=== PATIENT | female | born 1975 | race Caucasian/White ===

== ENCOUNTER 2016-04-26 12:35 | Emergency (ER) | payer MEDICARE, OTHER ==
--- NOTE | 2016-04-26 13:45 | ED ---
General Adult HPI - General Chief complaint: Wound/Laceration Stated complaint: Hand laceration Time Seen by Provider: 04/26/16 13:31 Source: patient, RN notes reviewed Mode of arrival: ambulatory Limitations: no limitations - History of Present Illness Initial comments: This 40-year-old female with a laceration of the right ring finger. Patient states this happened about 1 hour ago. Patient states she was washing a coffee cup when it broke and cut her finger. Patient is up-to-date on her tetanus shot. Patient denies any numbness/weakness or tingling. Patient is not on any anticoagulants.Patient denies any recent fever, chills, shortness breath, chest pain, abdominal pain, nausea/vomiting/diarrhea, back pain, hematuria, headache , or visual changes, or any other complaints. - Related Data Home Medications Medication Instructions Recorded Confirmed HYDROcodone/APAP 7.5-325MG [[place] 1 tab PO TID PRN 04/04/15 04/26/16 7.5-325] Lisinopril [Zestril] 5 mg PO DAILY 04/05/15 04/26/16 Tolterodine Tartrate [Detrol LA] 2 mg PO DAILY 04/05/15 04/26/16 Albuterol Inhaler [Ventolin Hfa 2 puff INHALATION RT-Q4H PRN 10/20/15 04/26/16 Inhaler] Cetirizine HCl [Zyrtec] 10 mg PO DAILY 10/20/15 04/26/16 Famotidine [Famotidine] 20 mg PO AC-TID 10/20/15 04/26/16 Fluticasone Nasal [place] [Flonase 1 spray EA NOSTRIL BID 10/20/15 04/26/16 Nasal [place]] Magnesium Oxide [Mag-Ox] 400 mg PO DAILY 10/20/15 04/26/16 Ondansetron [Zofran] 4 mg PO BID PRN 10/20/15 04/26/16 QUEtiapine FUMARATE [SEROquel XR] 300 mg PO HS 10/20/15 04/26/16 Sertraline [Zoloft] 200 mg PO DAILY 01/01/16 04/26/16 Previous Rx's Medication Instructions Recorded Hydrocodone/Acetaminophen [[place] 1 tab PO Q6HR PRN #10 tab 01/01/16 5-325] Ondansetron Odt [Zofran Odt] 4 mg PO Q8HR PRN #10 tab 01/01/16 Cephalexin [Keflex] 500 mg PO Q12HR 7 Days 04/26/16 Allergies Allergy/AdvReac Type Severity Reaction Status Date / Time adhesive Allergy Rash/Hives Verified 01/01/16 17:56 aspirin Allergy Anaphylaxis Verified 01/01/16 17:56 venlafaxine HCl Allergy Swelling Verified 01/01/16 17:56 [From Effexor] venom-honey bee Allergy Rash/Hives Verified 01/01/16 17:56 [bee venom (honey bee)] Review of Systems ROS Statement: Those systems with pertinent positive or pertinent negative responses have been documented in the HPI. ROS Other: All systems not noted in ROS Statement are negative. Past Medical History Past Medical History: Asthma, COPD, Fibromyalgia, Hypertension, Seizure Disorder Additional Past Medical History / Comment(s): Chronic back pain History of Any Multi-Drug Resistant Organisms: None Reported Past Surgical History: Cholecystectomy, Orthopedic Surgery, Tonsillectomy, Tubal Ligation Additional Past Surgical History / Comment(s): right knee arthroscopy, hysterectomy, [facility] Past Anesthesia/Blood Transfusion Reactions: No Reported Reaction Past Psychological History: Anxiety, Bipolar, Depression Smoking Status: Former smoker Past Alcohol Use History: None Reported Additional Past Alcohol Use History / Comment(s): Patient was a smoker of one half pack per day for 27 years and quit in May 2014. She denies any medical marijuana, marijuana, street drug or alcohol use. Past Drug Use History: None Reported - Past Family History Father Additional Family Medical History / Comment(s): Father is alive at age 67 with history of aneurysm Mother Additional Family Medical History / Comment(s): Mother is alive at age 63 with history of bipolar. Brother(s) Additional Family Medical History / Comment(s): Patient has 2 brothers that are healthy. She has no sisters. She has 2 sons and 1 daughter that are healthy. General Exam - General Exam Comments Initial Comments: General: The patient is awake and alert, in no distress, and does not appear acutely ill. Neck: The neck is supple, there is no tenderness or JVD. Cardiovascular: There is a regular rate and rhythm. No murmur, rub or gallop is appreciated. Respiratory: Lungs are clear to auscultation, respirations are non-labored, breath sounds are equal. No wheezes, stridor, rales, or rhonchi. Musculoskeletal: Full range of motion, strength 5/5. Sensation intact. Radial pulses 2+ bilaterally. Capillary refill is less than 2 seconds. Neurological: A&O x 3. CN II-XII intact, There are no obvious motor or sensory deficits. Coordination appears grossly intact. Speech is normal. Skin: There is an approximately 1.5 cm laceration over the PIP joint of the right fourth digit. Skin is warm and dry and no rashes or lesions are noted. Psychiatric: Normal mood and affect. Limitations: no limitations Course Vital Signs 04/26/16 12:45 Temperature 97.4 F L Pulse Rate 74 Respiratory 20 Rate Blood Pressure 146/79 O2 Sat by Pulse 99 Oximetry Procedures - Procedures Initial comment: The skin was anesthetized with 1% lidocaine. The laceration was then cleansed and irrigated with normal saline. The wound was inspected, and there was no evidence of injury to deep structures. No foreign body was noted in the wound. A total of 4 skin sutures were placed utilizing 5-0 Ethilon. Laceration is approx 1.5 cm. patient tolerated procedure well. Medical Decision Making - Medical Decision Making This is a 41-year-old female who presents laceration to the right fourth digit. On physical exam There is an approximately 1.5 cm laceration over the PIP joint of the right fourth digit. Full range of motion, strength 5/5 and sensation intact. Radial pulses 2+ bilaterally. Capillary refill is normal at less than 2 seconds. Patient is up-to-date on her tetanus shot. An x-ray of the right hand was done and reviewed showing:No definite acute fracture or dislocation if symptoms persist, follow-up study in 7 days would be suggested. Report read by Dr. [place] The skin was anesthetized with 1% lidocaine. The laceration was then cleansed and irrigated with normal saline. The wound was inspected, and there was no evidence of injury to deep structures. No foreign body was noted in the wound. A total of 4 skin sutures were placed utilizing 5-0 Ethilon. Laceration is approx 1.5 cm. I discussed that sutures need to be removed in 8-10 days. I discussed that rinsing and showering are okay but to avoid submerging the wound in water. Discussed [id number] Tylenol and Motrin as needed for any pain. I discussed use of topical Neosporin. I discussed return parameters and signs of infection.Discussed that patient should follow up with PCP in one to 2 days or return to the [facility] for any worsening symptoms or for any further concerns. Patient was receptive to this plan and patient will be discharged home. Disposition Clinical Impression: Laceration Disposition: HOME SELF-CARE Condition: Good Instructions: Care For Your Stitches (ED), Stitches Removal (ED) Additional Instructions: Please have sutures removed in 8-10 days. Please do not submerge the wound in water, but rinsing and showering are okay. May use topical Neosporin to the area. Please use [id number] Tylenol and or Motrin as needed for any pain. Please finish entire course of antibiotics. Please follow-up with family doctor in the next 2 days of symptoms have not improved. Please return to emergency room if the symptoms increase or worsen or for any other concerns. Prescriptions: Cephalexin [Keflex] 500 mg PO Q12HR 7 Days Referrals: Chan Jain MD [Primary Care Provider] - 1-2 days Time of Disposition: 14:22
--- NOTE | 2016-04-26 13:55 | XR ---
EXAMINATION TYPE: XR hand complete RT DATE OF EXAM: 04/26/2016 1:50 PM COMPARISON: NONE HISTORY: Laceration and pain fourth digit. FINDINGS: The osseous structures are intact. The joint spaces are preserved and there is no acute fracture or dislocation. No radio metallic foreign body. IMPRESSION: 1. No definite acute fracture or dislocation if symptoms persist, follow-up study in 7 to 10 days wo uld be suggested
[2016-04-26 14:32] VITALS: BP 142/65; PULSE 77; RESP 18; TEMP 98
== END 2016-04-26 14:34 | disposition home or self-care (01) ==
LOC: EC 12:35
DX: S61.214A Laceration without foreign body of right ring finger without damage to nail, initial encounter (principal); W45.8XXA Other foreign body or object entering through skin, initial encounter; Y93.G1 Activity, food preparation and clean up; Z79.899 Other long term (current) drug therapy; Z79.51 Long term (current) use of inhaled steroids; Z88.6 Allergy status to analgesic agent; Z91.030 Bee allergy status; Z88.8 Allergy status to other drugs, medicaments and biological substances; Z91.048 Other nonmedicinal substance allergy status; I10 Essential (primary) hypertension; F41.8 Other specified anxiety disorders; F31.9 Bipolar disorder, unspecified; Z87.891 Personal history of nicotine dependence
CPT/HCPCS: 12001; 99283

== ENCOUNTER 2016-05-11 17:40 | Emergency (ER) | payer MEDICARE, OTHER ==
--- NOTE | 2016-05-11 18:22 | ED ---
Psych HPI - General Chief Complaint: Psychiatric Symptoms Stated Complaint: mental health Time Seen by Provider: 05/11/16 18:04 Source: patient, RN notes reviewed Mode of arrival: ambulatory - History of Present Illness Initial Comments: 41 yo female presents to the ER with cc of suicidal ideation. Patient states that she's been having suicidal thoughts for the last day or so. Patient states that she has been seeing a counselor however she stopped seeing a psychiatrist that she has not been out of balance for about one month. Patient states that she plans to hang herself or walk onto the road with cars. Patient states that she is not suffering any health issues. Patient states she did not take anything at home. Patient states she talked her family and they brought her here. Patient states she is not homicidal. Patient states that she has been admitted before and she has had suicide attempt in the past.P atient denies any recent fever, chills, shortness of breath, chest pain, back pain, abdominal pain, nausea vomiting, numbness or tingling, dysuria or hematuria, constipation or diarrhea, headaches or visual changes, or any other current symptoms. - Related Data Home Medications Medication Instructions Recorded Confirmed HYDROcodone/APAP 7.5-325MG [[place] 1 tab PO TID PRN 04/04/15 05/11/16 7.5-325] Lisinopril [Zestril] 5 mg PO DAILY 04/05/15 05/11/16 Tolterodine Tartrate [Detrol LA] 2 mg PO DAILY 04/05/15 05/11/16 Albuterol Inhaler [Ventolin Hfa 2 puff INHALATION RT-Q4H PRN 10/20/15 05/11/16 Inhaler] Cetirizine HCl [Zyrtec] 10 mg PO DAILY 10/20/15 05/11/16 Famotidine [Famotidine] 20 mg PO AC-TID 10/20/15 05/11/16 Fluticasone Nasal [place] [Flonase 1 spray EA NOSTRIL BID 10/20/15 05/11/16 Nasal [place]] Magnesium Oxide [Mag-Ox] 400 mg PO DAILY 10/20/15 05/11/16 QUEtiapine FUMARATE [SEROquel XR] 300 mg PO HS 10/20/15 05/11/16 Sertraline [Zoloft] 200 mg PO DAILY 01/01/16 05/11/16 Gabapentin [Neurontin] 100 mg PO TID 05/11/16 05/11/16 Previous Rx's Medication Instructions Recorded Ondansetron Odt [Zofran Odt] 4 mg PO Q8HR PRN #10 tab 01/01/16 Allergies Allergy/AdvReac Type Severity Reaction Status Date / Time adhesive Allergy Rash/Hives Verified 05/11/16 19:18 aspirin Allergy Anaphylaxis Verified 05/11/16 19:18 venlafaxine HCl Allergy Swelling Verified 05/11/16 19:18 [From Effexor] venom-honey bee Allergy Rash/Hives Verified 05/11/16 19:18 [bee venom (honey bee)] Review of Systems ROS Statement: Those systems with pertinent positive or pertinent negative responses have been documented in the HPI. ROS Other: All systems not noted in ROS Statement are negative. Past Medical History Past Medical History: Asthma, COPD, Fibromyalgia, Hypertension, Seizure Disorder Additional Past Medical History / Comment(s): Chronic back pain History of Any Multi-Drug Resistant Organisms: None Reported Past Surgical History: Cholecystectomy, Hysterectomy, Orthopedic Surgery, Tonsillectomy, Tubal Ligation Additional Past Surgical History / Comment(s): right knee arthroscopy, hysterectomy, [facility] Past Anesthesia/Blood Transfusion Reactions: No Reported Reaction Past Psychological History: Anxiety, Bipolar, Depression Smoking Status: Current every day smoker Past Alcohol Use History: None Reported Additional Past Alcohol Use History / Comment(s): Patient was a smoker of one half pack per day for 27 years and quit in May 2014. She denies any medical marijuana, marijuana, street drug or alcohol use. Past Drug Use History: None Reported - Past Family History Father Additional Family Medical History / Comment(s): Father is alive at age 67 with history of aneurysm Mother Additional Family Medical History / Comment(s): Mother is alive at age 63 with history of bipolar. Brother(s) Additional Family Medical History / Comment(s): Patient has 2 brothers that are healthy. She has no sisters. She has 2 sons and 1 daughter that are healthy. General Exam Limitations: no limitations General appearance: alert, in no apparent distress Head exam: Present: atraumatic, normocephalic, normal inspection Neck exam: Present: normal inspection. Absent: tenderness, meningismus, lymphadenopathy Respiratory exam: Present: normal lung sounds bilaterally. Absent: respiratory distress, wheezes, rales, rhonchi, stridor Cardiovascular Exam: Present: regular rate, normal rhythm, normal heart sounds. Absent: systolic murmur, diastolic murmur, rubs, gallop, clicks Neurological exam: Present: alert, oriented X3, CN II-XII intact. Absent: motor sensory deficit Psychiatric exam: Present: depressed, suicidal ideation. Absent: homicidal ideation Skin exam: Present: warm, dry, intact, normal color. Absent: rash Course Vital Signs 05/11/16 17:51 Temperature 97.2 F L Pulse Rate 86 Respiratory 18 Rate Blood Pressure 188/89 O2 Sat by Pulse 98 Oximetry Medical Decision Making - Medical Decision Making 41-year-old female presents emergency Department chief complaint of suicidal ideation. Patient does have a plan earlier but currently does not have a plan. Patient does not recent acute medical emergencies. This and the patient is cleared to be evaluated by psychiatry. Patient [facility] Patient does contract for safety and states that she does feel safe there. At this time we did discuss follow-up with psychiatrist that she has appointment for in the morning. We discussed return parameters and all the patient's questions. She stated she understood all questions have been answered. She will be discharged. - Lab Data Lab Results 05/11/16 Range/Units 18:15 Urine Opiates Screen Not Detected (NotDetected) Ur Oxycodone Screen Not Detected (NotDetected) Urine Methadone Screen Not Detected (NotDetected) Ur Propoxyphene Screen Not Detected (NotDetected) Ur Barbiturates Screen Not Detected (NotDetected) U Tricyclic Antidepress Not Detected (NotDetected) Ur Phencyclidine Scrn Not Detected (NotDetected) Ur Amphetamines Screen Not Detected (NotDetected) U Methamphetamines Scrn Not Detected (NotDetected) U Benzodiazepines Scrn Not Detected (NotDetected) Urine Cocaine Screen Not Detected (NotDetected) U Marijuana (THC) Screen Not Detected (NotDetected) Disposition Clinical Impression: Depression Disposition: HOME SELF-CARE Condition: Stable Instructions: Depression (ED) Additional Instructions: Please use medication as discussed. Please follow up with family doctor if symptoms have not improved over the next two days. Please return to the emergency room if your symptoms increase or worsen or for any other concerns. Referrals: Chan Jain MD [Primary Care Provider] - 1-2 days Time of Disposition: 21:15
[2016-05-11 22:10] VITALS: BP 159/80; PULSE 78; RESP 16; TEMP 98.5
== END 2016-05-11 22:09 | disposition home or self-care (01) ==
LOC: EC 17:40
DX: F31.9 Bipolar disorder, unspecified (principal); J44.9 Chronic obstructive pulmonary disease, unspecified; J45.909 Unspecified asthma, uncomplicated; I10 Essential (primary) hypertension; F41.8 Other specified anxiety disorders; G40.909 Epilepsy, unspecified, not intractable, without status epilepticus; M79.7 Fibromyalgia; Z87.891 Personal history of nicotine dependence; Z79.899 Other long term (current) drug therapy; Z88.6 Allergy status to analgesic agent; Z88.8 Allergy status to other drugs, medicaments and biological substances; Z91.030 Bee allergy status; Z91.09 Other allergy status, other than to drugs and biological substances
CPT/HCPCS: 80306; 82075; 99284

== ENCOUNTER → 2016-06-16 | Outpatient (CLI) | payer MEDICARE, OTHER ==
[2016-06-16 09:55] LABS: ALT 32 U/L (9-52); AST 18 U/L (14-36); Alkaline Phosphatase 118 U/L (38-126); Anion Gap 8 mmol/L; Blood Urea Nitrogen 12 mg/dL (7-17); Calcium 9.8 mg/dL (8.4-10.2); Carbon Dioxide 32 mmol/L (22-30); Chloride 103 mmol/L (98-107); Cholesterol 204 mg/dL (<200); Glucose 96 mg/dL (74-99); HDL Cholesterol 74 mg/dL (40-60); Non-African American GFR(MDRD) >60 (>60 ml/min/1.73 sqM); Potassium 4.3 mmol/L (3.5-5.1); Sodium 143 mmol/L (137-145); Total Bilirubin 0.7 mg/dL (0.2-1.3); Total Protein 7.1 g/dL (6.3-8.2); Triglycerides 148 mg/dL (<150)
[2016-06-16 10:06] LABS: Basophils # (A) 0.1 k/uL (0-0.2); Basophils % (A) 1 %; CH 27.8; CHCM 32.4; Eosinophils # (A) 0.1 k/uL (0-0.7); Eosinophils % (A) 2 %; HCT 40.1 % (34.0-46.0); HDW 2.64; Luc # (Auto) 0.24; Luc % (Auto) 4; Lymphocytes # (A) 1.8 k/uL (1.0-4.8); Lymphocytes % (A) 29 %; MCHC 32.4 g/dL (31.0-37.0); MCV 86.2 fL (80.0-100.0); Mean Platelet Volume 8.2; Monocytes # (A) 0.2 k/uL (0-1.0); Monocytes % (A) 4 %; Neutrophils # (A) 3.8 k/uL (1.3-7.7); Neutrophils % (A) 61 %; RBC 4.65 m/uL (3.80-5.40); RDW 12.6 % (11.5-15.5); WBC 6.3 k/uL (3.8-10.6); WBC (Perox) 6.68
== END | disposition home or self-care (01) ==
LOC: LABWHC1 09:13
PROVIDERS: ATTEND Family Medicine
DX: Z00.00 Encounter for general adult medical examination without abnormal findings (principal); Z13.21 Encounter for screening for nutritional disorder
CPT/HCPCS: 36415; 80053; 80061; 82306; 84443; 85025

== ENCOUNTER → 2016-06-30 | Outpatient (CLI) | payer MEDICARE, OTHER ==
[2016-06-30 09:58] VITALS: BP 153/98; PULSE 66; TEMP 98.8; BMI 40.2
--- NOTE | 2016-06-30 12:53 | P.GSHP ---
History of Present Illness H&P Date: 06/30/16 Chief Complaint: morbid obesity BMI 40 41 years old female with morbid obesity BMI 40, height 5 feet 5.75 inches, weight 112.17 KG presents for bariatric surgery consultation. Patient has not decided about laparoscopic [place]-en-Y gastric bypass versus laparoscopic sleeve gastrectomy. She has attended weight loss seminar. She has attempted nonsurgical weight loss with special diets and has lost some weight but is unable to maintain sustained results. His comorbid conditions include 1. Morbid obesity BMI 40 2. Irritable bowel syndrome 3. History of smoking or alcohol abuse 4. Hypertension 5. Seizure disorder 6. Anxiety 7. Depression 8. Chronic low back pain History of cigarette smoking, quit 1 month ago. History of alcohol abuse, sober for last 9 years. She is edentulous and currently has dentures. She sees a psychologist on a regular basis. She lives with her teenage daughter in her friend's house. She is on disability since 2012 because of chronic back pain Preoperative visit #1, 06/30/2016, weight 112.17 KG, BMI 40 - Review of Systems Comment: Constitutional: Denies fever, weight loss or loss of appetite HEENT: No difficulty in vision or hearing. Denies dysphagia. Cardiovascular: Known WPW syndrome status post cardiac ablation. Denies chest pain, palpitations, dizziness, shortness of breath. Respiratory: Recent upper respiratory tract infection with dry cough. Long- standing asthma well controlled with rescue inhalers. Gastrointestinal: No recent change in bowel habits, no abdominal pain, no nausea or vomiting. Denies reflux symptoms and no postprandial right upper quadrant pain. Last colonoscopy was 2 years ago at [facility]. Integumentary: Long-standing skin changes with intermittent skin breakdown in bilateral lower extremities. He had extensive workup for DVT including duplex ultrasounds which were negative for DVT. Genitourinary: No urinary incontinence, hematuria or dysuria Neurologic: No seizures, denies weakness in upper or lower extremities Musculoskeletal: Occasional left knee pain. Psychiatry: Known history of depression, no suicidal ideation, no anxiety or psychosis Past Medical History Past Medical History: Asthma, COPD, Fibromyalgia, Hypertension, Seizure Disorder , Sleep Apnea/CPAP/BIPAP Additional Past Medical History / Comment(s): Chronic back pain History of Any Multi-Drug Resistant Organisms: None Reported Past Surgical History: Cholecystectomy, Hysterectomy, Orthopedic Surgery, Tonsillectomy, Tubal Ligation Additional Past Surgical History / Comment(s): right knee arthroscopy, hysterectomy, [facility] Past Anesthesia/Blood Transfusion Reactions: No Reported Reaction Past Psychological History: Anxiety, Bipolar, Depression Smoking Status: Current every day smoker Past Alcohol Use History: None Reported Additional Past Alcohol Use History / Comment(s): Patient was a smoker of one half pack per day for 27 years and quit in May 2014. She denies any medical marijuana, marijuana, street drug or alcohol use. Past Drug Use History: None Reported - Past Family History Father Additional Family Medical History / Comment(s): Father is alive at age 67 with history of aneurysm Mother Additional Family Medical History / Comment(s): Mother is alive at age 63 with history of bipolar. Brother(s) Additional Family Medical History / Comment(s): Patient has 2 brothers that are healthy. She has no sisters. She has 2 sons and 1 daughter that are healthy. Medications and Allergies Home Medications Medication Instructions Recorded Confirmed Type HYDROcodone/APAP 7.5-325MG [[place] 1 tab PO BID 04/04/15 06/30/16 History 7.5-325] Lisinopril [Zestril] 10 mg PO DAILY 04/05/15 06/30/16 History Tolterodine Tartrate [Detrol LA] 2 mg PO DAILY 04/05/15 06/30/16 History Albuterol Inhaler [Ventolin Hfa 2 puff INHALATION RT-Q4H PRN 10/20/15 06/30/16 History Inhaler] Cetirizine HCl [Zyrtec] 10 mg PO DAILY 10/20/15 06/30/16 History Famotidine [Famotidine] 20 mg PO AC-TID 10/20/15 06/30/16 History Fluticasone Nasal [place] [Flonase 1 spray EA NOSTRIL BID 10/20/15 06/30/16 History Nasal [place]] Magnesium Oxide [Mag-Ox] 400 mg PO DAILY 10/20/15 06/30/16 History QUEtiapine FUMARATE [SEROquel XR] 300 mg PO HS 10/20/15 06/30/16 History Gabapentin [Neurontin] 300 mg PO TID 05/11/16 06/30/16 History Omalizumab [Xolair] 1 injection SQ DIRECTED 06/30/16 06/30/16 History Allergies Allergy/AdvReac Type Severity Reaction Status Date / Time adhesive Allergy Rash/Hives Verified 06/30/16 09:48 aspirin Allergy Anaphylaxis Verified 06/30/16 09:48 venlafaxine HCl Allergy Swelling Verified 06/30/16 09:48 [From Effexor] venom-honey bee Allergy Rash/Hives Verified 06/30/16 09:48 [bee venom (honey bee)] Surgical - Exam Vital Signs Temp Pulse BP 98.8 F 66 153/98 06/30/16 09:54 06/30/16 09:54 06/30/16 09:54 General: Patient is alert and oriented to time, place and person and cooperative with exam. HEENT: No pallor, no icterus, no thyroid enlargement, no cervical lymphadenopathy.Edentulous Chest: Bilateral equal breath sounds present. No wheezes, no crackles. Cardiovascular: Regular rate and rhythm. Abdomen: Soft, nontender, nondistended. Integumentary: No active ulcers or discharge. Neurologic: Cranial nerves II-XII intact. Strength upper and lower extremities 5/5. No focal neurologic deficits. Gait is normal. Psychiatric: Has anxiety , no psychosis. No suicidal thoughts. Results - Labs 06/30/16 10:41 Diabetes panel 06/30/16 Range/Units 10:41 Sodium Cancelled Potassium Cancelled Chloride Cancelled Carbon Dioxide Cancelled BUN Cancelled Creatinine Cancelled Glucose Cancelled Calcium Cancelled AST Cancelled ALT Cancelled Alkaline Phosphatase Cancelled Total Protein Cancelled Albumin Cancelled Triglycerides Cancelled HDL Cholesterol Cancelled Thyroid panel 06/30/16 Range/Units 10:41 TSH Cancelled Calcium panel 06/30/16 Range/Units 10:41 Calcium Cancelled Albumin Cancelled Pituitary panel 06/30/16 Range/Units 10:41 Sodium Cancelled Potassium Cancelled Chloride Cancelled Carbon Dioxide Cancelled BUN Cancelled Creatinine Cancelled Glucose Cancelled Calcium Cancelled TSH Cancelled Adrenal panel 06/30/16 Range/Units 10:41 Sodium Cancelled Potassium Cancelled Chloride Cancelled Carbon Dioxide Cancelled BUN Cancelled Creatinine Cancelled Glucose Cancelled Calcium Cancelled Total Bilirubin Cancelled AST Cancelled ALT Cancelled Alkaline Phosphatase Cancelled Total Protein Cancelled Albumin Cancelled Assessment and Plan (1) Morbid obesity due to excess calories Status: Acute (2) Morbid obesity with BMI of 40.0-44.9, adult Status: Acute (3) Irritable bowel syndrome Status: Acute (4) Hypertension Status: Acute (5) Smoking addiction Status: Acute (6) Anxiety Status: Acute (7) Depression Status: Acute (8) Hypercholesteremia Status: Acute Plan: 1. A detailed discussion was held about the risks, benefits and potential complications of laparoscopic sleeve gastrectomy and gastric bypass including bleeding, infection, anastomosis leak, stenosis, DVT and PE. Patient demonstrated understanding and willing to undergo the procedure. Patient was explained about high-protein liquid diet 2 weeks prior to surgery 2. Formal Dietitian consult pending. She was recommended to drink protein shakes for snacks. I discussed about reducing the portion size, limiting refined carbohydrates and sugar and increase protein intake 3. Patient scheduled for esophagogastroduodenoscopy with antral biopsy 4. Recent lab reviewed. CBC, CMP normal. Vitamin D deficiency. RX given . TSH normal. 12-lead EKG ordered. Hypercholesterolemia 5. Bilateral screening mammogram 6. Psychiatrist/ psychologist's recommendations pending 7. Sleep study 8. Urine nicotine test .
[2016-07-07 05:26] LABS: Anabasine Urine <2.0 ng/mL (<2.0)
== END | disposition home or self-care (01) ==
LOC: BARWHC3 09:11
PROVIDERS: ATTEND Surgery
DX: E66.01 Morbid (severe) obesity due to excess calories (principal); K58.9 Irritable bowel syndrome, unspecified; I10 Essential (primary) hypertension; E78.00 Pure hypercholesterolemia, unspecified; F17.200 Nicotine dependence, unspecified, uncomplicated; F41.9 Anxiety disorder, unspecified; F32.9 Major depressive disorder, single episode, unspecified; Z79.891 Long term (current) use of opiate analgesic; Z79.899 Other long term (current) drug therapy; J45.909 Unspecified asthma, uncomplicated; G40.909 Epilepsy, unspecified, not intractable, without status epilepticus; J44.9 Chronic obstructive pulmonary disease, unspecified; M79.7 Fibromyalgia; G47.33 Obstructive sleep apnea (adult) (pediatric); Z68.41 Body mass index [BMI] 40.0-44.9, adult
CPT/HCPCS: 93005; G0480; G0463; 80323; 99201

== ENCOUNTER 2016-08-06 09:28 | Day surgery (SDC) | payer MEDICARE, OTHER ==
[2016-08-03 15:54] VITALS: BMI 41.3
[~2016-08-06 09:28] MED LIST: LACTATED RINGERS 1,000 ML IV SCH
[2016-08-06 09:59] VITALS: TEMP 97.7
[2016-08-06] MEDS ORDERED: LIDOCAINE 1% INJ 10MG/ML (20 ML MDV) ONE (10:08)
[2016-08-06] MEDS ORDERED: PROPOFOL 10 MG/ML 20 ML VIAL IV ONE (10:08)
--- NOTE | 2016-08-06 10:23 | P.OP ---
Date of Procedure: 08/06/16 Preoperative Diagnosis: Epigastric pain Diarrhea Postoperative Diagnosis: Normal EGD Procedure(s) Performed: EGD with biopsy Anesthesia: MAC, local Pathology: other Condition: other (ASA3) Disposition: PACU Indications for Procedure: 41 years old female presenting with epigastric pain and diarrhea. Informed consent obtained and she elected to undergo EGD with possible biopsy. Description of Procedure: A timeout was performed to verify the correct patient and correct procedure. Patient was on continuous vitals and pulse ox monitoring throughout the procedure. She was placed in lateral decubitus position and an oral bite block was inserted. A well-lubricated Olympus upper endoscope was passed orally. The esophagus was intubated without difficulty. The vocal cords were visualised and protected at all times. The endoscope was passed beyond the pylorus into the first and second portion of the duodenum. No abnormality is noted in the duodenum mucosa. Two random biopsies were taken from the gastric antrum using cold biopsy forceps. The scope was then retroflexed. No hiatal hernia. No mass, active ulcer or bleeding stigmata noted within the gastric lumen. The GE junction is measured at 35 cm from the incisors . No evidence of reflux esophagitis. The endoscope was gradually withdrawn. No abnormality identified in the esophagus. Patient tolerated the procedure well and was taken to post anesthesia care unit in stable condition. Final Pathologic Diagnosis GASTRIC ANTRUM, BIOPSY: CHRONIC GASTRITIS. IMMUNOPEROXIDASE STAIN NEGATIVE FOR HELICOBACTER PYLORI ORGANISMS (CONTROLS APPROPRIATE).
[2016-08-06 10:42] VITALS: BP 140/89; PULSE 80; RESP 18
== END 2016-08-06 10:59 | disposition home or self-care (01) ==
LOC: ORWHC2ENDO 09:28
PROVIDERS: ATTEND Surgery
DX: K29.50 Unspecified chronic gastritis without bleeding (principal); I10 Essential (primary) hypertension; J44.9 Chronic obstructive pulmonary disease, unspecified; Z87.891 Personal history of nicotine dependence; M79.7 Fibromyalgia; G47.33 Obstructive sleep apnea (adult) (pediatric); Z79.1 Long term (current) use of non-steroidal anti-inflammatories (NSAID); Z79.51 Long term (current) use of inhaled steroids; Z79.899 Other long term (current) drug therapy; Z88.6 Allergy status to analgesic agent; Z88.8 Allergy status to other drugs, medicaments and biological substances; Z91.09 Other allergy status, other than to drugs and biological substances
CPT/HCPCS: 88305; 88342; 43239; J2001; J2704

== ENCOUNTER 2016-08-11 13:17 | Emergency (ER) | payer MEDICARE, OTHER ==
--- NOTE | 2016-08-11 15:21 | ED ---
Skin/Abscess/FB HPI - General Chief complaint: Skin/Abscess/Foreign Body Stated complaint: Rash Time Seen by Provider: 08/11/16 14:59 Source: patient, RN notes reviewed Mode of arrival: ambulatory Limitations: no limitations - History of Present Illness Initial comments: Patient is a 41-year-old female presents to the emergency room for evaluation of rash. Patient states she had a rash about 2 weeks ago went to see her primary care provider. Patient states she was placed on cream for scabies. Patient states the cream has not been working. Patient states that she has also been placed on Zyrtec with no relief of symptoms. Patient states her rash is very itchy and hurts to touch. Patient denies new detergents, body washes, shampoos, perfumes. Patient denies any new plants or pets in the household. Patient states the rash is not subsiding. Patient states she's been taking Benadryl with no relief of symptoms. Patient denies any new medications. Patient denies fevers or chills. - Related Data Home Medications Medication Instructions Recorded Confirmed HYDROcodone/APAP 7.5-325MG [[place] 1 tab PO BID 04/04/15 08/06/16 7.5-325] Lisinopril [Zestril] 10 mg PO DAILY 04/05/15 08/06/16 Tolterodine Tartrate [Detrol LA] 2 mg PO DAILY 04/05/15 08/06/16 Albuterol Inhaler [Ventolin Hfa 2 puff INHALATION RT-Q4H PRN 10/20/15 08/06/16 Inhaler] Cetirizine HCl [Zyrtec] 10 mg PO DAILY 10/20/15 08/06/16 Famotidine [Famotidine] 20 mg PO AC-TID 10/20/15 08/06/16 Fluticasone Nasal [place] [Flonase 1 spray EA NOSTRIL BID 10/20/15 08/06/16 Nasal [place]] Magnesium Oxide [Mag-Ox] 400 mg PO DAILY 10/20/15 08/06/16 QUEtiapine FUMARATE [SEROquel XR] 300 mg PO HS 10/20/15 08/06/16 Gabapentin [Neurontin] 300 mg PO TID 05/11/16 08/06/16 Omalizumab [Xolair] 1 injection SQ Q14D 06/30/16 08/06/16 Albuterol Sulfate [Proair Hfa] 2 puff INHALATION DAILY 08/03/16 08/06/16 Budesonide-Formot 160-4.5 Mcg 1 puff INHALATION DAILY 08/03/16 08/06/16 [Symbicort 160-4.5 Mcg Inhaler] Meloxicam [Meloxicam] 15 mg PO DAILY 08/03/16 08/06/16 Previous Rx's Medication Instructions Recorded Ondansetron Odt [Zofran Odt] 4 mg PO Q8HR PRN #10 tab 01/01/16 Omeprazole 20 mg PO DAILY #30 cap 08/06/16 predniSONE 50 mg PO DAILY #4 tab 08/11/16 Allergies Allergy/AdvReac Type Severity Reaction Status Date / Time adhesive Allergy Rash/Hives Verified 08/11/16 13:44 aspirin Allergy Anaphylaxis Verified 08/11/16 13:44 clonidine Allergy Rash/Hives Verified 08/11/16 13:44 venlafaxine HCl Allergy Swelling Verified 08/11/16 13:44 [From Effexor] venom-honey bee Allergy Rash/Hives Verified 08/11/16 13:44 [bee venom (honey bee)] Review of Systems ROS Statement: Those systems with pertinent positive or pertinent negative responses have been documented in the HPI. ROS Other: All systems not noted in ROS Statement are negative. Past Medical History Past Medical History: Asthma, COPD, Fibromyalgia, Hypertension, Seizure Disorder , Sleep Apnea/CPAP/BIPAP Additional Past Medical History / Comment(s): Chronic back pain, LAST SEIZURE 2013 History of Any Multi-Drug Resistant Organisms: None Reported Past Surgical History: Cholecystectomy, Hysterectomy, Orthopedic Surgery, Tonsillectomy, Tubal Ligation Additional Past Surgical History / Comment(s): KIRK knee arthroscopy, hysterectomy, epidural lumbar injections KIRK CARPAL TUNNEL, ARTHROSCOPY RT ELBOW Past Anesthesia/Blood Transfusion Reactions: No Reported Reaction Past Psychological History: Anxiety, Bipolar, Depression Smoking Status: Former smoker Past Alcohol Use History: None Reported Additional Past Alcohol Use History / Comment(s): Patient was a smoker of one half pack per day and quit in May 2014. ON AND OFF FROM AGE 15 Past Drug Use History: None Reported - Past Family History Father Family Medical History: Deep Vein Thrombosis (DVT) Additional Family Medical History / Comment(s): Father is alive at age 67 with history of aneurysm Mother Additional Family Medical History / Comment(s): Mother is alive at age 63 with history of bipolar. Brother(s) Additional Family Medical History / Comment(s): Patient has 2 brothers that are healthy. She has no sisters. She has 2 sons and 1 daughter that are healthy. General Exam - General Exam Comments Initial Comments: Sitting in exam room, no acute distress. Limitations: no limitations General appearance: alert, in no apparent distress Head exam: Present: atraumatic, normocephalic, normal inspection Eye exam: Present: normal appearance ENT exam: Present: normal exam Neck exam: Present: normal inspection Respiratory exam: Present: normal lung sounds bilaterally. Absent: respiratory distress Cardiovascular Exam: Present: regular rate, normal rhythm, normal heart sounds Extremities exam: Present: normal inspection Back exam: Present: normal inspection Neurological exam: Present: alert, oriented X3, CN II-XII intact, normal gait Psychiatric exam: Present: normal affect, normal mood Skin exam: Present: warm, dry, intact, other (Raised papular rash over bilateral feet, legs, hands, arms and abdomen) Course Vital Signs 08/11/16 08/11/16 13:42 15:39 Temperature 98.1 F 97.8 F Pulse Rate 102 H 78 Respiratory 20 16 Rate Blood Pressure 145/79 120/70 O2 Sat by Pulse 99 98 Oximetry Medical Decision Making - Medical Decision Making patient is a 41-year-old female presents to the emergency room for evaluation of rash. Patient previously treated for scabies which did not help her symptoms. Will start patient on prednisone and have her follow-up with a cotton farmer. Patient states she understands everything that was discussed with her. Return parameters discussed. Disposition Clinical Impression: Rash and nonspecific skin eruption Disposition: HOME SELF-CARE Condition: Good Instructions: Acute Rash (ED) Additional Instructions: Take medications as directed. Continue taking Benadryl as needed. Please follow-up with cotton farmer for further evaluation. If any new symptom arises or symptoms worsen, return to ER as soon as possible. Prescriptions: predniSONE 50 mg PO DAILY #4 tab Referrals: Chan Jain MD [Primary Care Provider] - 1-2 days Da Castillo MD [STAFF PHYSICIAN] - 1-2 days Time of Disposition: 15:26
[2016-08-11] MEDS ORDERED: predniSONE 50 MG TAB PO STA (15:26)
[2016-08-11 15:40] VITALS: BP 120/70; PULSE 78; RESP 16; TEMP 97.8
== END 2016-08-11 15:39 | disposition home or self-care (01) ==
LOC: EC 13:17
DX: R21 Rash and other nonspecific skin eruption (principal); J45.909 Unspecified asthma, uncomplicated; F31.9 Bipolar disorder, unspecified; J44.9 Chronic obstructive pulmonary disease, unspecified; M79.7 Fibromyalgia; F41.9 Anxiety disorder, unspecified; I10 Essential (primary) hypertension; G40.909 Epilepsy, unspecified, not intractable, without status epilepticus; Z87.891 Personal history of nicotine dependence; Z79.1 Long term (current) use of non-steroidal anti-inflammatories (NSAID); Z79.51 Long term (current) use of inhaled steroids; Z79.899 Other long term (current) drug therapy; Z88.6 Allergy status to analgesic agent; Z88.8 Allergy status to other drugs, medicaments and biological substances; Z91.030 Bee allergy status; Z91.048 Other nonmedicinal substance allergy status
CPT/HCPCS: 99282; J7512

== ENCOUNTER 2016-11-16 17:58 | Emergency (ER) | payer MEDICARE, OTHER ==
[2016-11-16] MEDS ORDERED: SODIUM CHLORIDE 0.9% 1,000 ML IV STA (19:18)
[2016-11-16] MEDS ORDERED: HYDROmorphone 1 MG/ML 1 ML SYRINGE IVP STA (19:18)
[2016-11-16] MEDS ORDERED: ONDANSETRON 4 MG/2 ML VIAL IVP STA (19:18)
--- NOTE | 2016-11-16 19:21 | ED ---
General Adult HPI - General Chief complaint: Abdominal Pain Stated complaint: RLQ pain Time Seen by Provider: 11/16/16 19:14 Source: patient, RN notes reviewed Mode of arrival: ambulatory - History of Present Illness Initial comments: Patient 41-year-old female who presents emergency room today with a chief complaint of right lower quadrant pain that began approximately 8 hours ago. She does admit to increased sharp pain to the right lower quadrant. Admits to a history kidney stones but does admit that this feels different. States she's had a total hysterectomy. Patient admits some nausea. States pain is worse with certain movements. Denies any complaints associated symptoms. Patient denies any recent fever, chills, shortness of breath, chest pain, numbness or tingling, dysuria or hematuria, constipation or diarrhea, headaches or visual changes, or any other complaints. - Related Data Home Medications Medication Instructions Recorded Confirmed HYDROcodone/APAP 7.5-325MG [[place] 1 tab PO BID 04/04/15 11/16/16 7.5-325] Lisinopril [Zestril] 10 mg PO DAILY 04/05/15 11/16/16 Tolterodine Tartrate [Detrol LA] 2 mg PO DAILY 04/05/15 11/16/16 Albuterol Inhaler [Ventolin Hfa 2 puff INHALATION RT-Q4H PRN 10/20/15 11/16/16 Inhaler] Cetirizine HCl [Zyrtec] 20 mg PO QAM 10/20/15 11/16/16 Fluticasone Nasal [place] [Flonase 1 spray EA NOSTRIL DAILY 10/20/15 11/16/16 Nasal [place]] Magnesium Oxide [Mag-Ox] 400 mg PO DAILY 10/20/15 11/16/16 Gabapentin [Neurontin] 300 mg PO TID 05/11/16 11/16/16 Omalizumab [Xolair] 150 mg SQ Q14D 06/30/16 11/16/16 Budesonide-Formot 160-4.5 Mcg 2 puff INHALATION RT-BID 08/03/16 11/16/16 [Symbicort 160-4.5 Mcg Inhaler] Meloxicam [Meloxicam] 15 mg PO DAILY 08/03/16 11/16/16 Albuterol Nebulized [Ventolin 2.5 mg INHALATION RT-TID 11/16/16 11/16/16 Nebulized] EPINEPHrine [Epipen 2-Melecio] 0.3 mg IM ONCE PRN 11/16/16 11/16/16 Ergocalciferol [Vitamin D2] 50,000 unit PO SA 11/16/16 11/16/16 Montelukast [Singulair] 10 mg PO HS 11/16/16 11/16/16 QUEtiapine FUMARATE [Seroquel Xr] 400 mg PO HS 11/16/16 11/16/16 Vilazodone HCl [Viibryd] 10 mg PO HS 11/16/16 11/16/16 hydrOXYzine PAMOATE 25 mg PO TID 11/16/16 11/16/16 Previous Rx's Medication Instructions Recorded Omeprazole 20 mg PO DAILY #30 cap 08/06/16 Allergies Allergy/AdvReac Type Severity Reaction Status Date / Time adhesive Allergy Rash/Hives Verified 11/16/16 19:58 aspirin Allergy Anaphylaxis Verified 11/16/16 19:58 clonidine Allergy Rash/Hives Verified 11/16/16 19:58 venlafaxine HCl Allergy Swelling Verified 11/16/16 19:58 [From Effexor] venom-honey bee Allergy Rash/Hives Verified 11/16/16 19:58 [bee venom (honey bee)] Review of Systems ROS Statement: Those systems with pertinent positive or pertinent negative responses have been documented in the HPI. ROS Other: All systems not noted in ROS Statement are negative. Past Medical History Past Medical History: Asthma, COPD, Fibromyalgia, Hypertension, Seizure Disorder , Sleep Apnea/CPAP/BIPAP Additional Past Medical History / Comment(s): Chronic back pain, LAST SEIZURE 2013 History of Any Multi-Drug Resistant Organisms: None Reported Past Surgical History: Cholecystectomy, Hysterectomy, Orthopedic Surgery, Tonsillectomy, Tubal Ligation Additional Past Surgical History / Comment(s): KIRK knee arthroscopy, hysterectomy, epidural lumbar injections KIRK CARPAL TUNNEL, ARTHROSCOPY RT ELBOW Past Anesthesia/Blood Transfusion Reactions: No Reported Reaction Past Psychological History: Anxiety, Bipolar, Depression Smoking Status: Former smoker Past Alcohol Use History: None Reported Past Drug Use History: None Reported - Past Family History Father Family Medical History: Deep Vein Thrombosis (DVT) Additional Family Medical History / Comment(s): Father is alive at age 67 with history of aneurysm Mother Additional Family Medical History / Comment(s): Mother is alive at age 63 with history of bipolar. Brother(s) Additional Family Medical History / Comment(s): Patient has 2 brothers that are healthy. She has no sisters. She has 2 sons and 1 daughter that are healthy. General Exam - General Exam Comments Initial Comments: General: The patient is awake and alert, in no distress, and does not appear acutely ill. Eye: Pupils are equal, round and reactive to light, extra-ocular movements are intact. No nystagmus. There is normal conjunctiva bilaterally. No signs of icterus. Ears, nose, mouth and throat: There are moist mucous membranes and no oral lesions. Neck: The neck is supple, there is no tenderness or JVD. Cardiovascular: There is a regular rate and rhythm. No murmur, rub or gallop is appreciated. Respiratory: Lungs are clear to auscultation, respirations are non-labored, breath sounds are equal. No wheezes, stridor, rales, or rhonchi. Gastrointestinal: Soft, non-distended. Tender right lower quadrant. There is no rebound or guarding present. Bilateral CVA tenderness. Bowel sounds are unremarkable. Musculoskeletal: Normal ROM, no tenderness. Strength 5/5. Sensation intact. Pulses equal bilaterally 2+. Neurological: A&O x 3. CN II-XII intact, There are no obvious motor or sensory deficits. Coordination appears grossly intact. Speech is normal. Skin: Skin is warm and dry and no rashes or lesions are noted. Psychiatric: Cooperative, appropriate mood & affect, normal judgment. Course Vital Signs 11/16/16 18:12 Temperature 100.4 F H Pulse Rate 89 Respiratory 18 Rate Blood Pressure 176/79 O2 Sat by Pulse 100 Oximetry Medical Decision Making - Medical Decision Making CT the abdomen and pelvis reviewed and negative for any acute abnormalities. Patient has a total hysterectomy. Patient resting comfortably in the stretcher no signs of distress. Abdomen soft nontender. Labs been reviewed unremarkable. Patient will be discharged home advised follow-up the family doctor over the next 2 days. Advised return if any symptoms increase or worsen or for any other concerns. She states understanding and is in agreement. - Lab Data Result diagrams: 11/16/16 19:46 11/16/16 19:46 Lab Results 11/16/16 11/16/16 11/16/16 Range/Units 19:39 19:46 19:46 WBC 8.8 (3.8-10.6) k/uL RBC 4.35 (3.80-5.40) m/uL Hgb 12.7 (11.4-16.0) gm/dL Hct 38.0 (34.0-46.0) % MCV 87.4 (80.0-100.0) fL MCH 29.1 (25.0-35.0) pg MCHC 33.3 (31.0-37.0) g/dL RDW 13.6 (11.5-15.5) % Plt Count 259 (150-450) k/uL Neutrophils % 61 % Lymphocytes % 31 % Monocytes % 4 % Eosinophils % 2 % Basophils % 0 % Neutrophils # 5.4 (1.3-7.7) k/uL Lymphocytes # 2.7 (1.0-4.8) k/uL Monocytes # 0.4 (0-1.0) k/uL Eosinophils # 0.1 (0-0.7) k/uL Basophils # 0.0 (0-0.2) k/uL PT (9.0-12.0) sec INR (<1.2) APTT (22.0-30.0) sec Sodium 144 (137-145) mmol/L Potassium 3.9 (3.5-5.1) mmol/L Chloride 107 (98-107) mmol/L Carbon Dioxide 25 (22-30) mmol/L Anion Gap 12 mmol/L BUN 11 (7-17) mg/dL Creatinine 0.80 (0.52-1.04) mg/dL Est GFR (MDRD) Af Amer >60 (>60 ml/min/1.73 sqM) Est GFR (MDRD) Non-Af >60 (>60 ml/min/1.73 sqM) Glucose 88 (74-99) mg/dL Plasma Lactic Acid Jeff (0.7-2.0) mmol/L Calcium 9.6 (8.4-10.2) mg/dL Total Bilirubin 0.6 (0.2-1.3) mg/dL AST 19 (14-36) U/L ALT 38 (9-52) U/L Alkaline Phosphatase 127 H (38-126) U/L Total Protein 6.9 (6.3-8.2) g/dL Albumin 4.3 (3.5-5.0) g/dL Amylase <30 L (30-110) U/L Lipase 65 (23-300) U/L Urine Color Yellow Urine Appearance Cloudy H (Clear) Urine pH 7.0 (5.0-8.0) Ur Specific [place] 1.014 (1.001-1.035) Urine Protein Negative (Negative) Urine Glucose (UA) Negative (Negative) Urine Ketones Negative (Negative) Urine Blood Negative (Negative) Urine Nitrite Negative (Negative) Urine Bilirubin Negative (Negative) Urine Urobilinogen <2.0 (<2.0) mg/dL Ur Leukocyte Esterase Negative (Negative) Urine RBC 1 (0-5) /hpf Urine WBC 2 (0-5) /hpf Ur Squamous Epith Cells 7 H (0-4) /hpf Urine Mucus Few H (None) /hpf 11/16/16 11/16/16 Range/Units 19:46 19:46 WBC (3.8-10.6) k/uL RBC (3.80-5.40) m/uL Hgb (11.4-16.0) gm/dL Hct (34.0-46.0) % MCV (80.0-100.0) fL MCH (25.0-35.0) pg MCHC (31.0-37.0) g/dL RDW (11.5-15.5) % Plt Count (150-450) k/uL Neutrophils % % Lymphocytes % % Monocytes % % Eosinophils % % Basophils % % Neutrophils # (1.3-7.7) k/uL Lymphocytes # (1.0-4.8) k/uL Monocytes # (0-1.0) k/uL Eosinophils # (0-0.7) k/uL Basophils # (0-0.2) k/uL PT 10.3 (9.0-12.0) sec INR 1.0 (<1.2) APTT 24.1 (22.0-30.0) sec Sodium (137-145) mmol/L Potassium (3.5-5.1) mmol/L Chloride (98-107) mmol/L Carbon Dioxide (22-30) mmol/L Anion Gap mmol/L BUN (7-17) mg/dL Creatinine (0.52-1.04) mg/dL Est GFR (MDRD) Af Amer (>60 ml/min/1.73 sqM) Est GFR (MDRD) Non-Af (>60 ml/min/1.73 sqM) Glucose (74-99) mg/dL Plasma Lactic Acid Jeff 1.3 (0.7-2.0) mmol/L Calcium (8.4-10.2) mg/dL Total Bilirubin (0.2-1.3) mg/dL AST (14-36) U/L ALT (9-52) U/L Alkaline Phosphatase (38-126) U/L Total Protein (6.3-8.2) g/dL Albumin (3.5-5.0) g/dL Amylase (30-110) U/L Lipase (23-300) U/L Urine Color Urine Appearance (Clear) Urine pH (5.0-8.0) Ur Specific [place] (1.001-1.035) Urine Protein (Negative) Urine Glucose (UA) (Negative) Urine Ketones (Negative) Urine Blood (Negative) Urine Nitrite (Negative) Urine Bilirubin (Negative) Urine Urobilinogen (<2.0) mg/dL Ur Leukocyte Esterase (Negative) Urine RBC (0-5) /hpf Urine WBC (0-5) /hpf Ur Squamous Epith Cells (0-4) /hpf Urine Mucus (None) /hpf Disposition Clinical Impression: Abdominal pain Disposition: HOME SELF-CARE Condition: Good Instructions: Abdominal Pain (ED) Additional Instructions: Please use medication as discussed. Please follow-up with family doctor in the next 2 days of symptoms have not improved. Please return to emergency room if the symptoms increase or worsen or for any other concerns. Referrals: Chan Jain MD [Primary Care Provider] - 1-2 days Time of Disposition: 21:04
[2016-11-16 20:04] LABS: Basophils % (A) 0 %; CH 29.6; Eosinophils # (A) 0.1 k/uL (0-0.7); Eosinophils % (A) 2 %; HDW 2.66; HGB 12.7 gm/dL (11.4-16.0); Luc # (Auto) 0.17; Luc % (Auto) 2; Lymphocytes # (A) 2.7 k/uL (1.0-4.8); Lymphocytes % (A) 31 %; MCH 29.1 pg (25.0-35.0); MCHC 33.3 g/dL (31.0-37.0); MCV 87.4 fL (80.0-100.0); Monocytes # (A) 0.4 k/uL (0-1.0); Monocytes % (A) 4 %; Neutrophils # (A) 5.4 k/uL (1.3-7.7); Neutrophils % (A) 61 %; RBC 4.35 m/uL (3.80-5.40); RDW 13.6 % (11.5-15.5); WBC 8.8 k/uL (3.8-10.6); WBC (Perox) 9.26
--- NOTE | 2016-11-16 20:08 | XR ---
EXAMINATION TYPE: XR KUB - 2V DATE OF EXAM: 11/16/2016 COMPARISON: January 01, 2016 HISTORY: Pain, right lower quadrant with fever. History of bilateral renal calcifications. TECHNIQUE: 2 upright views FINDINGS: There are no definite calcifications over the kidneys, expected course of the ureters, or t he urinary bladder. Visualized lung bases and pleural spaces are unremarkable. There is no pneumatosis. No pneumoperitoneum. Bowel gas pattern is negative. Bones and soft tissues are unremarkable IMPRESSION: NO ACUTE RADIOGRAPHIC PROCESS.
[2016-11-16 20:11] LABS: Partial Thromboplastin Time 24.1 sec (22.0-30.0); Prothrombin Time 10.3 sec (9.0-12.0)
[2016-11-16 20:13] LABS: Appearance,Urine Cloudy (Clear); Bilirubin,Urine Negative (Negative); Glucose,Urine (UA) Negative (Negative); Ketones,Urine Negative (Negative); Leukocyte Esterase,Urine Negative (Negative); Mucus,Urine Few /hpf; Nitrite,Urine Negative (Negative); Particle Count 5116; Protein,Urine Negative (Negative); RBC,Urine 1 /hpf (0-5); Specific Gravity,Urine 1.014 (1.001-1.035); Squamous Epithelial Cell,Urine 7 /hpf (0-4); UA Billing (MACRO vs. MICRO) MICRO; Urobilinogen,Urine <2.0 mg/dL (<2.0); WBC,Urine 2 /hpf (0-5)
[2016-11-16 20:15] LABS: ALT 38 U/L (9-52); AST 19 U/L (14-36); Alkaline Phosphatase 127 U/L (38-126); Amylase <30 U/L (30-110); Anion Gap 12 mmol/L; Blood Urea Nitrogen 11 mg/dL (7-17); Calcium 9.6 mg/dL (8.4-10.2); Carbon Dioxide 25 mmol/L (22-30); Chloride 107 mmol/L (98-107); Glucose 88 mg/dL (74-99); Non-African American GFR(MDRD) >60 (>60 ml/min/1.73 sqM); Potassium 3.9 mmol/L (3.5-5.1); Sodium 144 mmol/L (137-145); Total Bilirubin 0.6 mg/dL (0.2-1.3); Total Protein 6.9 g/dL (6.3-8.2)
[2016-11-16 21:23] VITALS: BP 159/98; PULSE 68; RESP 16; TEMP 98.4
== END 2016-11-16 21:22 | disposition home or self-care (01) ==
LOC: EC 17:58
DX: R10.31 Right lower quadrant pain (principal); R11.0 Nausea; I10 Essential (primary) hypertension; J44.9 Chronic obstructive pulmonary disease, unspecified; M79.7 Fibromyalgia; G89.29 Other chronic pain; F31.9 Bipolar disorder, unspecified; F41.9 Anxiety disorder, unspecified; Z87.891 Personal history of nicotine dependence; Z79.1 Long term (current) use of non-steroidal anti-inflammatories (NSAID); Z79.51 Long term (current) use of inhaled steroids; Z79.899 Other long term (current) drug therapy; Z88.6 Allergy status to analgesic agent; Z88.8 Allergy status to other drugs, medicaments and biological substances; Z91.030 Bee allergy status; Z91.09 Other allergy status, other than to drugs and biological substances; Z90.49 Acquired absence of other specified parts of digestive tract; Z90.710 Acquired absence of both cervix and uterus
CPT/HCPCS: 36415; 80053; 82150; 83605; 83690; 85025; 85610; 85730; 81001; 74000; 99284; 96374; 96375; 96361; J2405; J1170

== ENCOUNTER → 2017-02-21 | Outpatient (CLI) | payer MEDICARE, OTHER ==
[2017-02-21 10:22] VITALS: BP 112/69; PULSE 99; RESP 16; TEMP 97.7; BMI 39.9
--- NOTE | 2017-02-21 11:09 | P.PN ---
Subjective Progress Note Date: 02/21/17 Principal diagnosis: S/P lap sleeve gastrectomy 42 years old female with morbid obesity BMI 40, height 5 feet 5.75 inches, weight 112.17 KG S/P robotic assist laparoscopic sleeve gastrectomy. Her comorbid conditions include 1. Morbid obesity initial BMI 40 2. Irritable bowel syndrome 3. History of smoking 4. Hypertension 5. Seizure disorder 6. Anxiety 7. Depression 8. Chronic low back pain 9. Recurrent kidney stones History of alcohol abuse, sober for last 9 years. She is edentulous and currently has dentures. She sees a psychologist on a regular basis. She lives with her teenage daughter in her friend's house. She is on disability since 2012 because of chronic back pain Patient reports no pain. Regular BMs. No reflux, heartburn Preoperative visit #1, 06/30/2016, weight 112.17 KG, BMI 40 Preoperative visit #2, 01/12/2017, weight 116.89KG, BMI 41 Surgery date 02/16/2017 weight 111.85 KG, BMI 39.8 Postoperative visit #1, 01/12/2017, weight 111.32 KG , BMI 39 Objective - Vital Signs Vital signs: Vital Signs Temp 97.7 F 02/21/17 10:13 Pulse 99 02/21/17 10:13 Resp 16 02/21/17 10:13 BP 112/69 02/21/17 10:13 Pulse Ox Intake & Output 02/20/17 02/21/17 02/21/17 18:59 06:59 18:59 Weight 111.329 kg - Exam General: Patient is alert and oriented to time, place and person and cooperative with exam. HEENT: No pallor, no icterus Chest: Bilateral equal breath sounds present. No wheezes, no crackles. Cardiovascular: Regular rate and rhythm. Abdomen: Soft, nontender, nondistended. Incisions are clean dry and intact. No surgical site infection Integumentary: No active ulcers or discharge. Neurologic: Cranial nerves II-XII intact. Strength upper and lower extremities 5/5. No focal neurologic deficits. Gait is normal. Assessment and Plan (1) Depression Current Visit: No Status: Acute Code(s): F32.9 - MAJOR DEPRESSIVE DISORDER, SINGLE EPISODE, UNSPECIFIED SNOMED Code(s): 22192216 (2) Hypercholesteremia Current Visit: No Status: Acute Code(s): E78.00 - PURE HYPERCHOLESTEROLEMIA , UNSPECIFIED SNOMED Code(s): 86209153 (3) Hypertension Current Visit: No Status: Acute Code(s): I10 - ESSENTIAL (PRIMARY) HYPERTENSION SNOMED Code(s): 49748642 (4) Irritable bowel syndrome Current Visit: No Status: Acute Code(s): K58.9 - IRRITABLE BOWEL SYNDROME WITHOUT DIARRHEA SNOMED Code(s): 77901901 (5) Morbid obesity due to excess calories Current Visit: No Status: Acute Code(s): E66.01 - MORBID (SEVERE) OBESITY DUE TO EXCESS CALORIES SNOMED Code(s): 829234492 Plan: 1. Increase oral fluid intake and advance diet as per protocol. 2. Check CBC, CMP, mineral and vitamin levels 3. Follow-up appointment at the bariatric center on 03/07/2017
[2017-02-21 11:53] LABS: CH 28.5; CHCM 33.9; HCT 35.1 % (34.0-46.0); HDW 2.97; HGB 11.8 gm/dL (11.4-16.0); MCH 28.4 pg (25.0-35.0); MCHC 33.6 g/dL (31.0-37.0); MCV 84.6 fL (80.0-100.0); Mean Platelet Volume 7.7; RBC 4.15 m/uL (3.80-5.40); RDW 12.6 % (11.5-15.5); WBC 6.8 k/uL (3.8-10.6)
[2017-02-21 12:01] LABS: ALT 72 U/L (9-52); AST 21 U/L (14-36); Alkaline Phosphatase 101 U/L (38-126); Anion Gap 10 mmol/L; Blood Urea Nitrogen 17 mg/dL (7-17); Calcium 9.7 mg/dL (8.4-10.2); Carbon Dioxide 28 mmol/L (22-30); Chloride 104 mmol/L (98-107); Glucose 104 mg/dL (74-99); Magnesium 1.9 mg/dL (1.6-2.3); Non-African American GFR(MDRD) >60 (>60 ml/min/1.73 sqM); Sodium 142 mmol/L (137-145); Total Bilirubin 0.4 mg/dL (0.2-1.3); Total Protein 6.6 g/dL (6.3-8.2)
== END | disposition home or self-care (01) ==
LOC: BARWHC3 09:43
PROVIDERS: ATTEND Surgery
DX: Z48.815 Encounter for surgical aftercare following surgery on the digestive system (principal); F32.9 Major depressive disorder, single episode, unspecified; E78.00 Pure hypercholesterolemia, unspecified; I10 Essential (primary) hypertension; K58.9 Irritable bowel syndrome, unspecified; E66.01 Morbid (severe) obesity due to excess calories; Z68.41 Body mass index [BMI] 40.0-44.9, adult; Z98.84 Bariatric surgery status; E55.9 Vitamin D deficiency, unspecified
CPT/HCPCS: 84134; 80053; 82607; 83735; 84100; 84590; 85027; 82306; 97803; 36415; G0463; 99211

== ENCOUNTER → 2017-03-09 | Outpatient (CLI) | payer MEDICARE, OTHER ==
[2017-03-09 14:18] VITALS: BMI 39.3
[2017-03-09 14:32] VITALS: BP 142/63; PULSE 65; RESP 16; TEMP 98.5
--- NOTE | 2017-05-28 13:15 | P.PN ---
Subjective Progress Note Date: 03/09/17 DATE OF SERVICE: 03/09/2017 CHIEF COMPLAINT: Follow up sleeve gastrectomy. HISTORY OF PRESENT ILLNESS: Sharri Braswell is a 42-year-old female with a history of sleeve gastrectomy 02/16/[address] Lopez. She is 3 weeks postop. No reports of nausea and vomiting. No reports of fevers or chills. She is tolerating diet. She reports intermittent right lower quadrant abdominal pain related to her surgery. Her highest weight for his 5 foot 5.75 frame is 259 pounds. Today she comes weight at 241 pounds. Total weight loss of 17 pounds lifetime. She has lost another 4 pounds in 2 week since her last visit. Body mass index is 42.1 down to 39.3. Percent excess weight loss of 22 % lifetime. PHYSICAL EXAM: VITAL SIGNS: 5 feet 5.75 inches, 241 pounds, body mass index 39.5. Vital Signs Temp 98.5 F 03/09/17 14:28 Pulse 65 03/09/17 14:28 Resp 16 03/09/17 14:28 BP 142/63 03/09/17 14:28 Pulse Ox ABDOMEN: Soft, nondistended. Incision is intact without evidence of infection. MUSCULOSKELETAL: No clubbing or cyanosis or edema. GENERAL: Well-developed male in no acute distress. HEENT: No sclerae icterus. Extra-ocular movements are grossly intact. Hears conversational speech. CHEST: Nonlabored respirations. Equal bilateral excursions. CARDIOVASCULAR: Regular rate. Regular rhythm. NEURO: No focal or lateralizing signs. Cranial nerves II-12 grossly intact. PSYCH: Appropriated affect. Alert and oriented to person, place and time. SKIN: Well perfused. Good skin turgor. Laboratory Last Values WBC 6.8 k/uL (3.8-10.6) 02/21/17 11:15 RBC 4.15 m/uL (3.80-5.40) 02/21/17 11:15 Hgb 11.8 gm/dL (11.4-16.0) 02/21/17 11:15 Hct 35.1 % (34.0-46.0) 02/21/17 11:15 MCV 84.6 fL (80.0-100.0) 02/21/17 11:15 MCH 28.4 pg (25.0-35.0) 02/21/17 11:15 MCHC 33.6 g/dL (31.0-37.0) 02/21/17 11:15 RDW 12.6 % (11.5-15.5) 02/21/17 11:15 Plt Count 265 k/uL (150-450) 02/21/17 11:15 Sodium 142 mmol/L (137-145) 02/21/17 11:15 Potassium 4.0 mmol/L (3.5-5.1) 02/21/17 11:15 Chloride 104 mmol/L (98-107) 02/21/17 11:15 Carbon Dioxide 28 mmol/L (22-30) 02/21/17 11:15 Anion Gap 10 mmol/L 02/21/17 11:15 BUN 17 mg/dL (7-17) 02/21/17 11:15 Creatinine 0.88 mg/dL (0.52-1.04) 02/21/17 11:15 Est GFR (MDRD) Af Amer >60 (>60 ml/min/1.73 sqM) 02/21/17 11:15 Est GFR (MDRD) Non-Af >60 (>60 ml/min/1.73 sqM) 02/21/17 11:15 Glucose 104 mg/dL (74-99) H 02/21/17 11:15 Calcium 9.7 mg/dL (8.4-10.2) 02/21/17 11:15 Phosphorus 4.0 mg/dL (2.5-4.5) 02/21/17 11:15 Magnesium 1.9 mg/dL (1.6-2.3) 02/21/17 11:15 Total Bilirubin 0.4 mg/dL (0.2-1.3) 02/21/17 11:15 AST 21 U/L (14-36) 02/21/17 11:15 ALT 72 U/L (9-52) H 02/21/17 11:15 Alkaline Phosphatase 101 U/L (38-126) 02/21/17 11:15 Total Protein 6.6 g/dL (6.3-8.2) 02/21/17 11:15 Albumin 4.0 g/dL (3.5-5.0) 02/21/17 11:15 Prealbumin 11.0 mg/dL (18.0-42.0) L 02/21/17 11:15 Vitamin A 21 ug/dL (38-106) L 02/21/17 11:15 Vitamin B12 418.0 pg/mL (200.0-944.0) 02/21/17 11:15 Vitamin D 25-Hydroxy 33.6 ng/mL (30.0-100.0) 02/21/17 11:15 ASSESSMENT: 1. Morbid obesity due to excess calories. 2. Body mass index down from 42.2 to 39.3 3. Status post sleeve gastrectomy. 4. Hypertensive heart disease. 5. Obstructive sleep apnea. 6. Fibromyalgia. 7. Gastroesophageal reflux disease. 8. Seizure disorder. 9. Asthma. 10. COPD. 11. Anxiety. 12. Depression. 13. Bipolar disorder. 14. Osteoarthritis bilateral knees. PLAN: 1. Recommend protein intake over 75 mg daily. 2. Recommend follow-up with bariatric dietitian. 3. May start multivitamins. 4. Follow-up 3 months post procedure for April 2017. Objective - Vital Signs Vital signs: Vital Signs Temp 98.5 F 03/09/17 14:28 Pulse 65 03/09/17 14:28 Resp 16 03/09/17 14:28 BP 142/63 03/09/17 14:28 Pulse Ox
== END | disposition home or self-care (01) ==
LOC: BARWHC3 13:39
PROVIDERS: ATTEND Surgery Plastic and Reconstructive Surgery
DX: E66.01 Morbid (severe) obesity due to excess calories (principal)
CPT/HCPCS: 97803; G0463; 99211

== ENCOUNTER → 2017-04-06 | Outpatient (CLI) | payer MEDICARE, OTHER ==
[2017-04-06 14:39] VITALS: BP 118/70; PULSE 75; RESP 16; TEMP 98.7
[2017-04-06 15:07] VITALS: BMI 39.0
--- NOTE | 2017-05-28 13:25 | P.PN ---
Subjective Progress Note Date: 04/06/17 DATE OF SERVICE: 04/06/2017 CHIEF COMPLAINT: Follow up sleeve gastrectomy. HISTORY OF PRESENT ILLNESS: Sharri Braswell is a 42-year-old female with a history of sleeve gastrectomy 02/16/[address] Lopez. She is 1.5 months postop. She reports increasing right lower quadrant abdominal pain. In fact, she went to emergency room. Separately, she has history of intra-abdominal surgeries for risk of scar tissue. She has not been following her bariatric diet including at least 75 g protein intake. No reports of gastric esophageal reflux disease. She is not using her CPAP machine. Her highest weight for his 5 foot 5.75 frame is 259 pounds. Today she comes weight at 241 pounds. Total weight loss of 19 pounds lifetime. She has lost another 2 pounds in 1 month since her last visit. Body mass index is 42.1 down to 39.0. Percent excess weight loss of 24% lifetime. PHYSICAL EXAM: VITAL SIGNS: 5 feet 5.75 inches, 241 pounds, body mass index 39.5. Vital Signs Temp 98.7 F 04/06/17 14:28 Pulse 75 04/06/17 14:28 Resp 16 04/06/17 14:28 BP 118/70 04/06/17 14:28 Pulse Ox ABDOMEN: Soft, nondistended. Mild tenderness on the right lower quadrant. MUSCULOSKELETAL: No clubbing or cyanosis or edema. GENERAL: Well-developed and in no acute distress. HEENT: No sclerae icterus. Extra-ocular movements are grossly intact. Hears conversational speech. CHEST: Nonlabored respirations. Equal bilateral excursions. CARDIOVASCULAR: Regular rate. Regular rhythm. NEURO: No focal or lateralizing signs. Cranial nerves II-12 grossly intact. PSYCH: Appropriated affect. Alert and oriented to person, place and time. SKIN: Well perfused. Good skin turgor. Laboratory Last Values WBC 5.2 k/uL (3.8-10.6) 03/10/17 11:59 RBC 4.30 m/uL (3.80-5.40) 03/10/17 11:59 Hgb 11.8 gm/dL (11.4-16.0) 03/10/17 11:59 Hct 37.6 % (34.0-46.0) 03/10/17 11:59 MCV 87.3 fL (80.0-100.0) 03/10/17 11:59 MCH 27.5 pg (25.0-35.0) 03/10/17 11:59 MCHC 31.5 g/dL (31.0-37.0) 03/10/17 11:59 RDW 14.1 % (11.5-15.5) 03/10/17 11:59 Plt Count 219 k/uL (150-450) 03/10/17 11:59 PT 10.2 sec (9.0-12.0) 03/10/17 11:59 INR 1.0 (<1.2) 03/10/17 11:59 APTT 23.8 sec (22.0-30.0) 03/10/17 11:59 Sodium 143 mmol/L (137-145) 03/10/17 11:59 Potassium 4.0 mmol/L (3.5-5.1) 03/10/17 11:59 Chloride 104 mmol/L (98-107) 03/10/17 11:59 Carbon Dioxide 29 mmol/L (22-30) 03/10/17 11:59 Anion Gap 10 mmol/L 03/10/17 11:59 BUN 13 mg/dL (7-17) 03/10/17 11:59 Creatinine 0.86 mg/dL (0.52-1.04) 03/10/17 11:59 Est GFR (MDRD) Af Amer >60 (>60 ml/min/1.73 sqM) 03/10/17 11:59 Est GFR (MDRD) Non-Af >60 (>60 ml/min/1.73 sqM) 03/10/17 11:59 Glucose 112 mg/dL (74-99) H 03/10/17 11:[address] Glu mg/dL 114 03/10/17 11:59 Hemoglobin A1c 5.6 % (4.0-6.0) 03/10/17 11:59 Calcium 9.9 mg/dL (8.4-10.2) 03/10/17 11:59 Phosphorus 3.8 mg/dL (2.5-4.5) 03/10/17 11:59 Magnesium 1.9 mg/dL (1.6-2.3) 03/10/17 11:59 Iron 54 ug/dL (50-170) 03/10/17 11:59 TIBC 350 ug/dL (228-460) 03/10/17 11:59 Iron Saturation 15.43 (12.00-45.00) 03/10/17 11:59 Ferritin 40.5 ng/mL (10.0-291.0) 03/10/17 11:59 Total Bilirubin 0.5 mg/dL (0.2-1.3) 03/10/17 11:59 AST 18 U/L (14-36) 03/10/17 11:59 ALT 39 U/L (9-52) 03/10/17 11:59 Alkaline Phosphatase 81 U/L (38-126) 03/10/17 11:59 Total Protein 6.4 g/dL (6.3-8.2) 03/10/17 11:59 Albumin 4.1 g/dL (3.5-5.0) 03/10/17 11:59 Prealbumin 23.0 mg/dL (18.0-42.0) 03/10/17 11:59 Triglycerides 226 mg/dL (<150) H 03/10/17 11:59 Cholesterol 162 mg/dL (<200) 03/10/17 11:59 LDL Cholesterol, Calc 74 mg/dL (0-99) 03/10/17 11:59 HDL Cholesterol 43 mg/dL (40-60) 03/10/17 11:59 Vitamin A 37 ug/dL (38-106) L 03/10/17 11:59 Vitamin B1 51 ug/L (38-122) 03/10/17 11:59 Vitamin B12 272.0 pg/mL (200.0-944.0) 03/10/17 11:59 Vitamin D 25-Hydroxy 23.0 ng/mL (30.0-100.0) L 03/10/17 11:59 Folate 10.1 ng/mL 03/10/17 11:59 TSH 0.769 mIU/L (0.465-4.680) 03/10/17 11:59 PTH Intact 48.0 pg/mL (14.0-72.0) 03/10/17 11:59 Copper 1203 ug/L (810-1990) 03/10/17 11:59 Selenium 147 mcg/L (63-160) 03/10/17 11:59 Zinc 104 ug/dL (60-130) 03/10/17 11:59 STUDIES: CT of the abdomen and pelvis demonstrates an appendicolith. ASSESSMENT: 1. Morbid obesity due to excess calories. 2. Body mass index down from 42.2 to 39.0 3. Status post sleeve gastrectomy. 4. Hypertensive heart disease. 5. Obstructive sleep apnea. 6. Fibromyalgia. 7. Gastroesophageal reflux disease. 8. Seizure disorder. 9. Asthma. 10. COPD. 11. Anxiety. 12. Depression. 13. Bipolar disorder. 14. Osteoarthritis bilateral knees. 15. Vitamin A deficiency. 16. Vitamin D deficiency. 17. Right lower quadrant abdominal pain. 18. Appendicolith. PLAN: 1. With her findings of appendicolith, she runs risk of appendicitis, chronic. 2. May benefit from diagnostic laparoscopy lysis of adhesions. 3. Weight loss has been less than stellar. Recommend evaluation with the bariatric dietitian. 4. Vitamin A supplement. 5. Vitamin D supplement. Objective - Vital Signs Vital signs: Vital Signs Temp 98.7 F 04/06/17 14:28 Pulse 75 04/06/17 14:28 Resp 16 04/06/17 14:28 BP 118/70 04/06/17 14:28 Pulse Ox
== END | disposition home or self-care (01) ==
LOC: BARWHC3 13:06
PROVIDERS: ATTEND Surgery Plastic and Reconstructive Surgery
DX: Z09 Encounter for follow-up examination after completed treatment for conditions other than malignant neoplasm (principal); R10.31 Right lower quadrant pain; Z98.84 Bariatric surgery status; E66.01 Morbid (severe) obesity due to excess calories; Z68.39 Body mass index [BMI] 39.0-39.9, adult; I11.9 Hypertensive heart disease without heart failure; G47.33 Obstructive sleep apnea (adult) (pediatric); M79.7 Fibromyalgia; K21.9 Gastro-esophageal reflux disease without esophagitis; G40.909 Epilepsy, unspecified, not intractable, without status epilepticus; J44.9 Chronic obstructive pulmonary disease, unspecified; F41.9 Anxiety disorder, unspecified; F31.9 Bipolar disorder, unspecified; M17.0 Bilateral primary osteoarthritis of knee; E50.9 Vitamin A deficiency, unspecified; E55.9 Vitamin D deficiency, unspecified; K38.1 Appendicular concretions
CPT/HCPCS: 99211

== ENCOUNTER 2017-04-10 16:20 | Observation (INO) | payer MEDICARE, OTHER ==
[2017-04-10] MEDS ORDERED: HYDROmorphone 0.5 MG/0.5 ML SYRINGE IVP STA (17:20)
[2017-04-10] MEDS ORDERED: SODIUM CHLORIDE 0.9% 1,000 ML IV STA (17:20)
--- NOTE | 2017-04-10 17:31 | ED ---
Abdominal Pain HPI <Vince Calhoun - Last Filed: 04/10/17 18:08> - General Source: patient, family, RN notes reviewed Mode of arrival: ambulatory Limitations: no limitations <Peyton Jerez - Last Filed: 04/10/17 18:21> - General Chief Complaint: Abdominal Pain Stated Complaint: Abd Pain Time Seen by Provider: 04/10/17 17:04 - History of Present Illness Initial Comments: This is a 42-year-old female who presents to the emergency department with chief complaint of right lower quadrant abdominal pain. Patient states that she was seen here at the ED at the end of February with the same complaint. CT scan showed "bowel in the appendix." Patient states she followed up with Dr. Verde on 04/06 and was diagnosed with appendicitis and has surgery scheduled for May 02. Patient states that approximately one and a half hours prior to arrival she began to have an increase in her RLQ pain. She states that before this her pain was 4/10 and currently it is 8/10. She admits to associated nausea without vomiting. She denies chest pain or shortness of breath. She denies fevers or chills. She denies diarrhea or constipation. She denies any urinary symptoms. She states that pain is worse with lying flat on her back and walking. (Peyton Jerez) - Related Data Home Medications Medication Instructions Recorded Confirmed HYDROcodone/APAP 7.5-325MG [[place] 1 tab PO BID 04/04/15 04/10/17 7.5-325] Tolterodine Tartrate [Detrol LA] 2 mg PO DAILY 04/05/15 04/10/17 Albuterol Inhaler [Ventolin Hfa 2 puff INHALATION RT-Q4H PRN 10/20/15 04/10/17 Inhaler] Cetirizine HCl [Zyrtec] 20 mg PO DAILY 10/20/15 04/10/17 Fluticasone Nasal [place] [Flonase 1 spray EA NOSTRIL DAILY 10/20/15 04/10/17 Nasal [place]] Magnesium Oxide [Mag-Ox] 400 mg PO HS 10/20/15 04/10/17 Omalizumab [Xolair] 150 mg SQ Q14D 06/30/16 04/10/17 Budesonide-Formot 160-4.5 Mcg 2 puff INHALATION RT-BID 08/03/16 04/10/17 [Symbicort 160-4.5 Mcg Inhaler] Meloxicam [Meloxicam] 15 mg PO HS 08/03/16 04/10/17 Albuterol Nebulized [Ventolin 2.5 mg INHALATION RT-TID 11/16/16 04/10/17 Nebulized] EPINEPHrine [Epipen 2-Melecio] 0.3 mg IM ONCE PRN 11/16/16 04/10/17 Ergocalciferol [Vitamin D2] 50,000 unit PO SA 11/16/16 04/10/17 Montelukast [Singulair] 10 mg PO HS 11/16/16 04/10/17 QUEtiapine FUMARATE [Seroquel Xr] 400 mg PO HS 11/16/16 04/10/17 Vilazodone HCl [Viibryd] 10 mg PO HS 11/16/16 04/10/17 Gabapentin [Neurontin] 300 mg PO TID 02/16/17 04/10/17 Lisinopril [Zestril] 10 mg PO DAILY 02/16/17 04/10/17 Previous Rx's Medication Instructions Recorded Omeprazole 20 mg PO DAILY #30 cap 08/06/16 Ondansetron [Zofran ODT] 4 mg PO Q8HR PRN #10 tab 03/21/17 Allergies Allergy/AdvReac Type Severity Reaction Status Date / Time adhesive Allergy Rash/Hives Verified 04/10/17 18:07 aspirin Allergy Anaphylaxis Verified 04/10/17 18:07 clonidine Allergy Rash/Hives Verified 04/10/17 18:07 hydroxyzine Allergy CONFUSION Verified 04/10/17 18:07 AND BODY SHAKES venlafaxine HCl Allergy Swelling Verified 04/10/17 18:07 [From Effexor] venom-honey bee Allergy Rash/Hives Verified 04/10/17 18:07 [bee venom (honey bee)] Review of Systems ROS Other: All systems not noted in ROS Statement are negative. <Vince Calhoun - Last Filed: 04/10/17 18:08> ROS Other: All systems not noted in ROS Statement are negative. <Peyton Jerez - Last Filed: 04/10/17 18:21> ROS Statement: Those systems with pertinent positive or pertinent negative responses have been documented in the HPI. Past Medical History Past Medical History: Asthma, COPD, Fibromyalgia, GERD/Reflux, Hypertension, Seizure Disorder, Sleep Apnea/CPAP/BIPAP Additional Past Medical History / Comment(s): Chronic back pain, LAST SEIZURE 2013, USES CPAP MACHINE History of Any Multi-Drug Resistant Organisms: None Reported Past Surgical History: Adenoidectomy, Cholecystectomy, Hysterectomy, Orthopedic Surgery, Tonsillectomy, Tubal Ligation Additional Past Surgical History / Comment(s): KIRK knee arthroscopy, epidural lumbar injections KIRK CARPAL TUNNEL, ARTHROSCOPY RT ELBOW, EGD, COLONOSCOPY, Gastric Sleeve 02/16/17 Past Anesthesia/Blood Transfusion Reactions: No Reported Reaction Past Psychological History: Anxiety, Bipolar, Depression Smoking Status: Former smoker Past Alcohol Use History: None Reported Past Drug Use History: None Reported - Past Family History Father Family Medical History: Deep Vein Thrombosis (DVT) Additional Family Medical History / Comment(s): Father is alive at age 67 with history of coronary aneurysm Mother Additional Family Medical History / Comment(s): Mother is alive at age 63 with history of bipolar, stroke, blindness. Brother(s) Additional Family Medical History / Comment(s): Patient has 2 brothers that are healthy. She has no sisters. She has 2 sons and 1 daughter that are healthy. <Peyton Jerez M - Last Filed: 04/10/17 18:21> General Exam Limitations: no limitations General appearance: alert, in no apparent distress Head exam: Present: atraumatic, normocephalic, normal inspection Eye exam: Present: normal appearance, PERRL, EOMI ENT exam: Present: normal exam, mucous membranes moist Neck exam: Present: normal inspection, full ROM. Absent: tenderness Respiratory exam: Present: normal lung sounds bilaterally. Absent: respiratory distress, wheezes, rales, rhonchi Cardiovascular Exam: Present: regular rate, normal rhythm. Absent: normal heart sounds, systolic murmur, diastolic murmur GI/Abdominal exam: Present: soft, tenderness (RLQ tenderness on palpation. Positive Rovsing's sign. ), diminished bowel sounds. Absent: distended, guarding, rebound, rigid Extremities exam: Present: normal inspection, full ROM. Absent: tenderness Neurological exam: Present: alert, altered, oriented X3 Psychiatric exam: Present: normal affect, normal mood Skin exam: Present: warm, dry, intact, normal color <Peyton Jerez - Last Filed: 04/10/17 18:21> Course <Vince Calhoun - Last Filed: 04/10/17 18:08> <Peyton Jerez - Last Filed: 04/10/17 18:21> Vital Signs 04/10/17 16:55 Temperature 97.2 F L Pulse Rate 76 Respiratory 20 Rate Blood Pressure 161/97 O2 Sat by Pulse 99 Oximetry - Reevaluation(s) Reevaluation #1: 04/10/17 18:06 Patient reevaluated by myself, Dr. Calhoun. Patient resting comfortably in bed. Patient states symptoms started again this morning and have progressively worsened since that time. Less of appetite. Abdominal exam with moderate right lower quadrant tenderness. No fever. Results reviewed. Case was discussed in detail with Dr. Rojas, covering for Dr. Jaimes. He does recommend admission to Dr. Jaimes. No CT at this time however he would like antibiotics started. 04/10/17 18:08 Patient does not meet sepsis criteria. (Vince Calhoun) Medical Decision Making - Lab Data Result diagrams: 04/10/17 17:30 04/10/17 17:30 <Vince Calhoun - Last Filed: 04/10/17 18:08> - Lab Data Result diagrams: 04/10/17 17:30 04/10/17 17:30 <Peyton Jerez - Last Filed: 04/10/17 18:21> - Medical Decision Making This is a 42-year-old female who presents to the ED with complaint of RLQ abdominal pain. Patient has appendectomy scheduled for May 02 for a recently diagnosed appendicolith. Basic labs were drawn and patient was given IV fluids and pain meds while in the ED. CBC, CMP and UA were within normal limits. Attending physician, Dr. Calhoun spoke with Dr. Verde. Patient will be admitted to the hospital under Dr. Verde with diagnosis of RLQ abdominal pain and appendicolith. Patient was made aware of findings and plan. She is in agreement and voices understanding. She is in no acute distress at this time. Questions answered. (Peyton Jerez) - Lab Data Lab Results 04/10/17 04/10/17 04/10/17 Range/Units 17:30 17:30 17:30 WBC 7.8 (3.8-10.6) k/uL RBC 4.76 (3.80-5.40) m/uL Hgb 13.0 (11.4-16.0) gm/dL Hct 40.2 (34.0-46.0) % MCV 84.5 (80.0-100.0) fL MCH 27.4 (25.0-35.0) pg MCHC 32.4 (31.0-37.0) g/dL RDW 13.4 (11.5-15.5) % Plt Count 255 (150-450) k/uL Neutrophils % 59 % Lymphocytes % 34 % Monocytes % 4 % Eosinophils % 1 % Basophils % 1 % Neutrophils # 4.6 (1.3-7.7) k/uL Lymphocytes # 2.7 (1.0-4.8) k/uL Monocytes # 0.3 (0-1.0) k/uL Eosinophils # 0.1 (0-0.7) k/uL Basophils # 0.0 (0-0.2) k/uL Sodium 144 (137-145) mmol/L Potassium 3.9 (3.5-5.1) mmol/L Chloride 104 (98-107) mmol/L Carbon Dioxide 30 (22-30) mmol/L Anion Gap 10 mmol/L BUN 11 (7-17) mg/dL Creatinine 0.83 (0.52-1.04) mg/dL Est GFR (MDRD) Af Amer >60 (>60 ml/min/1.73 sqM) Est GFR (MDRD) Non-Af >60 (>60 ml/min/1.73 sqM) Glucose 101 H (74-99) mg/dL Calcium 9.9 (8.4-10.2) mg/dL Total Bilirubin 0.4 (0.2-1.3) mg/dL AST 18 (14-36) U/L ALT 40 (9-52) U/L Alkaline Phosphatase 127 H (38-126) U/L Total Protein 7.3 (6.3-8.2) g/dL Albumin 4.5 (3.5-5.0) g/dL Amylase 34 (30-110) U/L Lipase 91 (23-300) U/L Urine Color Yellow Urine Appearance Clear (Clear) Urine pH 6.5 (5.0-8.0) Ur Specific [place] 1.008 (1.001-1.035) Urine Protein Negative (Negative) Urine Glucose (UA) Negative (Negative) Urine Ketones Negative (Negative) Urine Blood Negative (Negative) Urine Nitrite Negative (Negative) Urine Bilirubin Negative (Negative) Urine Urobilinogen <2.0 (<2.0) mg/dL Ur Leukocyte Esterase Negative (Negative) Disposition <Vince Calhoun - Last Filed: 04/10/17 18:08> Time of Disposition: 18:13 <Peyton Jerez - Last Filed: 04/10/17 18:21> Clinical Impression: RLQ abdominal pain, Appendicolith Disposition: ADMITTED IP TO THIS [facility] Condition: Stable Referrals: Chan Jain MD [Primary Care Provider] - 1-2 days
[2017-04-10 17:49] LABS: Basophils % (A) 1 %; Eosinophils # (A) 0.1 k/uL (0-0.7); Eosinophils % (A) 1 %; HCT 40.2 % (34.0-46.0); Lymphocytes # (A) 2.7 k/uL (1.0-4.8); Lymphocytes % (A) 34 %; MCH 27.4 pg (25.0-35.0); MCHC 32.4 g/dL (31.0-37.0); MCV 84.5 fL (80.0-100.0); Monocytes # (A) 0.3 k/uL (0-1.0); Monocytes % (A) 4 %; Neutrophils # (A) 4.6 k/uL (1.3-7.7); Neutrophils % (A) 59 %; Platelet Count 255 k/uL (150-450); RBC 4.76 m/uL (3.80-5.40); RDW 13.4 % (11.5-15.5); WBC 7.8 k/uL (3.8-10.6)
[2017-04-10 17:50] LABS: Appearance,Urine Clear (Clear); Bilirubin,Urine Negative (Negative); Blood,Urine Negative (Negative); Color,Urine Yellow; Glucose,Urine (UA) Negative (Negative); Ketones,Urine Negative (Negative); Leukocyte Esterase,Urine Negative (Negative); Nitrite,Urine Negative (Negative); PH, Urine 6.5 (5.0-8.0); Protein,Urine Negative (Negative); Specific Gravity,Urine 1.008 (1.001-1.035); Urobilinogen,Urine <2.0 mg/dL (<2.0)
[2017-04-10 18:01] LABS: ALT 40 U/L (9-52); AST 18 U/L (14-36); Albumin 4.5 g/dL (3.5-5.0); Alkaline Phosphatase 127 U/L (38-126); Amylase 34 U/L (30-110); Anion Gap 10 mmol/L; Blood Urea Nitrogen 11 mg/dL (7-17); Calcium 9.9 mg/dL (8.4-10.2); Carbon Dioxide 30 mmol/L (22-30); Chloride 104 mmol/L (98-107); Glucose 101 mg/dL (74-99); Lipase 91 U/L (23-300); Potassium 3.9 mmol/L (3.5-5.1); Sodium 144 mmol/L (137-145); Total Bilirubin 0.4 mg/dL (0.2-1.3); Total Protein 7.3 g/dL (6.3-8.2)
[2017-04-10] MEDS ORDERED: NALOXONE 0.4 MG/ML 1 ML VIAL IV PRN (18:16)
[2017-04-10] MEDS ORDERED: HYDROmorphone 0.5 MG/0.5 ML SYRINGE IVP PRN (18:16)
[2017-04-10] MEDS ORDERED: ACETAMINOPHEN TAB 325 MG TAB PO PRN (18:16)
[2017-04-10] MEDS: AMPICILLIN-SULBACTAM 1.5 GM in SODIUM CHLORIDE 0.9% 50 ML IVPB SCH (20:07)
[2017-04-10] MEDS: HYDROmorphone 2 MG/ML 1 ML SYRINGE IVP PRN ×2 (20:20→23:25)
[2017-04-10 23:25] VITALS: BMI 38.7
[2017-04-11] MEDS: SODIUM CHLORIDE 0.9% 1,000 ML IV SCH ×3 (00:04→18:36)
[2017-04-11] MEDS: AMPICILLIN-SULBACTAM 1.5 GM in SODIUM CHLORIDE 0.9% 50 ML IVPB SCH ×4 (01:36→17:29)
[2017-04-11] MEDS: HYDROmorphone 2 MG/ML 1 ML SYRINGE IVP PRN ×4 (02:32→22:19)
[2017-04-11 06:36] LABS: Basophils % (A) 1 %; Eosinophils # (A) 0.1 k/uL (0-0.7); Eosinophils % (A) 2 %; HCT 35.6 % (34.0-46.0); HGB 11.4 gm/dL (11.4-16.0); Lymphocytes # (A) 3.2 k/uL (1.0-4.8); Lymphocytes % (A) 49 %; MCH 27.4 pg (25.0-35.0); MCHC 31.9 g/dL (31.0-37.0); MCV 85.9 fL (80.0-100.0); Mean Platelet Volume 8.2; Monocytes # (A) 0.3 k/uL (0-1.0); Monocytes % (A) 4 %; Neutrophils # (A) 2.7 k/uL (1.3-7.7); Neutrophils % (A) 42 %; Platelet Count 227 k/uL (150-450); RBC 4.15 m/uL (3.80-5.40); RDW 13.7 % (11.5-15.5); WBC 6.5 k/uL (3.8-10.6)
[2017-04-11 06:51] LABS: Anion Gap 7 mmol/L; Blood Urea Nitrogen 12 mg/dL (7-17); Calcium 9.5 mg/dL (8.4-10.2); Carbon Dioxide 29 mmol/L (22-30); Chloride 108 mmol/L (98-107); Glucose 92 mg/dL (74-99); Sodium 144 mmol/L (137-145)
[2017-04-11] MEDS ORDERED: EPINEPHrine 1 MG/ML 1 ML AMP IM PRN (08:20)
[2017-04-11] MEDS ORDERED: ALBUTEROL NEBULIZED 2.5 MG/3 ML INHALATION PRN (08:20)
[2017-04-11] MEDS ORDERED: ONDANSETRON ODT 4 MG TAB PO PRN (08:20)
[2017-04-11] MEDS ORDERED: OMALIZUMAB 150 MG VIAL SQ SCH (08:30)
--- NOTE | 2017-04-11 08:37 | P.GSHP ---
<Inés Hartman M - Last Filed: 04/11/17 08:20> History of Present Illness H&P Date: 04/11/17 42-year-old female presented to the emergency room with a chief complaint of developing right lower quadrant abdominal pain. Patient stated that there have been decreased appetite with a nausea sensation no active emesis. Patient states that she is scheduled by Dr. Verde May 02 to have her appendix removed. Patient states that she did follow-up with Dr. Verde April 06 was diagnosed with appendicitis. Patient states the pain in the right lower quadrant persist came into the emergency room to be evaluated. Patient states that a prior CAT scan done in February showed "bowel and the appendix". Patient denies any fever chills constipation or diarrhea. Denies any burning on urination frequency or urgency. Does report that the pain is worse when she lies flat or with activity. Past surgical history significant for recent 2016 robotic assist lap vertical sleeve gastrectomy for morbid obesity initial BMI 40 Comorbidities include seizure disorder, hypertension, irritable bowel syndrome, anxiety, depression, chronic lower back pain with chronic opiate dependency, currently on disability secondary to chronic lower back pain remote history of alcohol abuse sober for the last 9 years obstructive sleep apnea uses CPAP therapy Past surgical history cholecystectomy, hysterectomy, orthopedic surgery, tubal ligation, tonsillectomy - Review of Systems Comment: Essentially unremarkable except as mentioned in the present illness Past Medical History Past Medical History: Asthma, COPD, Fibromyalgia, GERD/Reflux, Hypertension, Seizure Disorder, Sleep Apnea/CPAP/BIPAP Additional Past Medical History / Comment(s): Chronic back pain, LAST SEIZURE 2013, USES CPAP MACHINE History of Any Multi-Drug Resistant Organisms: None Reported Past Surgical History: Adenoidectomy, Cholecystectomy, Hysterectomy, Orthopedic Surgery, Tonsillectomy, Tubal Ligation Additional Past Surgical History / Comment(s): KIRK knee arthroscopy, epidural lumbar injections KIRK CARPAL TUNNEL, ARTHROSCOPY RT ELBOW, EGD, COLONOSCOPY, Gastric Sleeve 02/16/17 Past Anesthesia/Blood Transfusion Reactions: No Reported Reaction Past Psychological History: Anxiety, Bipolar, Depression Smoking Status: Former smoker Past Alcohol Use History: None Reported Additional Past Alcohol Use History / Comment(s): Patient was a smoker of one half pack per day and quit in May 2014. ON AND OFF FROM AGE 15 Past Drug Use History: None Reported - Past Family History Father Family Medical History: Deep Vein Thrombosis (DVT) Additional Family Medical History / Comment(s): Father is alive at age 67 with history of coronary aneurysm Mother Additional Family Medical History / Comment(s): Mother is alive at age 63 with history of bipolar, stroke, blindness. Brother(s) Additional Family Medical History / Comment(s): Patient has 2 brothers that are healthy. She has no sisters. She has 2 sons and 1 daughter that are healthy. Medications and Allergies Home Medications Medication Instructions Recorded Confirmed Type HYDROcodone/APAP 7.5-325MG [[place] 1 tab PO BID 04/04/15 04/11/17 History 7.5-325] Tolterodine Tartrate [Detrol LA] 2 mg PO DAILY 04/05/15 04/11/17 History Albuterol Inhaler [Ventolin Hfa 2 puff INHALATION RT-Q4H PRN 10/20/15 04/11/17 History Inhaler] Cetirizine HCl [Zyrtec] 20 mg PO DAILY 10/20/15 04/11/17 History Fluticasone Nasal [place] [Flonase 1 spray EA NOSTRIL DAILY 10/20/15 04/11/17 History Nasal [place]] Magnesium Oxide [Mag-Ox] 400 mg PO HS 10/20/15 04/11/17 History Omalizumab [Xolair] 150 mg SQ Q14D 06/30/16 04/11/17 History Budesonide-Formot 160-4.5 Mcg 2 puff INHALATION RT-BID 08/03/16 04/11/17 History [Symbicort 160-4.5 Mcg Inhaler] Meloxicam [Meloxicam] 15 mg PO HS 08/03/16 04/11/17 History Omeprazole 20 mg PO DAILY #30 cap 08/06/16 04/11/17 Rx Albuterol Nebulized [Ventolin 2.5 mg INHALATION RT-TID 11/16/16 04/11/17 History Nebulized] EPINEPHrine [Epipen 2-Melecio] 0.3 mg IM ONCE PRN 11/16/16 04/11/17 History Ergocalciferol [Vitamin D2] 50,000 unit PO SA 11/16/16 04/11/17 History Montelukast [Singulair] 10 mg PO HS 11/16/16 04/11/17 History QUEtiapine FUMARATE [Seroquel Xr] 400 mg PO HS 11/16/16 04/11/17 History Vilazodone HCl [Viibryd] 10 mg PO HS 11/16/16 04/11/17 History Gabapentin [Neurontin] 300 mg PO TID 02/16/17 04/11/17 History Lisinopril [Zestril] 10 mg PO DAILY 02/16/17 04/11/17 History Ondansetron [Zofran ODT] 4 mg PO Q8HR PRN #10 tab 03/21/17 04/11/17 Rx Allergies Allergy/AdvReac Type Severity Reaction Status Date / Time adhesive Allergy Rash/Hives Verified 04/11/17 12:37 aspirin Allergy Anaphylaxis Verified 04/11/17 12:37 clonidine Allergy Rash/Hives Verified 04/11/17 12:37 hydroxyzine Allergy CONFUSION Verified 04/11/17 12:37 AND BODY SHAKES venlafaxine HCl Allergy Swelling Verified 04/11/17 12:37 [From Effexor] venom-honey bee Allergy Rash/Hives Verified 04/11/17 12:37 [bee venom (honey bee)] Surgical - Exam Vital Signs Temp Pulse Resp BP Pulse Ox 97.2 F L 76 20 161/97 99 04/10/17 16:55 04/10/17 16:55 04/10/17 16:55 04/10/17 16:55 04/10/17 16:55 GENERAL APPEARANCE: 42-year-old female sitting up in bed continues to report having right upper quadrant pain alert, oriented, in no acute distress. VITAL SIGNS: Reviewed HEENT: Head is normocephalic and atraumatic. Pupils are equal and reactive. The nares are patent. Oropharynx is clear without lesions. NECK: Supple without lymphadenopathy. Traches midline. HEART: S1, S2. Regular rate and rhythm. Denying chest pain when questioning LUNGS: No crackles or wheezes are heard. Adequate air movement bilaterally no cough noted ABDOMEN: Obese soft tenderness to the right upper quadrant bowel tones present denies any frequent stooling no nausea vomiting no stool nondistended Extremities trace pedal edema bilaterally Results - Labs 04/11/17 06:05 04/11/17 06:05 Abnormal Lab Results - Last 24 Hours (Table) 04/10/17 04/11/17 Range/Units 17:30 06:05 Chloride 108 H (98-107) mmol/L Glucose 101 H (74-99) mg/dL Alkaline Phosphatase 127 H (38-126) U/L Diabetes panel 04/10/17 04/11/17 Range/Units 17:30 06:05 Sodium 144 144 (137-145) mmol/L Potassium 3.9 4.0 (3.5-5.1) mmol/L Chloride 104 108 H (98-107) mmol/L Carbon Dioxide 30 29 (22-30) mmol/L BUN 11 12 (7-17) mg/dL Creatinine 0.83 0.78 (0.52-1.04) mg/dL Glucose 101 H 92 (74-99) mg/dL Calcium 9.9 9.5 (8.4-10.2) mg/dL AST 18 (14-36) U/L ALT 40 (9-52) U/L Alkaline Phosphatase 127 H (38-126) U/L Total Protein 7.3 (6.3-8.2) g/dL Albumin 4.5 (3.5-5.0) g/dL Calcium panel 04/10/17 04/11/17 Range/Units 17:30 06:05 Calcium 9.9 9.5 (8.4-10.2) mg/dL Albumin 4.5 (3.5-5.0) g/dL Pituitary panel 04/10/17 04/11/17 Range/Units 17:30 06:05 Sodium 144 144 (137-145) mmol/L Potassium 3.9 4.0 (3.5-5.1) mmol/L Chloride 104 108 H (98-107) mmol/L Carbon Dioxide 30 29 (22-30) mmol/L BUN 11 12 (7-17) mg/dL Creatinine 0.83 0.78 (0.52-1.04) mg/dL Glucose 101 H 92 (74-99) mg/dL Calcium 9.9 9.5 (8.4-10.2) mg/dL Adrenal panel 04/10/17 04/11/17 Range/Units 17:30 06:05 Sodium 144 144 (137-145) mmol/L Potassium 3.9 4.0 (3.5-5.1) mmol/L Chloride 104 108 H (98-107) mmol/L Carbon Dioxide 30 29 (22-30) mmol/L BUN 11 12 (7-17) mg/dL Creatinine 0.83 0.78 (0.52-1.04) mg/dL Glucose 101 H 92 (74-99) mg/dL Calcium 9.9 9.5 (8.4-10.2) mg/dL Total Bilirubin 0.4 (0.2-1.3) mg/dL AST 18 (14-36) U/L ALT 40 (9-52) U/L Alkaline Phosphatase 127 H (38-126) U/L Total Protein 7.3 (6.3-8.2) g/dL Albumin 4.5 (3.5-5.0) g/dL Assessment and Plan Assessment: Impression Present on admission right upper quadrant pain suspect due to acute appendicitis Morbid obesity initial BMI 40 likely due to excess calories A recent robotic-assisted lap vertical sleeve gastrectomy 16 of February Depression Hypertension essential Irritable bowel syndrome Chronic lower back pain with chronic opiate dependency Debilitated chronic due to chronic lower back pain Plan Patient will be scheduled at noon today for an appendectomy keep nothing by mouth Resume home meds as appropriate Pain control DVT and GI prophylaxis IV fluid for hydration as ordered further recommendations pending IV Unasyn as ordered The above impression and plan of care have been discussed and directed by signing physician. Inés Hartman nurse practitioner acting as scribe for signing physician. <Dori Verde - Last Filed: 04/11/17 12:52> Surgical - Exam Vital Signs Temp Pulse Resp BP Pulse Ox 97.2 F L 76 20 161/97 99 04/10/17 16:55 04/10/17 16:55 04/10/17 16:55 04/10/17 16:55 04/10/17 16:55 Results - Labs 04/11/17 06:05 04/11/17 06:05 Abnormal Lab Results - Last 24 Hours (Table) 04/10/17 04/11/17 Range/Units 17:30 06:05 Chloride 108 H (98-107) mmol/L Glucose 101 H (74-99) mg/dL Alkaline Phosphatase 127 H (38-126) U/L Diabetes panel 04/10/17 04/11/17 Range/Units 17:30 06:05 Sodium 144 144 (137-145) mmol/L Potassium 3.9 4.0 (3.5-5.1) mmol/L Chloride 104 108 H (98-107) mmol/L Carbon Dioxide 30 29 (22-30) mmol/L BUN 11 12 (7-17) mg/dL Creatinine 0.83 0.78 (0.52-1.04) mg/dL Glucose 101 H 92 (74-99) mg/dL Calcium 9.9 9.5 (8.4-10.2) mg/dL AST 18 (14-36) U/L ALT 40 (9-52) U/L Alkaline Phosphatase 127 H (38-126) U/L Total Protein 7.3 (6.3-8.2) g/dL Albumin 4.5 (3.5-5.0) g/dL Calcium panel 04/10/17 04/11/17 Range/Units 17:30 06:05 Calcium 9.9 9.5 (8.4-10.2) mg/dL Albumin 4.5 (3.5-5.0) g/dL Pituitary panel 04/10/17 04/11/17 Range/Units 17:30 06:05 Sodium 144 144 (137-145) mmol/L Potassium 3.9 4.0 (3.5-5.1) mmol/L Chloride 104 108 H (98-107) mmol/L Carbon Dioxide 30 29 (22-30) mmol/L BUN 11 12 (7-17) mg/dL Creatinine 0.83 0.78 (0.52-1.04) mg/dL Glucose 101 H 92 (74-99) mg/dL Calcium 9.9 9.5 (8.4-10.2) mg/dL Adrenal panel 04/10/17 04/11/17 Range/Units 17:30 06:05 Sodium 144 144 (137-145) mmol/L Potassium 3.9 4.0 (3.5-5.1) mmol/L Chloride 104 108 H (98-107) mmol/L Carbon Dioxide 30 29 (22-30) mmol/L BUN 11 12 (7-17) mg/dL Creatinine 0.83 0.78 (0.52-1.04) mg/dL Glucose 101 H 92 (74-99) mg/dL Calcium 9.9 9.5 (8.4-10.2) mg/dL Total Bilirubin 0.4 (0.2-1.3) mg/dL AST 18 (14-36) U/L ALT 40 (9-52) U/L Alkaline Phosphatase 127 H (38-126) U/L Total Protein 7.3 (6.3-8.2) g/dL Albumin 4.5 (3.5-5.0) g/dL
[2017-04-11] MEDS: OXYBUTYNIN XL 5 MG TAB.ER.24 PO SCH (09:10)
[2017-04-11] MEDS: PANTOPRAZOLE 40 MG TABLET PO SCH (09:10)
[2017-04-11] MEDS: GABAPENTIN 300 MG CAP PO SCH ×3 (09:10→22:01)
[2017-04-11] MEDS: LORATADINE 10 MG TAB PO SCH (09:10)
[2017-04-11] MEDS: FLUTICASONE 50MCG/SPRAY NASAL 16GM EA NOSTRIL SCH (09:10)
[2017-04-11] MEDS: HEPARIN SODIUM,PORCINE 5,000 UNIT/ML 1 ML VIAL SQ SCH ×2 (10:33→17:29)
[2017-04-11] MEDS ORDERED: IV FLUID CONTINUATION 1,000 ML IV ONE (12:18)
--- NOTE | 2017-04-11 12:52 | P.HPADDEND ---
H&P Addendum H&P Addendum Date: 04/11/17 Patient has history of RLQ pain and appendicolith. Recommend Laparoscopic appendectomy.
[2017-04-11] MEDS ORDERED: MIDAZOLAM 2 MG/2 ML VIAL ONE (13:23)
[2017-04-11] MEDS ORDERED: ROCURONIUM BROMIDE 10 MG/ML 10 ML VIAL IV ONE (13:23)
[2017-04-11] MEDS ORDERED: NEOSTIGMINE 1 MG/ML 10 ML VIAL ONE (13:23)
[2017-04-11] MEDS ORDERED: HYDROmorphone (PF) 1 MG/ML ONE (13:23)
[2017-04-11] MEDS ORDERED: fentaNYL (PF) 50 MCG/ML 2 ML AMP ONE (13:23)
[2017-04-11] MEDS ORDERED: SUCCINYLCHOLINE CHLORIDE 100 MG/5 ML SYR IV ONE (13:23)
[2017-04-11] MEDS ORDERED: GLYCOPYRROLATE 0.2 MG/ML 2 ML VIAL ONE (13:23)
[2017-04-11] MEDS ORDERED: PROPOFOL 10 MG/ML 20 ML VIAL IV ONE (13:23)
[2017-04-11] MEDS ORDERED: LIDOCAINE 1% INJ 10MG/ML (20 ML MDV) ONE (13:23)
[2017-04-11] MEDS ORDERED: BUPIVACAINE (PF) 0.25% 30 ML VIAL SQ ONE ×2 (13:41→13:51)
[2017-04-11] MEDS ORDERED: SODIUM CHLORIDE 0.9% 50 ML with ceFAZolin 2,000 MG IV ONE ×2 (13:49)
[2017-04-11] MEDS: ALBUTEROL NEBULIZED 2.5 MG/3 ML INHALATION SCH ×2 (13:56→20:39)
[2017-04-11] MEDS ORDERED: HYDROcodone/APAP 5-325MG 1 EACH TAB PO PRN (14:42)
--- NOTE | 2017-04-11 14:42 | P.PCN ---
Date of Procedure: 04/11/17 Preoperative Diagnosis: Right lower quadrant abdominal pain, history of appendicolith, appendicitis Postoperative Diagnosis: Same Procedure(s) Performed: Diagnostic laparoscopy, laparoscopic appendectomy Anesthesia: GETA, local Surgeon: Dori Verde Estimated Blood Loss (ml): 2 Pathology: other (appendix) Condition: stable Disposition: same day Operative Findings: Moderate scarring along the appendix highly suspicious for chronic appendicitis , no evidence of mesenteric creeping or inflammatory bowel disease, no internal hernias identified
[2017-04-11] MEDS ORDERED: TRIMETHOBENZAMIDE 100 MG/ML 2 ML VIAL IM PRN (14:44)
[2017-04-11] MEDS ORDERED: MEPERIDINE 50 MG/ML SYRINGE IVP ONE (15:14)
[2017-04-11] MEDS: LISINOPRIL 10 MG TAB PO SCH (17:28)
[2017-04-11] MEDS: SYMBICORT 160-4.5 MCG INHALER INHALATION SCH (20:39)
[2017-04-11] MEDS ORDERED: MONTELUKAST 10 MG TAB PO SCH (21:00)
[2017-04-11] MEDS ORDERED: VILAZODONE HCL 10 MG PO SCH (21:00)
[2017-04-11] MEDS ORDERED: MAGNESIUM OXIDE 400 MG TAB PO SCH (21:00)
[2017-04-11] MEDS ORDERED: MELOXICAM 7.5 MG TAB PO SCH (21:00)
[2017-04-11] MEDS: QUEtiapine 200 MG TAB PO SCH (22:03)
[2017-04-12] MEDS: AMPICILLIN-SULBACTAM 1.5 GM in SODIUM CHLORIDE 0.9% 50 ML IVPB SCH ×2 (00:44→06:11)
[2017-04-12] MEDS: HEPARIN SODIUM,PORCINE 5,000 UNIT/ML 1 ML VIAL SQ SCH ×2 (00:45→09:15)
[2017-04-12] MEDS: SODIUM CHLORIDE 0.9% 1,000 ML IV SCH (06:11)
[2017-04-12 06:52] LABS: Glucose,Whole Blood 90 mg/dL (75-99)
[2017-04-12] MEDS: ALBUTEROL NEBULIZED 2.5 MG/3 ML INHALATION SCH (08:04)
[2017-04-12] MEDS: SYMBICORT 160-4.5 MCG INHALER INHALATION SCH (08:05)
[2017-04-12 08:08] VITALS: PULSE 74; RESP 16
[2017-04-12 08:37] VITALS: BP 130/83; TEMP 98.3
--- NOTE | 2017-04-12 09:00 | P.PN ---
Subjective Progress Note Date: 04/12/17 Feeling much better today. Pain along right lower side is better. Did okay with liquids and is eager to go home. Objective - Vital Signs Vital signs: Vital Signs Temp 98.3 F 04/12/17 07:55 Pulse 74 04/12/17 08:17 Resp 16 04/12/17 08:07 BP 130/83 04/12/17 07:55 Pulse Ox 94 L 04/12/17 07:55 Intake & Output 04/11/17 04/12/17 04/12/17 18:59 06:59 18:59 Intake Total 500 340 Output Total 2 Balance 498 340 Intake: IV 500 Oral 340 Output: Estimated Blood Loss 2 Other: # Voids 1 - Exam Abdomen: Incisions are clean, dry and intact without erythema. - Labs CBC & Chem 7: 04/11/17 06:05 04/11/17 06:05 Assessment and Plan (1) Appendicitis Current Visit: Yes Status: Acute Code(s): K37 - UNSPECIFIED APPENDICITIS SNOMED Code(s): 02825190 (2) Appendicolith Current Visit: Yes Status: Acute Code(s): K38.9 - DISEASE OF APPENDIX, UNSPECIFIED SNOMED Code(s): 54613233 (3) RLQ abdominal pain Current Visit: Yes Status: Acute Code(s): R10.31 - RIGHT LOWER QUADRANT PAIN SNOMED Code(s): 379881216 Plan: 1. Doing well. 2. Okay with discharge home.
--- NOTE | 2017-04-12 09:03 | P.DS ---
Providers Date of admission: 04/10/17 18:07 Expected date of discharge: 04/12/17 Attending physician: Dori Verde Primary care physician: Chan Masont - Discharge Diagnosis(es) (1) Appendicitis Current Visit: Yes Status: Acute (2) Appendicolith Current Visit: Yes Status: Acute (3) RLQ abdominal pain Current Visit: Yes Status: Acute Hospital Course: Patient came in with right lower quadrant pain. She has history of appendicolith. After laparoscopic appendectomy, pain is resolved. Procedures: Laparoscopic appendectomy Patient Condition at Discharge: Stable Plan - Discharge Summary Discharge Rx Participant: No New Discharge Prescriptions: No Action HYDROcodone/APAP 7.5-325MG [Francitas 7.5-325] 1 tab PO BID Tolterodine Tartrate [Detrol LA] 2 mg PO DAILY Albuterol Inhaler [Ventolin Hfa Inhaler] 2 puff INHALATION RT-Q4H PRN PRN Reason: Shortness Of Breath Fluticasone Nasal [place] [Flonase Nasal [place]] 1 spray EA NOSTRIL DAILY Cetirizine HCl [Zyrtec] 20 mg PO DAILY Magnesium Oxide [Mag-Ox] 400 mg PO HS Omalizumab [Xolair] 150 mg SQ Q14D Budesonide-Formot 160-4.5 Mcg [Symbicort 160-4.5 Mcg Inhaler] 2 puff INHALATION RT-BID Meloxicam [Meloxicam] 15 mg PO HS Omeprazole 20 mg PO DAILY #30 cap Vilazodone HCl [Viibryd] 10 mg PO HS QUEtiapine FUMARATE [Seroquel Xr] 400 mg PO HS Montelukast [Singulair] 10 mg PO HS Ergocalciferol [Vitamin D2] 50,000 unit PO SA Albuterol Nebulized [Ventolin Nebulized] 2.5 mg INHALATION RT-TID EPINEPHrine [Epipen 2-Melecio] 0.3 mg IM ONCE PRN PRN Reason: Anaphylaxis Gabapentin [Neurontin] 300 mg PO TID Lisinopril [Zestril] 10 mg PO DAILY Ondansetron [Zofran ODT] 4 mg PO Q8HR PRN #10 tab PRN Reason: Nausea Discharge Medication List HYDROcodone/APAP 7.5-325MG [[place] 7.5-325] 1 tab PO BID 04/04/15 [History] Tolterodine Tartrate [Detrol LA] 2 mg PO DAILY 04/05/15 [History] Albuterol Inhaler [Ventolin Hfa Inhaler] 2 puff INHALATION RT-Q4H PRN 10/20/15 [ History] Cetirizine HCl [Zyrtec] 20 mg PO DAILY 10/20/15 [History] Fluticasone Nasal [place] [Flonase Nasal [place]] 1 spray EA NOSTRIL DAILY 10/20/15 [History] Magnesium Oxide [Mag-Ox] 400 mg PO HS 10/20/15 [History] Omalizumab [Xolair] 150 mg SQ Q14D 06/30/16 [History] Budesonide-Formot 160-4.5 Mcg [Symbicort 160-4.5 Mcg Inhaler] 2 puff INHALATION RT-BID 08/03/16 [History] Meloxicam [Meloxicam] 15 mg PO HS 08/03/16 [History] Omeprazole 20 mg PO DAILY #30 cap 08/06/16 [Rx] Albuterol Nebulized [Ventolin Nebulized] 2.5 mg INHALATION RT-TID 11/16/16 [ History] EPINEPHrine [Epipen 2-Melecio] 0.3 mg IM ONCE PRN 11/16/16 [History] Ergocalciferol [Vitamin D2] 50,000 unit PO SA 11/16/16 [History] Montelukast [Singulair] 10 mg PO HS 11/16/16 [History] QUEtiapine FUMARATE [Seroquel Xr] 400 mg PO HS 11/16/16 [History] Vilazodone HCl [Viibryd] 10 mg PO HS 11/16/16 [History] Gabapentin [Neurontin] 300 mg PO TID 02/16/17 [History] Lisinopril [Zestril] 10 mg PO DAILY 02/16/17 [History] Ondansetron [Zofran ODT] 4 mg PO Q8HR PRN #10 tab 03/21/17 [Rx] Follow up Appointment(s)/Referral(s): Chan Jain MD [Primary Care Provider] - 1-2 days Dori Verde MD [STAFF PHYSICIAN] - 04/26/17 Patient Instructions/Handouts: Laparoscopic Appendectomy (DC) Activity/Diet/Wound Care/Special Instructions: No bathtub soaks. Okay to shower. No lifting over 5 pounds for the rest of the week.
[2017-04-12] MEDS: FLUTICASONE 50MCG/SPRAY NASAL 16GM EA NOSTRIL SCH (09:09)
[2017-04-12] MEDS: PANTOPRAZOLE 40 MG TABLET PO SCH (09:09)
[2017-04-12] MEDS: GABAPENTIN 300 MG CAP PO SCH (09:12)
[2017-04-12] MEDS: QUEtiapine 200 MG TAB PO SCH (09:12)
[2017-04-12] MEDS: LISINOPRIL 10 MG TAB PO SCH (09:13)
[2017-04-12] MEDS: LORATADINE 10 MG TAB PO SCH (09:14)
[2017-04-12] MEDS: OXYBUTYNIN XL 5 MG TAB.ER.24 PO SCH (09:14)
[2017-04-16] MEDS ORDERED: ERGOCALCIFEROL 50,000 UNIT CAP PO SCH (09:00)
--- NOTE | 2017-05-18 07:24 | P.OP ---
Date of Procedure: 04/11/17 Description of Procedure: SURGEON: MAYRA LANDERS MD ESL PROFESSOR: None. PREOPERATIVE DIAGNOSES: 1. Right lower quadrant abdominal pain. 2. Appendicolith. 3. Morbid obesity. 4. History of sleeve gastrectomy. 5. Chronic obstructive pulmonary disease. 6. Essential hypertension. 7. Gastroesophageal reflux disease. 8. Fibromyalgia. 9. Seizure disorder. 10. Sleep apnea. 11. Anxiety. 12. Bipolar disorder. 13. Depression. POSTOPERATIVE DIAGNOSES: 1. Right lower quadrant abdominal pain. 2. Appendicolith with chronic appendicitis. 3. Morbid obesity. 4. History of sleeve gastrectomy. 5. Chronic obstructive pulmonary disease. 6. Essential hypertension. 7. Gastroesophageal reflux disease. 8. Fibromyalgia. 9. Seizure disorder. 10. Sleep apnea. 11. Anxiety. 12. Bipolar disorder. 13. Depression. PROCEDURES PERFORMED: 1. Diagnostic laparoscopy. 2. Laparoscopic appendectomy. ANESTHESIA: General with local ESTIMATED BLOOD LOSS: 2 mL. SPECIMENS REMOVED: Appendix. COMPLICATIONS: None. OPERATIVE FINDINGS: 1. Moderate scarring along the appendix highly suspicious for chronic appendicitis 2. No evidence of mesenteric creeping or inflammatory bowel disease 3. No internal hernias identified 4. The colon was unremarkable INDICATIONS: The patient is a 42-year-old female who presents with right lower quadrant abdominal pain. CT of the abdomen and pelvis was consistent with appendicoliths. Benefits and risks, including possibility of open technique were described at length. Informed consent was obtained. DESCRIPTION OR PROCEDURE: Patient was brought to the operating room, laid in supine position. After general induction, the abdomen was prepped and draped in standard sterile fashion. Prior to incision, a timeout protocol was confirmed with surgical team regarding patient's name including procedure to be performed. Preoperative antibiotics were given intraoperatively. Additionally, bilateral SCDs including heparin 5000 units was administered. A left upper quadrant 5 mm incision was made after localizing the skin with anesthetic. A 0 degree 5 mm laparoscopic trocar entry was performed and entered into the peritoneal cavity. The abdomen was insufflated to 15 mmHg of pressure, which she tolerated well. Diagnostic laparoscopy demonstrated no injury to bowel, viscera or mesentery. A 5 mm port was placed just above the pubis. A separate 12 mm port was placed at the left lower quadrant all under direct visualization. The patient was placed in Trendelenburg position with the right side up. A systematic view within the abdominal cavity was started with the small bowel which was unremarkable. The base of the cecum was without inflammation. Moderate scarring along the appendix was identified as the appendix traveled along the right upper quadrant and right lateral abdominal wall towards the liver. No evidence of mesenteric creeping or inflammatory bowel disease was identified. The small bowel was investigated including along the mesentery where no internal hernias were identified. The colon was unremarkable. As moderate scarring was identified along with the appendix, blunt dissection including a cordless harmonic scalpel was used to dissect the appendix including mesoappendix from its surrounding tissue. A 45 mm Endo SIMA echelon stapler was fired across using a morales vascular load. The staple line was completely hemostatic. The specimen was removed from the abdominal cavity with an Endo Catch bag. No perforation of the appendix was identified. Appendicoliths were palpated. All instruments and pneumoperitoneum were evacuated from the abdominal cavity. The fascial defect was reapproximated using 0 Vicryl in a figure-of-8 fashion. A total of 30 mL 0.25% Marcaine with epinephrine was infiltrated in all wounds for postop analgesia. Dermabond was applied to the skin after reapproximating the incisions with 4-0 Monocryl as described. At the end of the procedure, needle, sponge, and instrument count was verified correct by mechanical test technician. The patient had tolerated the procedure well, was taken to the postanesthesia care unit in stable condition. Intraoperative abdominal films were described and discussed with her family who were overall pleased with her level of care.
== END 2017-04-12 09:50 | disposition home or self-care (01) ==
LOC: EC 16:20 → 6PED 18:07
PROVIDERS: ADMIT Surgery Plastic and Reconstructive Surgery; ATTEND Surgery Plastic and Reconstructive Surgery
DX: K35.80 Unspecified acute appendicitis (principal); K38.1 Appendicular concretions; I10 Essential (primary) hypertension; Z68.41 Body mass index [BMI] 40.0-44.9, adult; E66.01 Morbid (severe) obesity due to excess calories; K58.9 Irritable bowel syndrome, unspecified; Z98.84 Bariatric surgery status; G89.29 Other chronic pain; F11.20 Opioid dependence, uncomplicated; M54.5 Low back pain; G47.33 Obstructive sleep apnea (adult) (pediatric); M79.7 Fibromyalgia; J44.9 Chronic obstructive pulmonary disease, unspecified; G40.909 Epilepsy, unspecified, not intractable, without status epilepticus; F31.9 Bipolar disorder, unspecified; F41.9 Anxiety disorder, unspecified; K21.9 Gastro-esophageal reflux disease without esophagitis; Z79.1 Long term (current) use of non-steroidal anti-inflammatories (NSAID); Z79.51 Long term (current) use of inhaled steroids; Z79.899 Other long term (current) drug therapy; Z88.6 Allergy status to analgesic agent; Z88.8 Allergy status to other drugs, medicaments and biological substances; Z91.030 Bee allergy status; Z91.048 Other nonmedicinal substance allergy status; Z99.89 Dependence on other enabling machines and devices; F10.11 Alcohol abuse, in remission; Z87.891 Personal history of nicotine dependence; Z81.8 Family history of other mental and behavioral disorders; Z82.1 Family history of blindness and visual loss; Z82.3 Family history of stroke; Z83.2 Family history of diseases of the blood and blood-forming organs and certain disorders involving the immune mechanism
CPT/HCPCS: 44970; 99285 ×2; 96374 ×2; 36415; 94640 ×4; 88304; 80053; 80048; 82150; 83690; 85025 ×2; 81003; G0378 ×3; J2250; J1170 ×5; J1644 ×2; J2710; J2175; J2001; J3010; J0295 ×3; J0690; J0330; J2704

== ENCOUNTER → 2017-06-29 | Outpatient (CLI) | payer MEDICARE, OTHER ==
[2017-06-29 14:18] VITALS: BMI 39.6
[2017-06-29 14:26] VITALS: BP 152/76; PULSE 84; RESP 16; TEMP 98
[2017-06-29 15:03] LABS: HCT 36.1 % (34.0-46.0); HGB 12.3 gm/dL (11.4-16.0); MCH 28.3 pg (25.0-35.0); MCV 83.1 fL (80.0-100.0); Mean Platelet Volume 7.3; Platelet Count 257 k/uL (150-450); RBC 4.35 m/uL (3.80-5.40); RDW 12.7 % (11.5-15.5); WBC 8.6 k/uL (3.8-10.6)
[2017-06-29 15:09] LABS: ALT 20 U/L (9-52); AST 14 U/L (14-36); Albumin 4.1 g/dL (3.5-5.0); Alkaline Phosphatase 103 U/L (38-126); Anion Gap 11 mmol/L; Blood Urea Nitrogen 10 mg/dL (7-17); Calcium 9.7 mg/dL (8.4-10.2); Carbon Dioxide 30 mmol/L (22-30); Chloride 104 mmol/L (98-107); Cholesterol 211 mg/dL (<200); Glucose 79 mg/dL (74-99); HDL Cholesterol 59 mg/dL (40-60); Phosphorus 4.1 mg/dL (2.5-4.5); Potassium 3.9 mmol/L (3.5-5.1); Sodium 145 mmol/L (137-145); Total Bilirubin 0.3 mg/dL (0.2-1.3); Total Protein 6.9 g/dL (6.3-8.2); Triglycerides 407 mg/dL (<150)
[2017-06-29 15:15] LABS: Partial Thromboplastin Time 23.6 sec (22.0-30.0); Prothrombin Time 9.5 sec (9.0-12.0)
[2017-06-29 19:09] LABS: Iron Saturation 13.59 (12.00-45.00)
[2017-06-29 19:20] LABS: Vitamin D 25 Hydroxy 17.4 ng/mL (30.0-100.0)
[2017-06-29 19:25] LABS: Folate, Serum 21.6 ng/mL
[2017-06-29 19:35] LABS: Parathyroid Hormone Intact 62.2 pg/mL (14.0-72.0)
[2017-06-29 20:52] LABS: Hemoglobin A1C 5.2 % (4.0-6.0)
[2017-06-30 15:49] LABS: Zinc, Serum 66 ug/dL (60-130)
[2017-07-01 05:47] LABS: Vitamin A 52 ug/dL (38-106)
[2017-07-01 09:59] LABS: Vitamin B1 50 ug/L (38-122)
== END | disposition home or self-care (01) ==
LOC: BARWHC3 13:01
PROVIDERS: ATTEND Surgery Plastic and Reconstructive Surgery
DX: E66.01 Morbid (severe) obesity due to excess calories (principal); E21.1 Secondary hyperparathyroidism, not elsewhere classified; D50.9 Iron deficiency anemia, unspecified; K90.9 Intestinal malabsorption, unspecified; E55.9 Vitamin D deficiency, unspecified; K74.1 Hepatic sclerosis; N19 Unspecified kidney failure; K50.90 Crohn's disease, unspecified, without complications; E89.1 Postprocedural hypoinsulinemia; Z68.39 Body mass index [BMI] 39.0-39.9, adult
CPT/HCPCS: 84255; 84134; 84425; 80061; 80053; 82607; 82728; 82525; 82746; 83540; 83550; 83735; 84100; 84443; 84590; 84630; 85027; 85610; 85730; 82306; 83970; 83036; 97803; 36415; G0463; 99211

== ENCOUNTER → 2017-08-02 | Outpatient (CLI) | payer MEDICARE, OTHER ==
[2017-08-02 16:33] LABS: Basophils % (A) 1 %; Eosinophils # (A) 0.1 k/uL (0-0.7); Eosinophils % (A) 2 %; HCT 35.1 % (34.0-46.0); HGB 11.6 gm/dL (11.4-16.0); Lymphocytes % (A) 48 %; MCH 27.7 pg (25.0-35.0); MCV 83.9 fL (80.0-100.0); Mean Platelet Volume 7.7; Monocytes # (A) 0.3 k/uL (0-1.0); Monocytes % (A) 5 %; Neutrophils # (A) 2.6 k/uL (1.3-7.7); Neutrophils % (A) 41 %; Platelet Count 233 k/uL (150-450); RBC 4.18 m/uL (3.80-5.40); WBC 6.2 k/uL (3.8-10.6)
[2017-08-02 16:53] LABS: ALT 20 U/L (9-52); AST 15 U/L (14-36); Alkaline Phosphatase 102 U/L (38-126); Anion Gap 13 mmol/L; Blood Urea Nitrogen 13 mg/dL (7-17); Calcium 9.7 mg/dL (8.4-10.2); Carbon Dioxide 29 mmol/L (22-30); Chloride 104 mmol/L (98-107); Glucose 87 mg/dL (74-99); Potassium 3.6 mmol/L (3.5-5.1); Sodium 146 mmol/L (137-145); Total Bilirubin 0.2 mg/dL (0.2-1.3); Total Protein 6.4 g/dL (6.3-8.2)
== END | disposition home or self-care (01) ==
LOC: LABPAT 15:49
PROVIDERS: ATTEND Surgery Plastic and Reconstructive Surgery
DX: Z01.812 Encounter for preprocedural laboratory examination (principal)
CPT/HCPCS: 36415; 80053; 85025; 93005

== ENCOUNTER 2017-08-08 08:24 | Day surgery (SDC) | payer MEDICARE, OTHER ==
[2017-08-05 10:01] VITALS: BMI 37.3
--- NOTE | 2017-08-08 07:44 | P.GSHP ---
History of Present Illness H&P Date: 08/08/17 CHIEF COMPLAINT: Ventral hernia. HISTORY OF PRESENT ILLNESS: The patient is a 42-year-old female who presents with a history of swelling along the right lower abdomen. Findings were consistent with possible ventral hernia. Now she presents for further evaluation and management. PAST MEDICAL HISTORY: Please see list. PAST SURGICAL HISTORY: Please see list. MEDICATIONS: Please see list. ALLERGIES: Please see list. SOCIAL HISTORY: No illicit drug use FAMILY HISTORY: No reports of Crohn disease or ulcerative colitis. REVIEW OF ORGAN SYSTEMS: CONSTITUTIONAL: No reports of fevers or chills. GI: Denies any blood in stools or constipation. PHYSICAL EXAM: VITAL SIGNS: Stable GENERAL: Well-developed pleasant female in no acute distress. HEENT: No scleral icterus. Extraocular movements grossly intact. Moist buccal mucosa. NECK: Supple without lymphadenopathy. CHEST: Unlabored respirations. Equal bilateral excursions. CARDIOVASCULAR: Regular rate and rhythm. Distal 2+ pulses. ABDOMEN: Soft, nondistended. Tender along the right lower abdomen. Protuberant. MUSCULOSKELETAL: No clubbing, cyanosis, or edema. ASSESSMENT: 1. Ventral hernia. 2. Morbid obesity, BMI 37.3 PLAN: 1. Recommend proceeding with robotic ventral hernia repair with mesh. 2. Benefits and risks of surgical intervention was discussed including possibility of open technique. 3. DVT prophylaxis. 4. Antibiotic prophylaxis. Past Medical History Past Medical History: Asthma, COPD, Fibromyalgia, GERD/Reflux, Hypertension, Seizure Disorder, Sleep Apnea/CPAP/BIPAP Additional Past Medical History / Comment(s): Chronic back pain, LAST SEIZURE 2013, USES CPAP MACHINE, VENTRAL HERNIA History of Any Multi-Drug Resistant Organisms: None Reported Past Surgical History: Adenoidectomy, Appendectomy, Bariatric Surgery, Cholecystectomy, Hysterectomy, Orthopedic Surgery, Tonsillectomy, Tubal Ligation Additional Past Surgical History / Comment(s): KIRK knee arthroscopy, epidural lumbar injections ,KIRK CARPAL TUNNEL, ARTHROSCOPY RT ELBOW, EGD, COLONOSCOPY, Gastric Sleeve 02/16/17 Past Anesthesia/Blood Transfusion Reactions: No Reported Reaction Smoking Status: Former smoker - Past Family History Father Family Medical History: Deep Vein Thrombosis (DVT) Additional Family Medical History / Comment(s): Father is alive at age 67 with history of coronary aneurysm Mother Family Medical History: CVA/TIA Additional Family Medical History / Comment(s): Mother is alive at age 63 with history of bipolar, stroke, blindness. Brother(s) Additional Family Medical History / Comment(s): Patient has 2 brothers that are healthy. She has no sisters. She has 2 sons and 1 daughter that are healthy. Medications and Allergies Home Medications Medication Instructions Recorded Confirmed Type HYDROcodone/APAP 7.5-325MG [[place] 1 tab PO BID 04/04/15 08/05/17 History 7.5-325] Tolterodine Tartrate [Detrol LA] 2 mg PO DAILY 04/05/15 08/05/17 History Albuterol Inhaler [Ventolin Hfa 2 puff INHALATION RT-Q4H PRN 10/20/15 08/05/17 History Inhaler] Cetirizine HCl [Zyrtec] 20 mg PO DAILY 10/20/15 08/05/17 History Fluticasone Nasal [place] [Flonase 1 spray EA NOSTRIL DAILY 10/20/15 08/05/17 History Nasal [place]] Magnesium Oxide [Mag-Ox] 400 mg PO HS 10/20/15 08/05/17 History Omalizumab [Xolair] 150 mg SQ Q14D 06/30/16 08/05/17 History Budesonide-Formot 160-4.5 Mcg 2 puff INHALATION RT-BID 08/03/16 08/05/17 History [Symbicort 160-4.5 Mcg Inhaler] Meloxicam [Meloxicam] 15 mg PO HS 08/03/16 08/05/17 History Albuterol Nebulized [Ventolin 2.5 mg INHALATION RT-TID 11/16/16 08/05/17 History Nebulized] EPINEPHrine [Epipen 2-Melecio] 0.3 mg IM ONCE PRN 11/16/16 08/05/17 History Ergocalciferol [Vitamin D2] 50,000 unit PO SA 11/16/16 08/05/17 History Montelukast [Singulair] 10 mg PO HS 11/16/16 08/05/17 History QUEtiapine FUMARATE [Seroquel Xr] 400 mg PO HS 11/16/16 08/05/17 History Vilazodone HCl [Viibryd] 10 mg PO HS 11/16/16 08/05/17 History Gabapentin [Neurontin] 300 mg PO TID 02/16/17 08/05/17 History Lisinopril [Zestril] 30 mg PO DAILY 02/16/17 08/05/17 History Allergies Allergy/AdvReac Type Severity Reaction Status Date / Time adhesive Allergy Rash/Hives Verified 08/05/17 09:54 aspirin Allergy Anaphylaxis Verified 08/05/17 09:54 clonidine Allergy Rash/Hives Verified 08/05/17 09:54 hydroxyzine Allergy CONFUSION Verified 08/05/17 09:54 AND BODY SHAKES venlafaxine HCl Allergy Swelling Verified 08/05/17 09:54 [From Effexor] venom-honey bee Allergy Rash/Hives Verified 08/05/17 09:54 [bee venom (honey bee)]
[~2017-08-08 08:24] MED LIST changes: +ACETAMINOPHEN IV (For NPO) 1,000 MG in EMPTY BAG 1 BAG IVPB ONE; +DEXAMETHASONE SOD PHOSPHATE 10 MG/ML 1 ML VIAL IV ONE; +HEPARIN SODIUM,PORCINE 5,000 UNIT/ML 1 ML VIAL SQ STA; +MIDAZOLAM 2 MG/2 ML VIAL IV PRN; +ONDANSETRON 4 MG/2 ML VIAL IVP ONE; +SCOPOLAMINE 1.5MG/72HR PATCH TRANSDERM ONE; +ceFAZolin IN SWFI 2 GM/20 ML SYRINGE IVP ONE
[2017-08-08] MEDS ORDERED: LIDOCAINE 1% 20 ML VIAL (10MG/ML) FOR IV START INTRADERMA ONE (09:42)
[2017-08-08] MEDS ORDERED: MIDAZOLAM 2 MG/2 ML VIAL ONE (10:57)
[2017-08-08] MEDS ORDERED: SUCCINYLCHOLINE CHLORIDE 100 MG/5 ML SYR IV ONE (10:57)
[2017-08-08] MEDS ORDERED: ROCURONIUM BROMIDE 10 MG/ML 10 ML VIAL IV ONE (10:57)
[2017-08-08] MEDS ORDERED: GLYCOPYRROLATE 0.2 MG/ML 2 ML VIAL ONE (10:57)
[2017-08-08] MEDS ORDERED: fentaNYL (PF) 50 MCG/ML 2 ML AMP ONE (10:57)
[2017-08-08] MEDS ORDERED: NEOSTIGMINE 1 MG/ML 10 ML VIAL ONE (10:57)
[2017-08-08] MEDS ORDERED: LIDOCAINE 1% INJ 10MG/ML (20 ML MDV) ONE (10:57)
[2017-08-08] MEDS ORDERED: PROPOFOL 10 MG/ML 20 ML VIAL IV ONE (10:57)
[2017-08-08] MEDS ORDERED: BUPIVACAINE (PF) 0.25% 30 ML VIAL SQ ONE (11:28)
[2017-08-08] MEDS ORDERED: LACTATED RINGERS 1,000 ML IV ONE (11:59)
--- NOTE | 2017-08-08 12:09 | P.OP ---
Date of Procedure: 08/08/17 Description of Procedure: SURGEON: MAYRA LANDERS MD C2 TACTICAL ANALYSIS TECHNICIAN: 1. JOSE ANTONIO TOWNSEND PREOPERATIVE DIAGNOSES: 1. Initial ventral hernia 2. Morbid obesity due to excess calories 3. Body mass index 37.3 4. Bipolar disorder 5. Chronic pain syndrome 6. Diffuse osteoarthritis 7. Chronic obstructive pulmonary disease 8. Fibromyalgia 9. Asthma 10. Hypertensive heart disease 11. Obstructive sleep apnea 12. History of sleep apnea she POSTOPERATIVE DIAGNOSES: 1. Initial ventral hernia, reducible, periumbilical, 2 cm 2. Morbid obesity due to excess calories 3. Body mass index 37.3 4. Bipolar disorder 5. Chronic pain syndrome 6. Diffuse osteoarthritis 7. Chronic obstructive pulmonary disease 8. Fibromyalgia 9. Asthma 10. Hypertensive heart disease 11. Obstructive sleep apnea 12. History of sleep apnea she OPERATION: 1. Robotic-assisted da Isabel Xi laparoscopic repair of initial reducible ventral hernia 2 cm without mesh ANESTHESIA: General with local ESTIMATED BLOOD LOSS: 5 mL. SPECIMENS: None. COMPLICATIONS: None. INDICATIONS: The patient is a 42-year-old female who presents with pain along the right lower abdomen including periumbilical pain. Surgical intervention with laparoscopic versus robotic and open techniques were reviewed. Placement of mesh was also reviewed. Benefits and risks were thoroughly described. Informed consent was obtained. DESCRIPTION OF PROCEDURE: The patient was brought into the operating room and laid in supine position. After general induction, the abdomen had been prepped and draped in standard sterile fashion. [place]oban draping was also placed. Prior to incision, a timeout protocol was confirmed with surgical team regarding the patient's name including procedures to be performed. The robot was primed prior to the procedure. A field block using local anesthetis was placed along hernia site including the proposed port sites. Initial incision was made with an #11 blade along the left upper quadrant. A 0 degree 5 mm laparoscopic trocar entry was performed. Diagnostic laparoscopy demonstrated no injury to small bowel, mesentery or viscera. Separately a reducible ventral hernia of the umbilicus, 2 cm was identified. A 8 mm trocar was placed along the left lateral abdominal wall approximately 12 cm lateral to the lower midline. An 8 mm port was placed along the left lower quadrant under direct localization. The 5-mm port was exchanged for an 8 mm robotic port. Placements of the ports were 15 cm from the target anatomy and approximately 10 cm apart. The da Isabel Xi robot was previously primed, prepped and draped then docked along the left side of the patient. I then sat at the robot Da Isabel Xi console where working arms of the robot including Bovie cautery connected to robotic scissors, needle sales route driver helper, and graspers placed by the nursing assistants teacher. Attention was brought to the umbilicus where a reducible hernia was identified. The peritoneal fat was cleaned from the abdominal wall. Next, hemostasis was checked with cautery. The hernia defect of 2-cm was oversewn using #1 Stratafix with imbrication 3. A final endoscopic imaging was obtained. All instruments and pneumoperitoneum were evacuated from the abdominal cavity. The da Isabel Xi robot was undocked from the patient. I re-scrubbed into the case for closure of incisions. The incisions were reapproximated using 4-0 Monocryl in an interrupted subcuticular fashion. Exofin liquid glue was applied to the skin after cleansing the skin with normal saline and dilute hydrogen peroxide. An abdominal binder was placed. At the end of the procedure, needle, sponge, and instrument count had been verified correct by surgical instrument technician. The patient was taken to the postanesthesia care unit in stable condition. FINDINGS: 1. Initial ventral hernia of the umbilicus, 2 cm Plan - Discharge Summary Discharge Rx Participant: Yes New Discharge Prescriptions: No Action HYDROcodone/APAP 7.5-325MG [[place] 7.5-325] 1 tab PO BID Tolterodine Tartrate [Detrol LA] 2 mg PO DAILY Albuterol Inhaler [Ventolin Hfa Inhaler] 2 puff INHALATION RT-Q4H PRN PRN Reason: Shortness Of Breath Fluticasone Nasal [place] [Flonase Nasal [place]] 1 spray EA NOSTRIL DAILY Cetirizine HCl [Zyrtec] 20 mg PO DAILY Magnesium Oxide [Mag-Ox] 400 mg PO HS Omalizumab [Xolair] 150 mg SQ Q14D Budesonide-Formot 160-4.5 Mcg [Symbicort 160-4.5 Mcg Inhaler] 2 puff INHALATION RT-BID Meloxicam [Meloxicam] 15 mg PO HS Vilazodone HCl [Viibryd] 10 mg PO HS QUEtiapine FUMARATE [Seroquel Xr] 400 mg PO HS Montelukast [Singulair] 10 mg PO HS Ergocalciferol [Vitamin D2] 50,000 unit PO SA Albuterol Nebulized [Ventolin Nebulized] 2.5 mg INHALATION RT-TID EPINEPHrine [Epipen 2-Melecio] 0.3 mg IM ONCE PRN PRN Reason: Anaphylaxis Gabapentin [Neurontin] 300 mg PO TID Lisinopril [Zestril] 30 mg PO DAILY Discharge Medication List HYDROcodone/APAP 7.5-325MG [[place] 7.5-325] 1 tab PO BID 04/04/15 [History] Tolterodine Tartrate [Detrol LA] 2 mg PO DAILY 04/05/15 [History] Albuterol Inhaler [Ventolin Hfa Inhaler] 2 puff INHALATION RT-Q4H PRN 10/20/15 [ History] Cetirizine HCl [Zyrtec] 20 mg PO DAILY 10/20/15 [History] Fluticasone Nasal [place] [Flonase Nasal [place]] 1 spray EA NOSTRIL DAILY 10/20/15 [History] Magnesium Oxide [Mag-Ox] 400 mg PO HS 10/20/15 [History] Omalizumab [Xolair] 150 mg SQ Q14D 06/30/16 [History] Budesonide-Formot 160-4.5 Mcg [Symbicort 160-4.5 Mcg Inhaler] 2 puff INHALATION RT-BID 08/03/16 [History] Meloxicam [Meloxicam] 15 mg PO HS 08/03/16 [History] Albuterol Nebulized [Ventolin Nebulized] 2.5 mg INHALATION RT-TID 11/16/16 [ History] EPINEPHrine [Epipen 2-Melecio] 0.3 mg IM ONCE PRN 11/16/16 [History] Ergocalciferol [Vitamin D2] 50,000 unit PO SA 11/16/16 [History] Montelukast [Singulair] 10 mg PO HS 11/16/16 [History] QUEtiapine FUMARATE [Seroquel Xr] 400 mg PO HS 11/16/16 [History] Vilazodone HCl [Viibryd] 10 mg PO HS 11/16/16 [History] Gabapentin [Neurontin] 300 mg PO TID 02/16/17 [History] Lisinopril [Zestril] 30 mg PO DAILY 02/16/17 [History]
[2017-08-08 12:16] VITALS: TEMP 97.6
[2017-08-08 12:26] VITALS: RESP 16
[2017-08-08] MEDS: fentaNYL (PF) 50 MCG/ML 2 ML AMP IV PRN ×2 (12:48→13:02)
[2017-08-08] MEDS ORDERED: MORPHINE SULFATE 4 MG/ML SYRINGE IVP ONE (13:14)
[2017-08-08] MEDS ORDERED: HYDROcodone/APAP 7.5-325MG 1 EACH TAB PO ONE (13:46)
[2017-08-08 14:07] VITALS: BP 125/82; PULSE 82
== END 2017-08-08 14:34 | disposition home or self-care (01) ==
LOC: OR 08:24
PROVIDERS: ATTEND Surgery Plastic and Reconstructive Surgery
DX: K43.9 Ventral hernia without obstruction or gangrene (principal); E66.01 Morbid (severe) obesity due to excess calories; F31.9 Bipolar disorder, unspecified; G40.909 Epilepsy, unspecified, not intractable, without status epilepticus; G47.33 Obstructive sleep apnea (adult) (pediatric); G89.4 Chronic pain syndrome; I11.9 Hypertensive heart disease without heart failure; J44.9 Chronic obstructive pulmonary disease, unspecified; M19.90 Unspecified osteoarthritis, unspecified site; M79.7 Fibromyalgia; Z68.37 Body mass index [BMI] 37.0-37.9, adult; Z99.89 Dependence on other enabling machines and devices; K21.9 Gastro-esophageal reflux disease without esophagitis; Z87.891 Personal history of nicotine dependence; Z79.891 Long term (current) use of opiate analgesic; Z79.51 Long term (current) use of inhaled steroids; Z79.1 Long term (current) use of non-steroidal anti-inflammatories (NSAID); Z79.899 Other long term (current) drug therapy; Z88.6 Allergy status to analgesic agent; Z88.8 Allergy status to other drugs, medicaments and biological substances; Z91.048 Other nonmedicinal substance allergy status; Z91.030 Bee allergy status
CPT/HCPCS: 49652; J2250; J2270; J1644; J1100; J2710; J2405; J2001; J3010; J0131; J0330; J2704; J0690; 86850; 86900; 86901

== ENCOUNTER → 2017-11-24 | Outpatient (CLI) | payer MEDICARE, OTHER ==
[2017-11-24 14:11] LABS: HCT 37.9 % (34.0-46.0); HGB 11.8 gm/dL (11.4-16.0); MCH 27.2 pg (25.0-35.0); MCHC 31.2 g/dL (31.0-37.0); MCV 87.2 fL (80.0-100.0); Platelet Count 205 k/uL (150-450); RBC 4.35 m/uL (3.80-5.40); RDW 13.1 % (11.5-15.5); WBC 9.3 k/uL (3.8-10.6)
[2017-11-24 14:18] LABS: ALT 31 U/L (9-52); AST 15 U/L (14-36); Albumin 3.4 g/dL (3.5-5.0); Alkaline Phosphatase 72 U/L (38-126); Anion Gap 3 mmol/L; Blood Urea Nitrogen 12 mg/dL (7-17); Calcium 8.9 mg/dL (8.4-10.2); Carbon Dioxide 30 mmol/L (22-30); Chloride 107 mmol/L (98-107); Cholesterol 182 mg/dL (<200); Glucose 79 mg/dL (74-99); HDL Cholesterol 42 mg/dL (40-60); LDL Cholesterol,Calculated 70 mg/dL (0-99); Magnesium 1.9 mg/dL (1.6-2.3); Phosphorus 3.6 mg/dL (2.5-4.5); Sodium 140 mmol/L (137-145); Total Bilirubin 0.4 mg/dL (0.2-1.3); Total Protein 5.7 g/dL (6.3-8.2); Triglycerides 352 mg/dL (<150)
[2017-11-24 14:25] LABS: Partial Thromboplastin Time 22.9 sec (22.0-30.0); Prothrombin Time 9.7 sec (9.0-12.0)
[2017-11-24 19:55] LABS: Iron Saturation 17.68 (12.00-45.00)
[2017-11-24 20:07] LABS: Folate, Serum 15.9 ng/mL; Vitamin D 25 Hydroxy 16.1 ng/mL (30.0-100.0)
[2017-11-24 23:12] LABS: Hemoglobin A1C 5.4 % (4.0-6.0)
[2017-11-25 16:06] LABS: Zinc, Serum 66 ug/dL (60-130)
== END | disposition home or self-care (01) ==
LOC: LABWHC1 13:51
PROVIDERS: ATTEND Surgery Plastic and Reconstructive Surgery
DX: E66.01 Morbid (severe) obesity due to excess calories (principal); E21.1 Secondary hyperparathyroidism, not elsewhere classified; D50.8 Other iron deficiency anemias; K90.89 Other intestinal malabsorption; E44.0 Moderate protein-calorie malnutrition; E55.9 Vitamin D deficiency, unspecified; K74.1 Hepatic sclerosis; N19 Unspecified kidney failure; K50.90 Crohn's disease, unspecified, without complications
CPT/HCPCS: 36415; 80053; 80061; 82306; 82525; 82607; 82728; 82746; 83036; 83540; 83550; 83735; 83970; 84100; 84134; 84255; 84425; 84443; 84590; 84630; 85027; 85610; 85730

== ENCOUNTER → 2018-01-04 | Outpatient (CLI) | payer MEDICARE, OTHER ==
--- NOTE | 2018-01-04 16:06 | P.PN ---
Subjective Progress Note Date: 01/04/18 HPI: She has reflux daily. She has tried keeping a food journal. She had a sleeve. ABDOMEN: No hernia. PLAN: 1. Log Scaler for dietary modification. 2. Investigate revision for complications from sleeve gastrectomy. 3. Needs EGD 4. Needs esophogram for sleeve anomaly. 5. Antidepressants adjusted for weight gain
[2018-01-04 17:43] VITALS: BP 133/98; PULSE 69; TEMP 98; BMI 40.3
== END ==
LOC: BARWHC3 15:06
PROVIDERS: ATTEND Surgery Plastic and Reconstructive Surgery
DX: K21.9 Gastro-esophageal reflux disease without esophagitis (principal); Z98.84 Bariatric surgery status
CPT/HCPCS: 99211

== ENCOUNTER 2018-03-06 07:39 | Day surgery (SDC) | payer MEDICARE, OTHER ==
[2018-03-02 11:33] VITALS: BMI 38.7
--- NOTE | 2018-03-06 06:40 | P.GSHP ---
History of Present Illness H&P Date: 03/06/18 CHIEF COMPLAINT: GERD HISTORY OF PRESENT ILLNESS: The patient is a 43-year-old female who presents reports gastroesophageal reflux disease. Upper endoscopy was offered for further evaluation and management. PAST MEDICAL HISTORY: Please see list. PAST SURGICAL HISTORY: Please see list. MEDICATIONS: Please see list. ALLERGIES: Please see list. SOCIAL HISTORY: No illicit drug use FAMILY HISTORY: No reports of Crohn disease or ulcerative colitis. REVIEW OF ORGAN SYSTEMS: CONSTITUTIONAL: No reports of fevers or chills. GI: Denies any blood in stools or constipation. PHYSICAL EXAM: VITAL SIGNS: Stable GENERAL: Well-developed and pleasant in no acute distress. HEENT: No scleral icterus. Extraocular movements grossly intact. Moist buccal mucosa. NECK: Supple without lymphadenopathy. CHEST: Unlabored respirations. Equal bilateral excursions. CARDIOVASCULAR: Regular rate and rhythm. Distal 2+ pulses. ABDOMEN: Soft, nondistended. MUSCULOSKELETAL: No clubbing, cyanosis, or edema. ASSESSMENT: 1. Gastroesophageal reflux disease PLAN: 1. Recommend proceeding with an upper endoscopy Past Medical History Past Medical History: Asthma, COPD, Fibromyalgia, GERD/Reflux, Hypertension, Seizure Disorder, Sleep Apnea/CPAP/BIPAP Additional Past Medical History / Comment(s): Chronic back pain, LAST SEIZURE 2013, USES CPAP MACHINE, VENTRAL HERNIA History of Any Multi-Drug Resistant Organisms: None Reported Past Surgical History: Adenoidectomy, Appendectomy, Bariatric Surgery, Cholecystectomy, Hysterectomy, Orthopedic Surgery, Tonsillectomy, Tubal Ligation Additional Past Surgical History / Comment(s): KIRK knee arthroscopy, epidural lumbar injections ,KIRK CARPAL TUNNEL, ARTHROSCOPY RT ELBOW, EGD, COLONOSCOPY, Gastric Sleeve 02/16/17 Past Anesthesia/Blood Transfusion Reactions: No Reported Reaction Smoking Status: Former smoker - Past Family History Father Family Medical History: Deep Vein Thrombosis (DVT) Additional Family Medical History / Comment(s): Father is alive at age 67 with history of coronary aneurysm Mother Family Medical History: CVA/TIA Additional Family Medical History / Comment(s): Mother is alive at age 63 with history of bipolar, stroke, blindness. Brother(s) Additional Family Medical History / Comment(s): Patient has 2 brothers that are healthy. She has no sisters. She has 2 sons and 1 daughter that are healthy. Medications and Allergies Home Medications Medication Instructions Recorded Confirmed Type Tolterodine Tartrate [Detrol LA] 2 mg PO DAILY 04/05/15 03/02/18 History Albuterol Inhaler [Ventolin Hfa 2 puff INHALATION RT-Q4H PRN 10/20/15 03/02/18 History Inhaler] Cetirizine HCl [Zyrtec] 20 mg PO DAILY 10/20/15 03/02/18 History Fluticasone Nasal [place] [Flonase 1 spray EA NOSTRIL DAILY 10/20/15 03/02/18 History Nasal [place]] Magnesium Oxide [Mag-Ox] 400 mg PO HS 10/20/15 03/02/18 History Omalizumab [Xolair] 150 mg SQ Q14D 06/30/16 03/02/18 History Budesonide-Formot 160-4.5 Mcg 2 puff INHALATION RT-BID 08/03/16 03/02/18 History [Symbicort 160-4.5 Mcg Inhaler] Meloxicam 15 mg PO HS 08/03/16 03/02/18 History Albuterol Nebulized [Ventolin 2.5 mg INHALATION RT-TID PRN 11/16/16 03/02/18 History Nebulized] EPINEPHrine [Epipen 2-Melecio] 0.3 mg IM ONCE PRN 11/16/16 03/02/18 History Ergocalciferol [Vitamin D2] 50,000 unit PO SA 11/16/16 03/02/18 History Montelukast [Singulair] 10 mg PO HS 11/16/16 03/02/18 History QUEtiapine FUMARATE [Seroquel Xr] 400 mg PO HS 11/16/16 03/02/18 History Vilazodone HCl [Viibryd] 10 mg PO HS 11/16/16 03/02/18 History Gabapentin [Neurontin] 300 mg PO TID 02/16/17 03/02/18 History Lisinopril [Zestril] 20 mg PO QAM 02/16/17 03/02/18 History HYDROcodone/APAP 7.5-325MG [[place] 1 each PO Q4H PRN #18 tab 08/08/17 03/02/18 Rx 7.5-325] Simethicone [Gas-X] 125 mg PO AC-TID PRN #30 capsule 08/16/17 03/02/18 Rx Allergies Allergy/AdvReac Type Severity Reaction Status Date / Time adhesive Allergy Rash/Hives Verified 03/02/18 11:26 aspirin Allergy Anaphylaxis Verified 03/02/18 11:26 clonidine Allergy Rash/Hives Verified 03/02/18 11:26 hydroxyzine Allergy CONFUSION Verified 03/02/18 11:26 AND BODY SHAKES venlafaxine HCl Allergy Swelling Verified 03/02/18 11:26 [From Effexor] venom-honey bee Allergy Rash/Hives Verified 03/02/18 11:26 [bee venom (honey bee)]
[~2018-03-06 07:39] MED LIST changes: -ACETAMINOPHEN IV (For NPO) 1,000 MG in EMPTY BAG 1 BAG IVPB ONE; -HEPARIN SODIUM,PORCINE 5,000 UNIT/ML 1 ML VIAL SQ STA; +HYDROmorphone 0.5 MG/0.5 ML SYRINGE IVP PRN; +LIDOCAINE 1% 20 ML VIAL (10MG/ML) FOR IV START INTRADERMA PRN; +MIDAZOLAM 1 MG/ML 5 ML VIAL IV PRN; -MIDAZOLAM 2 MG/2 ML VIAL IV PRN; -ceFAZolin IN SWFI 2 GM/20 ML SYRINGE IVP ONE
[2018-03-06 08:01] VITALS: TEMP 98.5
[2018-03-06] MEDS ORDERED: PROPOFOL 10 MG/ML 20 ML VIAL IV ONE (08:41)
[2018-03-06] MEDS ORDERED: LIDOCAINE 1% INJ 10MG/ML (20 ML MDV) ONE (08:41)
--- NOTE | 2018-03-06 09:01 | P.PCN ---
Date of Procedure: 03/06/18 Description of Procedure: PREOPERATIVE DIAGNOSIS: Status post sleeve gastrectomy. Gastroesophageal reflux disease. Epigastric abdominal pain. POSTOPERATIVE DIAGNOSIS: Status post sleeve gastrectomy. Gastroesophageal reflux disease. Epigastric abdominal pain. Chronic superficial gastritis. OPERATION: Esophagogastroduodenoscopy with cold forceps biopsies along the antrum. SURGEON: Dori Verde MD ANESTHESIA: MAC. INDICATIONS: The patient is a 43-year-old female who presents with a history of sleeve gastrectomy with abdominal pain. Benefits and risks of the procedure were described. Informed consent was obtained. DESCRIPTION: The patient was brought into the endoscopy suite and laid in the left lateral decubitus position. An Olympus gastroscope was passed along the posterior oropharynx down to the distal esophagus where the squamocolumnar junction was at 40 cm from the incisors. The stomach was entered. The sleeve reservoir was extremely large with easy retroflexion and view of the lower esophageal valve. Chronic gastritis albeit mild was found along the antrum with cold biopsies obtained. The first through third portion of the duodenum was examined and unremarkable. The scope again had easily retroflexed along the antrum. The stomach was desufflated. The patient tolerated the procedure well. FINDINGS: No corkscrewing sleeve gastrectomy. Squamocolumnar junction at 40 cm from the incisors. Diaphragmatic hiatus at 40 cm. Moderate large gastric reservoir with prior history of sleeve gastrectomy allowing easy retroflexion of the gastroscope to view the lower esophageal valve. No LA grade A erosive esophagitis. No active duodenitis. Chronic gastritis. RECOMMENDATIONS: Her sleeve is too large for history of sleeve gastrectomy and recommend additional studies and possible revision Plan - Discharge Summary New Discharge Prescriptions: No Action Tolterodine Tartrate [Detrol LA] 2 mg PO DAILY Albuterol Inhaler [Ventolin Hfa Inhaler] 2 puff INHALATION RT-Q4H PRN PRN Reason: Shortness Of Breath Fluticasone Nasal [place] [Flonase Nasal [place]] 1 spray EA NOSTRIL DAILY Cetirizine HCl [Zyrtec] 20 mg PO DAILY Magnesium Oxide [Mag-Ox] 400 mg PO HS Omalizumab [Xolair] 150 mg SQ Q14D Budesonide-Formot 160-4.5 Mcg [Symbicort 160-4.5 Mcg Inhaler] 2 puff INHALATION RT-BID Meloxicam 15 mg PO HS Vilazodone HCl [Viibryd] 10 mg PO HS QUEtiapine FUMARATE [Seroquel Xr] 400 mg PO HS Montelukast [Singulair] 10 mg PO HS Ergocalciferol [Vitamin D2] 50,000 unit PO SA Albuterol Nebulized [Ventolin Nebulized] 2.5 mg INHALATION RT-TID PRN PRN Reason: sob EPINEPHrine [Epipen 2-Melecio] 0.3 mg IM ONCE PRN PRN Reason: Anaphylaxis Gabapentin [Neurontin] 300 mg PO TID Lisinopril [Zestril] 20 mg PO QAM HYDROcodone/APAP 7.5-325MG [[place] 7.5-325] 1 each PO Q4H PRN #18 tab PRN Reason: Pain Simethicone [Gas-X] 125 mg PO AC-TID PRN #30 capsule PRN Reason: Gi Upset Discharge Medication List Tolterodine Tartrate [Detrol LA] 2 mg PO DAILY 04/05/15 [History] Albuterol Inhaler [Ventolin Hfa Inhaler] 2 puff INHALATION RT-Q4H PRN 10/20/15 [ History] Cetirizine HCl [Zyrtec] 20 mg PO DAILY 10/20/15 [History] Fluticasone Nasal [place] [Flonase Nasal [place]] 1 spray EA NOSTRIL DAILY 10/20/15 [History] Magnesium Oxide [Mag-Ox] 400 mg PO HS 10/20/15 [History] Omalizumab [Xolair] 150 mg SQ Q14D 06/30/16 [History] Budesonide-Formot 160-4.5 Mcg [Symbicort 160-4.5 Mcg Inhaler] 2 puff INHALATION RT-BID 08/03/16 [History] Meloxicam 15 mg PO HS 08/03/16 [History] Albuterol Nebulized [Ventolin Nebulized] 2.5 mg INHALATION RT-TID PRN 11/16/16 [ History] EPINEPHrine [Epipen 2-Melecio] 0.3 mg IM ONCE PRN 11/16/16 [History] Ergocalciferol [Vitamin D2] 50,000 unit PO SA 11/16/16 [History] Montelukast [Singulair] 10 mg PO HS 11/16/16 [History] QUEtiapine FUMARATE [Seroquel Xr] 400 mg PO HS 11/16/16 [History] Vilazodone HCl [Viibryd] 10 mg PO HS 11/16/16 [History] Gabapentin [Neurontin] 300 mg PO TID 02/16/17 [History] Lisinopril [Zestril] 20 mg PO QAM 02/16/17 [History] HYDROcodone/APAP 7.5-325MG [[place] 7.5-325] 1 each PO Q4H PRN #18 tab 08/08/17 [ Rx] Simethicone [Gas-X] 125 mg PO AC-TID PRN #30 capsule 08/16/17 [Rx] Follow up Appointment(s)/Referral(s): [facility] [[facility]-STAFF] - 03/08/18 Patient Instructions/Handouts: Gastroesophageal Reflux Disease (DC) Discharge Disposition: HOME SELF-CARE
[2018-03-06 09:38] VITALS: BP 118/86; PULSE 65; RESP 18
== END 2018-03-06 09:39 | disposition home or self-care (01) ==
LOC: ORWHC2ENDO 07:39
PROVIDERS: ATTEND Surgery Plastic and Reconstructive Surgery
DX: K29.30 Chronic superficial gastritis without bleeding (principal); K21.9 Gastro-esophageal reflux disease without esophagitis; J44.9 Chronic obstructive pulmonary disease, unspecified; Z79.82 Long term (current) use of aspirin; Z98.84 Bariatric surgery status; Z88.8 Allergy status to other drugs, medicaments and biological substances; Z79.891 Long term (current) use of opiate analgesic
CPT/HCPCS: 88305; 43239; J2001; J2704

== ENCOUNTER → 2018-03-08 | Outpatient (CLI) | payer MEDICARE, OTHER ==
--- NOTE | 2018-03-08 16:34 | P.PN ---
Subjective Progress Note Date: 03/08/18 HPI: She has recurrent umbilical hernia. EGD is reviewed with findings of large pouch. ABDOMEN: Pain along the lateral right umbilicus PLAN: 1. Needs revision from sleeve to bypass. 2. Has GERD from her sleeve. 3. Needs esophogram
[2018-03-08 16:40] VITALS: BP 131/83; PULSE 67; RESP 16; TEMP 98.1; BMI 39.9
== END | disposition home or self-care (01) ==
LOC: BARWHC3 14:35
PROVIDERS: ATTEND Surgery Plastic and Reconstructive Surgery
DX: E66.01 Morbid (severe) obesity due to excess calories (principal); Z68.39 Body mass index [BMI] 39.0-39.9, adult
CPT/HCPCS: 97803; G0463; 99211

== ENCOUNTER → 2018-03-17 | Outpatient (CLI) | payer MEDICARE, OTHER ==
--- NOTE | 2018-03-17 11:04 | FL ---
EXAMINATION TYPE: FL barium swallow DATE OF EXAM: 03/17/2018 CLINICAL HISTORY: Gastroesophageal reflux with recent endoscopy. Prior gastric sleeve approximately 1 year ago. TECHNIQUE: A double contrast esophagram is performed utilizing air and barium. A total of 2 minutes and 30 seconds of fluoroscopic time was utilized during procedure. 57 fluoroscopic images were saved during the examination. COMPARISON: None FINDINGS: The esophagus shows normal motility and emptying into the stomach on the gravity dependent portion of the examination, however there is abnormal motility with tertiary contractions on the grav ity independent portion of the examination. No gastroesophageal reflux was seen on the upright images , however severe intraesophageal reflux and moderate gastroesophageal reflux was noted on supine imag ing. No evidence of hiatal hernia or stricture noted. No evidence of leak or outlet obstruction from the patient's sleeve gastrectomy. IMPRESSION: 1. Dysmotility with tertiary contractions in the supine position throughout the esophagus. 2. Severe intraesophageal reflux and moderate gastroesophageal reflux on supine imaging with no signi ficant gastroesophageal reflux in the upright position.
== END | disposition home or self-care (01) ==
LOC: RADFLWHC 09:05
PROVIDERS: ATTEND Surgery Plastic and Reconstructive Surgery
DX: K21.9 Gastro-esophageal reflux disease without esophagitis (principal); K22.4 Dyskinesia of esophagus
CPT/HCPCS: 74220

== ENCOUNTER → 2018-04-05 | Outpatient (CLI) | payer MEDICARE, OTHER ==
[2018-04-05 16:12] VITALS: BP 152/92; PULSE 80; TEMP 97.7; BMI 39.7
--- NOTE | 2018-04-05 16:25 | P.PN ---
Subjective Progress Note Date: 04/05/18 DATE OF SERVICE: 04/05/2018 CHIEF COMPLAINT: Follow up sleeve gastrectomy HISTORY OF PRESENT ILLNESS: Sharri Braswell is a 43-year-old female with a history of sleeve gastrectomy 02/16/2017. She is over 1 year out. She comes in complaining of severe gastrosesophageal reflux disease as well as periumbilical pain from prior umbilical hernia repair. 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 Her highest weight for his 5 foot 5.75 frame is 259 pounds. Today she comes weight at 244 pounds from 245 pounds, 1 month ago. She has lost 1 pound in 1 month. Total weight loss of 15 pounds lifetime. Body mass index is down from 42.2 to 39.8. Percent excess weight loss of 14% lifetime. PAST MEDICAL HISTORY: 1. Morbid obesity due to excess calories 2. Body mass index of 42.2 initial 3. Asthma 4. Chronic obstructive pulmonary disease 5. Fibromyalgia 6. Gastroesophageal reflux disease 7. Obstructive sleep apnea 8. Seizure disorder 9. Chronic lower back pain 10. Anxiety 11. Depression 12. Bipolar disorder 13. Hypertensive heart disease PAST SURGICAL HISTORY: 1. Sleeve gastrectomy 2. Appendectomy 3. Adenoidectomy 4. Hysterectomy 5. Cholecystectomy 6. Tonsillectomy 7. Tubal ligation 8. Bilateral knee arthroscopy 9. Colonoscopy 10. Upper endoscopy 11. Epidural injections HOME MEDICATIONS: 1. Vilazodone 2. Detrol 3. Seroquel 4. Xolair 5. Singulair 6. Meloxicam 7. Magnesium oxide 8. Lisinopril 9. [place] 10. Neurontin 11. Flonase 12. Vitamin D 13. Epinephrine 14. Zyrtec 15. Symbicort 16. Ventolin nebulizer 17. Albuterol inhaler ALLERGIES: 1. Adhesive 2. Aspirin 3. Clonidine 4. Hydroxyzine 5. Venlafaxine SOCIAL HISTORY: History of tobacco use. FAMILY HISTORY: No family history of ulcerative colitis disease or Crohn's disease. Family history of morbid obesity. No lupus in the family. No reports of stomach or esophageal cancer. Family history of DVT. REVIEW OF ORGAN SYSTEMS: CONSTITUTIONAL: Her highest weight for his 5 foot 5.75 frame is 259 pounds. Body mass index was 42.2. HEENT: Denies any active troubles with vision or hearing. No troubles with swallowing. ENDOCRINE: No diabetes. No hypothyroidism. CARDIOVASCULAR: No reports of palpitations or heart attacks or chest pain. RESPIRATORY: Has daytime somnolence. No asthma. GI: Denies any bright red blood per rectum. No diarrhea or constipation. MUSCULOSKELETAL: Has lower back pain and joint pain. Has osteoarthritis of the knees. Has fibromyalgia. NEURO: No headaches. Has seizure disorders. PSYCH: Has depression. No suicidal ideation. Has bipolar disorder including anxiety. RHEUMATOLOGIC: No lupus. No rheumatoid arthritis. HEMATOLOGIC: Denies any abnormal bleeding or bruising. No personal history of DVTs. SKIN: No rash. No skin cancer. PHYSICAL EXAM: VITAL SIGNS: 5 feet 5.75 inches, 244 pounds, body mass index 39.8. Vital Signs Temp 97.7 F 04/05/18 16:00 Pulse 80 04/05/18 16:00 Resp BP 152/92 04/05/18 16:00 Pulse Ox ABDOMEN: Soft, nondistended. Periumbical mild discomfort MUSCULOSKELETAL: No clubbing or cyanosis or edema. GENERAL: Well-developed male in no acute distress. HEENT: No sclerae icterus. Extra-ocular movements are grossly intact. Hears conversational speech. CHEST: Nonlabored respirations. Equal bilateral excursions. CARDIOVASCULAR: Regular rate. Regular rhythm. NEURO: No focal or lateralizing signs. Cranial nerves II-12 grossly intact. PSYCH: Appropriated affect. Alert and oriented to person, place and time. SKIN: Well perfused. Good skin turgor. STUDIES: Barium swallow imaging reviewed confirming evidence of esophageal dysmotility and gastroesophageal reflux disease. ASSESSMENT: 1. Morbid obesity due to excess calories. 2. Body mass index down from 42.2 to 39.8 3. Status post sleeve gastrectomy. 4. Hypertensive heart disease. 5. Obstructive sleep apnea. 6. Fibromyalgia. 7. Gastroesophageal reflux disease. 8. Seizure disorder. 9. Asthma. 10. COPD. 11. Anxiety. 12. Depression. 13. Bipolar disorder. 14. Osteoarthritis bilateral knees. 15. Vitamin D deficiency 16. Hypertriglyceridemia 17. Hypercholesterolemia 18. Dietary surveillance and counseling 19. Weight regain following weight loss procedure 20. Complications from sleeve gastrectomy 21. Esophageal dysmotility 22. Chronic pain syndrome. PLAN: 1. Recommend revision to gastric bypass as she has complications from her sleeve gastrectomy as she has esophageal dysmotility that is contraindicated for her sleeve. 2. Recommend bariatric metabolic panel and correction of nutritional deficiencies. 3. She has history of chronic pain and will need complete pain management plan prior to surgical intervention. 4. Recommend second operator classes. Objective - Vital Signs Vital signs: Vital Signs Temp 97.7 F 04/05/18 16:00 Pulse 80 04/05/18 16:00 Resp BP 152/92 04/05/18 16:00 Pulse Ox Intake & Output 04/04/18 04/05/18 04/05/18 18:59 06:59 18:59 Weight 110.903 kg
== END | disposition home or self-care (01) ==
LOC: BARWHC3 14:38
PROVIDERS: ATTEND Surgery Plastic and Reconstructive Surgery
DX: Z09 Encounter for follow-up examination after completed treatment for conditions other than malignant neoplasm (principal); K95.89 Other complications of other bariatric procedure; K22.4 Dyskinesia of esophagus; K21.9 Gastro-esophageal reflux disease without esophagitis; R10.33 Periumbilical pain; R63.4 Abnormal weight loss; E66.01 Morbid (severe) obesity due to excess calories; J44.9 Chronic obstructive pulmonary disease, unspecified; M79.7 Fibromyalgia; G47.33 Obstructive sleep apnea (adult) (pediatric); G40.909 Epilepsy, unspecified, not intractable, without status epilepticus; G89.4 Chronic pain syndrome; M54.5 Low back pain; I11.9 Hypertensive heart disease without heart failure; F41.9 Anxiety disorder, unspecified; F31.9 Bipolar disorder, unspecified; M17.0 Bilateral primary osteoarthritis of knee; E55.9 Vitamin D deficiency, unspecified; E78.1 Pure hyperglyceridemia; E78.00 Pure hypercholesterolemia, unspecified; Z71.3 Dietary counseling and surveillance; Z87.891 Personal history of nicotine dependence; Z98.84 Bariatric surgery status; Z79.891 Long term (current) use of opiate analgesic; Z79.51 Long term (current) use of inhaled steroids; Z68.39 Body mass index [BMI] 39.0-39.9, adult; Z79.899 Other long term (current) drug therapy; Z91.048 Other nonmedicinal substance allergy status; Z88.6 Allergy status to analgesic agent; Z88.8 Allergy status to other drugs, medicaments and biological substances; Z90.89 Acquired absence of other organs; Z90.49 Acquired absence of other specified parts of digestive tract; Z90.710 Acquired absence of both cervix and uterus; Z98.51 Tubal ligation status; Z98.890 Other specified postprocedural states
CPT/HCPCS: 99211

== ENCOUNTER → 2018-04-12 | Outpatient (CLI) | payer MEDICARE, OTHER ==
[2018-04-12 15:34] LABS: HCT 37.7 % (34.0-46.0); HGB 12.6 gm/dL (11.4-16.0); MCH 28.5 pg (25.0-35.0); MCHC 33.4 g/dL (31.0-37.0); MCV 85.2 fL (80.0-100.0); Mean Platelet Volume 7.5; Platelet Count 299 k/uL (150-450); RBC 4.42 m/uL (3.80-5.40); RDW 13.4 % (11.5-15.5); WBC 9.1 k/uL (3.8-10.6)
[2018-04-12 15:50] LABS: INR 0.9 (<1.2); Partial Thromboplastin Time 25.2 sec (22.0-30.0); Prothrombin Time 9.6 sec (9.0-12.0)
[2018-04-13 02:52] LABS: Iron Saturation 13.72 (12.00-45.00)
[2018-04-13 02:58] LABS: Albumin 4.7 g/dL (3.80-4.90); Albumin/Globulin Ratio 2.76 (1.20-2.10); Anion Gap 9.3 mmol/L (4.00-12.00); Calcium 9.7 mg/dL (8.7-10.3); Carbon Dioxide 30.7 mmol/L (21.6-31.8); Globulin 1.7 g/dL (1.6-3.3); LDL Cholesterol,Calculated 89.8 mg/dL (0.0-131.0); Magnesium 2.1 mg/dL (1.5-2.4); Phosphorus 4.3 mg/dL (2.4-5.1); Potassium 3.6 mmol/L (3.5-5.5); Total Bilirubin 0.3 mg/dL (0.3-1.2); Total Protein 6.4 g/dL (6.2-8.2); VLDL Calculation 59.2 mg/dL (5.00-40.00)
[2018-04-13 03:01] LABS: Folate, Serum 7.7 ng/mL; Vitamin D 25 Hydroxy 15.7 ng/mL (30.0-100.0)
[2018-04-13 05:07] LABS: Hemoglobin A1C 5.4 % (4.0-6.0)
[2018-04-13 13:28] LABS: Zinc, Serum 77 ug/dL (60-130)
[2018-04-14 04:30] LABS: Vitamin B1 72 ug/L (38-122)
[2018-04-14 04:42] LABS: Vitamin A 53 ug/dL (38-106)
== END ==
LOC: LABWHC1 14:39
PROVIDERS: ATTEND Surgery Plastic and Reconstructive Surgery
DX: Z48.815 Encounter for surgical aftercare following surgery on the digestive system (principal); E66.01 Morbid (severe) obesity due to excess calories; E21.1 Secondary hyperparathyroidism, not elsewhere classified; E89.1 Postprocedural hypoinsulinemia; D50.9 Iron deficiency anemia, unspecified; K90.9 Intestinal malabsorption, unspecified; E44.0 Moderate protein-calorie malnutrition; E55.9 Vitamin D deficiency, unspecified; K74.1 Hepatic sclerosis; N19 Unspecified kidney failure; K50.90 Crohn's disease, unspecified, without complications; Z98.84 Bariatric surgery status
CPT/HCPCS: 36415; 80053; 80061; 82306; 82525; 82607; 82728; 82746; 83036; 83540; 83550; 83735; 83970; 84100; 84134; 84255; 84425; 84443; 84590; 84630; 85027; 85610; 85730

== ENCOUNTER → 2018-07-24 | Outpatient (CLI) | payer MEDICARE, OTHER ==
[2018-07-24 09:27] VITALS: BMI 39.5
== END ==
LOC: BARWHC3 08:18
PROVIDERS: ATTEND Surgery Plastic and Reconstructive Surgery
DX: E66.01 Morbid (severe) obesity due to excess calories (principal); Z68.39 Body mass index [BMI] 39.0-39.9, adult
CPT/HCPCS: 97804

== ENCOUNTER → 2018-08-16 | Outpatient (CLI) | payer MEDICARE, OTHER ==
[2018-08-16 14:39] VITALS: BP 141/79; PULSE 78; TEMP 98.3; BMI 40.9
--- NOTE | 2018-08-16 15:17 | P.PN ---
Subjective Progress Note Date: 08/16/18 HPI: She has new dentures. She comes in with complication from her sleeve gastrectomy. She reports sensitive pain along the right side of the umbilicus. ABDOMEN: Minimcal tenderness along the right side of the abdomen. ASSESSMENT: 1. Morbid obesity 2. Complications from sleeve gastrectomy PLAN: 1. [facility] reviewed with risks 2. Consent for gastric bypass reviewed Objective - Vital Signs Vital signs: Vital Signs Temp 98.3 F 08/16/18 14:08 Pulse 78 08/16/18 14:08 Resp BP 141/79 08/16/18 14:08 Pulse Ox Intake & Output 08/15/18 08/16/18 08/16/18 18:59 06:59 18:59 Weight 114.305 kg
== END ==
LOC: BARWHC3 14:08
PROVIDERS: ATTEND Surgery Plastic and Reconstructive Surgery
DX: E66.01 Morbid (severe) obesity due to excess calories (principal); K95.89 Other complications of other bariatric procedure; Z68.41 Body mass index [BMI] 40.0-44.9, adult
CPT/HCPCS: 99211

== ENCOUNTER → 2018-08-25 | Outpatient (CLI) | payer MEDICARE, OTHER ==
[2018-08-25 13:17] LABS: Basophils % (A) 0 %; Eosinophils # (A) 0.1 k/uL (0-0.7); Eosinophils % (A) 2 %; HCT 38.4 % (34.0-46.0); HGB 12.4 gm/dL (11.4-16.0); Lymphocytes # (A) 2.1 k/uL (1.0-4.8); Lymphocytes % (A) 41 %; MCH 26.9 pg (25.0-35.0); MCHC 32.3 g/dL (31.0-37.0); MCV 83.3 fL (80.0-100.0); Mean Platelet Volume 7.1; Monocytes # (A) 0.3 k/uL (0-1.0); Monocytes % (A) 5 %; Neutrophils # (A) 2.6 k/uL (1.3-7.7); Neutrophils % (A) 51 %; Platelet Count 276 k/uL (150-450); RBC 4.61 m/uL (3.80-5.40); RDW 12.9 % (11.5-15.5); WBC 5.1 k/uL (3.8-10.6)
[2018-08-25 13:28] LABS: ALT 33 U/L (9-52); AST 26 U/L (14-36); African American GFR (CKD) >90 (>60 ml/min/1.73 sqM); Albumin 4.3 g/dL (3.5-5.0); Alkaline Phosphatase 80 U/L (38-126); Anion Gap 7 mmol/L; Blood Urea Nitrogen 19 mg/dL (7-17); Calcium 9.9 mg/dL (8.4-10.2); Carbon Dioxide 30 mmol/L (22-30); Chloride 104 mmol/L (98-107); Glucose 102 mg/dL (74-99); Potassium 4.1 mmol/L (3.5-5.1); Sodium 141 mmol/L (137-145); Total Bilirubin 0.6 mg/dL (0.2-1.3); Total Protein 6.8 g/dL (6.3-8.2)
[2018-08-25 20:25] LABS: Hemoglobin A1C 5.5 % (4.0-6.0)
== END | disposition home or self-care (01) ==
LOC: LABPAT 12:37
PROVIDERS: ATTEND Surgery Plastic and Reconstructive Surgery
DX: R73.01 Impaired fasting glucose (principal); Z01.812 Encounter for preprocedural laboratory examination
CPT/HCPCS: 80053; 83036; 85025; 86850; 86900; 86901; 93005

== ENCOUNTER → 2018-10-24 | Outpatient (CLI) | payer MEDICARE, OTHER ==
[2018-10-24 17:28] LABS: Basophils % (A) 1 %; Eosinophils # (A) 0.1 k/uL (0-0.7); Eosinophils % (A) 2 %; HGB 12.6 gm/dL (11.4-16.0); Lymphocytes % (A) 46 %; MCHC 32.3 g/dL (31.0-37.0); MCV 83.8 fL (80.0-100.0); Mean Platelet Volume 7.6; Monocytes # (A) 0.2 k/uL (0-1.0); Monocytes % (A) 4 %; Neutrophils % (A) 46 %; Platelet Count 288 k/uL (150-450); RBC 4.66 m/uL (3.80-5.40); RDW 13.1 % (11.5-15.5); WBC 6.6 k/uL (3.8-10.6)
[2018-10-24 17:45] LABS: ALT 29 U/L (9-52); AST 25 U/L (14-36); African American GFR (CKD) >90 (>60 ml/min/1.73 sqM); Albumin 4.6 g/dL (3.5-5.0); Alkaline Phosphatase 92 U/L (38-126); Anion Gap 10 mmol/L; Blood Urea Nitrogen 19 mg/dL (7-17); Carbon Dioxide 27 mmol/L (22-30); Chloride 104 mmol/L (98-107); Glucose 91 mg/dL (74-99); Non-African American GFR(CKD) 87 (>60 ml/min/1.73 sqM); Potassium 4.2 mmol/L (3.5-5.1); Sodium 141 mmol/L (137-145); Total Bilirubin 0.5 mg/dL (0.2-1.3); Total Protein 7.3 g/dL (6.3-8.2)
== END | disposition home or self-care (01) ==
LOC: LABPAT 16:53
PROVIDERS: ATTEND Surgery Plastic and Reconstructive Surgery
DX: Z01.812 Encounter for preprocedural laboratory examination (principal)
CPT/HCPCS: 36415; 80053; 85025; 86850; 86900; 86901

== ENCOUNTER 2018-10-30 10:50 | Inpatient (IN) | payer MEDICARE, OTHER ==
[2018-10-25 12:43] VITALS: BMI 38.3
--- NOTE | 2018-10-29 22:53 | P.GSHP ---
History of Present Illness H&P Date: 10/30/18 DATE OF SERVICE: 10/30/2018 CHIEF COMPLAINT: Complications from sleeve gastrectomy HISTORY OF PRESENT ILLNESS: Sharri Braswell is a 43-year-old female with a history of sleeve gastrectomy 02/16/2017. She is over 2 years out. She comes in complaining of severe gastrosesophageal reflux disease as well as periumbilical pain from her sleeve. She has new dentures. She comes in with complication from her sleeve gastrectomy. She has intermittent nausea. Her highest weight for his 5 foot 5.75 frame is 259 pounds. Body mass index is down from 42.2 to 41.0. Percent excess weight loss of 7 % lifetime. PAST MEDICAL HISTORY: 1. Morbid obesity due to excess calories 2. Body mass index of 42.2 initial 3. Asthma 4. Chronic obstructive pulmonary disease 5. Fibromyalgia 6. Gastroesophageal reflux disease 7. Obstructive sleep apnea 8. Seizure disorder 9. Chronic lower back pain 10. Anxiety 11. Depression 12. Bipolar disorder 13. Hypertensive heart disease PAST SURGICAL HISTORY: 1. Sleeve gastrectomy 2. Appendectomy 3. Adenoidectomy 4. Hysterectomy 5. Cholecystectomy 6. Tonsillectomy 7. Tubal ligation 8. Bilateral knee arthroscopy 9. Colonoscopy 10. Upper endoscopy 11. Epidural injections HOME MEDICATIONS: Home Medications Medication Instructions Recorded Confirmed Tolterodine Tartrate [Detrol LA] 5 mg PO DAILY 04/05/15 08/28/18 Albuterol Inhaler [Ventolin Hfa 2 puff INHALATION RT-Q4H PRN 10/20/15 08/28/18 Inhaler] Cetirizine HCl [Zyrtec] 20 mg PO DAILY 10/20/15 08/28/18 Fluticasone Nasal [place] [Flonase 1 spray EA NOSTRIL DAILY 10/20/15 08/28/18 Nasal [place]] Magnesium Oxide [Mag-Ox] 400 mg PO HS 10/20/15 08/28/18 Omalizumab [Xolair] 350 mg SQ Q14D 06/30/16 08/28/18 Budesonide-Formot 160-4.5 Mcg 2 puff INHALATION RT-BID 08/03/16 08/28/18 [Symbicort 160-4.5 Mcg Inhaler] Albuterol Nebulized [Ventolin 2.5 mg INHALATION RT-TID PRN 11/16/16 08/28/18 Nebulized] EPINEPHrine [Epipen 2-Melecio] 0.3 mg IM ONCE PRN 11/16/16 08/28/18 Montelukast [Singulair] 10 mg PO HS 11/16/16 08/28/18 QUEtiapine FUMARATE [Seroquel Xr] 400 mg PO HS 11/16/16 08/28/18 Vilazodone HCl [Viibryd] 20 mg PO HS 11/16/16 08/28/18 Gabapentin [Neurontin] 300 mg PO TID 02/16/17 08/28/18 Lisinopril [Zestril] 20 mg PO QAM 02/16/17 08/28/18 Cholecalciferol (Vitamin D3) 10,000 unit PO DAILY 04/18/18 08/28/18 [Vitamin D3] QUEtiapine [SEROquel] 25 mg PO DAILY 08/16/18 08/28/18 Previous Rx's Medication Instructions Recorded HYDROcodone/APAP 7.5-325MG [[place] 1 each PO Q4H PRN #18 tab 08/08/17 7.5-325] ALLERGIES: 1. Adhesive 2. Aspirin 3. Clonidine 4. Hydroxyzine 5. Venlafaxine SOCIAL HISTORY: History of tobacco use. FAMILY HISTORY: No family history of ulcerative colitis disease or Crohn's disease. Family history of morbid obesity. No lupus in the family. No reports of stomach or esophageal cancer. Family history of DVT. REVIEW OF ORGAN SYSTEMS: CONSTITUTIONAL: Her highest weight for his 5 foot 5.75 frame is 259 pounds. Body mass index was 42.2. HEENT: Denies any active troubles with vision or hearing. No troubles with swallowing. ENDOCRINE: No diabetes. No hypothyroidism. CARDIOVASCULAR: No reports of palpitations or heart attacks or chest pain. RESPIRATORY: Has daytime somnolence. No asthma. GI: Denies any bright red blood per rectum. No diarrhea or constipation. MUSCULOSKELETAL: Has lower back pain and joint pain. Has osteoarthritis of the knees. Has fibromyalgia. NEURO: No headaches. Has seizure disorders. PSYCH: Has depression. No suicidal ideation. Has bipolar disorder including anxiety. RHEUMATOLOGIC: No lupus. No rheumatoid arthritis. HEMATOLOGIC: Denies any abnormal bleeding or bruising. No personal history of DVTs. SKIN: No rash. No skin cancer. PHYSICAL EXAM: VITAL SIGNS: 5 feet 5.75 inches, 244 pounds, body mass index 38.4 ABDOMEN: Minimal tenderness along the right side of the abdomen. No peritonitis. MUSCULOSKELETAL: No clubbing or cyanosis or edema. GENERAL: Well-developed male in no acute distress. HEENT: No sclerae icterus. Extra-ocular movements are grossly intact. Hears conversational speech. CHEST: Nonlabored respirations. Equal bilateral excursions. CARDIOVASCULAR: Regular rate. Regular rhythm. NEURO: No focal or lateralizing signs. Cranial nerves II-12 grossly intact. PSYCH: Appropriated affect. Alert and oriented to person, place and time. SKIN: Well perfused. Good skin turgor. ASSESSMENT: 1. Morbid obesity due to excess calories. 2. Body mass index down from 42.2 to 41.0 3. Status post sleeve gastrectomy. 4. Hypertensive heart disease. 5. Obstructive sleep apnea. 6. Fibromyalgia. 7. Gastroesophageal reflux disease. 8. Seizure disorder. 9. Asthma. 10. COPD. 11. Anxiety. 12. Depression. 13. Bipolar disorder. 14. Osteoarthritis bilateral knees. 15. Vitamin D deficiency 16. Hypertriglyceridemia 17. Hypercholesterolemia 18. Dietary surveillance and counseling 19. Weight regain following weight loss procedure 20. Complications from sleeve gastrectomy 21. Esophageal dysmotility 22. Chronic pain syndrome. PLAN: 1. She has complications from sleeve gastrectomy including intractable gastroesophageal reflux disease. Conversion to gastric bypass was described in detail. As result, her procedure is high risk with pre-existing gastric surgery. 2. The [place] [facility] Data was also reviewed with benefits and risks as described. 3. An 8 page second-generation bariatric consent form was reviewed in detail including potential of bleeding, infection, leaks, adequate weight loss, nutritional deficiencies which the patient demonstrated understanding of the risks. 4. A 2 week high-protein low caloric 800 kcal diet described to address hepatomegaly. 5. Preoperative labs including complete metabolic panel and CBC with type and screen recommended. 6. DVT prophylaxis per [place] [facility]. 7. Antibiotic prophylaxis. 8. Inpatient hospitalization anticipated for more than 2 nights. 9. All questions and concerns were addressed with the patient. 10. She has pain management where post-operative pain with her provider is advised. Past Medical History Past Medical History: Asthma, COPD, Fibromyalgia, GERD/Reflux, Hypertension, Seizure Disorder, Sleep Apnea/CPAP/BIPAP Additional Past Medical History / Comment(s): Chronic back pain, LAST SEIZURE 2013, USES CPAP MACHINE, VENTRAL HERNIA History of Any Multi-Drug Resistant Organisms: None Reported Past Surgical History: Adenoidectomy, Appendectomy, Bariatric Surgery, Cholecystectomy, Hysterectomy, Orthopedic Surgery, Tonsillectomy, Tubal Ligation Additional Past Surgical History / Comment(s): KIRK knee arthroscopy, epidural lumbar injections ,KIRK CARPAL TUNNEL, ARTHROSCOPY RT ELBOW, EGD, COLONOSCOPY, Gastric Sleeve 02/16/17, Past Anesthesia/Blood Transfusion Reactions: No Reported Reaction Smoking Status: Former smoker - Past Family History Father Family Medical History: Deep Vein Thrombosis (DVT) Additional Family Medical History / Comment(s): Father is alive at age 67 with history of coronary aneurysm Mother Family Medical History: CVA/TIA Additional Family Medical History / Comment(s): Mother is alive at age 63 with history of bipolar, stroke, blindness. Brother(s) Additional Family Medical History / Comment(s): Patient has 2 brothers that are healthy. She has no sisters. She has 2 sons and 1 daughter that are healthy. Medications and Allergies Home Medications Medication Instructions Recorded Confirmed Type Tolterodine Tartrate [Detrol LA] 5 mg PO DAILY 04/05/15 10/25/18 History Albuterol Inhaler [Ventolin Hfa 2 puff INHALATION RT-Q4H PRN 10/20/15 10/25/18 History Inhaler] Cetirizine HCl [Zyrtec] 20 mg PO DAILY 10/20/15 10/25/18 History Fluticasone Nasal [place] [Flonase 1 spray EA NOSTRIL DAILY 10/20/15 10/25/18 History Nasal [place]] Magnesium Oxide [Mag-Ox] 400 mg PO HS 10/20/15 10/25/18 History Omalizumab [Xolair] 350 mg SQ Q14D 06/30/16 10/25/18 History Budesonide-Formot 160-4.5 Mcg 2 puff INHALATION RT-BID 08/03/16 10/25/18 History [Symbicort 160-4.5 Mcg Inhaler] Albuterol Nebulized [Ventolin 2.5 mg INHALATION RT-TID PRN 11/16/16 10/25/18 History Nebulized] EPINEPHrine [Epipen 2-Melecio] 0.3 mg IM ONCE PRN 11/16/16 10/25/18 History Montelukast [Singulair] 10 mg PO HS 11/16/16 10/25/18 History QUEtiapine FUMARATE [Seroquel Xr] 400 mg PO HS 11/16/16 10/25/18 History Vilazodone HCl [Viibryd] 20 mg PO HS 11/16/16 10/25/18 History Gabapentin [Neurontin] 300 mg PO TID 02/16/17 10/25/18 History Lisinopril [Zestril] 20 mg PO QAM 02/16/17 10/25/18 History HYDROcodone/APAP 7.5-325MG [[place] 1 each PO Q4H PRN #18 tab 08/08/17 10/25/18 Rx 7.5-325] Cholecalciferol (Vitamin D3) 10,000 unit PO DAILY 04/18/18 10/25/18 History [Vitamin D3] QUEtiapine [SEROquel] 25 mg PO DAILY 08/16/18 10/25/18 History Allergies Allergy/AdvReac Type Severity Reaction Status Date / Time adhesive Allergy Rash/Hives Verified 10/25/18 12:34 aspirin Allergy Anaphylaxis Verified 10/25/18 12:34 clonidine Allergy Rash/Hives Verified 10/25/18 12:34 hydroxyzine Allergy CONFUSION Verified 10/25/18 12:34 AND BODY SHAKES venlafaxine HCl Allergy Swelling Verified 10/25/18 12:34 [From Effexor] venom-honey bee Allergy Rash/Hives Verified 10/25/18 12:34 [bee venom (honey bee)]
[~2018-10-30 10:50] MED LIST changes: +CHLORHEXIDINE GLUCONATE 15 ML CUP MUCOUS MEM ONE; +ENOXAPARIN 40 MG/0.4 ML SYRINGE SQ STA; -HYDROmorphone 0.5 MG/0.5 ML SYRINGE IVP PRN; -LACTATED RINGERS 1,000 ML IV SCH; -LIDOCAINE 1% 20 ML VIAL (10MG/ML) FOR IV START INTRADERMA PRN; -MIDAZOLAM 1 MG/ML 5 ML VIAL IV PRN; +MIDAZOLAM 2 MG/2 ML VIAL IV PRN; +PANTOPRAZOLE 40 MG/10 ML VIAL IV STA
[2018-10-30] MEDS: LACTATED RINGERS 1,000 ML IV SCH (11:25)
[2018-10-30] MEDS ORDERED: LIDOCAINE 1%-EPI 1:100,000 20 ML VIAL SQ ONE ×2 (12:18→13:19)
[2018-10-30] MEDS ORDERED: fentaNYL (PF) 50 MCG/ML 2 ML AMP ONE (12:32)
[2018-10-30] MEDS ORDERED: SUCCINYLCHOLINE CHLORIDE 100 MG/5 ML SYR IV ONE (12:32)
[2018-10-30] MEDS ORDERED: PROPOFOL 10 MG/ML 20 ML VIAL IV ONE (12:32)
[2018-10-30] MEDS ORDERED: LIDOCAINE 1% INJ 10MG/ML (20 ML MDV) ONE (12:32)
[2018-10-30] MEDS ORDERED: ROCURONIUM BROMIDE 10 MG/ML 10 ML VIAL IV ONE (12:32)
[2018-10-30] MEDS ORDERED: NEOSTIGMINE 1 MG/ML 10 ML VIAL ONE (12:32)
[2018-10-30] MEDS ORDERED: MIDAZOLAM 2 MG/2 ML VIAL ONE (12:32)
[2018-10-30] MEDS ORDERED: GLYCOPYRROLATE 0.2 MG/ML 2 ML VIAL ONE (12:32)
[2018-10-30] MEDS ORDERED: KETAMINE 10 MG/ML 20 ML VIAL ONE (12:32)
--- NOTE | 2018-10-30 12:37 | P.HPADDEND ---
H&P Addendum H&P Addendum Date: 10/30/18 Patient seen and evaluated. She is a conversion from a sleeve to a gastric bypass. Separately she does report some periumbilical pain which will also be investigated at the time of her procedure. Benefits and risks of conversion to gastric bypass reviewed in detail including pain management.
[2018-10-30] MEDS ORDERED: LACTATED RINGERS 1,000 ML IV ONE ×2 (13:15→15:09)
[2018-10-30] MEDS ORDERED: diphenhydrAMINE 50 MG/ML 1 ML VIAL IVP PRN (15:50)
[2018-10-30] MEDS ORDERED: NALOXONE 0.4 MG/ML 1 ML VIAL IV PRN (15:50)
[2018-10-30] MEDS: HYDROmorphone 0.5 MG/0.5 ML SYRINGE IVP PRN ×5 (16:07→16:28)
--- NOTE | 2018-10-30 16:08 | P.OP ---
Date of Procedure: 10/30/18 Description of Procedure: DESCRIPTION OF PROCEDURE(S): SURGEON: MAYRA LANDERS MD PREOPERATIVE DIAGNOSES: 1. Morbid obesity due to excess calories. 2. Body mass index down from 42.2 to 41.0 3. Status post sleeve gastrectomy. 4. Hypertensive heart disease. 5. Obstructive sleep apnea. 6. Fibromyalgia. 7. Gastroesophageal reflux disease. 8. Seizure disorder. 9. Asthma. 10. COPD. 11. Anxiety. 12. Depression. 13. Bipolar disorder. 14. Osteoarthritis bilateral knees. 15. Vitamin D deficiency 16. Hypertriglyceridemia 17. Hypercholesterolemia 18. Dietary surveillance and counseling 19. Weight regain following weight loss procedure 20. Complications from sleeve gastrectomy 21. Esophageal dysmotility 22. Chronic pain syndrome. POSTOPERATIVE DIAGNOSES: 1. Morbid obesity due to excess calories. 2. Body mass index down from 42.2 to 41.0 3. Status post sleeve gastrectomy. 4. Hypertensive heart disease. 5. Obstructive sleep apnea. 6. Fibromyalgia. 7. Gastroesophageal reflux disease. 8. Seizure disorder. 9. Asthma. 10. COPD. 11. Anxiety. 12. Depression. 13. Bipolar disorder. 14. Osteoarthritis bilateral knees. 15. Vitamin D deficiency 16. Hypertriglyceridemia 17. Hypercholesterolemia 18. Dietary surveillance and counseling 19. Weight regain following weight loss procedure 20. Complications from sleeve gastrectomy 21. Esophageal dysmotility 22. Chronic pain syndrome. 23. Peritoneal adhesions epigastrium and periumbilical OPERATION: 1. Robotic assisted da Isabel Xi laparoscopic Herlinda-en-Y gastric bypass, 100cm antecolic antegastric Herlinda limb, with 21 mm EEA. 2. Laparoscopic extensive lysis of adhesions 30 minutes. 3. Intraoperative esophagogastrojejunoscopy. ANESTHESIA: General with local ESTIMATED BLOOD LOSS: 10 mL SPECIMENS REMOVED: None. COMPLICATIONS: NONE. INDICATIONS: Sharri Braswell is a 43-year-old female with a history of sleeve gastrectomy 02/16/2017. She is over 2 years out. She comes in complaining of severe gastrosesophageal reflux disease as well as periumbilical pain from her sleeve. She comes in with complication from her sleeve gastrectomy. Her highest weight for his 5 foot 5.75 frame is 259 pounds. Body mass index is down from 42.2 to 41.0. She now presents to undergo robotic assisted gastric bypass. A second-generation bariatric consent form was described in detail including the possibility of protein malnutrition, leaks, gastrojejunal stricture, venous thrombosis, need for further surgery for which she demonstrated understanding. Benefits and risks of the procedure were described at length. Informed consent was obtained. DESCRIPTION: The patient was brought into the operating room theater. She was placed on a split leg table. Preoperatively she had received Lovenox subcutaneously for DVT prophylaxis. Additionally she had undergone Peridex oral solution as an oral decontaminant. After general induction, the abdomen was prepped and draped in standard sterile fashion. Ioban draping was placed along the abdomen. A robotic da Isabel Xi system was prepped and primed. The xiphoid to umbilicus was measured of 20 cm. Proposed port sites were marked with indelible marker along the anterior axillary line bilaterally, mid clavicular line bilaterally with each port marked 10 cm from each other. The patent legal assistant port was marked along the right lateral lower abdominal wall. The robotic stapler port was marked for the right midclavicular line including along the left midclavicular line. A 5 mm 0 degrees laparoscopic trocar entry was performed along the left upper quadrant. The abdomen was insufflated to 15 mmHg pressure, which she tolerated well. Diagnostic laparoscopy demonstrated no injury to bowel, viscera, or mesentery. The liver surface was unremarkable. No evidence of large prominent hiatal hernia was encountered. Separately, her previous sleeve gastrectomy had mild adhesion to the inferior surface of the liver. Moderate dense omental adhesion of the epigastrium and periumbilical was confirmed also at the location of pain. An 8 mm camera port was placed left lateral to the umbilicus at the epigastrium, 12 cm distal to the xiphoid. Next, 12-mm robot stapler port was placed along the right mid abdomen. An 12 mm port was exchanged along the left upper quadrant. An 8 mm port was placed on the left lateral abdominal wall under direct localization. Please note that the ports were placed 18 to 20 cm away from the target anatomy of the stomach. Care was taken to check that each robotic arm was safely away from collision with the bed or the patient. At the epigastrium, a medium sized Prosper liver retractor was placed under direct visualization with the Iron Embedded Software Architect placed under the right shoulder of the patient. Initial attention was brought to lysis of adhesions where the omental adhesion of the anterior abdominal wall was addressed using a vessel sealer for 30 minutes. Once adhesions were taken down, attention was brought to the gastric bypass portion of the case. The patient was repositioned in reverse Trendelenburg position at 16-degress after lowering the bed. The robot was docked over the patient. Using grasper for arm 3, a grasper for arm 1, including vessel sealer for arm 4, the robotic system was docked and primed as described. Instruments were interchanged by the patent legal assistant including endoscissors, the needle otr hazmat company driver, and stapler. I had sat at the console. Next, the transverse mesocolon was reflected into the upper abdomen preparing for the jejunojejunostomy portion of the case. The ligament of Treitz was identified and measured 60 cm antegrade and marked using 2-0 Silk. The jejunum was divided at the 60 cm point using 60-mm white loads above the suture measurement. The biliopancreatic limb was held in place. The Herlinda limb was measured 100 cm in an antegrade fashion to avoid tension along the proposed gastrojejunal anastomosis. At 100 cm along the anti-mesenteric border of the Herlinda limb, a jejunojejunostomy was proposed whereby enterotomies were created along the biliopancreatic limb including the Herlinda limb using a Bovie cautery. A stay suture of 2-0 Silk was placed to align and create the anastomosis. The enterotomies along the anti-mesenteric borders were created followed by unidirectional fire from the patient's right side using 60 mm white load Smart technology robotic stapler. The jejunojejunostomy was found to be hemostatic. The enterotomy was closed after horizontal mattress stitch of 2-0 silk used to elevate the enterotomy followed by closure with the robotic stapler white and blue loads. The jejunal limb was temporarily tacked along the left upper quadrant. Attention was now brought to the creation of the gastrojejunostomy. Once all the adhesions along the superior pole of the stomach were addressed, preparation for a gastric pouch was performed. Along the lesser curvature of the stomach between the second and third veins and above the angularis incisura, dissection was made along the retrogastric space to allow first firing of the robotic staple. A total of green loads of 60 mm staplers were used to divide the stomach from the previous gastric sleeve. Hemostasis was excellent. The robot was temporarily undocked for completion of the gastrojejunostomy using an Orvil. The patient was then prepared for placement of a Orvil. A 21-mm Orvil was selected for placement by the nurse scientific systems analyst. The Orvil tubing was placed anterior to the staple line of the gastric pouch and brought out through the left inferior lateral port. The Orvil was then carefully and successfully navigated with the help of the nurse scientific systems analyst into the gastric pouch. The sutures were identified and divided. The tubing was from the 21 mm anvil. Using aseptic technique all instruments including port sites were exchanged. As the Orvil had been placed, the blind jejunal limb was brought proximally into the upper abdomen. The transverse mesocolon was minimally bulky and undisturbed. No torsion was found upon the Herlinda limb. No tension was identified as the limb was brought along the upper abdomen. The blind jejunal limb was opened using Bovie cautery. The 21-mm EEA stapler was brought through the left anterior lateral port site from the left side. The EEA stapler was brought through the open jejunal limb and its needle was deployed at the antimesenteric border where the anvil were mated for approximately 1 minute upon firing. The stapler was removed after irrigating the shaft of the instrument with warm normal saline. Donuts were found to be intact on the jejunum side. The da Isabel XiI robot was then re-docked. The open jejunal limb defect was closed using 600mm blue loads after releasing any tension from the blind jejunal limb. Care was taken to avoid any long blind limb to avoid candycane syndrome. Reinforcement sutures were placed along the gastrojejunal anastomosis anteriorly and posteriorly including at the 12:00, 9:00, 3:00 and posterior aspect of the anastomosis. The Olivia and jejunojejunostomy mesenteric defects were obliterated by her intra-abdominal fat. I then went to the head of the bed to perform the esophagogastrojejunoscopy and a leak test. An Olympus gastroscope was passed along the posterior oropharynx which was unremarkable for any injury to the vocal cords. The scope was passed down to the proximal portion of the pouch, whereby no active bleeding was encountered. Excellent visualization of the gastrojejunostomy anastomosis, including the Herlinda limb was encountered with endoscopic image obtained. The anastomosis was found to be patent. The gastrointestinal tract was desufflated. No evidence of intraoperative leak was encountered as the gastric pouch and anastomosis were submerged under normal saline solution. The robot was then undocked. I then went back to the bedside of the patient, whereby with coordinated effort of the patent legal assistant, irrigation was aspirated from the upper abdominal cavity. Tisseel was placed circumferentially over the anastomosis of the gastrojejunostomy. The fascial defect of the EEA stapler was closed using [place] and 0 Vicryl. All instruments and pneumoperitoneum were evacuated from the abdominal cavity. The port correlating with the EEA stapler device was copiously irrigated normal saline solution and hydrogen peroxide. The rest of incisions were reapproximated using by 4-0 Monocryl in an interrupted subcuticular fashion. Local anesthetic was infiltrated along the skin for postop analgesia. OptiFoam dressing was placed along all sides secondary to her ALLERGY to adhesives. At the end of the procedure, needle, sponge and instrument count had been verified correct by the binder technician. She had tolerated the procedure well and was extubated and taken to the postanesthesia unit in stable condition. Operative Findings: 1. Abdominal wall peritoneal adhesions adding 30 minutes to her case. 2. Bypass performed using 100 cm herlinda limb secondary to avoid increased tension at 150 cm. 3. Martinez defect and jejunojejunostomy defect obliterated by moderate intra- abdominal fat. 4. Leak test negative with gastrojejunal anastomosis patent and hemostatic. 5. Robotic stapler total 7 loads, 2 blue, 3 whites, and 2 green loads 60 mm used. 6. Gastric pouch resected using 2 green loads. 7. Console time 1 hr 25 minutes
[2018-10-30] MEDS ORDERED: diphenhydrAMINE 50 MG/ML 1 ML VIAL IVP ONE ×2 (16:43→16:59)
[2018-10-30] MEDS ORDERED: MEPERIDINE 50 MG/ML SYRINGE IVP ONE (17:10)
[2018-10-30] MEDS: ALBUTEROL NEBULIZED 2.5 MG/3 ML INHALATION SCH ×2 (18:03→20:36)
[2018-10-30] MEDS: HYDROmorphone 1 MG/ML 1 ML SYRINGE IVP PRN (19:35)
[2018-10-30] MEDS: 0.9% NACL WITH KCL 20 MEQ/L 1,000 ML IV SCH (19:47)
[2018-10-30] MEDS: SIMETHICONE 40 MG/0.6 ML DROPS 2,000 MG/30 ML BOTTLE PO SCH ×2 (19:47→22:29)
[2018-10-31] MEDS: 0.9% NACL WITH KCL 20 MEQ/L 1,000 ML IV SCH ×5 (02:20→22:11)
[2018-10-31] MEDS: HYDROmorphone 1 MG/ML 1 ML SYRINGE IVP PRN ×2 (02:24→07:16)
[2018-10-31] MEDS: LACTATED RINGERS 1,000 ML IV SCH (04:19)
[2018-10-31] MEDS: SIMETHICONE 40 MG/0.6 ML DROPS 2,000 MG/30 ML BOTTLE PO SCH ×4 (05:20→22:11)
[2018-10-31] MEDS: PANTOPRAZOLE 40 MG/10 ML VIAL IV SCH (07:18)
[2018-10-31] MEDS: ENOXAPARIN 40 MG/0.4 ML SYRINGE SQ SCH (07:20)
[2018-10-31 07:34] LABS: Basophils % (A) 0 %; Eosinophils % (A) 0 %; HCT 36.6 % (34.0-46.0); HGB 12.2 gm/dL (11.4-16.0); Lymphocytes % (A) 19 %; MCH 28.6 pg (25.0-35.0); MCHC 33.4 g/dL (31.0-37.0); MCV 85.6 fL (80.0-100.0); Mean Platelet Volume 8.1; Monocytes # (A) 0.4 k/uL (0-1.0); Monocytes % (A) 4 %; Neutrophils % (A) 75 %; Platelet Count 300 k/uL (150-450); RBC 4.27 m/uL (3.80-5.40); RDW 14.3 % (11.5-15.5); WBC 10.6 k/uL (3.8-10.6)
[2018-10-31 07:38] LABS: African American GFR (CKD) >90 (>60 ml/min/1.73 sqM); Anion Gap 8 mmol/L; Blood Urea Nitrogen 9 mg/dL (7-17); Calcium 8.8 mg/dL (8.4-10.2); Carbon Dioxide 27 mmol/L (22-30); Chloride 106 mmol/L (98-107); Magnesium 1.9 mg/dL (1.6-2.3); Phosphorus 2.9 mg/dL (2.5-4.5); Potassium 4.7 mmol/L (3.5-5.1); Sodium 141 mmol/L (137-145)
[2018-10-31] MEDS: ALBUTEROL NEBULIZED 2.5 MG/3 ML INHALATION SCH ×4 (07:57→20:59)
[2018-10-31] MEDS: HYDROcodone/APAP 15 ML SOLUTION PO PRN ×2 (10:38→15:53)
--- NOTE | 2018-10-31 16:19 | P.DS ---
Providers Date of admission: 10/30/18 10:50 Expected date of discharge: 11/01/18 Attending physician: Dori Verde Primary care physician: Chan Masont - Discharge Diagnosis(es) (1) Body mass index (BMI) of 39.0-39.9 in adult Current Visit: Yes Status: Acute (2) Hypertensive heart disease without heart failure Current Visit: Yes Status: Acute (3) Morbid obesity Current Visit: Yes Status: Acute (4) Primary osteoarthritis of both knees Current Visit: Yes Status: Acute (5) Depression Current Visit: No Status: Acute (6) GERD (gastroesophageal reflux disease) Current Visit: No Status: Acute (7) Hypertension Current Visit: No Status: Acute (8) S/P gastric surgery Current Visit: No Status: Acute Hospital Course: 43-year-old female who underwent robotic-assisted laparoscopic Phuong-en-Y gastric bypass with extensive lysis of adhesions on 10/30/[address] Verde. Patient is doing well postoperatively without any immediate complications. She is tolerating clear liquid diet. Denies nausea or vomiting. Pain is controlled on oral medications. She is voiding without difficulty. She is stable for discharge home today. Patient is prescribed [place] on an outpatient basis. She states she is out of [place] at home but is going to poultry picker prescription tomorrow from her PCP. Tylenol prescribed at discharge until patient can get [place] refilled tomorrow. Please see EMR for further hospital course details Discharge Diagnosis 1. Morbid obesity due to excess calories. 2. Body mass index down from 42.2 to 41.0 3. Status post sleeve gastrectomy. 4. Hypertensive heart disease. 5. Obstructive sleep apnea. 6. Fibromyalgia. 7. Gastroesophageal reflux disease. 8. Seizure disorder. 9. Asthma. 10. COPD. 11. Anxiety. 12. Depression. 13. Bipolar disorder. 14. Osteoarthritis bilateral knees. 15. Vitamin D deficiency 16. Hypertriglyceridemia 17. Hypercholesterolemia 18. Dietary surveillance and counseling 19. Weight regain following weight loss procedure 20. Complications from sleeve gastrectomy 21. Esophageal dysmotility 22. Chronic pain syndrome. 23. Peritoneal adhesions epigastrium and periumbilical Nurse practitioner note has been reviewed by physician. Signing provider agrees with the documented findings, assessment, and plan of care. Patient Condition at Discharge: Stable Plan - Discharge Summary Discharge Rx Participant: Yes New Discharge Prescriptions: New Bisacodyl [Dulcolax] 5 mg PO DAILY PRN #10 tablet. PRN Reason: Constipation Simethicone 40 mg/0.6 ml Drops [Mylicon Drops] 40 mg PO PCHS PRN #30 ml PRN Reason: gas Omeprazole 40 mg PO DAILY #30 capsule. Ondansetron Odt [Zofran Odt] 4 mg PO Q8HR PRN #9 tab PRN Reason: Nausea Acetaminophen Oral Susp [Tylenol Oral Susp] 650 mg PO Q4H PRN #500 ml PRN Reason: Pain Continue Albuterol Inhaler [Ventolin Hfa Inhaler] 2 puff INHALATION RT-Q4H PRN PRN Reason: Shortness Of Breath Fluticasone Nasal [place] [Flonase Nasal [place]] 1 spray EA NOSTRIL DAILY Cetirizine HCl [Zyrtec] 10 mg PO DAILY Vilazodone HCl [Viibryd] 20 mg PO HS QUEtiapine FUMARATE [Seroquel Xr] 400 mg PO HS Montelukast [Singulair] 10 mg PO HS Albuterol Nebulized [Ventolin Nebulized] 2.5 mg INHALATION RT-TID PRN PRN Reason: sob EPINEPHrine [Epipen 2-Melecio] 0.3 mg IM ONCE PRN PRN Reason: Anaphylaxis Gabapentin [Neurontin] 300 mg PO TID QUEtiapine [SEROquel] 25 mg PO DAILY Discontinued Tolterodine Tartrate [Detrol LA] 2 mg PO DAILY Magnesium Oxide [Mag-Ox] 400 mg PO HS Omalizumab [Xolair] 350 mg SQ Q14D Budesonide-Formot 160-4.5 Mcg [Symbicort 160-4.5 Mcg Inhaler] 2 puff INHALATION RT-BID Lisinopril [Zestril] 20 mg PO QAM Cholecalciferol (Vitamin D3) [Vitamin D3] 10,000 unit PO DAILY HYDROcodone/APAP 7.5-325MG [[place] 7.5-325] 1 tab PO Q4H PRN PRN Reason: Pain Discharge Medication List Albuterol Inhaler [Ventolin Hfa Inhaler] 2 puff INHALATION RT-Q4H PRN 10/20/15 [History] Cetirizine HCl [Zyrtec] 10 mg PO DAILY 10/20/15 [History] Fluticasone Nasal [place] [Flonase Nasal [place]] 1 spray EA NOSTRIL DAILY 10/20/15 [History] Albuterol Nebulized [Ventolin Nebulized] 2.5 mg INHALATION RT-TID PRN 11/16/16 [History] EPINEPHrine [Epipen 2-Melecio] 0.3 mg IM ONCE PRN 11/16/16 [History] Montelukast [Singulair] 10 mg PO HS 11/16/16 [History] QUEtiapine FUMARATE [Seroquel Xr] 400 mg PO HS 11/16/16 [History] Vilazodone HCl [Viibryd] 20 mg PO HS 11/16/16 [History] Gabapentin [Neurontin] 300 mg PO TID 02/16/17 [History] QUEtiapine [SEROquel] 25 mg PO DAILY 08/16/18 [History] Bisacodyl [Dulcolax] 5 mg PO DAILY PRN #10 tablet. 10/31/18 [Rx] Omeprazole 40 mg PO DAILY #30 capsule. 10/31/18 [Rx] Ondansetron Odt [Zofran Odt] 4 mg PO Q8HR PRN #9 tab 10/31/18 [Rx] Simethicone 40 mg/0.6 ml Drops [Mylicon Drops] 40 mg PO PCHS PRN #30 ml 10/31/18 [Rx] Acetaminophen Oral Susp [Tylenol Oral Susp] 650 mg PO Q4H PRN #500 ml 11/01/18 [Rx] Follow up Appointment(s)/Referral(s): [facility],. [NON-STAFF] - 11/03/18 10:00 am Patient Instructions/Handouts: Abdominal Binder (DC), Nutrition after Bariatric Surgery (GEN), Phuong-en-Y Gastric Bypass (DC) Activity/Diet/Wound Care/Special Instructions: No driving while taking [place] No lifting over 10 pounds You may shower. No soaking or tub baths Very light activity until you are reevaluated at your follow up appointment with your surgeon Cut tablets or open all capsules larger than a tic-tac Discharge Disposition: HOME SELF-CARE
--- NOTE | 2018-10-31 20:44 | P.PN ---
Subjective Progress Note Date: 10/31/18 CHIEF COMPLAINT: Status post conversion sleeve gastrectomy to gastric bypass HISTORY OF PRESENT ILLNESS: The patient is a 43-year-old female status post conversion of sleeve to gastric bypass, 10/30/2018. She is postop day 1. Her pain is controlled. No reports of nausea or vomiting. She has multiple ALLERGIES. She does have chronic pain provider which is her primary care doctor. She is tolerating liquids. No fevers or chills. PHYSICAL EXAM: VITAL SIGNS: Reviewed GENERAL: Well-developed in no acute distress. HEENT: No sclera icterus. Extraocular movements grossly intact. Moist buccal mucosa. Head is atraumatic, normocephalic. Hears conversational speech. No nasal drainage. NECK: Supple without lymphadenopathy. CHEST: Non-labored respirations and equal bilateral excursions. CARDIOVASCULAR: Regular rate with regular rhythm. ABDOMEN: Soft, nondistended, incisions clean dry and intact. Appropriate mild left incisional tenderness. MUSCULOSKELETAL: No clubbing, cyanosis or edema. NEUROLOGIC: No focal or lateralizing signs. Cranial nerves II through XII grossly intact. PSYCH: Alert and oriented to person, place and time. SKIN: Well perfused. Good skin turgor. LABS: Reviewed ASSESSMENT: 1. Complications of sleeve gastrectomy with conversion to gastric bypass PLAN: 1. She has multiple medications for which will need to be converted to liquid or crushed or open capsules. She is high-risk surgery, trial of medications prior to discharge 2. She has a complicated pain medication history where narcotics will be prescribed by her primary care provider. In the interim Tylenol for home. 3. Recommend abdominal binder. 4. Likely discharge home tomorrow. 5. Discharge instructions reviewed in detail. Objective - Vital Signs Vital signs: Vital Signs Temp 97.9 F 10/31/18 20:32 Pulse 81 10/31/18 20:32 Resp 16 10/31/18 20:32 BP 165/81 10/31/18 20:32 Pulse Ox 93 L 10/31/18 20:32 Intake & Output 10/31/18 10/31/18 11/01/18 06:59 18:59 06:59 Intake Total 240 Output Total 200 Balance 40 Weight 111.13 kg Intake: Oral 240 Output: Urine 200 Other: Voiding Method Toilet Toilet # Voids 1 1 - Labs CBC & Chem 7: 10/31/18 06:46 10/31/18 06:46 Labs: Abnormal Lab Results - Last 24 Hours (Table) 10/31/18 Range/Units 06:46 Neutrophils # 8.0 H (1.3-7.7) k/uL Assessment and Plan (1) Chronic pain syndrome Current Visit: Yes Status: Acute Code(s): G89.4 - CHRONIC PAIN SYNDROME SNOMED Code(s): 259763778 (2) Depressive disorder Current Visit: Yes Status: Acute Code(s): F32.9 - MAJOR DEPRESSIVE DISORDER, SINGLE EPISODE, UNSPECIFIED SNOMED Code(s): 44636344 (3) Hypertensive heart disease without heart failure Current Visit: Yes Status: Acute Code(s): I11.9 - HYPERTENSIVE HEART DISEASE WITHOUT HEART FAILURE SNOMED Code(s): 89150480 (4) Morbid obesity Current Visit: Yes Status: Acute Code(s): E66.01 - MORBID (SEVERE) OBESITY DUE TO EXCESS CALORIES SNOMED Code(s): 374368467 (5) Morbid obesity due to excess calories Current Visit: No Status: Acute Code(s): E66.01 - MORBID (SEVERE) OBESITY DUE TO EXCESS CALORIES SNOMED Code(s): 505562629 (6) Morbid obesity with BMI of 40.0-44.9, adult Current Visit: No Status: Acute Code(s): E66.01 - MORBID (SEVERE) OBESITY DUE TO EXCESS CALORIES; Z68.41 - BODY MASS INDEX (BMI) 40.0-44.9, ADULT SNOMED Code(s): 141706325
[2018-10-31] MEDS ORDERED: MONTELUKAST 10 MG TAB PO SCH (21:00)
[2018-10-31] MEDS ORDERED: NON-FORMULARY DRUG (Vilazodone Hcl [Viibryd] 20 MG) PO SCH (21:00)
[2018-10-31] MEDS: GABAPENTIN 300 MG CAP PO SCH (22:11)
[2018-10-31] MEDS: QUEtiapine 200 MG TAB PO SCH (22:11)
[2018-11-01] MEDS: LACTATED RINGERS 1,000 ML IV SCH (04:38)
[2018-11-01] MEDS: SIMETHICONE 40 MG/0.6 ML DROPS 2,000 MG/30 ML BOTTLE PO SCH (05:18)
[2018-11-01] MEDS: QUEtiapine 200 MG TAB PO SCH (06:52)
[2018-11-01] MEDS: PANTOPRAZOLE 40 MG/10 ML VIAL IV SCH (06:53)
[2018-11-01] MEDS: GABAPENTIN 300 MG CAP PO SCH (06:53)
[2018-11-01] MEDS: ENOXAPARIN 40 MG/0.4 ML SYRINGE SQ SCH (06:53)
[2018-11-01 06:57] VITALS: BP 160/100; PULSE 99; RESP 15; TEMP 100.3
[2018-11-01] MEDS: ALBUTEROL NEBULIZED 2.5 MG/3 ML INHALATION SCH ×2 (07:48→11:22)
[2018-11-01] MEDS ORDERED: FLUTICASONE 50MCG/SPRAY NASAL 16GM EA NOSTRIL SCH (09:00)
[2018-11-01] MEDS ORDERED: LORATADINE 10 MG TAB PO SCH (09:00)
[2018-11-01] MEDS ORDERED: QUEtiapine 25 MG TAB PO SCH (09:00)
== END 2018-11-01 13:09 | disposition home or self-care (01) | DRG 328 ==
LOC: 2ORMAIN 10:50 → 4SSUR 17:29
PROVIDERS: ADMIT Surgery Plastic and Reconstructive Surgery; ATTEND Surgery Plastic and Reconstructive Surgery
PROC: 0DNW4ZZ Release Peritoneum, Percutaneous Endoscopic Approach (ICD-10-PCS; 2018-10-30)
PROC: 8E0W4CZ Robotic Assisted Procedure of Trunk Region, Percutaneous Endoscopic Approach (ICD-10-PCS; 2018-10-30)
PROC: 0DJ08ZZ Inspection of Upper Intestinal Tract, Via Natural or Artificial Opening Endoscopic (ICD-10-PCS; 2018-10-30)
PROC: 0D164ZA Bypass Stomach to Jejunum, Percutaneous Endoscopic Approach (ICD-10-PCS; principal; 2018-10-30 12:30)
DX: K95.89 Other complications of other bariatric procedure (principal); E66.01 Morbid (severe) obesity due to excess calories; Z68.39 Body mass index [BMI] 39.0-39.9, adult; I11.9 Hypertensive heart disease without heart failure; E55.9 Vitamin D deficiency, unspecified; E78.00 Pure hypercholesterolemia, unspecified; E78.1 Pure hyperglyceridemia; F41.9 Anxiety disorder, unspecified; G40.909 Epilepsy, unspecified, not intractable, without status epilepticus; G47.33 Obstructive sleep apnea (adult) (pediatric); G89.4 Chronic pain syndrome; J44.9 Chronic obstructive pulmonary disease, unspecified; K21.9 Gastro-esophageal reflux disease without esophagitis; K22.4 Dyskinesia of esophagus; K66.0 Peritoneal adhesions (postprocedural) (postinfection); M17.0 Bilateral primary osteoarthritis of knee; M79.7 Fibromyalgia; K43.9 Ventral hernia without obstruction or gangrene; M54.5 Low back pain; R10.33 Periumbilical pain; F32.9 Major depressive disorder, single episode, unspecified; Z79.51 Long term (current) use of inhaled steroids; Z79.899 Other long term (current) drug therapy; Z88.6 Allergy status to analgesic agent; Z88.8 Allergy status to other drugs, medicaments and biological substances; Z98.51 Tubal ligation status; Z87.891 Personal history of nicotine dependence; Z90.710 Acquired absence of both cervix and uterus; Z90.79 Acquired absence of other genital organ(s); Z90.722 Acquired absence of ovaries, bilateral; Z90.49 Acquired absence of other specified parts of digestive tract; Z82.1 Family history of blindness and visual loss; Z82.3 Family history of stroke; Z82.49 Family history of ischemic heart disease and other diseases of the circulatory system; Y84.8 Other medical procedures as the cause of abnormal reaction of the patient, or of later complication, without mention of misadventure at the time of the procedure
CPT/HCPCS: 80051; 82310; 82565; 83735; 84100; 84520; 85025; 86850; 86900; 86901; 94640; 94760; 94762

== ENCOUNTER → 2018-11-03 | Outpatient (CLI) | payer MEDICARE, OTHER ==
[2018-11-03 10:57] VITALS: BP 112/85; PULSE 74; TEMP 98.1; BMI 38.2
--- NOTE | 2018-11-03 18:55 | P.PN ---
Subjective Progress Note Date: 11/03/18 DATE OF SERVICE: 11/03/2018 CHIEF COMPLAINT: Conversion from sleeve to gastric bypass HISTORY OF PRESENT ILLNESS: Sharri Braswell is a 43-year-old female who is conversion from sleeve to gastric bypass, 10/30/2018. She is postoperative day 4. She is tolerating liquids. Her pain is well-controlled. No reports of nausea and vomiting. She is passing flatus. No reports of fevers or chills. Her highest weight for 5 foot 5.75 frame is 259 pounds. Today she comes in 234 pounds from 244 pounds. She is lost 10 pounds in 1 month. Body mass index is down from 42.2 to 38.0. PHYSICAL EXAM: VITAL SIGNS: 5 feet 5.75 inches, 234 pounds, body mass index 38.4 Vital Signs Temp 98.1 F 11/03/18 10:55 Pulse 74 11/03/18 10:55 Resp BP 112/85 11/03/18 10:55 Pulse Ox Intake & Output 11/02/18 11/03/18 11/03/18 18:59 06:59 18:59 Weight 106.594 kg ABDOMEN: Incisions clean dry and intact. Dressing discontinued left upper quadrant. No cellulitis or infection. MUSCULOSKELETAL: No clubbing or cyanosis or edema. GENERAL: Well-developed male in no acute distress. HEENT: No sclerae icterus. Extra-ocular movements are grossly intact. Hears conversational speech. CHEST: Nonlabored respirations. Equal bilateral excursions. CARDIOVASCULAR: Regular rate. Regular rhythm. NEURO: No focal or lateralizing signs. Cranial nerves II-12 grossly intact. PSYCH: Appropriated affect. Alert and oriented to person, place and time. SKIN: Well perfused. Good skin turgor. ASSESSMENT: 1. Morbid obesity due to excess calories. 2. Body mass index down from 42.2 to 34.0 3. Status post sleeve gastrectomy. 4. Hypertensive heart disease. 5. Obstructive sleep apnea. 6. Fibromyalgia. 7. Gastroesophageal reflux disease. 8. Seizure disorder. 9. Asthma. 10. COPD. 11. Anxiety. 12. Depression. 13. Bipolar disorder. 14. Osteoarthritis bilateral knees. 15. Vitamin D deficiency 16. Hypertriglyceridemia 17. Hypercholesterolemia 18. Dietary surveillance and counseling 19. Weight regain following weight loss procedure 20. Complications from sleeve gastrectomy 21. Esophageal dysmotility 22. Chronic pain syndrome. 23. Status post gastric bypass conversion from sleeve gastrectomy PLAN: 1. Total fluid intake at least 64 ounces described with start of protein shakes. 2. Overall she is doing well with ambulating over 5000 steps daily. 3. Cautious pain management also reviewed. 4. Follow up next week. Objective - Vital Signs Vital signs: Vital Signs Temp 98.1 F 11/03/18 10:55 Pulse 74 11/03/18 10:55 Resp BP 112/85 11/03/18 10:55 Pulse Ox Intake & Output 11/02/18 11/03/18 11/03/18 18:59 06:59 18:59 Weight 106.594 kg
== END | disposition home or self-care (01) ==
LOC: BARWHC3 09:56
PROVIDERS: ATTEND Surgery Plastic and Reconstructive Surgery
DX: Z48.815 Encounter for surgical aftercare following surgery on the digestive system (principal); K95.89 Other complications of other bariatric procedure; E66.01 Morbid (severe) obesity due to excess calories; I11.9 Hypertensive heart disease without heart failure; G47.33 Obstructive sleep apnea (adult) (pediatric); M79.7 Fibromyalgia; K21.9 Gastro-esophageal reflux disease without esophagitis; G40.909 Epilepsy, unspecified, not intractable, without status epilepticus; J44.9 Chronic obstructive pulmonary disease, unspecified; F41.9 Anxiety disorder, unspecified; F31.9 Bipolar disorder, unspecified; M17.0 Bilateral primary osteoarthritis of knee; E55.9 Vitamin D deficiency, unspecified; G89.4 Chronic pain syndrome; E78.1 Pure hyperglyceridemia; K22.4 Dyskinesia of esophagus; E78.00 Pure hypercholesterolemia, unspecified; Z71.3 Dietary counseling and surveillance; Z98.84 Bariatric surgery status; Z68.34 Body mass index [BMI] 34.0-34.9, adult
CPT/HCPCS: 99211

== ENCOUNTER → 2018-11-29 | Outpatient (CLI) | payer MEDICARE, OTHER ==
[2018-11-29 17:19] VITALS: BP 137/85; PULSE 88; RESP 16; TEMP 98.4; BMI 36.4
--- NOTE | 2018-11-29 17:57 | P.PN ---
Subjective Progress Note Date: 11/29/18 HPI: She is 1 month out. She is 75 grams of protein in. No GERD. No abdominal pain. She reports feeling full now compared to her GERD. Her recovery is better. She is more active now. ABDOMEN: No infection ASSESSMENT: 1. Morbid obesity PLAN: 1. Protein is adequate 2. Recommend blood work. Objective - Vital Signs Vital signs: Vital Signs Temp 98.4 F 11/29/18 17:16 Pulse 88 11/29/18 17:16 Resp 16 11/29/18 17:16 BP 137/85 11/29/18 17:16 Pulse Ox Intake & Output 11/28/18 11/29/18 11/29/18 18:59 06:59 18:59 Weight 101.605 kg
== END | disposition home or self-care (01) ==
LOC: BARWHC3 16:05
PROVIDERS: ATTEND Surgery Plastic and Reconstructive Surgery
DX: E66.01 Morbid (severe) obesity due to excess calories (principal); Z68.31 Body mass index [BMI] 31.0-31.9, adult
CPT/HCPCS: 97803; G0463; 99211

== ENCOUNTER → 2019-01-31 | Outpatient (CLI) | payer MEDICARE, OTHER ==
[2019-01-31 13:14] VITALS: BP 149/82; PULSE 61; TEMP 97.7; BMI 34.1
--- NOTE | 2019-01-31 13:24 | P.PN ---
Subjective Progress Note Date: 01/31/19 DATE OF SERVICE: 01/31/2019 CHIEF COMPLAINT: Morbid obesity HISTORY OF PRESENT ILLNESS: Sharri Braswell is a 43-year-old female who is conversion from sleeve to gastric bypass, 10/30/2018. She is 3 months out. No reports of gastroesophageal reflux disease. No reports of abdominal pain. She has lost 40 pounds in 5 months. Her protein intake calculated for the day is 20g + 30 g = 50g daily at dinner and during the day. She denies dysphagia. She has no change in mood or changes in her medication. Her highest weight for 5 foot 5.75 frame is 259 pounds. Her BMI was 42.2. Today she comes in 210 pounds from 224 pounds, 2 months ago. She is lost 14 pounds in 2 months. Lifetime weight loss is 49 pounds. Lifetime percent excess weight loss is 45%. Body mass index is down from 42.2 to 34.2 PHYSICAL EXAM: VITAL SIGNS: 5 feet 5.75 inches, 210 pounds, body mass index 34.2 Vital Signs Temp 97.7 F 01/31/19 13:05 Pulse 61 01/31/19 13:05 Resp BP 149/82 01/31/19 13:05 Pulse Ox ABDOMEN: Soft, non-tender, non-distended. No hernia. No infection MUSCULOSKELETAL: No clubbing or cyanosis or edema. GENERAL: Well-developed male in no acute distress. HEENT: No sclerae icterus. Extra-ocular movements are grossly intact. Hears conversational speech. CHEST: Nonlabored respirations. Equal bilateral excursions. CARDIOVASCULAR: Regular rate. Regular rhythm. NEURO: No focal or lateralizing signs. Cranial nerves II-12 grossly intact. PSYCH: Appropriated affect. Alert and oriented to person, place and time. SKIN: Well perfused. Good skin turgor. ASSESSMENT: 1. Morbid obesity due to excess calories. 2. Body mass index down from 42.2 to 34.2 3. Status post sleeve gastrectomy. 4. Hypertensive heart disease. 5. Obstructive sleep apnea. 6. Fibromyalgia. 7. Gastroesophageal reflux disease. 8. Seizure disorder. 9. Asthma. 10. COPD. 11. Anxiety. 12. Depression. 13. Bipolar disorder. 14. Osteoarthritis bilateral knees. 15. Vitamin D deficiency 16. Hypertriglyceridemia 17. Hypercholesterolemia 18. Dietary surveillance and counseling 19. Weight regain following weight loss procedure 20. Complications from sleeve gastrectomy 21. Esophageal dysmotility 22. Chronic pain syndrome. 23. Status post gastric bypass conversion from sleeve gastrectomy PLAN: 1. Recommend increase protein to over 75 g daily. Alternatively, may use shake or yogurt and cheese for additional protein source. 2. Recommend bariatric labs. Objective - Vital Signs Vital signs: Vital Signs Temp 97.7 F 01/31/19 13:05 Pulse 61 01/31/19 13:05 Resp BP 149/82 01/31/19 13:05 Pulse Ox Intake & Output 01/30/19 01/31/19 01/31/19 18:59 06:59 18:59 Weight 95.254 kg
== END | disposition home or self-care (01) ==
LOC: BARWHC3 12:32
PROVIDERS: ATTEND Surgery Plastic and Reconstructive Surgery
DX: Z48.815 Encounter for surgical aftercare following surgery on the digestive system (principal); E66.01 Morbid (severe) obesity due to excess calories; I11.9 Hypertensive heart disease without heart failure; G47.33 Obstructive sleep apnea (adult) (pediatric); M79.7 Fibromyalgia; K21.9 Gastro-esophageal reflux disease without esophagitis; G40.909 Epilepsy, unspecified, not intractable, without status epilepticus; J44.9 Chronic obstructive pulmonary disease, unspecified; F41.8 Other specified anxiety disorders; F31.9 Bipolar disorder, unspecified; M17.0 Bilateral primary osteoarthritis of knee; E55.9 Vitamin D deficiency, unspecified; E78.1 Pure hyperglyceridemia; E78.00 Pure hypercholesterolemia, unspecified; K95.89 Other complications of other bariatric procedure; K22.8 Other specified diseases of esophagus; G89.4 Chronic pain syndrome; Z71.3 Dietary counseling and surveillance; Z98.84 Bariatric surgery status; Z68.34 Body mass index [BMI] 34.0-34.9, adult
CPT/HCPCS: 99211

== ENCOUNTER → 2019-05-30 | Outpatient (CLI) | payer MEDICARE, OTHER ==
[2019-05-30 15:22] VITALS: BP 130/83; PULSE 66; RESP 16; TEMP 97.7; BMI 34.3
--- NOTE | 2019-05-30 15:33 | P.PN ---
Subjective Progress Note Date: 05/30/19 DATE OF SERVICE: 05/30/2019 CHIEF COMPLAINT: Status post gastric bypass HISTORY OF PRESENT ILLNESS: Sharri Braswell is a 44-year-old female who is conversion from sleeve to gastric bypass, 10/30/2018. She is 7 months out. She has missed her appointments for 4 months. She denies stress eating. She is not journaling her food. She has not gotten any labs since her procedures. Her highest weight for 5 foot 5.75 frame is 259 pounds. Her BMI was 42.2. Today she comes in 211 pounds from 210 pounds, 4 months ago. She is gained 1 pound in 4 months. Lifetime weight loss is 48 pounds. Lifetime percent excess weight loss is 44%. Body mass index is down from 42.2 to 34.3. PHYSICAL EXAM: VITAL SIGNS: 5 feet 5.75 inches, 211 pounds, body mass index 34.3 Vital Signs Temp 97.7 F 05/30/19 15:19 Pulse 66 05/30/19 15:19 Resp 16 05/30/19 15:19 BP 130/83 05/30/19 15:19 Pulse Ox ABDOMEN: Soft, non-tender, non-distended. MUSCULOSKELETAL: No clubbing or cyanosis or edema. GENERAL: Well-developed male in no acute distress. HEENT: No sclerae icterus. Extra-ocular movements are grossly intact. Hears conversational speech. CHEST: Nonlabored respirations. Equal bilateral excursions. CARDIOVASCULAR: Regular rate. Regular rhythm. NEURO: No focal or lateralizing signs. Cranial nerves II-12 grossly intact. PSYCH: Appropriated affect. Alert and oriented to person, place and time. SKIN: Well perfused. Good skin turgor. ASSESSMENT: 1. Morbid obesity due to excess calories. 2. Body mass index down from 42.2 to 34.3 3. Status post sleeve gastrectomy. 4. Hypertensive heart disease. 5. Obstructive sleep apnea. 6. Fibromyalgia. 7. Gastroesophageal reflux disease. 8. Seizure disorder. 9. Asthma. 10. COPD. 11. Anxiety. 12. Depression. 13. Bipolar disorder. 14. Osteoarthritis bilateral knees. 15. Vitamin D deficiency 16. Hypertriglyceridemia 17. Hypercholesterolemia 18. Dietary surveillance and counseling 19. Weight regain following weight loss procedure 20. Complications from sleeve gastrectomy 21. Esophageal dysmotility 22. Chronic pain syndrome. 23. Status post gastric bypass conversion from sleeve gastrectomy PLAN: 1. Recommend bariatric labs 2. Recommend food journal Objective - Vital Signs Vital signs: Vital Signs Temp 97.7 F 05/30/19 15:19 Pulse 66 05/30/19 15:19 Resp 16 05/30/19 15:19 BP 130/83 05/30/19 15:19 Pulse Ox Intake & Output 05/29/19 05/30/19 05/30/19 18:59 06:59 18:59 Weight 95.708 kg
== END | disposition home or self-care (01) ==
LOC: BARWHC3 13:56
PROVIDERS: ATTEND Surgery Plastic and Reconstructive Surgery
DX: E66.01 Morbid (severe) obesity due to excess calories (principal); Z68.34 Body mass index [BMI] 34.0-34.9, adult; Z98.84 Bariatric surgery status; I11.9 Hypertensive heart disease without heart failure; G47.33 Obstructive sleep apnea (adult) (pediatric); M79.7 Fibromyalgia; K21.9 Gastro-esophageal reflux disease without esophagitis; F31.9 Bipolar disorder, unspecified; G40.909 Epilepsy, unspecified, not intractable, without status epilepticus; J44.9 Chronic obstructive pulmonary disease, unspecified; F41.9 Anxiety disorder, unspecified; M17.0 Bilateral primary osteoarthritis of knee; E55.9 Vitamin D deficiency, unspecified; E78.1 Pure hyperglyceridemia; E78.00 Pure hypercholesterolemia, unspecified; Z71.3 Dietary counseling and surveillance; K95.89 Other complications of other bariatric procedure; K22.4 Dyskinesia of esophagus; G89.4 Chronic pain syndrome
CPT/HCPCS: 99211

== ENCOUNTER → 2019-06-05 | Outpatient (CLI) | payer MEDICARE, OTHER ==
[2019-06-05 12:40] LABS: HCT 38.6 % (34.0-46.0); MCH 28.8 pg (25.0-35.0); MCHC 33.7 g/dL (31.0-37.0); MCV 85.6 fL (80.0-100.0); Mean Platelet Volume 8.4; Platelet Count 241 k/uL (150-450); RBC 4.51 m/uL (3.80-5.40); RDW 12.6 % (11.5-15.5)
[2019-06-05 12:45] LABS: INR 0.9 (<1.2); Partial Thromboplastin Time 23.6 sec (22.0-30.0); Prothrombin Time 9.6 sec (9.0-12.0)
[2019-06-05 17:15] LABS: % Iron Saturation 13.68 (12.00-45.00); African American GFR (CKD) 120.4 (60.0-200.0); Albumin 4.5 g/dL (3.80-4.90); Albumin/Globulin Ratio 2.25 (1.60-3.17); BUN/Creat Ratio 8.57 Ratio (12.00-20.00); Calcium 9.6 mg/dL (8.7-10.3); Non-African American GFR(CKD) 103.9 (60.0-200.0); Total Bilirubin 0.3 mg/dL (0.3-1.2); Total Protein 6.5 g/dL (6.2-8.2)
[2019-06-05 17:24] LABS: Ferritin 28.9 ng/mL (10.0-291.0)
[2019-06-05 17:58] LABS: Hemoglobin A1C 5.6 % (4.0-6.0)
[2019-06-05 18:28] LABS: Folate, Serum 10.6 ng/mL
[2019-06-06 14:58] LABS: Zinc, Serum 60 ug/dL (60-130)
[2019-06-07 23:56] LABS: Selenium 87 mcg/L (63-160)
== END | disposition home or self-care (01) ==
LOC: LABWHC1 11:31
PROVIDERS: ATTEND Surgery Plastic and Reconstructive Surgery
DX: E66.01 Morbid (severe) obesity due to excess calories (principal); E21.1 Secondary hyperparathyroidism, not elsewhere classified; E89.1 Postprocedural hypoinsulinemia; D50.9 Iron deficiency anemia, unspecified; E44.0 Moderate protein-calorie malnutrition; E55.9 Vitamin D deficiency, unspecified; K74.1 Hepatic sclerosis; N19 Unspecified kidney failure; K50.90 Crohn's disease, unspecified, without complications
CPT/HCPCS: 36415; 80053; 82306; 82525; 82728; 82746; 83036; 83540; 83550; 83970; 84134; 84255; 84443; 84630; 85027; 85610; 85730

== ENCOUNTER → 2019-10-10 | Outpatient (CLI) | payer MEDICARE, OTHER ==
--- NOTE | 2019-10-10 10:51 | CT ---
EXAMINATION TYPE: CT abdomen pelvis w con DATE OF EXAM: 10/10/2019 COMPARISON: Prior CT 03/20/2017 HISTORY: Rt sided pain after eating, history of gastric bypass CT DLP: 1808 mGycm Automated exposure control for dose reduction was used. TECHNIQUE: Helical acquisition of images from the lung bases through the pelvis have been completed. CONTRAST: Performed with Oral Contrast and with IV Contrast, patient injected with 100 mL of Isovue 300. FINDINGS: Patient is status post gastric sleeve arthropathy fundus remains intact. There is interval gastric jejunal anastomosis. Relative narrowing at the site of patient's anastomosis is present with some dilation post anastomosis, contrast flows into the jejunum via the anastomosis is not coursing w ithin the duodenum LUNG BASES: Suspect some atelectatic change posterior lateral right lung base, there is minimal soft tissue. AORTA: No significant abnormality is appreciated. LIVER/GB: Liver is borderline enlarged. Liver is low in density likely due to hepatic steatosis.Patie nt is post cholecystectomy. PANCREAS: No significant abnormality is seen. SPLEEN: No significant abnormality is seen. ADRENALS: No significant abnormality is seen. KIDNEYS: No significant abnormality is seen. REPRODUCTIVE ORGANS: Not seen BOWEL: Postop changes are present within the jejunum. Surgical greg present in the midabdomen on the left.. FREE AIR: No Free Air visible. ASCITES: None visible. PELVIC ADENOPATHY: None visualized. RETROPERITONEAL ADENOPATHY: No Retroperitoneal Adenopathy visible. URINARY BLADDER: No significant abnormality is seen. OSSEOUS STRUCTURES: No significant abnormality is seen. IMPRESSION: POSTOP CHANGES DESCRIBED. HEPATIC STEATOSIS, HEPATOMEGALY
== END | disposition home or self-care (01) ==
LOC: RADCTMAIN 08:24
PROVIDERS: ATTEND Surgery Plastic and Reconstructive Surgery
DX: K76.0 Fatty (change of) liver, not elsewhere classified (principal); R16.0 Hepatomegaly, not elsewhere classified; Z90.3 Acquired absence of stomach [part of]
CPT/HCPCS: 74177; Q9967

== ENCOUNTER → 2020-01-29 | Outpatient (CLI) | payer MEDICARE, OTHER ==
[2020-01-29 16:54] LABS: HCT 38.4 % (34.0-46.0); HGB 12.1 gm/dL (11.4-16.0); MCH 28.5 pg (25.0-35.0); MCHC 31.4 g/dL (31.0-37.0); MCV 90.8 fL (80.0-100.0); Mean Platelet Volume 8.4; Platelet Count 227 k/uL (150-450); RBC 4.23 m/uL (3.80-5.40); RDW 12.9 % (11.5-15.5); WBC 6.9 k/uL (3.8-10.6)
[2020-01-29 23:26] LABS: INR 0.99 (0.90-1.11); Partial Thromboplastin Time 27.6 sec (23.5-31.0); Prothrombin Time 10.7 sec (9.9-11.9)
[2020-01-30 03:02] LABS: % Iron Saturation 18.15 (12.00-45.00); African American GFR (CKD) 78.2 (60.0-200.0); Albumin 4.4 g/dL (3.80-4.90); Albumin/Globulin Ratio 2.44 (1.60-3.17); Anion Gap 11.2 mmol/L (4.00-12.00); Calcium 9.2 mg/dL (8.7-10.3); Carbon Dioxide 27.8 mmol/L (21.6-31.8); Globulin 1.8 g/dL (1.6-3.3); LDL Cholesterol,Calculated 85.8 mg/dL (0.0-131.0); Magnesium 1.8 mg/dL (1.5-2.4); Non-African American GFR(CKD) 67.5 (60.0-200.0); Phosphorus 4.4 mg/dL (2.4-5.1); Potassium 3.9 mmol/L (3.5-5.5); Total Bilirubin 0.4 mg/dL (0.3-1.2); Total Protein 6.2 g/dL (6.2-8.2); VLDL Calculation 43.2 mg/dL (5.00-40.00)
[2020-01-30 03:09] LABS: Ferritin 65.5 ng/mL (10.0-291.0)
[2020-01-30 03:12] LABS: Folate, Serum 8.5 ng/mL
[2020-01-30 03:17] LABS: Hemoglobin A1C 5.5 % (4.0-6.0)
== END | disposition home or self-care (01) ==
LOC: LABWHC1 15:37
PROVIDERS: ATTEND Surgery Plastic and Reconstructive Surgery
DX: E89.1 Postprocedural hypoinsulinemia (principal); E55.9 Vitamin D deficiency, unspecified; D50.8 Other iron deficiency anemias; K90.89 Other intestinal malabsorption; K74.1 Hepatic sclerosis; K50.90 Crohn's disease, unspecified, without complications; N19 Unspecified kidney failure
CPT/HCPCS: 36415; 80053; 80061; 82306; 82525; 82607; 82728; 82746; 83036; 83540; 83550; 83735; 83970; 84100; 84134; 84255; 84425; 84443; 84590; 84630; 85027; 85610; 85730

== ENCOUNTER → 2020-02-13 | Outpatient (CLI) | payer MEDICARE, OTHER ==
[2020-02-13 14:12] VITALS: BP 145/85; PULSE 75; RESP 16; TEMP 98.6; BMI 36.7
--- NOTE | 2020-02-13 14:41 | P.PN ---
Subjective Progress Note Date: 02/13/20 DATE OF SERVICE: 02/13/2020 CHIEF COMPLAINT: Status post gastric bypass HISTORY OF PRESENT ILLNESS: Sharri Braswell is a 45-year-old female status post conversion from sleeve to gastric bypass, 10/30/2018. She is 1 year out. She reports right upper quadrant pain similar to her gallbladder pain. She has dysphagia to pills. Her pain has been present for 3 months. She has weight gain from the pandemic. She presents with new problems. Her highest weight for 5 foot 5.75 frame is 259 pounds. Her BMI was 42.2. Today she comes in 226 pounds from 218 pounds, 4 months ago. She is gained 8 pounds in 4 months. Lifetime weight loss is 33 pounds. Lifetime percent excess weight loss is 30%. Body mass index is down from 42.2 to 36.8. PAST MEDICAL HISTORY: 1. Morbid obesity due to excess calories 2. Body mass index of 42.2 initial 3. Asthma 4. Chronic obstructive pulmonary disease 5. Fibromyalgia 6. Gastroesophageal reflux disease 7. Obstructive sleep apnea 8. Seizure disorder 9. Chronic lower back pain 10. Anxiety 11. Depression 12. Bipolar disorder 13. Hypertensive heart disease PAST SURGICAL HISTORY: 1. Sleeve gastrectomy 2. Appendectomy 3. Adenoidectomy 4. Hysterectomy 5. Cholecystectomy 6. Tonsillectomy 7. Tubal ligation 8. Bilateral knee arthroscopy 9. Colonoscopy 10. Upper endoscopy 11. Epidural injections HOME MEDICATIONS: Home Medications Medication Instructions Recorded Confirmed Tolterodine Tartrate [Detrol LA] 5 mg PO DAILY 04/05/15 08/28/18 Albuterol Inhaler [Ventolin Hfa 2 puff INHALATION RT-Q4H PRN 10/20/15 08/28/18 Inhaler] Cetirizine HCl [Zyrtec] 20 mg PO DAILY 10/20/15 08/28/18 Fluticasone Nasal [place] [Flonase 1 spray EA NOSTRIL DAILY 10/20/15 08/28/18 Nasal [place]] Magnesium Oxide [Mag-Ox] 400 mg PO HS 10/20/15 08/28/18 Omalizumab [Xolair] 350 mg SQ Q14D 06/30/16 08/28/18 Budesonide-Formot 160-4.5 Mcg 2 puff INHALATION RT-BID 08/03/16 08/28/18 [Symbicort 160-4.5 Mcg Inhaler] Albuterol Nebulized [Ventolin 2.5 mg INHALATION RT-TID PRN 11/16/16 08/28/18 Nebulized] EPINEPHrine [Epipen 2-Melecio] 0.3 mg IM ONCE PRN 11/16/16 08/28/18 Montelukast [Singulair] 10 mg PO HS 11/16/16 08/28/18 QUEtiapine FUMARATE [Seroquel Xr] 400 mg PO HS 11/16/16 08/28/18 Vilazodone HCl [Viibryd] 20 mg PO HS 11/16/16 08/28/18 Gabapentin [Neurontin] 300 mg PO TID 02/16/17 08/28/18 Lisinopril [Zestril] 20 mg PO QAM 02/16/17 08/28/18 Cholecalciferol (Vitamin D3) 10,000 unit PO DAILY 04/18/18 08/28/18 [Vitamin D3] QUEtiapine [SEROquel] 25 mg PO DAILY 08/16/18 08/28/18 Previous Rx's Medication Instructions Recorded HYDROcodone/APAP 7.5-325MG [[place] 1 each PO Q4H PRN #18 tab 08/08/17 7.5-325] ALLERGIES: 1. Adhesive 2. Aspirin 3. Clonidine 4. Hydroxyzine 5. Venlafaxine SOCIAL HISTORY: History of tobacco use. FAMILY HISTORY: No family history of ulcerative colitis disease or Crohn's disease. Family history of morbid obesity. No lupus in the family. No reports of stomach or esophageal cancer. Family history of DVT. REVIEW OF ORGAN SYSTEMS: CONSTITUTIONAL: Her highest weight for his 5 foot 5.75 frame is 259 pounds. Body mass index was 42.2. HEENT: Denies any active troubles with vision or hearing. No troubles with swallowing. ENDOCRINE: No diabetes. No hypothyroidism. CARDIOVASCULAR: No reports of palpitations or heart attacks or chest pain. RESPIRATORY: Has daytime somnolence. No asthma. GI: Denies any bright red blood per rectum. Has new constipation MUSCULOSKELETAL: Has lower back pain and joint pain. Has osteoarthritis of the knees. Has fibromyalgia. NEURO: No headaches. Has seizure disorders. PSYCH: Has depression. No suicidal ideation. Has bipolar disorder including anxiety. RHEUMATOLOGIC: No lupus. No rheumatoid arthritis. HEMATOLOGIC: Denies any abnormal bleeding or bruising. No personal history of DVTs. SKIN: No rash. No skin cancer. PHYSICAL EXAM: VITAL SIGNS: 5 feet 5.75 inches, 226 pounds, body mass index 36.8 Vital Signs Temp 98.6 F 02/13/20 14:09 Pulse 75 02/13/20 14:09 Resp 16 02/13/20 14:09 BP 145/85 02/13/20 14:09 Pulse Ox ABDOMEN: Soft, non-tender, non-distended. MUSCULOSKELETAL: No clubbing or cyanosis or edema. GENERAL: Well-developed male in no acute distress. HEENT: No sclerae icterus. Extra-ocular movements are grossly intact. Hears conversational speech. CHEST: Nonlabored respirations. Equal bilateral excursions. CARDIOVASCULAR: Regular rate. Regular rhythm. NEURO: No focal or lateralizing signs. Cranial nerves II-12 grossly intact. PSYCH: Appropriated affect. Alert and oriented to person, place and time. SKIN: Well perfused. Good skin turgor. LABS: Reviewed. Triglycerides are elevated. STUDIES: CT of the abdomen and pelvis independently reviewed shows no small bowel obstruction. Features of diverticulosis of the sigmoid colon found. ASSESSMENT: 1. Morbid obesity due to excess calories. 2. Body mass index down from 42.2 to 36.8 3. Status post sleeve gastrectomy. 4. Hypertensive heart disease. 5. Obstructive sleep apnea. 6. Fibromyalgia. 7. Gastroesophageal reflux disease. 8. Seizure disorder. 9. Asthma. 10. COPD. 11. Anxiety. 12. Depression. 13. Bipolar disorder. 14. Osteoarthritis bilateral knees. 15. Vitamin D deficiency 16. Hypertriglyceridemia 17. Hypercholesterolemia 18. Dietary surveillance and counseling 19. Weight regain following weight loss procedure 20. Complications from sleeve gastrectomy 21. Esophageal dysmotility 22. Chronic pain syndrome. 23. Status post gastric bypass conversion from sleeve gastrectomy 24. Right lower quadrant abdominal pain PLAN: 1. She has dysphagia to pills. Recommend upper endoscopy. Objective - Vital Signs Vital signs: Vital Signs Temp 98.6 F 02/13/20 14:09 Pulse 75 02/13/20 14:09 Resp 16 02/13/20 14:09 BP 145/85 02/13/20 14:09 Pulse Ox Intake & Output 02/12/20 02/13/20 02/13/20 18:59 06:59 18:59 Weight 102.512 kg
== END | disposition home or self-care (01) ==
LOC: BARWHC3 13:39
PROVIDERS: ATTEND Surgery Plastic and Reconstructive Surgery
DX: Z48.815 Encounter for surgical aftercare following surgery on the digestive system (principal); E66.01 Morbid (severe) obesity due to excess calories; I11.9 Hypertensive heart disease without heart failure; G47.33 Obstructive sleep apnea (adult) (pediatric); M79.7 Fibromyalgia; K21.9 Gastro-esophageal reflux disease without esophagitis; G40.909 Epilepsy, unspecified, not intractable, without status epilepticus; J44.9 Chronic obstructive pulmonary disease, unspecified; F41.8 Other specified anxiety disorders; F31.9 Bipolar disorder, unspecified; M17.0 Bilateral primary osteoarthritis of knee; E55.9 Vitamin D deficiency, unspecified; E78.1 Pure hyperglyceridemia; E78.00 Pure hypercholesterolemia, unspecified; K95.89 Other complications of other bariatric procedure; K22.8 Other specified diseases of esophagus; G89.4 Chronic pain syndrome; Z71.3 Dietary counseling and surveillance; Z83.49 Family history of other endocrine, nutritional and metabolic diseases; Z91.048 Other nonmedicinal substance allergy status; Z88.6 Allergy status to analgesic agent; Z88.8 Allergy status to other drugs, medicaments and biological substances; Z68.36 Body mass index [BMI] 36.0-36.9, adult; Z98.84 Bariatric surgery status; Z79.891 Long term (current) use of opiate analgesic; Z79.899 Other long term (current) drug therapy; Z79.51 Long term (current) use of inhaled steroids
CPT/HCPCS: 99211

== ENCOUNTER → 2020-10-01 | Outpatient (CLI) | payer MEDICARE, OTHER ==
[2020-10-01 16:05] VITALS: BP 155/89; PULSE 64; RESP 16; TEMP 98; BMI 36.6
--- NOTE | 2020-10-01 16:47 | P.PN ---
Subjective Progress Note Date: 10/01/20 DATE OF SERVICE: 10/01/2020 CHIEF COMPLAINT: Status post gastric bypass HISTORY OF PRESENT ILLNESS: Sharri Braswell is a 45-year-old female status post conversion from sleeve to gastric bypass, 10/30/2018. She is 2 years out. She reports acid reflux that is new. She reports right upper quadrant abdominal pain. She has new thyroid issues. She has gained 14 pounds in 1 year. She is taking multivitamins and she is taking iron and vitamin D. She is due for labs. She reports dysphagia and gastroesophageal reflux disease. Her highest weight for 5 foot 5.75 frame is 259 pounds. Her BMI was 42.2. Today she comes in 225 pounds from 226 pounds, 9 months ago. She lost q pounds in 9 months. Lifetime weight loss is 34 pounds. Lifetime percent excess weight loss is 31%. Body mass index is down from 42.2 to 36.6. PAST MEDICAL HISTORY: 1. Morbid obesity due to excess calories 2. Body mass index of 42.2 initial 3. Asthma 4. Chronic obstructive pulmonary disease 5. Fibromyalgia 6. Gastroesophageal reflux disease 7. Obstructive sleep apnea 8. Seizure disorder 9. Chronic lower back pain 10. Anxiety 11. Depression 12. Bipolar disorder 13. Hypertensive heart disease PAST SURGICAL HISTORY: 1. Sleeve gastrectomy 2. Appendectomy 3. Adenoidectomy 4. Hysterectomy 5. Cholecystectomy 6. Tonsillectomy 7. Tubal ligation 8. Bilateral knee arthroscopy 9. Colonoscopy 10. Upper endoscopy 11. Epidural injections HOME MEDICATIONS: Home Medications Medication Instructions Recorded Confirmed Cetirizine HCl [Zyrtec] 10 mg PO DAILY 10/20/15 10/27/20 Fluticasone Nasal [place] [Flonase 1 spray EA NOSTRIL DAILY 10/20/15 10/27/20 Nasal [place]] EPINEPHrine [Epipen 2-Melecio] 0.3 mg IM ONCE PRN 11/16/16 10/27/20 Vilazodone HCl [Viibryd] 20 mg PO HS 11/16/16 10/27/20 Gabapentin [Neurontin] 300 mg PO BID 02/16/17 10/27/20 QUEtiapine [SEROquel] 400 mg PO HS 08/16/18 10/27/20 Ergocalciferol [Vitamin D2 (1250 50,000 unit PO WEEKLY 10/20/20 10/27/20 Mcg = 49699 Iu)] Allergy Shots 1 dose IM Q14D 10/22/20 10/27/20 Cyanocobalamin [Vitamin B-12 1,000 mcg SQ DIRECTED 10/22/20 10/27/20 Injection] Gabapentin 600 mg PO HS 10/22/20 10/27/20 Previous Rx's Medication Instructions Recorded Omeprazole 40 mg PO DAILY #30 capsule. 10/31/18 Omeprazole [PriLOSEC] 40 mg PO DAILY #90 cap 10/27/20 Sucralfate [Carafate] 1 gm PO BID #30 tablet 10/27/20 ALLERGIES: Allergies Allergy/AdvReac Type Severity Reaction Status Date / Time adhesive Allergy Rash/Hives Verified 10/27/20 07:52 aspirin Allergy Anaphylaxis Verified 10/27/20 07:52 clonidine Allergy Rash/Hives Verified 10/27/20 07:52 hydroxyzine Allergy CONFUSION Verified 10/27/20 07:52 AND BODY SHAKES venlafaxine HCl Allergy Swelling Verified 10/27/20 07:52 [From Effexor] venom-honey bee Allergy Rash/Hives Verified 10/27/20 07:52 [bee venom (honey bee)] SOCIAL HISTORY: History of tobacco use. FAMILY HISTORY: No family history of ulcerative colitis disease or Crohn's disease. Family history of morbid obesity. No lupus in the family. No reports of stomach or esophageal cancer. Family history of DVT. REVIEW OF ORGAN SYSTEMS: CONSTITUTIONAL: Her highest weight for his 5 foot 5.75 frame is 259 pounds. Body mass index was 42.2. HEENT: Denies any active troubles with vision or hearing. No troubles with swallowing. ENDOCRINE: No diabetes. No hypothyroidism. CARDIOVASCULAR: No reports of palpitations or heart attacks or chest pain. RESPIRATORY: Has daytime somnolence. No asthma. GI: Denies any bright red blood per rectum. Has new constipation. Has gastroeso phageal reflux disease. MUSCULOSKELETAL: Has lower back pain and joint pain. Has osteoarthritis of the knees. Has fibromyalgia. NEURO: No headaches. Has seizure disorders. Has neuropathy. PSYCH: Has depression. No suicidal ideation. Has bipolar disorder including anxiety. RHEUMATOLOGIC: No lupus. No rheumatoid arthritis. HEMATOLOGIC: Denies any abnormal bleeding or bruising. No personal history of DVTs. SKIN: No rash. No skin cancer. PHYSICAL EXAM: VITAL SIGNS: 5 feet 5.75 inches, 225 pounds, body mass index 36.6 Vital Signs Temp 98 F 10/01/20 16:02 Pulse 64 10/01/20 16:02 Resp 16 10/01/20 16:02 BP 155/89 10/01/20 16:02 Pulse Ox ABDOMEN: Soft, non-tender, non-distended. MUSCULOSKELETAL: No clubbing or cyanosis or edema. GENERAL: Well-developed male in no acute distress. HEENT: No sclerae icterus. Extra-ocular movements are grossly intact. Hears conversational speech. CHEST: Nonlabored respirations. Equal bilateral excursions. CARDIOVASCULAR: Regular rate. Regular rhythm. NEURO: No focal or lateralizing signs. Cranial nerves II-12 grossly intact. PSYCH: Appropriated affect. Alert and oriented to person, place and time. SKIN: Well perfused. Good skin turgor. LABS: Reviewed. Triglycerides were elevated. No vitamin deficiences. STUDIES: CT of the abdomen and pelvis from 2019 reviewed for diverticulosis and redundant sigmoid colon. This is my independent interpretation. ASSESSMENT: 1. Morbid obesity due to excess calories. 2. Body mass index down from 42.2 to 36.6 3. Status post sleeve gastrectomy. 4. Hypertensive heart disease. 5. Obstructive sleep apnea. 6. Fibromyalgia. 7. Gastroesophageal reflux disease. 8. Seizure disorder. 9. Asthma. 10. COPD. 11. Anxiety. 12. Depression. 13. Bipolar disorder. 14. Osteoarthritis bilateral knees. 15. Vitamin D deficiency 16. Hypertriglyceridemia 17. Hypercholesterolemia 18. Dietary surveillance and counseling 19. Weight regain following weight loss procedure 20. Complications from sleeve gastrectomy 21. Esophageal dysmotility 22. Chronic pain syndrome. 23. Status post gastric bypass conversion from sleeve gastrectomy 24. Right lower quadrant abdominal pain 25. Diverticulosis. PLAN: 1. Recommend updated bariatric labs. 2. She has dysphagia and gastroesophageal reflux disease. Recommend upper endoscopy with rigid dilation. Objective - Vital Signs Vital signs: Vital Signs Temp 98 F 10/01/20 16:02 Pulse 64 10/01/20 16:02 Resp 16 10/01/20 16:02 BP 155/89 10/01/20 16:02 Pulse Ox Intake & Output 09/30/20 10/01/20 10/01/20 18:59 06:59 18:59 Weight 102.058 kg
== END | disposition home or self-care (01) ==
LOC: BARWHC3 15:49
PROVIDERS: ATTEND Surgery Plastic and Reconstructive Surgery
DX: E66.01 Morbid (severe) obesity due to excess calories (principal); I11.9 Hypertensive heart disease without heart failure; G47.33 Obstructive sleep apnea (adult) (pediatric); M79.7 Fibromyalgia; K21.9 Gastro-esophageal reflux disease without esophagitis; G40.909 Epilepsy, unspecified, not intractable, without status epilepticus; J44.9 Chronic obstructive pulmonary disease, unspecified; F41.9 Anxiety disorder, unspecified; F31.9 Bipolar disorder, unspecified; M17.0 Bilateral primary osteoarthritis of knee; E55.9 Vitamin D deficiency, unspecified; E78.00 Pure hypercholesterolemia, unspecified; E78.1 Pure hyperglyceridemia; Z71.3 Dietary counseling and surveillance; Z98.84 Bariatric surgery status; Z68.36 Body mass index [BMI] 36.0-36.9, adult; Z79.51 Long term (current) use of inhaled steroids; Z79.899 Other long term (current) drug therapy; Z91.048 Other nonmedicinal substance allergy status; Z88.6 Allergy status to analgesic agent; Z88.8 Allergy status to other drugs, medicaments and biological substances; Z91.030 Bee allergy status; Z87.891 Personal history of nicotine dependence
CPT/HCPCS: 99211

== ENCOUNTER → 2020-10-17 | Outpatient (CLI) | payer MEDICARE, OTHER ==
[2020-10-17 13:43] LABS: INR 0.9 (<1.2); Partial Thromboplastin Time 24.1 sec (22.0-30.0)
[2020-10-17 19:17] LABS: HCT 36.7 % (37.2-46.3); MCH 28.6 pg (27.0-32.0); MCHC 32.7 g/dL (32.0-37.0); MCV 87.6 fL (80.0-97.0); Mean Platelet Volume 11.6 fL (9.5-12.2); Platelet Count 234 X 10*3/uL (140-440); RBC 4.19 X 10*6/uL (4.10-5.20); RDW 12.4 % (11.5-14.5); WBC 5.62 X 10*3/uL (4.50-10.00)
[2020-10-17 20:14] LABS: Hemoglobin A1C 5.3 % (4.0-6.0)
[2020-10-17 23:57] LABS: % Iron Saturation 24.23 (12.00-45.00); African American GFR (CKD) 88.2 (60.0-200.0); Albumin 4.3 g/dL (3.80-4.90); Albumin/Globulin Ratio 2.05 (1.60-3.17); Anion Gap 9.5 mmol/L (4.00-12.00); BUN/Creat Ratio 8.89 Ratio (12.00-20.00); Calcium 9.1 mg/dL (8.7-10.3); Carbon Dioxide 26.5 mmol/L (21.6-31.8); Chol/HDL Ratio 4.55; Globulin 2.1 g/dL (1.6-3.3); LDL Cholesterol,Calculated 80.4 mg/dL (0.0-131.0); Magnesium 1.9 mg/dL (1.5-2.4); Non-African American GFR(CKD) 76.1 (60.0-200.0); Phosphorus 3.9 mg/dL (2.4-5.1); Potassium 4.1 mmol/L (3.5-5.5); Total Bilirubin 0.4 mg/dL (0.3-1.2); Total Protein 6.4 g/dL (6.2-8.2); VLDL Calculation 68.6 mg/dL (5.00-40.00)
[2020-10-18 00:08] LABS: Ferritin 83.9 ng/mL (10.0-291.0)
[2020-10-18 00:10] LABS: Folate, Serum 5.8 ng/mL
== END | disposition home or self-care (01) ==
LOC: LABWHC1 12:49
PROVIDERS: ATTEND Surgery Plastic and Reconstructive Surgery
DX: E66.01 Morbid (severe) obesity due to excess calories (principal); E89.1 Postprocedural hypoinsulinemia; E44.0 Moderate protein-calorie malnutrition; E55.9 Vitamin D deficiency, unspecified; K74.1 Hepatic sclerosis; N19 Unspecified kidney failure; K50.90 Crohn's disease, unspecified, without complications; D50.8 Other iron deficiency anemias
CPT/HCPCS: 36415; 80053; 80061; 82306; 82525; 82607; 82728; 82746; 83036; 83540; 83550; 83735; 83970; 84100; 84134; 84255; 84425; 84443; 84590; 84630; 85027; 85610; 85730

== ENCOUNTER → 2020-10-23 | Outpatient (CLI) | payer MEDICARE, OTHER ==
[~2020-10-23] MED LIST changes: -CHLORHEXIDINE GLUCONATE 15 ML CUP MUCOUS MEM ONE; +CYANOCOBALAMIN 1,000 MCG/ML 1 ML VIAL IM NR; -DEXAMETHASONE SOD PHOSPHATE 10 MG/ML 1 ML VIAL IV ONE; -ENOXAPARIN 40 MG/0.4 ML SYRINGE SQ STA; -MIDAZOLAM 2 MG/2 ML VIAL IV PRN; -ONDANSETRON 4 MG/2 ML VIAL IVP ONE; -PANTOPRAZOLE 40 MG/10 ML VIAL IV STA; -SCOPOLAMINE 1.5MG/72HR PATCH TRANSDERM ONE
[2020-10-23 09:41] VITALS: BP 161/89; PULSE 80; RESP 16; TEMP 98
== END | disposition home or self-care (01) ==
LOC: PROCWHC3 09:25
PROVIDERS: ATTEND Surgery Plastic and Reconstructive Surgery
DX: D51.9 Vitamin B12 deficiency anemia, unspecified (principal)
CPT/HCPCS: 96372; J3420

== ENCOUNTER 2020-10-27 07:29 | Day surgery (SDC) | payer MEDICARE, OTHER ==
[2020-10-22 12:12] VITALS: BMI 34.4
[~2020-10-27 07:29] MED LIST changes: -CYANOCOBALAMIN 1,000 MCG/ML 1 ML VIAL IM NR; +LACTATED RINGERS 1,000 ML IV SCH
[2020-10-27 07:57] VITALS: TEMP 97.8
[2020-10-27] MEDS ORDERED: PROPOFOL 10 MG/ML 20 ML VIAL IV ONE (08:24)
[2020-10-27] MEDS ORDERED: LIDOCAINE 1% INJ 10MG/ML (20 ML MDV) ONE (08:24)
--- NOTE | 2020-10-27 08:27 | P.GSHP ---
History of Present Illness H&P Date: 10/27/20 CHIEF COMPLAINT: GERD HISTORY OF PRESENT ILLNESS: The patient is a 45-year-old female who presents reports gastroesophageal reflux disease. Upper endoscopy was offered for further evaluation and management. PAST MEDICAL HISTORY: Please see list. PAST SURGICAL HISTORY: Please see list. MEDICATIONS: Please see list. ALLERGIES: Please see list. SOCIAL HISTORY: No illicit drug use FAMILY HISTORY: No reports of Crohn disease or ulcerative colitis. REVIEW OF ORGAN SYSTEMS: CONSTITUTIONAL: No reports of fevers or chills. GI: Denies any blood in stools or constipation. PHYSICAL EXAM: VITAL SIGNS: Stable GENERAL: Well-developed and pleasant in no acute distress. HEENT: No scleral icterus. Extraocular movements grossly intact. Moist buccal mucosa. NECK: Supple without lymphadenopathy. CHEST: Unlabored respirations. Equal bilateral excursions. CARDIOVASCULAR: Regular rate and rhythm. Distal 2+ pulses. ABDOMEN: Soft, nondistended. MUSCULOSKELETAL: No clubbing, cyanosis, or edema. ASSESSMENT: 1. Gastroesophageal reflux disease PLAN: 1. Recommend proceeding with an upper endoscopy Past Medical History Past Medical History: Asthma, COPD, Fibromyalgia, GERD/Reflux, Hypertension, Seizure Disorder, Sleep Apnea/CPAP/BIPAP Additional Past Medical History / Comment(s): Chronic back pain, LAST SEIZURE 2013, USES CPAP MACHINE, VENTRAL HERNIA History of Any Multi-Drug Resistant Organisms: None Reported Past Surgical History: Adenoidectomy, Appendectomy, Bariatric Surgery, Cholecystectomy, Hysterectomy, Orthopedic Surgery, Tonsillectomy, Tubal Ligation Additional Past Surgical History / Comment(s): KIRK knee arthroscopy, epidural lumbar injections ,KIRK CARPAL TUNNEL, ARTHROSCOPY RT ELBOW, EGD, COLONOSCOPY, Gastric Sleeve 02/16/17, gastric bypass 10-30-18 Past Anesthesia/Blood Transfusion Reactions: No Reported Reaction Smoking Status: Former smoker - Past Family History Father Family Medical History: Deep Vein Thrombosis (DVT) Additional Family Medical History / Comment(s): Father is alive at age 67 with history of coronary aneurysm Mother Family Medical History: CVA/TIA Additional Family Medical History / Comment(s): Mother is alive at age 63 with history of bipolar, stroke, blindness. Brother(s) Additional Family Medical History / Comment(s): Patient has 2 brothers that are healthy. She has no sisters. She has 2 sons and 1 daughter that are healthy. Medications and Allergies Home Medications Medication Instructions Recorded Confirmed Type Cetirizine HCl [Zyrtec] 10 mg PO DAILY 10/20/15 10/27/20 History Fluticasone Nasal [place] [Flonase 1 spray EA NOSTRIL DAILY 10/20/15 10/27/20 History Nasal [place]] EPINEPHrine [Epipen 2-Melecio] 0.3 mg IM ONCE PRN 11/16/16 10/27/20 History Vilazodone HCl [Viibryd] 20 mg PO HS 11/16/16 10/27/20 History Gabapentin [Neurontin] 300 mg PO BID 02/16/17 10/27/20 History QUEtiapine [SEROquel] 400 mg PO HS 08/16/18 10/27/20 History Omeprazole 40 mg PO DAILY #30 capsule. 10/31/18 10/27/20 Rx Ergocalciferol [Vitamin D2 (1250 50,000 unit PO WEEKLY 10/20/20 10/27/20 History Mcg = 73250 Iu)] Allergy Shots 1 dose IM Q14D 10/22/20 10/27/20 History Cyanocobalamin [Vitamin B-12 1,000 mcg SQ DIRECTED 10/22/20 10/27/20 History Injection] Gabapentin 600 mg PO HS 10/22/20 10/27/20 History Allergies Allergy/AdvReac Type Severity Reaction Status Date / Time adhesive Allergy Rash/Hives Verified 10/27/20 07:52 aspirin Allergy Anaphylaxis Verified 10/27/20 07:52 clonidine Allergy Rash/Hives Verified 10/27/20 07:52 hydroxyzine Allergy CONFUSION Verified 10/27/20 07:52 AND BODY SHAKES venlafaxine HCl Allergy Swelling Verified 10/27/20 07:52 [From Effexor] venom-honey bee Allergy Rash/Hives Verified 10/27/20 07:52 [bee venom (honey bee)] Surgical - Exam Vital Signs Temp Pulse Resp BP Pulse Ox 97.8 F 81 18 154/93 95 10/27/20 07:51 10/27/20 07:51 10/27/20 07:51 10/27/20 07:51 10/27/20 07:51
--- NOTE | 2020-10-27 08:43 | P.PCN ---
Date of Procedure: 10/27/20 Description of Procedure: PREOPERATIVE DIAGNOSIS: Dysphagia. Gastroesophageal reflux disease POSTOPERATIVE DIAGNOSIS: Dysphagia. 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 INDICATIONS: The patient is a 45-year-old female who presents with a history of dysphagia and gastroesophageal reflux disease. Benefits and risks of the procedure were described. Informed consent was obtained. DESCRIPTION: The patient was brought into the endoscopy suite and laid in the left lateral decubitus position. After a timeout was confirmed, the procedure was initiated. An Olympus gastroscope was passed along the posterior oropharynx down to the distal esophagus where the squamocolumnar junction was unremarkable. Stenosis of the upper esophagus was also identified. The gastric pouch was entered. A gastrojejunal stricture of 15 mm was found as the adult gastroscope was 9.5 mm in size. A Symtext balloon dilator was placed through the scope. Insufflation up to 20 mm was performed with a total of 2 minutes. To address upper esophageal stenosis, rigid dilator over guidewire was performed using 54-Slov[place] bougie. Rigid dilation occurred for 2 minutes and withdrawn. The scope was advanced up to 60 cm from the incisors into the [place] limb. The mucosa of the gastrojejunal anastomosis was intact. However chronic gastrojejunal marginal ulcer was encountered. No full-thickness injury was encountered. The GI tract was desufflated. The patient tolerated the procedure well. FINDINGS: Stricture of approximately 15 mm encountered. Chronic gastrojejunal ulceration encountered. Successful balloon dilatation to 20 mm for gastrojejunal stricture Gastric pouch 5 cm. Upper esophageal stenosis dilated with 54-[place] RECOMMENDATIONS: Start combined therapy of Carafate and omeprazole of at least 4 weeks. Plan - Discharge Summary Discharge Rx Participant: No New Discharge Prescriptions: No Action Fluticasone Nasal [place] [Flonase Nasal [place]] 1 spray EA NOSTRIL DAILY Cetirizine HCl [Zyrtec] 10 mg PO DAILY Vilazodone HCl [Viibryd] 20 mg PO HS EPINEPHrine [Epipen 2-Melecio] 0.3 mg IM ONCE PRN PRN Reason: Anaphylaxis Gabapentin [Neurontin] 300 mg PO BID QUEtiapine [SEROquel] 400 mg PO HS Omeprazole 40 mg PO DAILY #30 capsule. Ergocalciferol [Vitamin D2 (1250 Mcg = 34929 Iu)] 50,000 unit PO WEEKLY Cyanocobalamin [Vitamin B-12 Injection] 1,000 mcg SQ DIRECTED Gabapentin 600 mg PO HS Allergy Shots 1 dose IM Q14D Discharge Medication List Cetirizine HCl [Zyrtec] 10 mg PO DAILY 10/20/15 [History] Fluticasone Nasal [place] [Flonase Nasal [place]] 1 spray EA NOSTRIL DAILY 10/20/15 [History] EPINEPHrine [Epipen 2-Melecio] 0.3 mg IM ONCE PRN 11/16/16 [History] Vilazodone HCl [Viibryd] 20 mg PO HS 11/16/16 [History] Gabapentin [Neurontin] 300 mg PO BID 02/16/17 [History] QUEtiapine [SEROquel] 400 mg PO HS 08/16/18 [History] Omeprazole 40 mg PO DAILY #30 capsule. 10/31/18 [Rx] Ergocalciferol [Vitamin D2 (1250 Mcg = 71947 Iu)] 50,000 unit PO WEEKLY 10/20/20 [History] Allergy Shots 1 dose IM Q14D 10/22/20 [History] Cyanocobalamin [Vitamin B-12 Injection] 1,000 mcg SQ DIRECTED 10/22/20 [History] Gabapentin 600 mg PO HS 10/22/20 [History]
[2020-10-27] MEDS ORDERED: IV FLUID CONTINUATION 1,000 ML IV ONE (08:45)
[2020-10-27 08:50] VITALS: RESP 16
[2020-10-27 09:10] VITALS: BP 106/75; PULSE 74
== END 2020-10-27 09:50 | disposition home or self-care (01) ==
LOC: ORWHC2ENDO 07:29
PROVIDERS: ATTEND Surgery Plastic and Reconstructive Surgery
DX: K22.2 Esophageal obstruction (principal); K28.9 Gastrojejunal ulcer, unspecified as acute or chronic, without hemorrhage or perforation; J44.9 Chronic obstructive pulmonary disease, unspecified; M79.7 Fibromyalgia; K21.9 Gastro-esophageal reflux disease without esophagitis; I10 Essential (primary) hypertension; G40.909 Epilepsy, unspecified, not intractable, without status epilepticus; G47.30 Sleep apnea, unspecified; G89.29 Other chronic pain; M54.9 Dorsalgia, unspecified; Z90.89 Acquired absence of other organs; Z98.84 Bariatric surgery status; Z90.49 Acquired absence of other specified parts of digestive tract; Z90.710 Acquired absence of both cervix and uterus; Z98.51 Tubal ligation status; Z98.890 Other specified postprocedural states; Z87.891 Personal history of nicotine dependence; Z82.49 Family history of ischemic heart disease and other diseases of the circulatory system; Z82.3 Family history of stroke; Z82.1 Family history of blindness and visual loss; Z79.899 Other long term (current) drug therapy; Z88.6 Allergy status to analgesic agent; Z91.030 Bee allergy status; Z88.8 Allergy status to other drugs, medicaments and biological substances; Z91.09 Other allergy status, other than to drugs and biological substances
CPT/HCPCS: 43245; 43248; 43249; J2001; J2704; C1726

== ENCOUNTER → 2021-04-22 | Outpatient (CLI) | payer MEDICARE, OTHER ==
[2021-04-22 13:19] VITALS: BP 138/87; PULSE 67; RESP 16; TEMP 98.4
--- NOTE | 2021-04-22 13:24 | P.HPBAR ---
Bariatric H&P - History & Physicial H&P Date: 04/22/21 History & Physicial: Visit/CC: Patient initial contact: Initial weight: 112.122 kg Initial weight in pounds: 247.19 Height: Initial BMI: Last weight: Current weight: Current weight in pounds: Current BMI: [place] body weight (based on NIH guidelines): Excess body weight loss: The patient is a 46 year-old F who presents for Bariatric Assessment. DATE OF SERVICE: 04/22/2021 CHIEF COMPLAINT: Status post gastric bypass HISTORY OF PRESENT ILLNESS: Sharri Braswell is a 46-year-old female status post conversion from sleeve to gastric bypass, 10/30/2018. She is 3 years out. She had COVID in December,, 3 months ago. She had the IVIG infusion. She has not had any recent check of her vitamin levels. She had low vitamin B12 and vitamin D. She is off her omeprazole and carafate for gastric ulcers. She denies active dysphagia. Her weight is stable for over the year. She comes in with new bilateral upper abdominal pain. She has diverticulitis. Her highest weight for 5 foot 5.75 frame is 259 pounds. Her BMI was 42.2. Today she comes in 228 pounds from 225 pounds, 6 months ago. She gained 4 pounds in 6 months. Lifetime weight loss is 30 pounds. Lifetime percent excess weight loss is 28%. Body mass index is down from 42.2 to 37.2. PAST MEDICAL HISTORY: 1. Morbid obesity due to excess calories 2. Body mass index of 42.2 initial 3. Asthma 4. Chronic obstructive pulmonary disease 5. Fibromyalgia 6. Gastroesophageal reflux disease 7. Obstructive sleep apnea 8. Seizure disorder 9. Chronic lower back pain 10. Anxiety 11. Depression 12. Bipolar disorder 13. Hypertensive heart disease PAST SURGICAL HISTORY: 1. Sleeve gastrectomy 2. Appendectomy 3. Adenoidectomy 4. Hysterectomy 5. Cholecystectomy 6. Tonsillectomy 7. Tubal ligation 8. Bilateral knee arthroscopy 9. Colonoscopy 10. Upper endoscopy 11. Epidural injections HOME MEDICATIONS: Home Medications Medication Instructions Recorded Confirmed Cetirizine HCl [Zyrtec] 10 mg PO DAILY 10/20/15 06/01/21 Fluticasone Nasal [place] [Flonase 1 spray EA NOSTRIL DAILY 10/20/15 06/01/21 Nasal [place]] EPINEPHrine [Epipen 2-Melecio] 0.3 mg IM ONCE PRN 11/16/16 06/01/21 Vilazodone HCl [Viibryd] 10 mg PO HS 11/16/16 06/01/21 Gabapentin [Neurontin] 300 mg PO BID 02/16/17 06/01/21 QUEtiapine [SEROquel] 400 mg PO HS 08/16/18 06/01/21 Ergocalciferol [Vitamin D2 (1250 50,000 unit PO WE 10/20/20 06/01/21 Mcg = 37741 Iu)] Allergy Shots 1 dose IM Q14D 10/22/20 06/01/21 Gabapentin 600 mg PO HS 10/22/20 06/01/21 Albuterol Sulfate [Ventolin HFA] 1 puff INHALATION DAILY PRN 05/28/21 06/01/21 Budesonide-Formot 160-4.5 Mcg 1 puff IN BID PRN 05/28/21 06/01/21 [Symbicort 160-4.5 Mcg Inhaler] methocarbamoL [Robaxin] 500 mg PO BID PRN 05/28/21 06/01/21 Previous Rx's Medication Instructions Recorded Dicyclomine [Bentyl] 20 mg PO TID #30 tablet 05/13/21 Omeprazole [PriLOSEC] 40 mg PO DAILY #14 cap 06/01/21 Sucralfate [Carafate] 1 gm PO BID #30 tablet 06/01/21 ALLERGIES: Allergies Allergy/AdvReac Type Severity Reaction Status Date / Time adhesive Allergy Rash/Hives Verified 06/01/21 07:07 aspirin Allergy Anaphylaxis Verified 06/01/21 07:07 clonidine Allergy Rash/Hives Verified 06/01/21 07:07 hydroxyzine Allergy CONFUSION Verified 06/01/21 07:07 AND BODY SHAKES venlafaxine HCl Allergy Swelling Verified 06/01/21 07:07 [From Effexor] venom-honey bee Allergy Rash/Hives Verified 06/01/21 07:07 [bee venom (honey bee)] buspirone AdvReac Rash/Hives Verified 06/01/21 07:07 SOCIAL HISTORY: History of tobacco use. FAMILY HISTORY: No family history of ulcerative colitis disease or Crohn's disease. Family history of morbid obesity. No lupus in the family. No reports of stomach or esophageal cancer. Family history of DVT. REVIEW OF ORGAN SYSTEMS: CONSTITUTIONAL: Her highest weight for his 5 foot 5.75 frame is 259 pounds. Body mass index was 42.2. HEENT: Denies any active troubles with vision or hearing. No troubles with swallowing. ENDOCRINE: No diabetes. No hypothyroidism. CARDIOVASCULAR: No reports of palpitations or heart attacks or chest pain. RESPIRATORY: Has daytime somnolence. No asthma. GI: Denies any bright red blood per rectum. Has new constipation. Has gastroesophageal reflux disease. MUSCULOSKELETAL: Has lower back pain and joint pain. Has osteoarthritis of the knees. Has fibromyalgia. NEURO: No headaches. Has seizure disorders. Has neuropathy. PSYCH: Has depression. No suicidal ideation. Has bipolar disorder including anxiety. RHEUMATOLOGIC: No lupus. No rheumatoid arthritis. HEMATOLOGIC: Denies any abnormal bleeding or bruising. No personal history of DVTs. SKIN: No rash. No skin cancer. PHYSICAL EXAM: VITAL SIGNS: 5 feet 5.75 inches, 228 pounds, body mass index 37.2 Vital Signs Temp 98.4 F 04/22/21 13:17 Pulse 67 04/22/21 13:17 Resp 16 04/22/21 13:17 BP 138/87 04/22/21 13:17 Pulse Ox ABDOMEN: Soft, non-tender, non-distended. MUSCULOSKELETAL: No clubbing or cyanosis or edema. GENERAL: Well-developed male in no acute distress. HEENT: No sclerae icterus. Extra-ocular movements are grossly intact. Hears conversational speech. CHEST: Nonlabored respirations. Equal bilateral excursions. CARDIOVASCULAR: Regular rate. Regular rhythm. NEURO: No focal or lateralizing signs. Cranial nerves II-12 grossly intact. PSYCH: Appropriated affect. Alert and oriented to person, place and time. SKIN: Well perfused. Good skin turgor. LABS: Reviewed. Triglycerides elevated. Vitamin B-12 is low. EGD FINDINGS: Stricture of approximately 15 mm encountered. Chronic gastrojejunal ulceration encountered. Successful balloon dilatation to 20 mm for gastrojejunal stricture Gastric pouch 5 cm. Upper esophageal stenosis dilated with 54-Uzbek STUDIES: CT of the abdomen and pelvis reviewed from 2019 demonstrating no internal hernia. No bowel obstruction. This is my independent interpretation. REPORTS: CT of the abdomen with hepatomegaly. ASSESSMENT: 1. Morbid obesity due to excess calories. 2. Body mass index down from 42.2 to 37.2 3. Status post sleeve gastrectomy. 4. Hypertensive heart disease. 5. Obstructive sleep apnea. 6. Fibromyalgia. 7. Gastroesophageal reflux disease. 8. Seizure disorder. 9. Asthma. 10. COPD. 11. Anxiety. 12. Depression. 13. Bipolar disorder. 14. Osteoarthritis bilateral knees. 15. Vitamin D deficiency 16. Hypertriglyceridemia 17. Hypercholesterolemia 18. Dietary surveillance and counseling 19. Weight regain following weight loss procedure 20. Complications from sleeve gastrectomy 21. Esophageal dysmotility 22. Chronic pain syndrome. 23. Status post gastric bypass conversion from sleeve gastrectomy 24. Right lower quadrant abdominal pain 25. Diverticulosis. 26. Vitamin B-12 deficiency 27. Gastric ulcer PLAN: 1. Recommend bariatric labs. 2. She has bilateral upper abdominal pain and diverticulitis. May benefit from bentyl. 3. Recommend trial of bentyl and follow-up in 3 weeks. Past Medical History Past Medical History: Asthma, COPD, Fibromyalgia, GERD/Reflux, Hypertension, Seizure Disorder, Sleep Apnea/CPAP/BIPAP Additional Past Medical History / Comment(s): Chronic back pain, LAST SEIZURE 2013, USES CPAP MACHINE, VENTRAL HERNIA History of Any Multi-Drug Resistant Organisms: None Reported Past Surgical History: Adenoidectomy, Appendectomy, Bariatric Surgery, Meredith cystectomy, Hysterectomy, Orthopedic Surgery, Tonsillectomy, Tubal Ligation Additional Past Surgical History / Comment(s): KIRK knee arthroscopy, epidural lumbar injections ,KIRK CARPAL TUNNEL, ARTHROSCOPY RT ELBOW, EGD, COLONOSCOPY, Gastric Sleeve 02/16/17, gastric bypass 10-30-18 Past Anesthesia/Blood Transfusion Reactions: No Reported Reaction Smoking Status: Former smoker - Past Family History Father Family Medical History: Deep Vein Thrombosis (DVT) Additional Family Medical History / Comment(s): Father is alive at age 67 with history of coronary aneurysm Mother Family Medical History: CVA/TIA Additional Family Medical History / Comment(s): Mother is alive at age 63 with history of bipolar, stroke, blindness. Brother(s) Additional Family Medical History / Comment(s): Patient has 2 brothers that are healthy. She has no sisters. She has 2 sons and 1 daughter that are healthy. Surgical - Exam Vital Signs Temp Pulse Resp BP 98.4 F 67 16 138/87 04/22/21 13:17 04/22/21 13:17 04/22/21 13:17 04/22/21 13:17 Bariatric Checklist Checklist: Plan: Checklist: EGD: 1. Hiatal hernia: 2. H. Pylori: HgbA1c: Vitamin D: Smoking: Former smoker Primary care physician referral: [facility] Psychiatry clearance: Cardiology clearance: Sleep study: Diet journal: VTE risk score: VTE risk level: Rehab needs at discharge:
[2021-04-22 13:57] VITALS: BMI 37.2
== END | disposition home or self-care (01) ==
LOC: BARWHC3 12:42
PROVIDERS: ATTEND Surgery Plastic and Reconstructive Surgery
DX: E66.9 Obesity, unspecified (principal)
CPT/HCPCS: 99211

== ENCOUNTER → 2021-05-12 | Outpatient (CLI) | payer MEDICARE, OTHER ==
[2021-05-12 17:37] LABS: INR 0.9 (<1.2); Prothrombin Time 9.9 sec (9.0-12.0)
[2021-05-13 02:42] LABS: HCT 37.6 % (37.2-46.3); MCH 28.2 pg (27.0-32.0); MCHC 31.9 g/dL (32.0-37.0); MCV 88.3 fL (80.0-97.0); NRBC Per 100 WBC 0 /100 WBCS (0.0-0.0); Platelet Count 252 X 10*3/uL (140-440); RBC 4.26 X 10*6/uL (4.10-5.20); WBC 6.96 X 10*3/uL (4.50-10.00)
[2021-05-13 02:45] LABS: % Iron Saturation 15.55 (12.00-45.00); ALT 23 U/L (8-44); AST 16 U/L (13-35); African American GFR (CKD) 98.1 (60.0-200.0); Albumin 4.4 g/dL (3.8-4.9); Albumin/Globulin Ratio 2.19 (1.60-3.17); Alkaline Phosphatase 104 U/L (41-126); BUN/Creat Ratio 8.27 Ratio (12.00-20.00); Blood Urea Nitrogen 6.8 mg/dL (9.0-27.0); Calcium 9.3 mg/dL (8.7-10.3); Carbon Dioxide 27.1 mmol/L (20.0-27.5); Chloride 104 mmol/L (96-109); Ferritin 78.8 ng/mL (10.0-291.0); Glucose 92 mg/dL (70-110); Iron 59 ug/dL (50-170); Magnesium 2.2 mg/dL (1.5-2.4); Non-African American GFR(CKD) 84.6 (60.0-200.0); Phosphorus 4.5 mg/dL (2.4-5.1); Potassium 3.7 mmol/L (3.5-5.5); Sodium 143 mmol/L (135-145); Total Iron Binding Capacity 379 ug/dL (228-460); Total Protein 6.4 g/dL (6.2-8.2)
[2021-05-13 02:46] LABS: Chol/HDL Ratio 3.97 Ratio; LDL Cholesterol,Calculated 106.2 mg/dL (0.0-131.0); Prealbumin 23.8 mg/dL (18.0-42.0)
[2021-05-14 09:25] LABS: Zinc, Serum 47 ug/dL (60-130)
== END | disposition home or self-care (01) ==
LOC: LABWHC1 15:49
PROVIDERS: ATTEND Surgery Plastic and Reconstructive Surgery
DX: E66.01 Morbid (severe) obesity due to excess calories (principal); E89.1 Postprocedural hypoinsulinemia; D50.8 Other iron deficiency anemias; E44.0 Moderate protein-calorie malnutrition; E55.9 Vitamin D deficiency, unspecified; K74.1 Hepatic sclerosis; N19 Unspecified kidney failure; K50.90 Crohn's disease, unspecified, without complications
CPT/HCPCS: 36415; 80053; 80061; 82306; 82525; 82607; 82728; 82746; 83036; 83540; 83550; 83735; 83970; 84100; 84134; 84255; 84425; 84443; 84590; 84630; 85027; 85610; 85730

== ENCOUNTER 2021-06-01 06:25 | Day surgery (SDC) | payer MEDICARE, OTHER ==
[2021-06-01] MEDS ORDERED: DEXAMETHASONE SOD PHOSPHATE 4 MG/ML 1 ML VIAL IV ONE (06:57)
[2021-06-01] MEDS ORDERED: LACTATED RINGERS 1,000 ML IV SCH (06:57)
[2021-06-01] MEDS ORDERED: HYDROmorphone 0.5 MG/0.5 ML SYRINGE IVP PRN (06:57)
[2021-06-01] MEDS ORDERED: ONDANSETRON 4 MG/2 ML VIAL IVP ONE (06:57)
[2021-06-01 07:11] VITALS: TEMP 96.4
[2021-06-01] MEDS ORDERED: LIDOCAINE 1% INJ 10MG/ML (20 ML MDV) ONE (07:44)
[2021-06-01] MEDS ORDERED: PROPOFOL 10 MG/ML 20 ML VIAL IV ONE (07:44)
--- NOTE | 2021-06-01 07:44 | P.GSHP ---
History of Present Illness H&P Date: 06/01/21 CHIEF COMPLAINT: GERD HISTORY OF PRESENT ILLNESS: The patient is a 46-year-old female who presents reports gastroesophageal reflux disease. Upper endoscopy was offered for further evaluation and management. PAST MEDICAL HISTORY: Please see list. PAST SURGICAL HISTORY: Please see list. MEDICATIONS: Please see list. ALLERGIES: Please see list. SOCIAL HISTORY: No illicit drug use FAMILY HISTORY: No reports of Crohn disease or ulcerative colitis. REVIEW OF ORGAN SYSTEMS: CONSTITUTIONAL: No reports of fevers or chills. GI: Denies any blood in stools or constipation. PHYSICAL EXAM: VITAL SIGNS: Stable GENERAL: Well-developed and pleasant in no acute distress. HEENT: No scleral icterus. Extraocular movements grossly intact. Moist buccal mucosa. NECK: Supple without lymphadenopathy. CHEST: Unlabored respirations. Equal bilateral excursions. CARDIOVASCULAR: Regular rate and rhythm. Distal 2+ pulses. ABDOMEN: Soft, nondistended. MUSCULOSKELETAL: No clubbing, cyanosis, or edema. ASSESSMENT: 1. Gastroesophageal reflux disease PLAN: 1. Recommend proceeding with an upper endoscopy Past Medical History Past Medical History: Asthma, COPD, Fibromyalgia, GERD/Reflux, Hypertension, Seizure Disorder, Sleep Apnea/CPAP/BIPAP Additional Past Medical History / Comment(s): DIAGNOSED WITH COVID ON 01/10/21. Chronic back pain, LAST SEIZURE 2013, USES CPAP MACHINE, VENTRAL HERNIA History of Any Multi-Drug Resistant Organisms: None Reported Past Surgical History: Adenoidectomy, Appendectomy, Bariatric Surgery, Cholecystectomy, Hysterectomy, Orthopedic Surgery, Tonsillectomy, Tubal Ligation Additional Past Surgical History / Comment(s): KIRK knee arthroscopy, epidural lumbar injections ,KIRK CARPAL TUNNEL, ARTHROSCOPY RT ELBOW, EGD, COLONOSCOPY, Gastric Sleeve 02/16/17, gastric bypass 10-30-18 Past Anesthesia/Blood Transfusion Reactions: No Reported Reaction, Motion Sickness Past Psychological History: Anxiety, Bipolar, Depression Smoking Status: Former smoker Past Alcohol Use History: None Reported Additional Past Alcohol Use History / Comment(s): Patient was a smoker of one half pack per day and quit in May 2014. ON AND OFF FROM AGE 15 Past Drug Use History: None Reported - Past Family History Father Family Medical History: Deep Vein Thrombosis (DVT) Additional Family Medical History / Comment(s): Father is alive at age 67 with history of coronary aneurysm Mother Family Medical History: CVA/TIA Additional Family Medical History / Comment(s): Mother is alive at age 63 with history of bipolar, stroke, blindness. Brother(s) Additional Family Medical History / Comment(s): Patient has 2 brothers that are healthy. She has no sisters. She has 2 sons and 1 daughter that are healthy. Medications and Allergies Home Medications Medication Instructions Recorded Confirmed Type Cetirizine HCl [Zyrtec] 10 mg PO DAILY 10/20/15 06/01/21 History Fluticasone Nasal [place] [Flonase 1 spray EA NOSTRIL DAILY 10/20/15 06/01/21 History Nasal [place]] EPINEPHrine [Epipen 2-Melecio] 0.3 mg IM ONCE PRN 11/16/16 06/01/21 History Vilazodone HCl [Viibryd] 10 mg PO HS 11/16/16 06/01/21 History Gabapentin [Neurontin] 300 mg PO BID 02/16/17 06/01/21 History QUEtiapine [SEROquel] 400 mg PO HS 08/16/18 06/01/21 History Ergocalciferol [Vitamin D2 (1250 50,000 unit PO WE 10/20/20 06/01/21 History Mcg = 40961 Iu)] Allergy Shots 1 dose IM Q14D 10/22/20 06/01/21 History Gabapentin 600 mg PO HS 10/22/20 06/01/21 History Dicyclomine [Bentyl] 20 mg PO TID #30 tablet 05/13/21 06/01/21 Rx Albuterol Sulfate [Ventolin HFA] 1 puff INHALATION DAILY PRN 05/28/21 06/01/21 History Budesonide-Formot 160-4.5 Mcg 1 puff IN BID PRN 05/28/21 06/01/21 History [Symbicort 160-4.5 Mcg Inhaler] methocarbamoL [Robaxin] 500 mg PO BID PRN 05/28/21 06/01/21 History Allergies Allergy/AdvReac Type Severity Reaction Status Date / Time adhesive Allergy Rash/Hives Verified 06/01/21 07:07 aspirin Allergy Anaphylaxis Verified 06/01/21 07:07 clonidine Allergy Rash/Hives Verified 06/01/21 07:07 hydroxyzine Allergy CONFUSION Verified 06/01/21 07:07 AND BODY SHAKES venlafaxine HCl Allergy Swelling Verified 06/01/21 07:07 [From Effexor] venom-honey bee Allergy Rash/Hives Verified 06/01/21 07:07 [bee venom (honey bee)] buspirone AdvReac Rash/Hives Verified 06/01/21 07:07 Surgical - Exam Vital Signs Temp Pulse Resp BP Pulse Ox 96.4 F L 70 18 156/93 96 06/01/21 07:10 06/01/21 07:10 06/01/21 07:10 06/01/21 07:10 06/01/21 07:10
--- NOTE | 2021-06-01 08:06 | P.PCN ---
Date of Procedure: 06/01/21 Description of Procedure: PREOPERATIVE DIAGNOSES: 1. History of gastric ulcers 2. Epigastric abdominal pain. 3. History of Phuong-en-Y gastric bypass POSTOPERATIVE DIAGNOSES: 1. Epigastric abdominal pain. 2. History of Phuong-en-Y gastric bypass 3. Gastrojejunal ulcer, acute on chronic. PROCEDURE PERFORMED: Esophagogastrojejunoscopy with biopsies on the gastric pouch. SURGEON: Dori Verde MD ANESTHESIA: MAC. INDICATIONS: The patient is a 46-year-old female with prior history of Phuong-en-Y gastric bypass. She presents with epigastric abdominal pain. With her history of Phuong-en-Y gastric bypass, upper endoscopy was offered for further evaluation and management. Benefits and risks described. Informed consent was obtained. DESCRIPTION: Patient was brought to the endoscopy suite and laid in the left lateral decubitus position. After adequate IV sedation, a bite block was placed. An Olympus gastroscope was passed along the posterior oropharynx down to the distal esophagus where the squamocolumnar junction was found at approximately 40 cm from the incisors. The diaphragmatic hiatus was found at 38 cm from the incisors. Her anastomosis was found at 45 cm, consistent with approximately 5 cm gastric pouch. No evidence of foreign body was found. Active gastrojejunal ulceration acute on chronic without bleeding was encountered. Biopsies along the gastric pouch. The scope was passed to 60 cm of the Phuong limb. No remnant of blind jejunal limb was retained. The GI tract was desufflated. The patient tolerated the procedure well. FINDINGS: 1. Acute gastrojejunal ulceration of 5 mm. 2. No foreign body found along the anastomosis. 3. No elongated jejunal blind pouch. 4. Squamocolumnar junction at 40 cm from the incisors. 5. Diaphragmatic hiatus at 45 cm from the incisors. 6. Chronic gastritis of the gastric pouch. 7. Anastomosis at 42 cm from the incisors. 8. Gastric pouch 5 cm. PLAN: 1. Proton pump inhibitor for gastric ulcer. 2. Carafate to control for symptoms. 3. Recommend repeat upper endoscopy in 4-6 weeks. Plan - Discharge Summary Discharge Rx Participant: No New Discharge Prescriptions: New Sucralfate [Carafate] 1 gm PO BID #30 tablet Omeprazole [PriLOSEC] 40 mg PO DAILY #14 cap Continue Fluticasone Nasal [place] [Flonase Nasal [place]] 1 spray EA NOSTRIL DAILY Cetirizine HCl [Zyrtec] 10 mg PO DAILY Vilazodone HCl [Viibryd] 10 mg PO HS EPINEPHrine [Epipen 2-Melecio] 0.3 mg IM ONCE PRN PRN Reason: Anaphylaxis Gabapentin [Neurontin] 300 mg PO BID QUEtiapine [SEROquel] 400 mg PO HS Ergocalciferol [Vitamin D2 (1250 Mcg = 65389 Iu)] 50,000 unit PO WE Gabapentin 600 mg PO HS Allergy Shots 1 dose IM Q14D Budesonide-Formot 160-4.5 Mcg [Symbicort 160-4.5 Mcg Inhaler] 1 puff IN BID PRN PRN Reason: Shortness Of Breath Or Wheezing Albuterol Sulfate [Ventolin HFA] 1 puff INHALATION DAILY PRN PRN Reason: Shortness Of Breath Or Wheezing Dicyclomine [Bentyl] 20 mg PO TID #30 tablet methocarbamoL [Robaxin] 500 mg PO BID PRN PRN Reason: MUSCLE SPASMS Discharge Medication List Cetirizine HCl [Zyrtec] 10 mg PO DAILY 10/20/15 [History] Fluticasone Nasal [place] [Flonase Nasal [place]] 1 spray EA NOSTRIL DAILY 10/20/15 [History] EPINEPHrine [Epipen 2-Melecio] 0.3 mg IM ONCE PRN 11/16/16 [History] Vilazodone HCl [Viibryd] 10 mg PO HS 11/16/16 [History] Gabapentin [Neurontin] 300 mg PO BID 02/16/17 [History] QUEtiapine [SEROquel] 400 mg PO HS 08/16/18 [History] Ergocalciferol [Vitamin D2 (1250 Mcg = 22039 Iu)] 50,000 unit PO WE 10/20/20 [History] Allergy Shots 1 dose IM Q14D 10/22/20 [History] Gabapentin 600 mg PO HS 10/22/20 [History] Dicyclomine [Bentyl] 20 mg PO TID #30 tablet 05/13/21 [Rx] Albuterol Sulfate [Ventolin HFA] 1 puff INHALATION DAILY PRN 05/28/21 [History] Budesonide-Formot 160-4.5 Mcg [Symbicort 160-4.5 Mcg Inhaler] 1 puff IN BID PRN 05/28/21 [History] methocarbamoL [Robaxin] 500 mg PO BID PRN 05/28/21 [History] Omeprazole [PriLOSEC] 40 mg PO DAILY #14 cap 06/01/21 [Rx] Sucralfate [Carafate] 1 gm PO BID #30 tablet 06/01/21 [Rx] Follow up [facility](s[facility]Ref[facility] [place] [place] [facility] [place] Patient Instructions/Handouts: Peptic Ulcer (ED) Discharge Disposition: HOME SELF-CARE
[2021-06-01 08:16] VITALS: BP 142/88; PULSE 65; RESP 16
== END 2021-06-01 08:33 | disposition home or self-care (01) ==
LOC: ORWHC2ENDO 06:25
PROVIDERS: ATTEND Surgery Plastic and Reconstructive Surgery
DX: K28.9 Gastrojejunal ulcer, unspecified as acute or chronic, without hemorrhage or perforation (principal); K29.50 Unspecified chronic gastritis without bleeding; Z96.89 Presence of other specified functional implants; M79.7 Fibromyalgia; J44.9 Chronic obstructive pulmonary disease, unspecified; I10 Essential (primary) hypertension; K21.9 Gastro-esophageal reflux disease without esophagitis; G40.909 Epilepsy, unspecified, not intractable, without status epilepticus; G47.33 Obstructive sleep apnea (adult) (pediatric); Z90.49 Acquired absence of other specified parts of digestive tract; Z98.51 Tubal ligation status; Z86.16 Personal history of COVID-19; Z98.84 Bariatric surgery status; Z90.710 Acquired absence of both cervix and uterus; Z98.890 Other specified postprocedural states; F41.9 Anxiety disorder, unspecified; F32.A Depression, unspecified; Z87.891 Personal history of nicotine dependence; Z97.2 Presence of dental prosthetic device (complete) (partial); Z82.49 Family history of ischemic heart disease and other diseases of the circulatory system; Z79.51 Long term (current) use of inhaled steroids; Z79.899 Other long term (current) drug therapy; Z88.6 Allergy status to analgesic agent; Z88.8 Allergy status to other drugs, medicaments and biological substances
CPT/HCPCS: 88305; 43239; J2001; J2704

== ENCOUNTER → 2021-10-06 | Outpatient (CLI) | payer MEDICARE, OTHER ==
[2021-10-06 12:56] LABS: INR 0.9 (<1.2); Partial Thromboplastin Time 24.9 sec (22.0-30.0); Prothrombin Time 10.1 sec (9.0-12.0)
[2021-10-06 18:48] LABS: HCT 36.5 % (37.2-46.3); HGB 11.8 g/dL (12.0-15.0); MCH 28.3 pg (27.0-32.0); MCHC 32.3 g/dL (32.0-37.0); MCV 87.5 fL (80.0-97.0); Mean Platelet Volume 11.7 fL (9.5-12.2); NRBC Per 100 WBC 0 /100 WBCS (0.0-0.0); Platelet Count 241 X 10*3/uL (140-440); RBC 4.17 X 10*6/uL (4.10-5.20); RDW 12.3 % (11.5-14.5); WBC 5.84 X 10*3/uL (4.50-10.00)
[2021-10-06 19:12] LABS: % Iron Saturation 23.73 (12.00-45.00); ALT 25 U/L (8-44); AST 17 U/L (13-35); Albumin 4.4 g/dL (3.8-4.9); Alkaline Phosphatase 99 U/L (41-126); BUN/Creat Ratio 7.13 Ratio (12.00-20.00); Blood Urea Nitrogen 5.7 mg/dL (9.0-27.0); Calcium 9.2 mg/dL (8.7-10.3); Chloride 105 mmol/L (96-109); Ferritin 77.8 ng/mL (10.0-291.0); Glucose 119 mg/dL (70-110); Iron 91 ug/dL (50-170); Magnesium 2.1 mg/dL (1.5-2.4); Non-African American GFR(CKD) 87.2 (60.0-200.0); Phosphorus 4.2 mg/dL (2.4-5.1); Potassium 3.8 mmol/L (3.5-5.5); Sodium 144 mmol/L (135-145); Total Iron Binding Capacity 382 ug/dL (228-460); Total Protein 6.4 g/dL (6.2-8.2)
[2021-10-06 20:40] LABS: Chol/HDL Ratio 4.59 Ratio; LDL Cholesterol,Calculated 106.4 mg/dL (0.0-131.0)
[2021-10-07 13:05] LABS: Zinc, Serum 66 ug/dL (60-130)
[2021-10-08 08:59] LABS: Vit B1(Thiamine) 63 ug/L (38-122)
== END | disposition home or self-care (01) ==
LOC: LABWHC1 11:36
PROVIDERS: ATTEND Surgery Plastic and Reconstructive Surgery
DX: E66.01 Morbid (severe) obesity due to excess calories (principal); E89.1 Postprocedural hypoinsulinemia; D50.8 Other iron deficiency anemias; D50.9 Iron deficiency anemia, unspecified; K91.2 Postsurgical malabsorption, not elsewhere classified; E44.0 Moderate protein-calorie malnutrition; E44.1 Mild protein-calorie malnutrition; E55.9 Vitamin D deficiency, unspecified; N19 Unspecified kidney failure; K74.1 Hepatic sclerosis; T56.894A Toxic effect of other metals, undetermined, initial encounter; K50.90 Crohn's disease, unspecified, without complications
CPT/HCPCS: 36415; 80053; 80061; 82306; 82525; 82607; 82728; 82746; 83540; 83550; 83735; 83970; 84100; 84255; 84425; 84443; 84590; 84630; 85027; 85610; 85730

== ENCOUNTER → 2022-02-02 | Outpatient (CLI) | payer MEDICARE, OTHER ==
--- NOTE | 2022-02-02 09:17 | CT ---
EXAMINATION TYPE: CT right knee - [facility] Protocol DATE OF EXAM: 02/02/2022 COMPARISON: NONE HISTORY: Preop TECHNIQUE: Limited imaging was obtained the axial plane as part of preprocedural planning FINDINGS: Osseous structures intact with no acute fracture. Small amount of air is seen in the right SI joint c ompatible with arthropathy. Vascular phleboliths seen in the pelvis. Imaging was carried from the rig ht hip. No intraosseous lesions. Hypertrophic arthropathy of the knee joint. Suspect small amount of fluid is reversed. Correlate for osteoarthritis. IMPRESSION: 1. Preprocedural planning
== END | disposition home or self-care (01) ==
LOC: RADCTMAIN 08:41
PROVIDERS: ATTEND Orthopaedic Surgery
DX: Z01.818 Encounter for other preprocedural examination (principal); M17.11 Unilateral primary osteoarthritis, right knee; F17.210 Nicotine dependence, cigarettes, uncomplicated

== ENCOUNTER → 2022-02-02 | Outpatient (CLI) | payer MEDICARE, OTHER ==
[2022-02-02 11:09] LABS: INR 0.9 (<1.2); Partial Thromboplastin Time 25.5 sec (22.0-30.0)
[2022-02-02 11:21] LABS: Appearance,Urine Clear (Clear); Bilirubin,Urine Negative (Negative); Blood,Urine Negative (Negative); Color,Urine Light Yellow; Glucose,Urine (UA) Negative (Negative); Ketones,Urine Negative (Negative); Leukocyte Esterase,Urine Trace (Negative); Mucus,Urine Rare /hpf; Nitrite,Urine Negative (Negative); PH, Urine 7.5 (5.0-8.0); Protein,Urine Negative (Negative); RBC,Urine <1 /hpf (0-5); Squamous Epithelial Cell,Urine 3 /hpf (0-4); Urobilinogen,Urine <2.0 mg/dL (<2.0); WBC,Urine 1 /hpf (0-5)
[2022-02-02 14:31] LABS: HCT 37.7 % (37.2-46.3); HGB 11.7 g/dL (12.0-15.0); MCH 27.1 pg (27.0-32.0); MCV 87.5 fL (80.0-97.0); Mean Platelet Volume 10.8 fL (9.5-12.2); NRBC Per 100 WBC 0 /100 WBCS (0.0-0.0); Platelet Count 265 X 10*3/uL (140-440); RBC 4.31 X 10*6/uL (4.10-5.20); RDW 12.9 % (11.5-14.5); WBC 6.45 X 10*3/uL (4.50-10.00)
[2022-02-02 14:47] LABS: African American GFR (CKD) 96.2 (60.0-200.0); Albumin 4.5 g/dL (3.8-4.9); Albumin/Globulin Ratio 2.07 (1.60-3.17); Anion Gap 9.2 mmol/L (10.00-18.00); BUN/Creat Ratio 11.13 Ratio (12.00-20.00); Blood Urea Nitrogen 9.3 mg/dL (9.0-27.0); Calcium 9.4 mg/dL (8.7-10.3); Carbon Dioxide 30.6 mmol/L (20.0-27.5); Globulin 2.2 g/dL (1.6-3.3); Potassium 4.4 mmol/L (3.5-5.5); Total Bilirubin 0.4 mg/dL (0.30-1.20); Total Protein 6.7 g/dL (6.2-8.2)
== END | disposition home or self-care (01) ==
LOC: LABPAT 09:30
PROVIDERS: ATTEND Orthopaedic Surgery
DX: Z01.818 Encounter for other preprocedural examination (principal); R00.1 Bradycardia, unspecified
CPT/HCPCS: 80053; 81001; 85027; 85610; 85730; 87070; 93005

== ENCOUNTER 2022-03-12 13:35 | Day surgery (SDC) | payer MEDICARE, OTHER ==
[2022-03-02 10:49] VITALS: BMI 35.2
[~2022-03-12 13:35] MED LIST changes: +ACETAMINOPHEN TAB 500 MG TAB PO PRN; +DEXAMETHASONE SOD PHOSPHATE 10 MG/ML 1 ML VIAL IV PRN; +DOCUSATE 100 MG CAP PO PRN; +FAMOTIDINE 20 MG/2 ML VIAL IVP PRN; -LACTATED RINGERS 1,000 ML IV SCH; +ONDANSETRON 4 MG/2 ML VIAL IVP PRN; +TRANEXAMIC ACID IN NACL,ISO-OS 1,000 MG in SALINE 1 100ML.BAG IVPB PRN; +oxyCODONE ER 10 MG TAB.ER.12H PO PRN
[2022-03-12] MEDS ORDERED: MIDAZOLAM 2 MG/2 ML VIAL IV PRN (13:47)
[2022-03-12] MEDS ORDERED: HYDROmorphone 0.5 MG/0.5 ML SYRINGE IVP PRN ×3 (13:47→19:11)
[2022-03-12] MEDS: LACTATED RINGERS 1,000 ML IV SCH ×2 (14:20→22:08)
[2022-03-12] MEDS ORDERED: MIDAZOLAM 2 MG/2 ML VIAL IVP ONE (14:57)
[2022-03-12] MEDS ORDERED: fentaNYL (PF) 50 MCG/1 ML VIAL IVP ONE (14:58)
--- NOTE | 2022-03-12 15:58 | P.ANPRN ---
Procedure Note - Anesthesia - Nerve Block Performed Right Adductor Canal Single Time Out Performed: Yes ([id number]) Date of Procedure: 03/12/22 Procedure Start Time: 14:57 Procedure Stop Time: 15:02 Location of Patient: PreOp Indication: Acute Post-Operative Pain, Requested by Surgeon Specifically requested for management of pain by DrMariposa: Leandro Brown Sedation Type: Sedate with meaningful contact maintained Preparation: Sterile Prep Position: Supine Catheter: None Needle Types: Pajunk Needle Gauge: 21 Ultrasound used to visualize needle placement: Yes Ultrasound used to observe medication spread: Yes Injectate: 0.5% Ropivacaine (see comment for volume) (15cc + 10cc nacl pf) Blood Aspirated: No Pain Paresthesia on Injection Noted: No Resistance on Injection: Normal Image Stored and Saved: Yes Events: Uneventful and Well Tolerated
--- NOTE | 2022-03-12 15:59 | P.ANPRN ---
Procedure Note - Anesthesia - Nerve Block Performed Right iPack Single Time Out Performed: Yes ([id number]) Date of Procedure: 03/12/22 Procedure Start Time: 15:03 Procedure Stop Time: 15:07 Location of Patient: PreOp Indication: Acute Post-Operative Pain, Requested by Surgeon Specifically requested for management of pain by DrMariposa: Leandro Brown Sedation Type: Sedate with meaningful contact maintained Preparation: Sterile Prep Position: Supine Catheter: None Needle Types: [place]unk Needle Gauge: 21 Ultrasound used to visualize needle placement: Yes Ultrasound used to observe medication spread: Yes Injectate: 0.5% Ropivacaine (see comment for volume) (15cc +10cc nacl pf) Blood Aspirated: No Pain Paresthesia on Injection Noted: No Resistance on Injection: Normal Image Stored and Saved: Yes Events: Uneventful and Well Tolerated
[2022-03-12] MEDS ORDERED: MIDAZOLAM 2 MG/2 ML VIAL ONE (16:33)
[2022-03-12] MEDS ORDERED: ePHEDrine 50 MG/ML 1 ML VIAL ONE (16:33)
[2022-03-12] MEDS ORDERED: ROPIVACAINE 5 MG/ML 30 ML VIAL ONE (16:33)
[2022-03-12] MEDS ORDERED: SODIUM CHLORIDE 0.9% (PF) 10 ML VIAL ONE (16:33)
[2022-03-12] MEDS ORDERED: PROPOFOL 10 MG/ML 20 ML VIAL IV ONE (16:33)
[2022-03-12] MEDS ORDERED: fentaNYL (PF) 50 MCG/ML 2 ML AMP ONE (16:33)
[2022-03-12] MEDS ORDERED: TRANEXAMIC ACID IN NACL,ISO-OS 1,000 MG/100 ML BAG ONE (16:33)
[2022-03-12] MEDS ORDERED: ROPIVACAINE 5 MG/ML 30 ML VIAL MISCELLANE ONE (18:29)
[2022-03-12] MEDS ORDERED: ONDANSETRON 4 MG/2 ML VIAL IVP PRN (19:11)
[2022-03-12] MEDS ORDERED: HYDROcodone/APAP 5-325MG 1 EACH TAB PO PRN (19:11)
[2022-03-12] MEDS ORDERED: NALOXONE 0.4 MG/ML 1 ML VIAL IV PRN (19:11)
--- NOTE | 2022-03-12 19:17 | P.OP ---
Date of Procedure: 03/12/22 Preoperative Diagnosis: 1. Severe right knee osteoarthritis 2. Fibromyalgia 3. Chronic opioid use 4. Asthma 5. Anaphylactic reaction to aspirin 6. History of seizure disorder Postoperative Diagnosis: Same Procedure(s) Performed: Right total knee arthroplasty Implants: 1. [place] [employer] CR Femur Size #3 2. [place] [employer] [place] Tibial Base Size #3 3. [place] CS poly Size #3, 9-mm 4. [place] [employer] all poly patella, Size #29 Anesthesia: regional, spinal Surgeon: Leandro Brown Marketing Communications Associate #1: Meet Randolph Estimated Blood Loss (ml): 150 IV fluids (ml): 800 Pathology: none sent Condition: stable Disposition: PACU Indications for Procedure: I met with the patient preoperatively in the office setting and discussed treatment of their symptomatic knee arthritis. They failed a long course of nonsurgical treatment and elected to proceed with an elective total knee replacement. I discussed the potential risks and complications at length and gave them ample time to ask questions. Risks discussed included: risks from anesthesia, superficial site surgical infection, acute and/or chronic periprosthetic joint infection, delayed wound healing, drainage, wound necrosis, instability, stiffness, stiffness requiring manipulation and/or revision surgery, damage to local blood vessels or nerves, aseptic loosening of the implants, extensor mechanism issues including disruption, patellar maltracking, avascular necrosis etc., continued or worsened knee pain, generalized dissatisfaction with surgical outcome, need for revision surgery, an inability to regain preinjury level of function, DVT, PE, other medical complications, and possibly loss of life or limb. The patient voiced their understanding that while these are the most common complications other less common complications are possible. They provided both their verbal and written consent to go forward with surgery. Operative Findings: Severe tricompartmental osteoarthritis with full-thickness cartilage loss throughout the knee Description of Procedure: The patient was identified in preoperative holding and the correct operative extremity was verified and marked with a marker. I reviewed the consent form with the patient at length. All of their questions were answered. The patient was given a block by anesthesia. They were then brought back to the operating room. They were transferred onto the operating room table where a general anesthetic, preoperative antibiotics, and tranexamic acid were administered by anesthesia. A tourniquet was applied to the proximal aspect of the operative extremity. The contralateral extremity was padded under the heel and secured to the operating room table with a nonsterile blue towel and tape. The ipsilateral arm was carefully draped across the patient's chest and secured with a pillow and foam. A post was applied over the lateral aspect of the ipsilateral thigh and a bolster was placed under the ipsilateral foot. I verified that the operative extremity was stable and the knee was flexed to 90. The operative extremity was then placed in a leg zapata, nonsterile drapes were applied, and the extremity was prepped and draped sterilely in the standard sterile fashion. Prior to starting surgery timeout was performed identifying the correct patient, operative extremity, and procedure. The leg was then elevated, exsanguinated with an Esmarch bandage, and the tourniquet was inflated. An anterior midline incision was made sharply with a scalpel. Once I had dissected deep to the superficial fascial layer medial and lateral flaps were elevated. A medial parapatellar arthrotomy was created. Upon opening the knee joint there were diffuse arthritic changes in all 3 compartments. The anterior horn of the medial meniscus were sharply released and a medial release was performed around the posterior medial corner of the knee to facilitate retractor placement. The fat pad was excised with electrocautery. The patella was found to be severely arthritic and a provisional cut was made with a sagittal saw to facilitate mobilization of the extensor mechanism during the procedure. Rem nants of the ACL and PCL were then excised from the notch. 4 mm pins were then placed within the incision in the medial distal femur and proximal tibia. Arrays were applied to the pins and I verified they were completely tightened. The knee was then registered with the [employer] (PICA) robot and manipulations in implant position were made to balance the knee and opitmize implant position. Using the [employer] (PICA) robotic saw all cuts were made in accordance with our plan. After all bony fragments had been removed the cuts were verified with the planar probe. The tibia was then subluxed forward and sized. The knee was brought into flexion and a lamina resident hall director was placed to allow removal of the meniscal remnants both medially and laterally as well as posterior osteophytes. Local anesthetic was then infiltrated around the joint capsule. Trial implants were then placed within the knee. Range of motion and collateral ligament tension was then evaluated. Adjustments in implant size and position were then made accordingly. Once the knee was felt to be appropriately balanced the [place] pins were removed. The patella was then recut, sized, and punched. A trial patellar button was then placed. With the trial components in place, the patella tracked midline. The femur was then drilled and the trial component removed. The trial tibial component was then appropriately rotated, pinned, and prepared for the keel. All trial components were then removed from the knee. The knee was thoroughly irrigated with pulsatile lavage. Cement was prepared via vacuum mixing in a bowl on the back table. I then hand pressurized cement into the femur and tibia and placed the implants beginning with the tibial base tray and poly liner, femoral component, and finally the patellar button. All extruded cement was removed including from the pin sites. Once the cement had hardened the knee was evaluated one final time with the final polyethylene liner in place. The knee had full extension and flexion and felt stable to varus and valgus stress throughout the arc of motion. The tourniquet was released and with the tourniquet down the patella tracked midline. All bleeders were controlled with electrocautery. The knee was then soaked for 3 minutes with a dilute Betadine soak. The knee was thoroughly irrigated using 3 L of sterile saline and pulsatile lavage. A deep drain was placed. The extensor mechanism was then reapproximated using pop off Vicryl sutures followed by a running barbed suture. The knee was then closed in layers with a 0 strata fix for the deep fascial layer, 2-0 strata fix for the superficial subcutaneous layer and Monocryl and Steri-Strips for the skin. A sterile dressing and drain sponge were applied. I verified that all instrument, sponge, and sharp counts were correct. The patient was then transferred off the operating room table, extubated, and brought to recovery having tolerated the procedure well. Meet Randolph PA-C was required as a skilled medical assistant due to the complexity of the procedure for patient positioning, draping, retraction, placement of hardware, and closure of wound. PLAN: The patient can weight-bear as tolerated on the operative extremity. DVT prophylaxis with Xarelto 10 mg daily due to her anaphylactic reaction to aspirin. Follow-up in the office in 2 weeks for wound check and x-rays of the knee including an AP and lateral.
--- NOTE | 2022-03-12 19:56 | XR ---
EXAMINATION TYPE: XR knee limited RT DATE OF EXAM: 03/12/2022 7:32 PM INDICATION: Patient age:Female; 47 years old; Reason for study: Evaluation for Postop abnormality and alignment; COMPARISON: 02/12/2022. TECHNIQUE: The Right knee(s) was examined in Frontal, lateral projections. FINDINGS: Status post left total knee arthroplasty changes with hardware in appropriate alignment a nd intact. No evidence of fracture. Subcutaneous lucencies consistent with surgical changes. IMPRESSION: Status post total knee arthroplasty changes with hardware intact and appropriate alignment. No fractu res identified. .
[2022-03-12] MEDS ORDERED: ALPRAZolam 0.5 MG TAB PO PRN (21:28)
[2022-03-12] MEDS ORDERED: ALBUTEROL NEBULIZED 2.5 MG/3 ML INHALATION PRN (21:28)
[2022-03-12] MEDS ORDERED: methocarbamoL 500 MG TAB PO PRN (21:28)
[2022-03-12] MEDS: NON FORMULARY DRUG (Vilazodone Hcl [Viibryd] 10 MG Tablet) PO SCH (22:07)
[2022-03-12] MEDS: SENNOSIDES-DOCUSATE SODIUM 1 EACH TAB PO SCH (22:07)
[2022-03-12] MEDS: QUEtiapine 200 MG TAB PO SCH (22:08)
[2022-03-12] MEDS: GABAPENTIN 300 MG CAP PO SCH (22:08)
[2022-03-12] MEDS: HYDROcodone/APAP 5-325MG 1 EACH TAB PO PRN (22:08)
[2022-03-12] MEDS: MONTELUKAST 10 MG TAB PO SCH (22:08)
[2022-03-13] MEDS: HYDROmorphone 1 MG/ML 1 ML SYRINGE IVP PRN ×2 (01:52→08:28)
[2022-03-13] MEDS: HYDROcodone/APAP 5-325MG 1 EACH TAB PO PRN (06:03)
--- NOTE | 2022-03-13 07:09 | P.PN ---
Subjective Overall the patient is doing well this morning. Her pain is being managed with oral pain medications. She's had some issues overnight with elevated blood pressure but denies chest pain or shortness of breath. Objective - Vital Signs Vital signs: Vital Signs Temp 98.1 F 03/13/22 02:00 Pulse 83 03/13/22 02:00 Resp 17 03/13/22 02:00 BP 162/110 03/13/22 02:00 Pulse Ox 97 03/13/22 02:00 FiO2 Intake & Output 03/12/22 03/13/22 03/13/22 18:59 06:59 18:59 Intake Total 1750 150 Output Total 150 220 Balance 1600 -70 Weight 105.9 kg 105.9 kg Intake: IV 1750 150 Output: Drainage 220 Right Knee 220 Estimated Blood Loss 150 Other: # Voids 3 - Exam The patient is resting comfortably in the bed. A focused examination of the operative leg was conducted. On inspection there is a clean-appearing dressing over the knee. There is no drainage or strike through. There is a Hemovac drain in place which was removed. The thigh and calf are soft. Femoral nerve function is intact. Motor and sensory function are intact in the foot and ankle. The tips of the toes are warm and well perfused with brisk capillary refill. Assessment and Plan Plan: Postoperative day #1 status post total knee replacement, doing well 1. Weightbearing as tolerated on the operative extremity. Up with assistance. 2. DVT prophylaxis with xarelot 10 mg daily due to her aspirin ALLERGY 3. Physical therapy for gait training and mobilization 4. Hemovac drain removed this morning. Leave surgical dressing in place. 5. Disposition: Plan for discharge home today when pain is controlled and patient has passed physical therapy.
--- NOTE | 2022-03-13 07:10 | P.DS ---
Providers Attending physician: Leandro Brown Consults: 03/12/22 19:11 Consult Physician Routine Consulting Provider: Ravi Lam Consult Reason/Comments: medical management Do you want consulting provider notified?: Yes Primary care physician: Chan Jain [place] [facility] Course: The patient was admitted yesterday and had an uncomplicated total knee replacement. Following surgery she was admitted to the orthopedics floor. She received 2 doses of postoperative antibiotics. Her drain was pulled on postoperative day #1. She mobilized with physical therapy. She did well and was ultimately cleared for discharge home. Plan - Discharge Summary Discharge Rx Participant: Yes New Discharge Prescriptions: New Docusate [Colace] 100 mg PO BID #60 capsule oxyCODONE HCL/ACETAMINOPHEN [Percocet 5-325 mg] 1 tab PO Q6HR PRN #12 tab PRN Reason: Pain Omeprazole 40 mg PO DAILY 30 Days #30 cap Rivaroxaban [Xarelto] 10 mg PO DAILY 30 Days #30 tab No Action Fluticasone Nasal [place] [Flonase Nasal [place]] 1 spray EA NOSTRIL DAILY Cetirizine HCl [Zyrtec] 10 mg PO DAILY Vilazodone HCl [Viibryd] 10 mg PO HS EPINEPHrine [Epipen 2-Melecio] 0.3 mg IM ONCE PRN PRN Reason: Anaphylaxis Gabapentin [Neurontin] 300 mg PO TID QUEtiapine [SEROquel] 400 mg PO HS Ergocalciferol [Vitamin D2 (1250 Mcg = 58766 Iu)] 50,000 unit PO WE Allergy Shots 1 dose IM Q14D Budesonide-Formot 160-4.5 Mcg [Symbicort 160-4.5 Mcg Inhaler] 1 puff IN BID PRN PRN Reason: Shortness Of Breath Or Wheezing Albuterol Sulfate [Ventolin HFA] 1 puff INHALATION DAILY PRN PRN Reason: Shortness Of Breath Or Wheezing HYDROcodone/APAP 7.5-325MG [[place] 7.5-325] 1 tab PO Q4H PRN PRN Reason: Pain lisinopriL [Zestril] 2.5 mg PO DAILY ALPRAZolam [Xanax] 0.5 mg PO BID PRN PRN Reason: Anxiety Montelukast [Singulair] 10 mg PO HS methocarbamoL [Robaxin] 500 mg PO BID PRN PRN Reason: MUSCLE SPASMS Discharge Medication List Cetirizine HCl [Zyrtec] 10 mg PO DAILY 10/20/15 [History] Fluticasone Nasal [place] [Flonase Nasal [place]] 1 spray EA NOSTRIL DAILY 10/20/15 [History] EPINEPHrine [Epipen 2-Melecio] 0.3 mg IM ONCE PRN 11/16/16 [History] Vilazodone HCl [Viibryd] 10 mg PO HS 11/16/16 [History] Gabapentin [Neurontin] 300 mg PO TID 02/16/17 [History] QUEtiapine [SEROquel] 400 mg PO HS 08/16/18 [History] Ergocalciferol [Vitamin D2 (1250 Mcg = 13322 Iu)] 50,000 unit PO WE 10/20/20 [History] Allergy Shots 1 dose IM Q14D 10/22/20 [History] Albuterol Sulfate [Ventolin HFA] 1 puff INHALATION DAILY PRN 05/28/21 [History] Budesonide-Formot 160-4.5 Mcg [Symbicort 160-4.5 Mcg Inhaler] 1 puff IN BID PRN 05/28/21 [History] methocarbamoL [Robaxin] 500 mg PO BID PRN 05/28/21 [History] HYDROcodone/APAP 7.5-325MG [[place] 7.5-325] 1 tab PO Q4H PRN 12/23/21 [History] lisinopriL [Zestril] 2.5 mg PO DAILY 03/08/22 [History] ALPRAZolam [Xanax] 0.5 mg PO BID PRN 03/12/22 [History] Docusate [Colace] 100 mg PO BID #60 capsule 03/12/22 [Rx] Montelukast [Singulair] 10 mg PO HS 03/12/22 [History] Omeprazole 40 mg PO DAILY 30 Days #30 cap 03/12/22 [Rx] Rivaroxaban [Xarelto] 10 mg PO DAILY 30 Days #30 tab 03/12/22 [Rx] oxyCODONE HCL/ACETAMINOPHEN [Percocet 5-325 mg] 1 tab PO Q6HR PRN #12 tab 03/12/22 [Rx] Follow up Appointment(s)/Referral(s): Leandro Brown MD [Medical Doctor] - 2 Weeks Activity/Diet/Wound Care/Special Instructions: Weight bear to tolerance on operative extremity with a walker. Keep operative dressing in place until follow-up appointment in the office. Call the office if dressing becomes saturated or falls off. May shower over dressing. Take pain medications as prescribed by Dr. Jain. Take Xarelto as prescribed for blood clot prevention. Follow-up in the office in two weeks at [facility]. Call the office with any questions or concerns, Discharge Disposition: HOME WITH HOME HEALTH SERVICES
[2022-03-13] MEDS: LACTATED RINGERS 1,000 ML IV SCH ×3 (08:21→15:41)
[2022-03-13] MEDS: FLUTICASONE 50MCG/SPRAY NASAL 16GM EA NOSTRIL SCH (09:11)
[2022-03-13] MEDS: RIVAROXABAN 10 MG TAB PO SCH (09:11)
[2022-03-13] MEDS: GABAPENTIN 300 MG CAP PO SCH ×3 (09:11→21:32)
[2022-03-13] MEDS: LORATADINE 10 MG TAB PO SCH (09:11)
[2022-03-13 11:52] LABS: Basophils # (A) 0 X 10*3/uL (0.00-0.10); Basophils % (A) 0 %; Eosinophils # (A) 0 X 10*3/uL (0.04-0.35); Eosinophils % (A) 0 %; HCT 33.2 % (37.2-46.3); HGB 10.3 g/dL (12.0-15.0); Immature Grans, Automated 0.3 %; Lymphocytes % (A) 12.4 %; MCH 27.5 pg (27.0-32.0); MCV 88.8 fL (80.0-97.0); Mean Platelet Volume 10.9 fL (9.5-12.2); Monocytes # (A) 0.48 X 10*3/uL (0.20-1.00); NRBC Per 100 WBC 0 /100 WBCS (0.0-0.0); Neutrophils # (A) 7.95 X 10*3/uL (1.80-7.70); Neutrophils % (A) 82.3 %; Platelet Count 234 X 10*3/uL (140-440); RBC 3.74 X 10*6/uL (4.10-5.20); RDW 12.3 % (11.5-14.5); WBC 9.66 X 10*3/uL (4.50-10.00)
[2022-03-13] MEDS ORDERED: SYMBICORT 160-4.5 MCG INHALER INHALATION PRN (14:09)
[2022-03-13] MEDS: oxyCODONE-APAP 7.5-325MG 1 EACH TAB PO PRN ×3 (15:09→21:34)
--- NOTE | 2022-03-13 15:50 | P.CONS ---
History of Present Illness - History of Present Illness 47-year-old L admitted for right knee arthroplasty. Patient says her pain is not well controlled because of which the patient will be staying in the hospital patient blood pressures but have probably because pain. Patient didn't pass gas didn't move her bowel yet. Patient denied any nausea vomiting diarrhea. Patient doesn't have any fever and leukocytosis REVIEW OF SYSTEMS: CONSTITUTIONAL: No fever, no malaise, no fatigue. HEENT: No recent visual problems or hearing problems. Denied any sore throat. CARDIOVASCULAR: No chest pain, orthopnea, PND, no palpitations, no syncope. PULMONARY: No shortness of breath, no cough, no hemoptysis. GASTROINTESTINAL: No diarrhea, no nausea, no vomiting, no abdominal pain. NEUROLOGICAL: No headaches, no weakness, no numbness. HEMATOLOGICAL: Denies any bleeding or petechiae. GENITOURINARY: Denies any burning micturition, frequency, or urgency. MUSCULOSKELETAL/RHEUMATOLOGICAL: Denies any joint pain, swelling, or any muscle pain. ENDOCRINE: Denies any polyuria or polydipsia. The rest of the 14-point review of systems is negative. PHYSICAL EXAMINATION: GENERAL: The patient is alert and oriented x3, not in any acute distress. Well developed, well nourished. HEENT: Pupils are round and equally reacting to light. EOMI. No scleral icterus. No conjunctival pallor. Normocephalic, atraumatic. No pharyngeal erythema. No thyromegaly. CARDIOVASCULAR: S1 and S2 present. No murmurs, rubs, or gallops. PULMONARY: Chest is clear to auscultation, no wheezing or crackles. ABDOMEN: Soft, nontender, nondistended, normoactive bowel sounds. No palpable organomegaly. MUSCULOSKELETAL: Surgical site area appears clean without any infection EXTREMITIES: No cyanosis, clubbing, or pedal edema. NEUROLOGICAL: Gross neurological examination did not reveal any focal deficits. SKIN: No rashes. Assessment and plan -Right knee arthroplasty further pain management as per primary service -0 without any acute exacerbation [place] #4 fibromyalgia -Hypertension uncontrolled and elevated, increasing the dose of fosinopril -Seizure disorder -Sleep apnea uses CPAP machine. -Sleep apnea -2 medications were reviewed appropriate medications were started back patient blood pressure was bit high DVT prophylaxis: Past Medical History Past Medical History: Asthma, COPD, Fibromyalgia, GERD/Reflux, Hypertension, Osteoarthritis (OA), Seizure Disorder, Sleep Apnea/CPAP/BIPAP Additional Past Medical History / Comment(s): Chronic back pain, LAST SEIZURE 2013, USES CPAP MACHINE-CURRENTLY BROKEN, VENTRAL HERNIA, RECENT SINUS INFECTION-DR. LIVINGSTON AWARE-PROCEDURE WAS RESCHEDULED FROM 03/05/22 History of Any Multi-Drug Resistant Organisms: None Reported Past Surgical History: Adenoidectomy, Appendectomy, Bariatric Surgery, Cholecystectomy, Hysterectomy, Orthopedic Surgery, Tonsillectomy, Tubal Ligation Additional Past Surgical History / Comment(s): KIRK knee arthroscopy, epidural lumbar injections ,KIRK CARPAL TUNNEL, ARTHROSCOPY RT ELBOW, EGD, COLONOSCOPY, Gastric Sleeve 02/16/17, gastric bypass 10-30-18, METAL Clip in left breast, had mass removed. Past Anesthesia/Blood Transfusion Reactions: No Reported Reaction, Motion Sickness Past Psychological History: Anxiety, Bipolar, Depression Smoking Status: Former smoker Past Alcohol Use History: None Reported Additional Past Alcohol Use History / Comment(s): Patient was a smoker of one half pack per day and quit in May 2014. ON AND OFF FROM AGE 15 Past Drug Use History: None Reported - Past Family History Father Family Medical History: Deep Vein Thrombosis (DVT) Additional Family Medical History / Comment(s): Father is alive at age 67 with history of coronary aneurysm Mother Family Medical History: CVA/TIA Additional Family Medical History / Comment(s): Mother is alive at age 63 with history of bipolar, stroke, blindness. Brother(s) Additional Family Medical History / Comment(s): Patient has 2 brothers that are healthy. She has no sisters. She has 2 sons and 1 daughter that are healthy. Medications and Allergies Home Medications Medication Instructions Recorded Confirmed Type Cetirizine HCl [Zyrtec] 10 mg PO DAILY 10/20/15 03/12/22 History Fluticasone Nasal [place] [Flonase 1 spray EA NOSTRIL DAILY 10/20/15 03/12/22 History Nasal [place]] EPINEPHrine [Epipen 2-Melecio] 0.3 mg IM ONCE PRN 11/16/16 03/12/22 History Vilazodone HCl [Viibryd] 10 mg PO HS 11/16/16 03/12/22 History Gabapentin [Neurontin] 300 mg PO TID 02/16/17 03/12/22 History QUEtiapine [SEROquel] 400 mg PO HS 08/16/18 03/12/22 History Ergocalciferol [Vitamin D2 (1250 50,000 unit PO WE 10/20/20 03/12/22 History Mcg = 26916 Iu)] Allergy Shots 1 dose IM Q14D 10/22/20 03/12/22 History Albuterol Sulfate [Ventolin HFA] 1 puff INHALATION DAILY PRN 05/28/21 03/12/22 History Budesonide-Formot 160-4.5 Mcg 1 puff IN BID PRN 05/28/21 03/12/22 History [Symbicort 160-4.5 Mcg Inhaler] methocarbamoL [Robaxin] 500 mg PO BID PRN 05/28/21 03/12/22 History HYDROcodone/APAP 7.5-325MG [[place] 1 tab PO Q4H PRN 12/23/21 03/12/22 History 7.5-325] lisinopriL [Zestril] 2.5 mg PO DAILY 03/08/22 03/12/22 History ALPRAZolam [Xanax] 0.5 mg PO BID PRN 03/12/22 03/12/22 History Docusate [Colace] 100 mg PO BID #60 capsule 03/12/22 Rx Montelukast [Singulair] 10 mg PO HS 03/12/22 03/12/22 History Omeprazole 40 mg PO DAILY 30 Days #30 cap 03/12/22 Rx Rivaroxaban [Xarelto] 10 mg PO DAILY 30 Days #30 tab 03/12/22 Rx oxyCODONE HCL/ACETAMINOPHEN 1 tab PO Q6HR PRN #12 tab 03/12/22 Rx [Percocet 5-325 mg] Allergies Allergy/AdvReac Type Severity Reaction Status Date / Time adhesive Allergy Rash/Hives Verified 03/12/22 14:00 aspirin Allergy Anaphylaxis Verified 03/12/22 14:00 clonidine Allergy Rash/Hives Verified 03/12/22 14:00 hydroxyzine Allergy CONFUSION Verified 03/12/22 14:00 AND BODY SHAKES venlafaxine HCl Allergy Swelling Verified 03/12/22 14:00 [From Effexor] venom-honey bee Allergy Rash/Hives Verified 03/12/22 14:00 [bee venom (honey bee)] buspirone AdvReac Rash/Hives Verified 03/12/22 14:00 Physical Exam Vitals: Vital Signs Temp Pulse Resp BP Pulse Ox 03/13/22 15:25 99.0 F 83 17 172/106 90 L 03/13/22 08:27 98.3 F 78 17 156/84 95 03/13/22 02:00 98.1 F 83 17 162/110 97 03/12/22 21:31 66 17 155/82 97 03/12/22 21:15 70 17 153/94 95 03/12/22 20:55 68 17 156/88 98 03/12/22 20:45 74 17 167/101 98 03/12/22 19:53 70 16 126/65 97 03/12/22 19:38 75 16 133/72 91 L 03/12/22 19:30 66 17 179/90 99 03/12/22 19:23 81 16 130/77 94 L 03/12/22 19:10 81 17 170/112 98 03/12/22 19:08 97.0 F L 89 14 138/77 98 Intake and Output 03/13/22 03/13/22 03/13/22 06:59 14:59 22:59 Output Total 220 Balance -220 Output: Drainage 220 Right Knee 220 Other: # Voids 3 Results CBC & Chem 7: 03/13/22 07:24 Labs: Abnormal Lab Results - Last 24 Hours (Table) 03/13/22 Range/Units 07:24 RBC 3.74 L (4.10-5.20) X 10*6/uL Hgb 10.3 L (12.0-15.0) g/dL Hct 33.2 L (37.2-46.3) % MCHC 31.0 L (32.0-37.0) g/dL Neutrophils # 7.95 H (1.80-7.70) X 10*3/uL Eosinophils # 0 L (0.04-0.35) X 10*3/uL
[2022-03-13] MEDS: SENNOSIDES-DOCUSATE SODIUM 1 EACH TAB PO SCH (21:32)
[2022-03-13] MEDS: NON FORMULARY DRUG (Vilazodone Hcl [Viibryd] 10 MG Tablet) PO SCH (21:32)
[2022-03-13] MEDS: MONTELUKAST 10 MG TAB PO SCH (21:32)
[2022-03-13] MEDS: QUEtiapine 200 MG TAB PO SCH (21:32)
[2022-03-14] MEDS: LACTATED RINGERS 1,000 ML IV SCH ×3 (02:08→13:02)
[2022-03-14] MEDS: oxyCODONE-APAP 7.5-325MG 1 EACH TAB PO PRN ×3 (06:49→15:41)
[2022-03-14] MEDS: ACETAMINOPHEN TAB 325 MG TAB PO PRN ×2 (07:00→18:00)
[2022-03-14 08:43] VITALS: RESP 18
[2022-03-14] MEDS ORDERED: lisinopriL 5 MG TAB PO SCH (09:00)
[2022-03-14] MEDS: RIVAROXABAN 10 MG TAB PO SCH (09:01)
[2022-03-14] MEDS: LORATADINE 10 MG TAB PO SCH (09:01)
[2022-03-14] MEDS: FLUTICASONE 50MCG/SPRAY NASAL 16GM EA NOSTRIL SCH (09:01)
[2022-03-14] MEDS: GABAPENTIN 300 MG CAP PO SCH ×2 (09:01→17:56)
--- NOTE | 2022-03-14 09:03 | P.PN ---
Subjective Progress Note Date: 03/14/22 Patient kept for a second night due to pain yesterday. She is much more comfortable today. She had a temperature of 102 this morning but denies fever, chills, SOB, dysuria etc. She is doing well. Objective - Vital Signs Vital signs: Vital Signs Temp 102.7 F H 03/14/22 08:42 Pulse 104 H 03/14/22 08:42 Resp 18 03/14/22 08:42 BP 150/88 03/14/22 08:42 Pulse Ox 93 L 03/14/22 08:42 FiO2 Intake & Output 03/13/22 03/14/22 03/14/22 18:59 06:59 18:59 Other: # Voids 4 4 - Exam The patient is sitting comfortably in a chair. She is alert and able to answer questions. Right LE: Dressings intact, no drainage or bleeding. Mild swelling. No erythema. No calf tenderness. Motor and sensory intact. - Labs CBC & Chem 7: 03/13/22 07:24 Labs: Abnormal Lab Results - Last 24 Hours (Table) 03/13/22 Range/Units 07:24 RBC 3.74 L (4.10-5.20) X 10*6/uL Hgb 10.3 L (12.0-15.0) g/dL Hct 33.2 L (37.2-46.3) % MCHC 31.0 L (32.0-37.0) g/dL Neutrophils # 7.95 H (1.80-7.70) X 10*3/uL Eosinophils # 0 L (0.04-0.35) X 10*3/uL Assessment and Plan Assessment: POD #2 s/p Right TKA Fibromyalgia Chronic narcotic use Post op fever (102), likely atelectasis Plan: Pain is much better today. POD #2 fever is likely atelectasis and should respond to incentive spirometer and mobilization. She has no other signs of infection and does not need further work up. She is ok to discharge home.
[2022-03-14 11:59] LABS: Appearance,Urine Clear (Clear); Bilirubin,Urine Negative (Negative); Blood,Urine Negative (Negative); Color,Urine Light Yellow; Glucose,Urine (UA) Negative (Negative); Ketones,Urine Negative (Negative); Leukocyte Esterase,Urine Negative (Negative); Nitrite,Urine Negative (Negative); Protein,Urine Negative (Negative); Specific Gravity,Urine 1.009 (1.001-1.035); Urobilinogen,Urine <2.0 mg/dL (<2.0)
[2022-03-14 12:08] LABS: African American GFR (CKD) >90 (>60 ml/min/1.73 sqM); Anion Gap 2 mmol/L; Blood Urea Nitrogen 9 mg/dL (7-17); Calcium 8.6 mg/dL (8.4-10.2); Carbon Dioxide 35 mmol/L (22-30); Chloride 100 mmol/L (98-107); Glucose 107 mg/dL (74-99); Non-African American GFR(CKD) 89 (>60 ml/min/1.73 sqM); Potassium 3.8 mmol/L (3.5-5.1); Sodium 137 mmol/L (137-145)
[2022-03-14 12:11] LABS: Basophils % (A) 0 %; Eosinophils % (A) 0 %; HCT 31.8 % (34.0-46.0); HGB 10.9 gm/dL (11.4-16.0); Lymphocytes # (A) 1.9 k/uL (1.0-4.8); Lymphocytes % (A) 24 %; MCH 29.4 pg (25.0-35.0); MCHC 34.4 g/dL (31.0-37.0); MCV 85.7 fL (80.0-100.0); Mean Platelet Volume 8.2; Monocytes # (A) 0.4 k/uL (0-1.0); Monocytes % (A) 5 %; Neutrophils # (A) 5.4 k/uL (1.3-7.7); Neutrophils % (A) 69 %; Platelet Count 195 k/uL (150-450); RBC 3.71 m/uL (3.80-5.40); RDW 12.6 % (11.5-15.5); WBC 7.9 k/uL (3.8-10.6)
--- NOTE | 2022-03-14 12:58 | XR ---
EXAMINATION TYPE: XR chest 2V DATE OF EXAM: 03/14/2022 12:27 PM COMPARISON: Chest radiographs from 03/13/2015 TECHNIQUE: XR chest 2V Frontal and lateral views of the chest. CLINICAL INDICATION:Female, 47 years old with history of fever; FINDINGS: Lungs/Pleura: There is no evidence of pleural effusion, focal consolidation, or pneumothorax. Pulmonary vascularity: Unremarkable. Heart/mediastinum: Cardiomediastinal silhouette is unremarkable. Musculoskeletal: No acute osseous pathology. IMPRESSION: No acute cardiopulmonary disease/process.
[2022-03-14 13:29] VITALS: BP 141/92; PULSE 107; TEMP 100
--- NOTE | 2022-03-14 18:53 | P.PN ---
Subjective Progress Note Date: 03/14/22 47-year-old L admitted for right knee arthroplasty. Patient says her pain is not well controlled because of which the patient will be staying in the hospital patient blood pressures but have probably because pain. Patient didn't pass gas didn't move her bowel yet. Patient denied any nausea vomiting diarrhea. Patient doesn't have any fever and leukocytosis 03/14/2022 Patient evaluated today resting in bed. Cleared by orthopedics for discharge. Reports controlled pain to right knee today. No acute events overnight. Lisinopril has been increased blood pressure is slightly improved currently 150s systolic. Patient did have a temperature today T-max at 102.7 and also she has increased heart rate 104. Possibly from postoperative atelectasis. Denies shortness of breath, denies chest pain, denies dizziness, headache. She denies any abdominal pain, denies nausea, vomiting, diarrhea. She has had bowel movement, she denies any dysuria, urgency, frequency, burning. Labs repeated today showing no white count. Her urine is checked and is negative for infection. She also had a chest x-ray which is negative. Viral panel is negative for influenza, RSV and COVID. Patient is cleared for discharge and instructed to continue her incentive spirometer and monitor fever at home and notify provider if symptoms worsen. Review of Systems Constitutional: Denied any fatigue. Reports fever. Cardio vascular: denied any chest pain, palpitations Gastrointestinal: denied any nausea, vomiting, diarrhea Pulmonary: Denied any shortness of breath cough Neurologic denied any new focal deficits All inpatient medications were reviewed and appropriate changes in these medications as dictated in the interval history and assessment and plan. PHYSICAL EXAMINATION: GENERAL: The patient is alert and oriented x3, not in any acute distress. Well developed, well nourished. HEENT: Pupils are round and equally reacting to light. EOMI. No scleral icterus. No conjunctival pallor. Normocephalic, atraumatic. No pharyngeal erythema. No thyromegaly. CARDIOVASCULAR: S1 and S2 present. No murmurs, rubs, or gallops. PULMONARY: Chest is clear to auscultation, no wheezing or crackles. ABDOMEN: Soft, nontender, nondistended, normoactive bowel sounds. No palpable organomegaly. MUSCULOSKELETAL: Surgical site area appears clean without any infection EXTREMITIES: No cyanosis, clubbing, or pedal edema. NEUROLOGICAL: Gross neurological examination did not reveal any focal deficits. SKIN: No rashes. Assessment and plan -Right knee arthroplasty postoperative day #2. -COPD without any acute exacerbation -fibromyalgia -Hypertension uncontrolled and elevated, increased the dose of lisinopril blood pressure has improved. -Seizure disorder -Sleep apnea uses CPAP machine. DVT prophylaxis: As per primary discharged on Xarelto Gi prophylaxis: Omeprazole Full Code Plan Chest xray, urine show no source of infection. Viral panel negative. Patient is asymptomatic. Most likely postoperative fever possible atelectasis. Continue with incentive spirometer. Follow up CBC on discharge. Cleared medically for demarcus vasquez. Thank you for allowing us to participate in the care of this patient. The impression and plan of care has been dictated by Nolvia Ambriz, Nurse Practitioner as directed. Dr. Kurt MD I have performed a history and physical examination and medical decision making of this patient, discussed the same with the dictator, and agree with the dictators assessment and plan as written, documented as a scribe. Based on total visit time, I have performed more than 50% of this visit. Objective - Vital Signs Vital signs: Vital Signs Temp 102.7 F H 03/14/22 08:42 Pulse 104 H 03/14/22 08:42 Resp 18 03/14/22 08:42 BP 150/88 03/14/22 08:42 Pulse Ox 93 L 03/14/22 08:42 FiO2 Intake & Output 03/13/22 03/14/22 03/14/22 18:59 06:59 18:59 Other: # Voids 4 4 - Labs CBC & Chem 7: 03/14/22 11:43 03/14/22 11:43 Labs: Abnormal Lab Results - Last 24 Hours (Table) 03/13/22 Range/Units 07:24 RBC 3.74 L (4.10-5.20) X 10*6/uL Hgb 10.3 L (12.0-15.0) g/dL Hct 33.2 L (37.2-46.3) % MCHC 31.0 L (32.0-37.0) g/dL Neutrophils # 7.95 H (1.80-7.70) X 10*3/uL Eosinophils # 0 L (0.04-0.35) X 10*3/uL Assessment and Plan Time with Patient: Less than 30
[2022-03-17] MEDS ORDERED: ERGOCALCIFEROL 1,250 MCG (50,000 IU) CAPSULE PO SCH (09:00)
== END 2022-03-14 18:52 | disposition home health service (06) ==
LOC: OR 13:35 → 4SSUR 18:57 → OR 03-14 18:52
PROVIDERS: ATTEND Orthopaedic Surgery
DX: M17.11 Unilateral primary osteoarthritis, right knee (principal); M25.761 Osteophyte, right knee; J44.9 Chronic obstructive pulmonary disease, unspecified; F17.210 Nicotine dependence, cigarettes, uncomplicated; F32.A Depression, unspecified; Z79.891 Long term (current) use of opiate analgesic; Z79.82 Long term (current) use of aspirin; Z86.69 Personal history of other diseases of the nervous system and sense organs; Z79.51 Long term (current) use of inhaled steroids; Z79.01 Long term (current) use of anticoagulants; Z79.02 Long term (current) use of antithrombotics/antiplatelets; Z79.899 Other long term (current) drug therapy; Z91.018 Allergy to other foods; Z88.8 Allergy status to other drugs, medicaments and biological substances; Z79.1 Long term (current) use of non-steroidal anti-inflammatories (NSAID); Z79.2 Long term (current) use of antibiotics; Z87.19 Personal history of other diseases of the digestive system; F10.20 Alcohol dependence, uncomplicated; Z98.84 Bariatric surgery status; Z90.49 Acquired absence of other specified parts of digestive tract; Z98.890 Other specified postprocedural states
CPT/HCPCS: 94760; 97110; 97163; 80048; 85025 ×2; 81003; 87040; 84145; 87636; 73560; 71046; 27447; 64447; 76942; 64999; J2250; J1100; J0690 ×2; J2405; J1170 ×2; J2795; J3010

== ENCOUNTER → 2022-06-16 | Outpatient (CLI) | payer MEDICARE, OTHER ==
[2022-06-16 15:43] VITALS: BP 168/99; PULSE 66; TEMP 97.8; BMI 37.0
--- NOTE | 2022-06-16 16:01 | P.BASOAP ---
Subjective Progress Note Date: 06/16/22 Patient reports new onset dysphagia on 12-3 days. She had knee replacement 3 months ago. Additionally, reports diverticulitis with moderate pain including along the right lower quadrant. Her father did recently pass. Recommend upper endoscopy urgency due to dysphagia. Additionally, will need colonoscopy due to change in bowel habits diverticulitis. May benefit from future colectomy. Objective - Vital Signs Vital signs: Vital Signs Temp 97.8 F 06/16/22 15:36 Pulse 66 06/16/22 15:36 Resp BP 168/99 06/16/22 15:36 Pulse Ox FiO2 Intake & Output 06/15/22 06/16/22 06/16/22 18:59 06:59 18:59 Weight 103.419 kg Assessment/Plan Plan: Date: 06/16/22 Initial Weight: 112.122 kg Initial BMI: 40.1 Current Weight: 103.419 kg Current BMI: 37.0 Type of Surgery: Total Volume in Band: Previous Volume: Volume Removed: Volume Added: Band Size:
== END ==
LOC: BARWHC3 13:53
PROVIDERS: ATTEND Surgery Plastic and Reconstructive Surgery
DX: E66.01 Morbid (severe) obesity due to excess calories (principal); Z68.37 Body mass index [BMI] 37.0-37.9, adult; Z91.048 Other nonmedicinal substance allergy status; Z88.6 Allergy status to analgesic agent; Z87.891 Personal history of nicotine dependence; Z91.030 Bee allergy status
CPT/HCPCS: 99211

== ENCOUNTER 2022-07-12 07:45 | Day surgery (SDC) | payer MEDICARE, OTHER ==
[2022-07-06 14:34] VITALS: BMI 35.2
[2022-07-12] MEDS ORDERED: LACTATED RINGERS 1,000 ML IV SCH (07:52)
[2022-07-12 08:19] VITALS: TEMP 98.3
--- NOTE | 2022-07-12 08:47 | P.GSHP ---
History of Present Illness H&P Date: 07/12/22 CHIEF COMPLAINT: GERD HISTORY OF PRESENT ILLNESS: The patient is a 47-year-old female who presents reports gastroesophageal reflux disease. Upper endoscopy was offered for further evaluation and management. PAST MEDICAL HISTORY: Please see list. PAST SURGICAL HISTORY: Please see list. MEDICATIONS: Please see list. ALLERGIES: Please see list. SOCIAL HISTORY: No illicit drug use FAMILY HISTORY: No reports of Crohn disease or ulcerative colitis. REVIEW OF ORGAN SYSTEMS: CONSTITUTIONAL: No reports of fevers or chills. GI: Denies any blood in stools or constipation. PHYSICAL EXAM: VITAL SIGNS: Stable GENERAL: Well-developed and pleasant in no acute distress. HEENT: No scleral icterus. Extraocular movements grossly intact. Moist buccal mucosa. NECK: Supple without lymphadenopathy. CHEST: Unlabored respirations. Equal bilateral excursions. CARDIOVASCULAR: Regular rate and rhythm. Distal 2+ pulses. ABDOMEN: Soft, nondistended. MUSCULOSKELETAL: No clubbing, cyanosis, or edema. ASSESSMENT: 1. Gastroesophageal reflux disease PLAN: 1. Recommend proceeding with an upper endoscopy Past Medical History Past Medical History: Asthma, COPD, Fibromyalgia, GERD/Reflux, Hypertension, Seizure Disorder, Sleep Apnea/CPAP/BIPAP Additional Past Medical History / Comment(s): Chronic back pain, LAST SEIZURE 2013, USES CPAP MACHINE-, VENTRAL HERNIA, FOOD AND PILLS KEEP GETTING STUCK History of Any Multi-Drug Resistant Organisms: None Reported Past Surgical History: Adenoidectomy, Appendectomy, Bariatric Surgery, Cholecystectomy, Hysterectomy, Joint Replacement, Orthopedic Surgery, Tonsillectomy, Tubal Ligation Additional Past Surgical History / Comment(s): KIRK knee arthroscopy, epidural lumbar injections ,KIRK CARPAL TUNNEL, ARTHROSCOPY RT ELBOW, EGD, COLONOSCOPY, Gastric Sleeve 02/16/17, gastric bypass 10-30-18, METAL Clip in left breast, had mass removed. Right knee replacement 2021 Past Anesthesia/Blood Transfusion Reactions: No Reported Reaction, Motion Sickness Smoking Status: Former smoker - Past Family History Father Family Medical History: Deep Vein Thrombosis (DVT) Additional Family Medical History / Comment(s): Father is alive at age 67 with history of coronary aneurysm Mother Family Medical History: CVA/TIA Additional Family Medical History / Comment(s): Mother is alive at age 63 with history of bipolar, stroke, blindness. Brother(s) Additional Family Medical History / Comment(s): Patient has 2 brothers that are healthy. She has no sisters. She has 2 sons and 1 daughter that are healthy. Medications and Allergies Home Medications Medication Instructions Recorded Confirmed Type Cetirizine HCl [Zyrtec] 10 mg PO DAILY 10/20/15 07/12/22 History Fluticasone Nasal [place] [Flonase 1 spray EA NOSTRIL DAILY 10/20/15 07/12/22 History Nasal [place]] EPINEPHrine [Epipen 2-Melecio] 0.3 mg IM ONCE PRN 11/16/16 07/12/22 History Vilazodone HCl [Viibryd] 10 mg PO HS 11/16/16 07/12/22 History Gabapentin [Neurontin] 300 mg PO TID 02/16/17 07/12/22 History QUEtiapine [SEROquel] 400 mg PO HS 08/16/18 07/12/22 History Allergy Shots 1 dose IM Q14D 10/22/20 07/12/22 History Albuterol Sulfate [Ventolin HFA] 1 puff INHALATION DAILY PRN 05/28/21 07/12/22 History Budesonide-Formot 160-4.5 Mcg 1 puff IN BID PRN 05/28/21 07/12/22 History [Symbicort 160-4.5 Mcg Inhaler] methocarbamoL [Robaxin] 500 mg PO BID PRN 05/28/21 07/12/22 History ALPRAZolam [Xanax] 0.5 mg PO BID PRN 03/12/22 07/12/22 History Docusate [Colace] 100 mg PO BID #60 capsule 03/12/22 07/12/22 Rx Montelukast [Singulair] 10 mg PO HS 03/12/22 07/12/22 History HYDROcodone/APAP 7.5-325MG [[place] 1 tab PO Q4-6H PRN 06/16/22 07/12/22 History 7.5-325] Omeprazole [PriLOSEC] 40 mg PO DAILY #90 cap 06/16/22 07/12/22 Rx lisinopriL [Zestril] 2.5 mg PO DAILY 06/16/22 07/12/22 History Allergies Allergy/AdvReac Type Severity Reaction Status Date / Time adhesive Allergy Rash/Hives Verified 07/12/22 08:15 aspirin Allergy Anaphylaxis Verified 07/12/22 08:15 clonidine Allergy Rash/Hives Verified 07/12/22 08:15 hydroxyzine Allergy CONFUSION Verified 07/12/22 08:15 AND BODY SHAKES venlafaxine HCl Allergy Swelling Verified 07/12/22 08:15 [From Effexor] venom-honey bee Allergy Rash/Hives Verified 07/12/22 08:15 [bee venom (honey bee)] buspirone AdvReac Rash/Hives Verified 07/12/22 08:15 Surgical - Exam Vital Signs Temp Pulse Resp BP Pulse Ox 98.3 F 94 14 147/84 95 07/12/22 08:18 07/12/22 08:18 07/12/22 08:18 07/12/22 08:18 07/12/22 08:18
[2022-07-12] MEDS ORDERED: PROPOFOL 10 MG/ML 20 ML VIAL IV ONE (09:03)
[2022-07-12 09:27] VITALS: RESP 16
[2022-07-12 09:48] VITALS: BP 118/80; PULSE 50
--- NOTE | 2022-07-12 10:16 | P.PCN ---
Date of Procedure: 07/12/22 Description of Procedure: PREOPERATIVE DIAGNOSIS: Dysphagia. Gastroesophageal reflux disease Esophageal stricture POSTOPERATIVE DIAGNOSIS: Dysphagia. 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 INDICATIONS: The patient is a 53-year-old female who presents with a history of dysphagia. B enefits and risks of the procedure were described. Informed consent was obtained. DESCRIPTION: The patient was brought into the endoscopy suite and laid in the left lateral decubitus position. After a timeout was confirmed, the procedure was initiated. An Olympus gastroscope was passed into the posterior oropharynx down into the gastric pouch. The scope was entered into the gastric pouch with gastrojejunal stenosis along the gastrojejunal anastomosis. To address her 15 mm gastrojejunal stricture, a 20 mm [place] [employer] balloon was used to dilate. Gastric pouch 7 cm identified with small diaphragmatic hiatal hernia, sliding. Next using an Israeli rigid dilator, a guidewire was placed through the gastroscope. Next the scope was withdrawn. A 51-[place] rigid Israeli dilator was passed carefully along the posterior oropharynx to 40 cm and left in place for 2-3 minutes stretch. The dilator was withdrawn including the guidewire. The scope was reentered along the posterior oropharynx with no findings of full- thickness tear of the upper esophageal sphincter. Biopsies with cold forceps were obtained of the gastric pouch for gastritis. No full-thickness injury was encountered. The GI tract was desufflated. The patient tolerated the procedure well. FINDINGS: Gastrojejunal anastomotic stricture without ulceration and stenosis dilated, 20 mm balloon Upper esophageal stenosis dilated Israeli rigid dilator 51-[place] completed. Gastric pouch 7 cm Diaphragmatic hiatal hernia, 2 cm. RECOMMENDATIONS: Upper endoscopy as needed Recommend warm beverages for esophageal dysmotility
== END 2022-07-12 10:14 | disposition home or self-care (01) ==
LOC: ORWHC2ENDO 07:45
PROVIDERS: ATTEND Surgery Plastic and Reconstructive Surgery
DX: K91.89 Other postprocedural complications and disorders of digestive system (principal); K31.1 Adult hypertrophic pyloric stenosis; Z98.0 Intestinal bypass and anastomosis status; K29.50 Unspecified chronic gastritis without bleeding; K44.9 Diaphragmatic hernia without obstruction or gangrene; K22.2 Esophageal obstruction; K21.9 Gastro-esophageal reflux disease without esophagitis; Z88.5 Allergy status to narcotic agent; Z91.030 Bee allergy status; Z88.6 Allergy status to analgesic agent; Z91.048 Other nonmedicinal substance allergy status; Z88.8 Allergy status to other drugs, medicaments and biological substances; I10 Essential (primary) hypertension; J45.909 Unspecified asthma, uncomplicated; J44.9 Chronic obstructive pulmonary disease, unspecified; G40.909 Epilepsy, unspecified, not intractable, without status epilepticus; G47.33 Obstructive sleep apnea (adult) (pediatric); Z99.89 Dependence on other enabling machines and devices; M79.7 Fibromyalgia; Z79.51 Long term (current) use of inhaled steroids; Z79.899 Other long term (current) drug therapy; G89.29 Other chronic pain; Z87.19 Personal history of other diseases of the digestive system; Z98.84 Bariatric surgery status; Z90.49 Acquired absence of other specified parts of digestive tract; Z96.651 Presence of right artificial knee joint; Z87.891 Personal history of nicotine dependence; Z82.3 Family history of stroke
CPT/HCPCS: 43249; 43248; 43239; 88305; J2704; C1726

== ENCOUNTER → 2022-07-28 | Outpatient (CLI) | payer MEDICARE, OTHER ==
[2022-07-28 15:03] VITALS: BP 174/97; PULSE 79; TEMP 98; BMI 35.2
--- NOTE | 2022-07-28 15:33 | P.BASOAP ---
Subjective Progress Note Date: 07/28/22 She has lost 17 pounds with exercising and eatin differently. She reports diverticulitis. She was doing well with dilation but symptoms came. She reports taking big pills. Recommend warm beverages. Robotic coletomy advised. Objective - Vital Signs Vital signs: Vital Signs Temp 98 F 07/28/22 14:59 Pulse 79 07/28/22 14:59 Resp BP 174/97 07/28/22 14:59 Pulse Ox FiO2 Intake & Output 07/27/22 07/28/22 07/28/22 18:59 06:59 18:59 Weight 98.43 kg Assessment/Plan Plan: Date: 07/28/22 Initial Weight: 112.122 kg Initial BMI: 40.1 Current Weight: 98.43 kg Current BMI: 35.2 Type of Surgery: Total Volume in Band: Previous Volume: Volume Removed: Volume Added: Band Size:
== END ==
LOC: BARWHC3 14:17
PROVIDERS: ATTEND Surgery Plastic and Reconstructive Surgery
DX: E66.01 Morbid (severe) obesity due to excess calories (principal); Z68.35 Body mass index [BMI] 35.0-35.9, adult; Z91.048 Other nonmedicinal substance allergy status; Z88.6 Allergy status to analgesic agent; Z88.5 Allergy status to narcotic agent; Z88.7 Allergy status to serum and vaccine; Z91.02 Food additives allergy status; Z87.891 Personal history of nicotine dependence
CPT/HCPCS: 99211

== ENCOUNTER → 2022-11-18 | Day surgery (SDC) | payer MEDICARE, OTHER ==
[2022-11-16 11:40] VITALS: BMI 32.4
[~2022-11-18] MED LIST changes: -ACETAMINOPHEN TAB 500 MG TAB PO PRN; -DEXAMETHASONE SOD PHOSPHATE 10 MG/ML 1 ML VIAL IV PRN; -DOCUSATE 100 MG CAP PO PRN; -FAMOTIDINE 20 MG/2 ML VIAL IVP PRN; +LACTATED RINGERS 1,000 ML IV ONE; +LACTATED RINGERS 1,000 ML IV SCH; +LIDOCAINE 1% (10MG/ML) FOR IV START INTRADERMA PRN; +LIDOCAINE 2% INJ 20 MG/ML (2 ML VIAL) ONE; -ONDANSETRON 4 MG/2 ML VIAL IVP PRN; +PROPOFOL 10 MG/ML 20 ML VIAL IV ONE; -TRANEXAMIC ACID IN NACL,ISO-OS 1,000 MG in SALINE 1 100ML.BAG IVPB PRN; -oxyCODONE ER 10 MG TAB.ER.12H PO PRN
--- NOTE | 2022-11-18 07:50 | P.GSHP ---
History of Present Illness H&P Date: 11/18/22 CHIEF COMPLAINT: Colon screen HISTORY OF PRESENT ILLNESS: The patient is a 47-year-old female who presents for colon screen. Lower endoscopy was offered for further evaluation and management. PAST MEDICAL HISTORY: Please see list. PAST SURGICAL HISTORY: Please see list. MEDICATIONS: Please see list. ALLERGIES: Please see list. SOCIAL HISTORY: No illicit drug use FAMILY HISTORY: No reports of Crohn disease or ulcerative colitis. REVIEW OF ORGAN SYSTEMS: CONSTITUTIONAL: No reports of fevers or chills. PHYSICAL EXAM: VITAL SIGNS: Stable GENERAL: Well-developed pleasant in no acute distress. HEENT: No scleral icterus. Extraocular movements grossly intact. Moist buccal mucosa. NECK: Supple without lymphadenopathy. CHEST: Unlabored respirations. Equal bilateral excursions. CARDIOVASCULAR: Regular rate and rhythm. Distal 2+ pulses. ABDOMEN: Soft, nontender, nondistended. MUSCULOSKELETAL: No clubbing, cyanosis, or edema. ASSESSMENT: 1. Colon screen. PLAN: 1. Recommend proceeding with a lower endoscopy Past Medical History Past Medical History: Asthma, COPD, Fibromyalgia, GERD/Reflux, Hypertension, Seizure Disorder, Sleep Apnea/CPAP/BIPAP Additional Past Medical History / Comment(s): Chronic back pain, LAST SEIZURE 2013, USES CPAP MACHINE-, VENTRAL HERNIA, FOOD AND PILLS KEEP GETTING STUCK- better dilatation History of Any Multi-Drug Resistant Organisms: None Reported Past Surgical History: Adenoidectomy, Appendectomy, Bariatric Surgery, Cholecystectomy, Hysterectomy, Joint Replacement, Orthopedic Surgery, Tonsillectomy, Tubal Ligation Additional Past Surgical History / Comment(s): KIRK knee arthroscopy, epidural lumbar injections ,KIRK CARPAL TUNNEL, ARTHROSCOPY RT ELBOW, EGD, COLONOSCOPY, Gastric Sleeve 02/16/17, gastric bypass 10-30-18, METAL Clip in left breast, had mass removed. Right knee replacement 2021 Past Anesthesia/Blood Transfusion Reactions: No Reported Reaction, Motion Sickness Additional Past Anesthesia/Blood Transfusion Reaction / Comment(s): no hx blood transfusion Smoking Status: Former smoker - Past Family History Father Family Medical History: Deep Vein Thrombosis (DVT) Additional Family Medical History / Comment(s): Father with COVID and Influenza, history of coronary aneurysm Mother Family Medical History: CVA/TIA, Diabetes Mellitus Additional Family Medical History / Comment(s): Mother is alive at age 63 with history of bipolar, stroke, blindness. Brother(s) Additional Family Medical History / Comment(s): Patient has 2 brothers that are healthy. She has no sisters. She has 2 sons and 1 daughter that are healthy. Medications and Allergies Home Medications Medication Instructions Recorded Confirmed Type Fluticasone Nasal [place] [Flonase 1 spray EA NOSTRIL DAILY PRN 10/20/15 11/16/22 History Nasal [place]] EPINEPHrine [Epipen 2-Melecio] 0.3 mg IM ONCE PRN 11/16/16 11/16/22 History Vilazodone HCl [Viibryd] 10 mg PO HS 11/16/16 11/16/22 History Gabapentin [Neurontin] 300 mg PO TID 02/16/17 11/16/22 History QUEtiapine [SEROquel] 400 mg PO HS 08/16/18 11/16/22 History Allergy Shots 1 dose IM Q14D 10/22/20 11/16/22 History Albuterol Sulfate [Ventolin HFA] 1 puff INHALATION DAILY PRN 05/28/21 11/16/22 History Budesonide-Formot 160-4.5 Mcg 1 puff IN BID PRN 05/28/21 11/16/22 History [Symbicort 160-4.5 Mcg Inhaler] methocarbamoL [Robaxin] 500 mg PO QID PRN 05/28/21 11/16/22 History ALPRAZolam [Xanax] 0.5 mg PO BID PRN 03/12/22 11/16/22 History Montelukast [Singulair] 10 mg PO HS 03/12/22 11/16/22 History HYDROcodone/APAP 7.5-325MG [[place] 1 tab PO Q4-6H PRN 06/16/22 11/16/22 History 7.5-325] lisinopriL [Zestril] 2.5 mg PO QAM 06/16/22 11/16/22 History Omeprazole [PriLOSEC] 40 mg PO QAM 11/16/22 11/16/22 History Allergies Allergy/AdvReac Type Severity Reaction Status Date / Time adhesive Allergy Rash/Hives Verified 11/16/22 11:26 aspirin Allergy Anaphylaxis Verified 11/16/22 11:26 clonidine Allergy Rash/Hives Verified 11/16/22 11:26 hydroxyzine Allergy CONFUSION Verified 11/16/22 11:26 AND BODY SHAKES venlafaxine HCl Allergy Swelling Verified 11/16/22 11:26 [From Effexor] venom-honey bee Allergy Rash/Hives Verified 11/16/22 11:26 [bee venom (honey bee)] buspirone AdvReac Rash/Hives Verified 11/16/22 11:26
[2022-11-18 09:23] VITALS: RESP 16; TEMP 96.7
--- NOTE | 2022-11-18 10:24 | P.PCN ---
Date of Procedure: 11/18/22 Description of Procedure: PREOPERATIVE DIAGNOSIS: Colonoscopy screening POSTOPERATIVE DIAGNOSIS: Tubular adenoma sigmoid colon Colon diverticulosis Internal hemorrhoids, grade 2 OPERATION: Colonoscopy to the ileocecal valve and appendiceal orifice, cecum Colonoscopy with hot snare polypectomy SURGEON: Dori Verde MD. ANESTHESIA: MAC. INDICATIONS: The patient is an 47-year-old male who presents for colonoscopy screening. Benefits and risks were described and informed consent was obtained. DESCRIPTION OF PROCEDURE: The patient had undergone Sutab prep. The patient had been brought into the operating room and laid in the left lateral decubitus position. After adequate intravenous sedation, the rectum was examined with 2% lidocaine jelly. The prostate was unremarkable. External hemorrhoids were encountered. The rectal tone was within normal limits. No lesions were palpated in the rectal vault. An Olympus colonoscope was advanced until the cecum, ileocecal valve and appendiceal orifice were clearly viewed. The prep was fair. Scattered diverticulosis was encountered. Colonic polyps were found and removed. No evidence of focal colitis was found. Retroflexion of the scope demonstrated grade 3 internal hemorrhoids without active bleeding or inflammation. The colon was desufflated. The patient had tolerated the procedure well. Withdrawal time was over 6 minutes. FINDINGS: Aronchick preparation quality scale 2+ (1-5) Internal hemorrhoids, grade 3 External hemorrhoids, grade 3. No arteriovenous malformations. Scattered diverticulosis Removal of 1 polyp: - Snare polypectomy 15 cm from the anal verge, 8 mm tubulovillous adenoma, sigmoid colon No focal colitis. RECOMMENDATIONS: Repeat colonoscopy in 3 years, 2025. Plan - Discharge Summary Discharge Rx Participant: No New Discharge Prescriptions: Continue Fluticasone Nasal [place] [Flonase Nasal [place]] 1 spray EA NOSTRIL DAILY PRN PRN Reason: allergies Vilazodone HCl [Viibryd] 10 mg PO HS EPINEPHrine [Epipen 2-Melecio] 0.3 mg IM ONCE PRN PRN Reason: Anaphylaxis Gabapentin [Neurontin] 300 mg PO TID QUEtiapine [SEROquel] 400 mg PO HS Allergy Shots 1 dose IM Q14D Budesonide-Formot 160-4.5 Mcg [Symbicort 160-4.5 Mcg Inhaler] 1 puff IN BID PRN PRN Reason: Shortness Of Breath Or Wheezing Albuterol Sulfate [Ventolin HFA] 1 puff INHALATION DAILY PRN PRN Reason: Shortness Of Breath Or Wheezing ALPRAZolam [Xanax] 0.5 mg PO BID PRN PRN Reason: Anxiety Montelukast [Singulair] 10 mg PO HS lisinopriL [Zestril] 2.5 mg PO QAM Omeprazole [PriLOSEC] 40 mg PO QAM methocarbamoL [Robaxin] 500 mg PO QID PRN PRN Reason: muscle spasms HYDROcodone/APAP 7.5-325MG [[place] 7.5-325] 1 tab PO Q4-6H PRN PRN Reason: Pain Discharge Medication List Fluticasone Nasal [place] [Flonase Nasal [place]] 1 spray EA NOSTRIL DAILY PRN 10/20/15 [History] EPINEPHrine [Epipen 2-Melecio] 0.3 mg IM ONCE PRN 11/16/16 [History] Vilazodone HCl [Viibryd] 10 mg PO HS 11/16/16 [History] Gabapentin [Neurontin] 300 mg PO TID 02/16/17 [History] QUEtiapine [SEROquel] 400 mg PO HS 08/16/18 [History] Allergy Shots 1 dose IM Q14D 10/22/20 [History] Albuterol Sulfate [Ventolin HFA] 1 puff INHALATION DAILY PRN 05/28/21 [History] Budesonide-Formot 160-4.5 Mcg [Symbicort 160-4.5 Mcg Inhaler] 1 puff IN BID PRN 05/28/21 [History] methocarbamoL [Robaxin] 500 mg PO QID PRN 05/28/21 [History] ALPRAZolam [Xanax] 0.5 mg PO BID PRN 03/12/22 [History] Montelukast [Singulair] 10 mg PO HS 03/12/22 [History] HYDROcodone/APAP 7.5-325MG [[place] 7.5-325] 1 tab PO Q4-6H PRN 06/16/22 [History] lisinopriL [Zestril] 2.5 mg PO QAM 06/16/22 [History] Omeprazole [PriLOSEC] 40 mg PO QAM 11/16/22 [History] Follow up Appointment(s)/Referral(s): Dori Verde MD [STAFF PHYSICIAN] - As Needed Patient Instructions/Handouts: Diverticulosis Diet (GEN), Diverticulosis (GEN), Colorectal Polyps (GEN) Discharge Disposition: HOME SELF-CARE
[2022-11-18 10:47] VITALS: BP 158/94; PULSE 64
== END | disposition home or self-care (01) ==
LOC: ORWHC2ENDO 08:31
PROVIDERS: ATTEND Surgery Plastic and Reconstructive Surgery
DX: Z12.11 Encounter for screening for malignant neoplasm of colon (principal); D12.5 Benign neoplasm of sigmoid colon; K64.2 Third degree hemorrhoids; K64.4 Residual hemorrhoidal skin tags; K57.30 Diverticulosis of large intestine without perforation or abscess without bleeding; J45.909 Unspecified asthma, uncomplicated; J44.9 Chronic obstructive pulmonary disease, unspecified; I10 Essential (primary) hypertension; K21.9 Gastro-esophageal reflux disease without esophagitis; G40.909 Epilepsy, unspecified, not intractable, without status epilepticus; G47.33 Obstructive sleep apnea (adult) (pediatric); F31.9 Bipolar disorder, unspecified; F41.9 Anxiety disorder, unspecified; M79.7 Fibromyalgia; Z79.811 Long term (current) use of aromatase inhibitors; Z79.83 Long term (current) use of bisphosphonates; Z79.51 Long term (current) use of inhaled steroids; Z79.899 Other long term (current) drug therapy; Z88.6 Allergy status to analgesic agent; Z88.8 Allergy status to other drugs, medicaments and biological substances; Z91.048 Other nonmedicinal substance allergy status; Z88.5 Allergy status to narcotic agent; Z98.890 Other specified postprocedural states; Z87.891 Personal history of nicotine dependence
CPT/HCPCS: 88305; 45385; J2704; J2001

== ENCOUNTER → 2023-01-04 | Outpatient (CLI) | payer MEDICARE, OTHER ==
--- NOTE | 2023-01-06 09:23 | CT ---
EXAMINATION TYPE: CT left knee - [facility] Protocol DATE OF EXAM: 01/05/2023 COMPARISON: 03/12/2022 x-ray HISTORY: left knee sriram protcol CT DLP: 727 mGycm TECHNIQUE: Axial, sagittal and coronal noncontrast images are obtained. FINDINGS: There is severe osteoarthritis of the knee with marked narrowing of the medial compartment. Marginal spurs are noted. There is moderate narrowing of the patellofemoral joint with these ossified at the q uadriceps insertion patella. No erosive changes. There is a small suprapatellar bursal fluid collecti on. There is calcaneal spurs. Moderate hypertrophic hip arthropathy. Small corticated loose body along th e posterior margin of the knee joint. IMPRESSION: 1. Severe osteoarthritis
== END | disposition home or self-care (01) ==
LOC: RADCTMAIN 14:33
PROVIDERS: ATTEND Orthopaedic Surgery
DX: M17.12 Unilateral primary osteoarthritis, left knee (principal)

== ENCOUNTER → 2023-01-12 | Outpatient (CLI) | payer MEDICARE, OTHER ==
[2023-01-12 10:48] LABS: Partial Thromboplastin Time 25.4 sec (22.0-30.0); Prothrombin Time 10.7 sec (10.0-12.5)
[2023-01-12 17:33] LABS: HCT 38.3 % (37.2-46.3); HGB 11.8 d/dL (12.0-15.0); MCHC 30.8 d/dL (32.0-37.0); MCV 87.6 FL (80.0-97.0); Mean Platelet Volume 11.6 FL (9.5-12.2); NRBC Per 100 WBC 0 X 10*3/uL (0.00-0.01); Platelet Count 229 X 10*3/uL (140-440); RBC 4.37 X 10*6/uL (4.10-5.20); RDW 12.4 % (11.5-14.5); WBC 5.73 X 10*3/uL (4.50-10.00)
[2023-01-12 17:37] LABS: ALT 13 U/L (8-44); AST 12 U/L (13-35); Albumin 4.2 d/dL (3.8-4.9); Alkaline Phosphatase 117 U/L (41-126); BUN/Creat Ratio 5.11 Ratio (12.00-20.00); Blood Urea Nitrogen 4.6 mg/dL (9.0-27.0); Calcium 9.5 mg/dL (8.7-10.3); Chloride 104 mmol/L (96-109); Glucose 97 mg/dL (70-110); Potassium 3.6 mmol/L (3.5-5.5); Sodium 143 mmol/L (135-145); Total Bilirubin 0.3 mg/dL (0.3-1.2); Total Protein 6.2 d/dL (6.2-8.2)
[2023-01-12 18:06] LABS: Appearance,Urine Clear (Clear); Bilirubin,Urine Negative (Negative); Blood,Urine Negative (Negative); Color,Urine Yellow (Yellow); Ketones,Urine Negative (Negative); Nitrite,Urine Negative (Negative); PH, Urine 5.5; Specific Gravity,Urine 1.011 (1.001-1.030); Urobilinogen,Urine 0.2 E.U./DL
== END | disposition home or self-care (01) ==
LOC: LABPAT 09:50
PROVIDERS: ATTEND Orthopaedic Surgery
DX: Z01.812 Encounter for preprocedural laboratory examination (principal); M17.12 Unilateral primary osteoarthritis, left knee
CPT/HCPCS: 36415; 80053; 81003; 85027; 85610; 85730; 87070

== ENCOUNTER → 2023-01-19 | Outpatient (CLI) | payer MEDICARE, OTHER ==
[2023-01-19 13:51] VITALS: BP 153/85; PULSE 71; TEMP 97.6; BMI 34.6
--- NOTE | 2023-01-19 14:25 | P.PN ---
Subjective Progress Note Date: 01/19/23 She has lost weight. She is drinking 144 oz daily. Lactulose for constipation. Omeprazole for left knee replacement that is pending. Colonoscopy reviewed. Objective - Vital Signs Vital signs: Vital Signs Temp 97.6 F 01/19/23 13:37 Pulse 71 01/19/23 13:37 Resp BP 153/85 01/19/23 13:37 Pulse Ox FiO2 Intake & Output 01/18/23 01/19/23 01/19/23 18:59 06:59 18:59 Weight 96.615 kg
== END ==
LOC: BARWHC3 13:06
PROVIDERS: ATTEND Surgery Plastic and Reconstructive Surgery
DX: Z53.9 Procedure and treatment not carried out, unspecified reason (principal)
CPT/HCPCS: 99211

== ENCOUNTER → 2023-03-08 | Outpatient (CLI) | payer MEDICARE, OTHER ==
[2023-03-08 12:40] LABS: INR 0.9 (<1.2); Partial Thromboplastin Time 25.8 sec (22.0-30.0); Prothrombin Time 10.3 sec (10.0-12.5)
[2023-03-08 15:41] LABS: HCT 37.4 % (37.2-46.3); HGB 11.9 g/dL (12.0-15.0); MCHC 31.8 g/dL (32.0-37.0); NRBC Per 100 WBC 0 X 10*3/uL (0.00-0.01); Platelet Count 229 X 10*3/uL (140-440); RBC 4.25 X 10*6/uL (4.10-5.20); RDW 12.7 % (11.5-14.5); WBC 5.62 X 10*3/uL (4.50-10.00)
[2023-03-08 15:43] LABS: ALT 11 U/L (8-44); AST 11 U/L (13-35); Albumin 4.5 g/dL (3.8-4.9); Albumin/Globulin Ratio 2.14 Ratio (1.60-3.17); Alkaline Phosphatase 111 U/L (41-126); BUN/Creat Ratio 9.38 Ratio (12.00-20.00); Blood Urea Nitrogen 7.5 mg/dL (9.0-27.0); Calcium 9.9 mg/dL (8.7-10.3); Carbon Dioxide 30.2 mmol/L (21.6-31.8); Chloride 104 mmol/L (96-109); Globulin 2.1 g/dL (1.6-3.3); Glucose 78 mg/dL (70-110); Potassium 4.6 mmol/L (3.5-5.5); Sodium 143 mmol/L (135-145); Total Bilirubin 0.3 mg/dL (0.3-1.2); Total Protein 6.6 g/dL (6.2-8.2)
[2023-03-08 15:47] LABS: Appearance,Urine Clear (Clear); Bilirubin,Urine Negative (Negative); Blood,Urine Negative (Negative); Color,Urine Yellow (Yellow); Ketones,Urine Negative (Negative); Nitrite,Urine Negative (Negative); PH, Urine 7.5; Specific Gravity,Urine 1.006 (1.001-1.030)
== END | disposition home or self-care (01) ==
LOC: LABPAT 09:36
PROVIDERS: ATTEND Orthopaedic Surgery
DX: Z01.812 Encounter for preprocedural laboratory examination (principal); M17.12 Unilateral primary osteoarthritis, left knee
CPT/HCPCS: 36415; 80053; 81003; 85027; 85610; 85730; 93005

== ENCOUNTER 2023-03-16 11:23 | Observation (INO) | payer MEDICARE, OTHER ==
[2023-03-14 10:15] VITALS: BMI 32.4
[~2023-03-16 11:23] MED LIST changes: +ACETAMINOPHEN TAB 500 MG TAB PO PRN; +DEXAMETHASONE SOD PHOSPHATE 10 MG/ML 1 ML VIAL IV PRN; +DEXAMETHASONE SOD PHOSPHATE 4 MG/ML 1 ML VIAL IV ONE; +DOCUSATE 100 MG CAP PO PRN; +FAMOTIDINE 20 MG/2 ML VIAL IVP PRN; +HYDROmorphone 0.5 MG/0.5 ML SYRINGE IVP PRN; +KETOROLAC 15 MG/ML 1 ML VIAL IVP PRN; -LACTATED RINGERS 1,000 ML IV ONE; -LACTATED RINGERS 1,000 ML IV SCH; -LIDOCAINE 1% (10MG/ML) FOR IV START INTRADERMA PRN; -LIDOCAINE 2% INJ 20 MG/ML (2 ML VIAL) ONE; +ONDANSETRON 4 MG/2 ML VIAL IVP ONE; +ONDANSETRON 4 MG/2 ML VIAL IVP PRN; -PROPOFOL 10 MG/ML 20 ML VIAL IV ONE; +ROPIVACAINE/EPI/CLONIDINE/KET 50 ML SYRINGE MISCELLANE PRN; +TRANEXAMIC 1,000 MG/100ML-NACL 1,000 MG in SALINE 1 100ML.BAG IV PRN; +TRANEXAMIC 1,000 MG/100ML-NACL 1,000 MG in SALINE 1 100ML.BAG IVPB PRN; +oxyCODONE ER 10 MG TAB.ER.12H PO PRN
[2023-03-16] MEDS: LACTATED RINGERS 1,000 ML IV SCH ×2 (12:26→19:08)
[2023-03-16] MEDS ORDERED: MIDAZOLAM 2 MG/2 ML VIAL IVP ONE (12:38)
[2023-03-16] MEDS ORDERED: GLYCOPYRROLATE 0.2 MG/ML 2 ML VIAL ONE (13:56)
[2023-03-16] MEDS ORDERED: SUCCINYLCHOLINE CHLORIDE 200 MG/10 ML VIAL IV ONE (13:56)
[2023-03-16] MEDS ORDERED: NEOSTIGMINE 1 MG/ML 10 ML VIAL ONE (13:56)
[2023-03-16] MEDS ORDERED: TRANEXAMIC 1,000 MG/100ML-NACL PREMIX BAG ONE (13:56)
[2023-03-16] MEDS ORDERED: LIDOCAINE 1% INJ 10MG/ML (20 ML MDV) ONE (13:56)
[2023-03-16] MEDS ORDERED: ePHEDrine 50 MG/ML 1 ML VIAL ONE (13:56)
[2023-03-16] MEDS ORDERED: DEXAMETHASONE SOD PHOSPHATE 4 MG/ML 1 ML VIAL ONE (13:56)
[2023-03-16] MEDS ORDERED: ROCURONIUM 10 MG/ML (5 ML VIAL) IV ONE (13:56)
[2023-03-16] MEDS ORDERED: fentaNYL (PF) 50 MCG/ML 2 ML AMP ONE (13:56)
[2023-03-16] MEDS ORDERED: PROPOFOL 10 MG/ML 20 ML VIAL IV ONE (13:56)
[2023-03-16] MEDS ORDERED: ROPIVACAINE 5 MG/ML 30 ML VIAL ONE (13:56)
[2023-03-16] MEDS ORDERED: WATER FOR INJECTION, STERILE 10 ML VIAL IV ONE (13:56)
--- NOTE | 2023-03-16 14:05 | P.ANPRN ---
Procedure Note - Anesthesia - Nerve Block Performed Left Adductor Canal Single Time Out Performed: Yes Date of Procedure: 03/16/23 Procedure Start Time: 12:37 Procedure Stop Time: 12:44 Location of Patient: PreOp Indication: Acute Post-Operative Pain, Requested by Surgeon Sedation Type: Sedate with meaningful contact maintained Preparation: Sterile Prep, Sterile Dressing Position: Supine Catheter: None Needle Types: Facet Needle Gauge: 20 Ultrasound used to visualize needle placement: Yes Ultrasound used to observe medication spread: Yes Injectate: 0.5% Ropivacaine (see comment for volume) (20 ml + 3 mg dexamethasone) Blood Aspirated: No Pain Paresthesia on Injection Noted: No Resistance on Injection: Normal Image Stored and Saved: Yes Events: Uneventful and Well Tolerated Left iPack Single Time Out Performed: Yes Date of Procedure: 03/16/23 Procedure Start Time: 12:45 Procedure Stop Time: 12:50 Location of Patient: PreOp Indication: Acute Post-Operative Pain, Requested by Surgeon Sedation Type: Sedate with meaningful contact maintained Preparation: Sterile Prep, Sterile Dressing Position: Right Lateral Catheter: None Needle Types: Facet Needle Gauge: 20 Ultrasound used to visualize needle placement: Yes Ultrasound used to observe medication spread: Yes Injectate: 0.5% Ropivacaine (see comment for volume) (10 ml + 1 mg dexamethasone) Blood Aspirated: No Pain Paresthesia on Injection Noted: No Resistance on Injection: Normal Image Stored and Saved: Yes Events: Uneventful and Well Tolerated
[2023-03-16] MEDS ORDERED: ROPIVACAINE 5 MG/ML 30 ML VIAL MISCELLANE ONE ×2 (15:00→15:33)
[2023-03-16] MEDS ORDERED: LACTATED RINGERS 1,000 ML IV ONE (15:32)
[2023-03-16] MEDS ORDERED: ONDANSETRON 4 MG/2 ML VIAL IVP PRN (16:22)
[2023-03-16] MEDS ORDERED: HYDROmorphone 1 MG/ML 1 ML SYRINGE IVP PRN (16:22)
[2023-03-16] MEDS ORDERED: bisacodyL 10 MG SUPP RECTAL PRN (16:22)
[2023-03-16] MEDS ORDERED: NA PHOS,M-B/NA PHOS,DI-BA 133 ML ENEMA RECTAL PRN (16:22)
[2023-03-16] MEDS ORDERED: HYDROcodone/APAP 5-325MG 1 EACH TAB PO PRN (16:22)
[2023-03-16] MEDS ORDERED: NALOXONE 0.4 MG/ML 1 ML VIAL IV PRN (16:22)
[2023-03-16] MEDS ORDERED: MAGNESIUM HYDROXIDE 2,400 MG/30 ML CUP PO PRN (16:22)
[2023-03-16] MEDS ORDERED: hydrOXYzine pamoate 25 MG CAP PO PRN (16:22)
--- NOTE | 2023-03-16 16:22 | P.OP ---
Date of Procedure: 03/16/23 Preoperative Diagnosis: 1. Severe right knee osteoarthritis 2. Fibromyalgia 3. History of cigarette smoking, quit prior to surgery 4. Chronic pain Postoperative Diagnosis: Same Procedure(s) Performed: 1. Left total knee arthroplasty 2. Computer assisted musculoskeletal navigation using CT/MRI images Implants: 1. [place] [employer] CR Femur Size #3 2. [employer] [place] Tibial Base Size #3 3. [employer] [place] [employer] CS poly Size #9 4. [place] [employer] all poly patella, Size #29 Anesthesia: GETA, regional Surgeon: Leandro Brown Estimated Blood Loss (ml): 100 IV fluids (ml): 900 Pathology: none sent Condition: stable Disposition: PACU Indications for Procedure: I met with the patient preoperatively in the office setting and discussed treatment of their symptomatic knee arthritis. They failed a long course of nonsurgical treatment and elected to proceed with an elective total knee replacement. I discussed the potential risks and complications at length and gave them ample time to ask questions. Risks discussed included: risks from anesthesia, superficial site surgical infection, acute and/or chronic periprosthetic joint infection, delayed wound healing, drainage, wound necrosis, instability, stiffness, stiffness requiring manipulation and/or revision surgery, damage to local blood vessels or nerves, aseptic loosening of the implants, extensor mechanism issues including disruption, patellar maltracking, avascular necrosis etc., continued or worsened knee pain, generalized dissatisfaction with surgical outcome, need for revision surgery, an inability to regain preinjury level of function, DVT, PE, other medical complications, and possibly loss of life or limb. The patient voiced their understanding that while these are the most common complications other less common complications are possible. They provided both their verbal and written consent to go forward with surgery. Operative Findings: Severe left knee osteoarthritis Description of Procedure: The patient was identified in preoperative holding and the correct operative extremity was verified and marked with a marker. I reviewed the consent form with the patient at length. All of their questions were answered. The patient was given a block by anesthesia. They were then brought back to the operating room. They were transferred onto the operating room table where a general anesthetic, preoperative antibiotics, and tranexamic acid were administered by anesthesia. A tourniquet was applied to the proximal aspect of the operative extremity. The contralateral extremity was padded under the heel and secured to the operating room table with a nonsterile blue towel and tape. The ipsilateral arm was carefully draped across the patient's chest and secured with a pillow and foam. A post was applied over the lateral aspect of the ipsilateral thigh and a bolster was placed under the ipsilateral foot. I verified that the operative extremity was stable and the knee was flexed to 90. The operative extremity was then placed in a leg zapata, nonsterile drapes were applied, and the extremity was prepped and draped sterilely in the standard sterile fashion. Prior to starting surgery timeout was performed identifying the correct patient, operative extremity, and procedure. The leg was then elevated, exsanguinated with an Esmarch bandage, and the tourniquet was inflated. An anterior midline incision was made sharply with a scalpel. Once I had dissected deep to the superficial fascial layer medial and lateral flaps were elevated. A medial parapatellar arthrotomy was created. Upon opening the knee joint there were diffuse arthritic changes in all 3 compartments. The anterior horn of the medial meniscus were sharply released and a medial release was performed around the posterior medial corner of the knee to facilitate retractor placement. The fat pad was excised with electrocautery. The patella was found to be severely arthritic and a provisional cut was made with a sagittal saw to facilitate mobilization of the extensor mechanism during the procedure. Remnants of the ACL and PCL were then excised from the notch. 4 mm pins were then placed within the incision in the medial distal femur and proximal tibia. Arrays were applied to the pins and I verified they were completely tightened. The knee was then registered with the [id number] robot and manipulations in implant position were made to balance the knee and opitmize implant position. Using the [place] robotic saw all cuts were made in accordance with our plan. After all bony fragments had been removed the cuts were verified with the planar probe. The tibia was then subluxed forward and sized. The knee was brought into flexion and a lamina occupational safety and health manager was placed to allow removal of the meniscal remnants both medially and laterally as well as posterior osteophytes. Local anesthetic was then infiltrated around the joint capsule. Trial implants were then placed within the knee. Range of motion and collateral ligament tension was then evaluated. Adjustments in implant size and position were then made accordingly. Once the knee was felt to be appropriately balanced the [place] pins were removed. The patella was then recut, sized, and punched. A trial patellar button was then placed. With the trial components in place, the patella tracked midline. The femur was then drilled and the trial component removed. The trial tibial component was then appropriately rotated, pinned, and prepared for the keel. All trial components were then removed from the knee. The knee was thoroughly irrigated with pulsatile lavage. Cement was prepared via vacuum mixing in a bowl on the back table. I then hand pressurized cement into the femur and tibia and placed the implants beginning with the tibial base tray and poly liner, femoral component, and finally the patellar button. All extruded cement was removed including from the pin sites. Once the cement had hardened the knee was evaluated one final time with the final polyethylene liner in place. The knee had full extension and flexion and felt stable to varus and valgus stress throughout the arc of motion. The tourniquet was released and with the tourniquet down the patella tracked midline. All bleeders were controlled with electrocautery. The knee was then soaked for 3 minutes with a dilute Betadine soak. The knee was thoroughly irrigated using 3 L of sterile saline and pulsatile lavage. The extensor mechanism was then reapproximated using pop off Vicryl sutures followed by a running barbed suture. The knee was then closed in layers with a 0 strata fix for the deep fascial layer, 2-0 strata fix for the superficial subcutaneous layer and Monocryl and Steri-Strips for the skin. A sterile dressing was applied. I verified that all instrument, sponge, and sharp counts were correct. The patient was then transferred off the operating room table, extubated, and brought to recovery having tolerated the procedure well. PLAN: The patient can weight-bear as tolerated on the operative extremity. DVT prophylaxis with aspirin 81 mg twice a day based on preoperative risk stratification. Follow-up in the office in 2 weeks for wound check and x-rays of the knee including an AP and lateral.
--- NOTE | 2023-03-16 17:43 | XR ---
EXAMINATION TYPE: XR knee limited LT DATE OF EXAM: 03/16/2023 5:13 PM CLINICAL INDICATION:Female, 48 years old with history of Evaluation for Postop abnormality and alignm ent; [facility] COMPARISON: None. TECHNIQUE: XR knee limited LT; examined in Frontal, lateral and oblique projections. FINDINGS: Status post total knee arthroplasty changes with hardware in appropriate alignment and in tact. No evidence of fracture. Subcutaneous lucencies and lucencies within the joint consistent with surgical changes. IMPRESSION: Status post total knee arthroplasty changes with hardware intact and appropriate alignment. No fractu res identified.
[2023-03-16] MEDS ORDERED: ALBUTEROL NEBULIZED 2.5 MG/3 ML INHALATION PRN (20:20)
[2023-03-16] MEDS ORDERED: methocarbamoL 500 MG TAB PO PRN (20:20)
[2023-03-16] MEDS ORDERED: SYMBICORT 160-4.5 MCG INHALER INHALATION PRN (20:20)
[2023-03-16] MEDS ORDERED: FLUTICASONE 50MCG/SPRAY NASAL 16GM EA NOSTRIL PRN (20:20)
[2023-03-16] MEDS ORDERED: [UNRECOGNIZED DRUG - REMARK] IM SCH (20:30)
[2023-03-16] MEDS: HYDROcodone/APAP 10-325MG 1 EACH TAB PO PRN (20:57)
[2023-03-16] MEDS: SENNOSIDES-DOCUSATE SODIUM 1 EACH TAB PO SCH (20:58)
[2023-03-16] MEDS: MONTELUKAST 10 MG TAB PO SCH (20:58)
[2023-03-16] MEDS: LACTULOSE 20 GM/30 ML CUP PO SCH (20:59)
[2023-03-16] MEDS ORDERED: ASPIRIN 81 MG PO SCH (21:00)
[2023-03-16] MEDS: QUEtiapine 400 MG TAB PO SCH (21:02)
[2023-03-16] MEDS: GABAPENTIN 300 MG CAP PO SCH (21:03)
[2023-03-16] MEDS: NON FORMULARY DRUG (Vilazodone Hcl [Viibryd] 10 MG Tablet) PO SCH (21:03)
[2023-03-16] MEDS ORDERED: TEMAZEPAM 15 MG CAP PO PRN (22:00)
[2023-03-16] MEDS: diazePAM 5 MG TAB PO PRN (23:41)
[2023-03-16] MEDS: HYDROmorphone 0.5 MG/0.5 ML SYRINGE IVP PRN (23:42)
[2023-03-17] MEDS: LACTATED RINGERS 1,000 ML IV SCH ×4 (02:54→22:49)
[2023-03-17] MEDS: HYDROcodone/APAP 10-325MG 1 EACH TAB PO PRN (02:54)
[2023-03-17] MEDS: HYDROmorphone 0.5 MG/0.5 ML SYRINGE IVP PRN (06:39)
--- NOTE | 2023-03-17 07:50 | P.PN ---
Subjective Progress Note Date: 03/17/23 Relatively well this morning. Her pain is controlled. She is complaining of muscle spasms for which she is taking Valium which is in to help. She denies chest pain or shortness of breath Objective - Vital Signs Vital signs: Vital Signs Temp 98.7 F 03/17/23 02:00 Pulse 93 03/17/23 02:00 Resp 16 03/16/23 17:04 BP 157/72 03/17/23 02:00 Pulse Ox 93 L 03/17/23 02:00 FiO2 Intake & Output 03/16/23 03/17/23 03/17/23 18:59 06:59 18:59 Intake Total 1300 Output Total 100 Balance 1200 Weight 96.9 kg Intake: IV 1300 Output: Estimated Blood Loss 100 Other: # Voids 1 - Exam The patient is resting comfortably in her bed. She is alert and able to answer questions. A focused examination the left lower extremity was conducted. On inspection there is a clean dressing in place over the anterior aspect of the knee with a small dime-sized area of dried blood over the distal aspect of the dressing. There is mild swelling in the knee. Her thigh and calf are soft. Distally she is able to actively plantarflex and dorsiflex her ankles and her toes. Assessment and Plan Assessment: Postoperative day #1 status post left total knee replacement Fibromyalgia BMI 33.5 Chronic pain Plan: 1. Weight-bear as tolerated left lower extremity, up with assistance and a walker 2. 2 doses of postoperative antibiotics 3. DVT prophylaxis with Xarelto 10 mg daily 4 weeks given the patient's history of aspirin ALLERGY 4. Leave surgical dressing in place 5. Appreciate internal medicine's assistance of medical management 6. Physical therapy for gait training 7. Dispo: Due to the patient's history of fibromyalgia and chronic pain we'll plan on keeping her in additional night for pain control. We will plan for discharge home tomorrow if her pain is adequately controlled
[2023-03-17] MEDS: GABAPENTIN 300 MG CAP PO SCH ×3 (08:25→21:01)
[2023-03-17] MEDS: LACTULOSE 20 GM/30 ML CUP PO SCH ×2 (08:25→21:01)
[2023-03-17] MEDS: diazePAM 5 MG TAB PO PRN (08:25)
[2023-03-17] MEDS: RIVAROXABAN 10 MG TAB PO SCH (08:26)
[2023-03-17] MEDS: oxyCODONE-APAP 5-325MG 1 EACH TAB PO PRN ×3 (11:21→22:57)
[2023-03-17] MEDS ORDERED: ALPRAZolam 0.5 MG TAB PO PRN (14:30)
--- NOTE | 2023-03-17 14:33 | P.CONS ---
History of Present Illness - Reason for Consult Consult date: 03/17/23 Medical management - History of Present Illness History of present illness; patient is a 48-year-old lady with past medical history significant for COPD, bipolar disorder, fibromyalgia who presented to [facility] for elective left total knee arthroplasty. Patient has been following up outpatient with orthopedics for left knee pain. Patient has been working with therapy and has tried pain medications but continues to have left knee pain. Orthopedics scheduled the patient for elective left total knee arthroplasty and for this patient presented on 03/16. Postoperatively internal medicine team were consulted for medical management REVIEW OF SYSTEMS: CONSTITUTIONAL: No fever, no malaise, no fatigue. HEENT: No recent visual problems or hearing problems. Denied any sore throat. CARDIOVASCULAR: No chest pain, orthopnea, PND, no palpitations, no syncope. PULMONARY: No shortness of breath, no cough, no hemoptysis. GASTROINTESTINAL: No diarrhea, no nausea, no vomiting, no abdominal pain. NEUROLOGICAL: No headaches, no weakness, no numbness. HEMATOLOGICAL: Denies any bleeding or petechiae. GENITOURINARY: Denies any burning micturition, frequency, or urgency. MUSCULOSKELETAL/RHEUMATOLOGICAL: Left knee pain ENDOCRINE: Denies any polyuria or polydipsia. The rest of the 14-point review of systems is negative. PHYSICAL EXAMINATION: GENERAL: The patient is alert and oriented x3, not in any acute distress. Well developed, well nourished. HEENT: Pupils are round and equally reacting to light. EOMI. No scleral icterus. No conjunctival pallor. Normocephalic, atraumatic. No pharyngeal erythema. No thyromegaly. CARDIOVASCULAR: S1 and S2 present. No murmurs, rubs, or gallops. PULMONARY: Chest is clear to auscultation, no wheezing or crackles. ABDOMEN: Soft, nontender, nondistended, normoactive bowel sounds. No palpable organomegaly. MUSCULOSKELETAL: Left knee surgical incision seen EXTREMITIES: No cyanosis, clubbing, or pedal edema. NEUROLOGICAL: Gross neurological examination did not reveal any focal deficits. SKIN: No rashes. Assessment and plan Left knee osteoarthritis status post left total knee arthroplasty Hypertension Bipolar disorder Fibromyalgia COPD Monitor vital signs Monitor CBC Monitor CMP Continue pain management per orthopedics Continue DVT prophylaxis per orthopedic PT and OT consulted. Resume home Labs and medication were reviewed.. Continue same treatment. Continue with symptomatic treatment. Resume home medication. Monitor labs and vitals. DVT and GI prophylaxis. Further recommendations as per clinical course of the patient Dictation was produced using [employer] dictation software. please excuse any grammatical, word or spelling errors. Past Medical History Past Medical History: Asthma, COPD, Fibromyalgia, GERD/Reflux, Hypertension, Seizure Disorder, Sleep Apnea/CPAP/BIPAP Additional Past Medical History / Comment(s): Chronic back pain, LAST SEIZURE 2013, USES CPAP, VENTRAL HERNIA. History of Any Multi-Drug Resistant Organisms: None Reported Past Surgical History: Adenoidectomy, Appendectomy, Bariatric Surgery, Cholecystectomy, Hysterectomy, Joint Replacement, Orthopedic Surgery, Tonsillectomy, Tubal Ligation Additional Past Surgical History / Comment(s): Bilateral knee arthroscopy, epidural lumbar injections, BILATERAL CARPAL TUNNEL, ARTHROSCOPY RIGHT ELBOW, EGD with dilation, COLONOSCOPY, Gastric Sleeve 02/16/17, gastric bypass 10-30-18, Metal Clip in left breast, had mass removed, right knee replacement. Past Anesthesia/Blood Transfusion Reactions: No Reported Reaction, Motion Sickness Additional Past Anesthesia/Blood Transfusion Reaction / Comm: No hx blood transfusion. Past Psychological History: Anxiety, Bipolar, Depression Smoking Status: Former smoker Past Alcohol Use History: None Reported Additional Past Alcohol Use History / Comment(s): Patient was a smoker of one half pack per day and quit May 2014, smoked ON AND OFF FROM AGE 15. Past Drug Use History: None Reported - Past Family History Father Family Medical History: Deep Vein Thrombosis (DVT) Additional Family Medical History / Comment(s): Father with COVID and Influenza, history of coronary aneurysm. Mother Family Medical History: CVA/TIA, Diabetes Mellitus, Eye Disorder Additional Family Medical History / Comment(s): Mother is alive at age 63 with history of bipolar, stroke, blindness. Brother(s) Additional Family Medical History / Comment(s): Patient has 2 brothers that are healthy. She has no sisters. She has 2 sons and 1 daughter that are healthy. Medications and Allergies Home Medications Medication Instructions Recorded Confirmed Type Fluticasone Nasal [place] [Flonase 1 spray EA NOSTRIL DAILY PRN 10/20/15 03/16/23 History Nasal [place]] EPINEPHrine [Epipen 2-Melecio] 0.3 mg IM ONCE PRN 11/16/16 03/16/23 History Vilazodone HCl [Viibryd] 10 mg PO HS 11/16/16 03/16/23 History Gabapentin [Neurontin] 300 mg PO TID 02/16/17 03/16/23 History QUEtiapine [SEROquel] 400 mg PO HS 08/16/18 03/16/23 History Allergy Shots 1 dose IM Q14D 10/22/20 03/16/23 History Albuterol Sulfate [Ventolin HFA] 1 puff INHALATION DAILY PRN 05/28/21 03/16/23 History Budesonide-Formot 160-4.5 Mcg 1 puff IN BID PRN 05/28/21 03/16/23 History [Symbicort 160-4.5 Mcg Inhaler] methocarbamoL [Robaxin] 500 mg PO QID PRN 05/28/21 03/16/23 History ALPRAZolam [Xanax] 0.5 mg PO BID PRN 03/12/22 03/16/23 History Montelukast [Singulair] 10 mg PO HS 03/12/22 03/16/23 History HYDROcodone/APAP 7.5-325MG [[place] 1 tab PO Q4-6H PRN 06/16/22 03/16/23 History 7.5-325] lisinopriL [Zestril] 2.5 mg PO QAM 06/16/22 03/16/23 History Omeprazole [PriLOSEC] 40 mg PO QAM 11/16/22 03/16/23 History Lactulose 20 gm PO BID #480 ml 01/19/23 03/16/23 Rx Docusate [Colace] 100 mg PO BID #28 capsule 03/16/23 Rx Omeprazole 40 mg PO DAILY #30 cap 03/16/23 Rx Rivaroxaban [Xarelto] 10 mg PO DAILY #30 tab 03/16/23 Rx oxyCODONE HCL/ACETAMINOPHEN 1 tab PO Q6HR PRN #28 tab 03/17/23 Rx [Percocet 5-325 mg] Allergies Allergy/AdvReac Type Severity Reaction Status Date / Time adhesive Allergy Rash/Hives Verified 03/16/23 12:02 aspirin Allergy Anaphylaxis Verified 03/16/23 12:02 clonidine Allergy Rash/Hives Verified 03/16/23 12:02 hydroxyzine Allergy CONFUSION Verified 03/16/23 12:02 AND BODY SHAKES venlafaxine HCl Allergy Swelling Verified 03/16/23 12:02 [From Effexor] venom-honey bee Allergy Rash/Hives Verified 03/16/23 12:02 [bee venom (honey bee)] buspirone AdvReac Rash/Hives Verified 03/16/23 12:02 Physical Exam Vitals: Vital Signs Temp Pulse Resp BP Pulse Ox 03/17/23 08:00 98.3 F 94 17 149/89 94 L 03/17/23 02:00 98.7 F 93 157/72 93 L 03/16/23 19:36 88 147/87 97 03/16/23 19:21 92 131/82 98 03/16/23 19:06 95 144/77 100 03/16/23 18:52 87 122/67 98 03/16/23 18:36 80 145/81 97 03/16/23 18:21 82 147/82 97 03/16/23 18:06 86 137/82 96 03/16/23 17:51 83 124/84 94 L 03/16/23 17:36 97.4 F L 81 132/81 90 L 03/16/23 17:04 70 16 110/55 97 03/16/23 16:49 92 16 121/53 92 L 03/16/23 16:34 85 16 120/56 97 03/16/23 16:19 86 10 L 114/63 96 Intake and Output 03/16/23 03/17/23 03/17/23 22:59 06:59 14:59 Intake Total 250 200 Output Total 100 Balance 150 200 Intake: IV 250 Oral 200 Output: Estimated Blood Loss 100 Other: # Voids 1 1 Weight 96.9 kg
[2023-03-17 15:00] LABS: Basophils # (A) 0.01 X 10*3/uL (0.00-0.10); Basophils % (A) 0.1 %; Eosinophils # (A) 0 X 10*3/uL (0.04-0.35); Eosinophils % (A) 0 %; HCT 32.9 % (37.2-46.3); HGB 10.5 g/dL (12.0-15.0); Lymphocytes # (A) 1.04 X 10*3/uL (0.90-5.00); Lymphocytes % (A) 9.2 %; MCH 27.9 pg (27.0-32.0); MCHC 31.9 g/dL (32.0-37.0); MCV 87.5 FL (80.0-97.0); Mean Platelet Volume 11.7 FL (9.5-12.2); Monocytes # (A) 0.49 X 10*3/uL (0.20-1.00); Monocytes % (A) 4.4 %; NRBC Per 100 WBC 0 X 10*3/uL (0.00-0.01); Neutrophils # (A) 9.69 X 10*3/uL (1.80-7.70); Platelet Count 215 X 10*3/uL (140-440); RBC 3.76 X 10*6/uL (4.10-5.20); RDW 12.8 % (11.5-14.5); WBC 11.26 X 10*3/uL (4.50-10.00)
[2023-03-17] MEDS: MONTELUKAST 10 MG TAB PO SCH (21:01)
[2023-03-17] MEDS: QUEtiapine 400 MG TAB PO SCH (21:01)
[2023-03-17] MEDS: SENNOSIDES-DOCUSATE SODIUM 1 EACH TAB PO SCH (21:03)
[2023-03-17] MEDS: NON FORMULARY DRUG (Vilazodone Hcl [Viibryd] 10 MG Tablet) PO SCH (21:04)
[2023-03-18] MEDS: oxyCODONE-APAP 5-325MG 1 EACH TAB PO PRN (07:15)
--- NOTE | 2023-03-18 07:49 | P.DS ---
Providers Date of admission: 03/16/23 11:24 Attending physician: Leandro Brown Consults: 03/16/23 16:22 Consult Physician Routine Consulting Provider: Ravi Lam Consult Reason/Comments: post op medical management Do you want consulting provider notified?: Yes Primary care physician: Chan Galindo Miriam Hospital Course: The patient is a very pleasant 48-year-old female who was admitted under my care on Tuesday. She underwent an uncomplicated left total knee replacement and was transferred to the orthopedic floor following surgery. She received 2 doses of postoperative antibiotics. Due to an aspirin ALLERGY she was treated with Xarelto for DVT prophylaxis. Internal medicine was consulted for perioperative medical management. She was transitioned from IV to oral pain medications. She worked with physical therapy. She was kept an additional night for pain control due to a history of fibromyalgia. She was seen on postoperative day 2 and was comfortable. She was ultimately cleared for discharge home. Plan - Discharge Summary Discharge Rx Participant: Yes New Discharge Prescriptions: New Rivaroxaban [Xarelto] 10 mg PO DAILY #30 tab Docusate [Colace] 100 mg PO BID #28 capsule Omeprazole 40 mg PO DAILY #30 cap oxyCODONE HCL/ACETAMINOPHEN [Percocet 5-325 mg] 1 tab PO Q6HR PRN #28 tab PRN Reason: Pain No Action Fluticasone Nasal [place] [Flonase Nasal [place]] 1 spray EA NOSTRIL DAILY PRN PRN Reason: allergies Vilazodone HCl [Viibryd] 10 mg PO HS EPINEPHrine [Epipen 2-Melecio] 0.3 mg IM ONCE PRN PRN Reason: Anaphylaxis Gabapentin [Neurontin] 300 mg PO TID QUEtiapine [SEROquel] 400 mg PO HS Allergy Shots 1 dose IM Q14D Budesonide-Formot 160-4.5 Mcg [Symbicort 160-4.5 Mcg Inhaler] 1 puff IN BID PRN PRN Reason: Shortness Of Breath Or Wheezing Albuterol Sulfate [Ventolin HFA] 1 puff INHALATION DAILY PRN PRN Reason: Shortness Of Breath Or Wheezing ALPRAZolam [Xanax] 0.5 mg PO BID PRN PRN Reason: Anxiety Montelukast [Singulair] 10 mg PO HS lisinopriL [Zestril] 2.5 mg PO QAM Omeprazole [PriLOSEC] 40 mg PO QAM Lactulose 20 gm PO BID #480 ml methocarbamoL [Robaxin] 500 mg PO QID PRN PRN Reason: muscle spasms HYDROcodone/APAP 7.5-325MG [[place] 7.5-325] 1 tab PO Q4-6H PRN PRN Reason: Pain Discharge Medication List Fluticasone Nasal [place] [Flonase Nasal [place]] 1 spray EA NOSTRIL DAILY PRN 10/20/15 [History] EPINEPHrine [Epipen 2-Melecio] 0.3 mg IM ONCE PRN 11/16/16 [History] Vilazodone HCl [Viibryd] 10 mg PO HS 11/16/16 [History] Gabapentin [Neurontin] 300 mg PO TID 02/16/17 [History] QUEtiapine [SEROquel] 400 mg PO HS 08/16/18 [History] Allergy Shots 1 dose IM Q14D 10/22/20 [History] Albuterol Sulfate [Ventolin HFA] 1 puff INHALATION DAILY PRN 05/28/21 [History] Budesonide-Formot 160-4.5 Mcg [Symbicort 160-4.5 Mcg Inhaler] 1 puff IN BID PRN 05/28/21 [History] methocarbamoL [Robaxin] 500 mg PO QID PRN 05/28/21 [History] ALPRAZolam [Xanax] 0.5 mg PO BID PRN 03/12/22 [History] Montelukast [Singulair] 10 mg PO HS 03/12/22 [History] HYDROcodone/APAP 7.5-325MG [[place] 7.5-325] 1 tab PO Q4-6H PRN 06/16/22 [History] lisinopriL [Zestril] 2.5 mg PO QAM 06/16/22 [History] Omeprazole [PriLOSEC] 40 mg PO QAM 11/16/22 [History] Lactulose 20 gm PO BID #480 ml 01/19/23 [Rx] Docusate [Colace] 100 mg PO BID #28 capsule 03/16/23 [Rx] Omeprazole 40 mg PO DAILY #30 cap 03/16/23 [Rx] Rivaroxaban [Xarelto] 10 mg PO DAILY #30 tab 03/16/23 [Rx] oxyCODONE HCL/ACETAMINOPHEN [Percocet 5-325 mg] 1 tab PO Q6HR PRN #28 tab 03/17/23 [Rx] Follow up Appointment(s)/Referral(s): [facility], [NON-STAFF] - As Needed Leandro Brown MD [Medical Doctor] - 2 Weeks Activity/Diet/Wound Care/Special Instructions: 1. Weight-bear as tolerated on your operative extremity unless instructed otherwise. Use a walker or other assistive device to ambulate. 2. Leave surgical dressing in place. If your dressing becomes saturated with blood, there is drainage, or the dressing becomes loose please contact the office. 3. It is okay to shower with your surgical dressing, but do not submerge in water (no hot tubs, bath's, swimming etc.) 4. Make sure to take her blood clot prevention medication as prescribed (aspirin, Eliquis, Xarelto, and Plavix are commonly prescribed medications for blood clot prevention) 5. While taking [place] or Percocet for pain make sure you're taking a stool softener (Colace) and drink lots of water. 6. Keep all follow-up appointments as scheduled. You will usually be seen in 1-2 weeks following surgery. 7. Please contact the office with any questions or concerns [phone] Discharge Disposition: HOME SELF-CARE
[2023-03-18 08:49] VITALS: BP 156/99; PULSE 110; RESP 17; TEMP 98.9
[2023-03-18] MEDS: LACTULOSE 20 GM/30 ML CUP PO SCH (09:24)
[2023-03-18] MEDS: RIVAROXABAN 10 MG TAB PO SCH (09:24)
[2023-03-18] MEDS: GABAPENTIN 300 MG CAP PO SCH (09:24)
== END 2023-03-18 10:14 | disposition home or self-care (01) ==
LOC: OR 11:23 → 4SSUR 11:24
PROVIDERS: ADMIT Orthopaedic Surgery; ATTEND Orthopaedic Surgery
DX: M17.12 Unilateral primary osteoarthritis, left knee (principal); M79.7 Fibromyalgia; J44.9 Chronic obstructive pulmonary disease, unspecified; Z87.891 Personal history of nicotine dependence; G89.29 Other chronic pain; F31.9 Bipolar disorder, unspecified; F41.9 Anxiety disorder, unspecified; K21.9 Gastro-esophageal reflux disease without esophagitis; I10 Essential (primary) hypertension; G40.909 Epilepsy, unspecified, not intractable, without status epilepticus; G47.30 Sleep apnea, unspecified; M54.9 Dorsalgia, unspecified; Z90.49 Acquired absence of other specified parts of digestive tract; Z98.84 Bariatric surgery status; Z96.651 Presence of right artificial knee joint; Z79.899 Other long term (current) drug therapy; Z79.51 Long term (current) use of inhaled steroids; Z79.01 Long term (current) use of anticoagulants; Z88.6 Allergy status to analgesic agent; Z91.030 Bee allergy status; Z88.8 Allergy status to other drugs, medicaments and biological substances; Z91.048 Other nonmedicinal substance allergy status; Z82.3 Family history of stroke; Z83.3 Family history of diabetes mellitus; Z83.518 Family history of other specified eye disorder; Z81.8 Family history of other mental and behavioral disorders; Z83.2 Family history of diseases of the blood and blood-forming organs and certain disorders involving the immune mechanism; Z82.49 Family history of ischemic heart disease and other diseases of the circulatory system
CPT/HCPCS: 0055T; 27447; 64447; 64999; 85025

== ENCOUNTER → 2023-09-27 | Outpatient (CLI) | payer MEDICARE, OTHER ==
[2023-09-27 11:00] LABS: HCT 39.5 % (34.0-46.0); HGB 12.7 gm/dL (11.4-16.0); MCH 28.9 pg (25.0-35.0); MCHC 32.1 g/dL (31.0-37.0); MCV 89.9 fL (80.0-100.0); Mean Platelet Volume 8.9; Platelet Count 226 k/uL (150-450); RBC 4.39 m/uL (3.80-5.40); RDW 13.1 % (11.5-15.5); WBC 5.5 k/uL (3.8-10.6)
[2023-09-27 11:10] LABS: Partial Thromboplastin Time 25.7 sec (22.0-30.0); Prothrombin Time 10.9 sec (10.0-12.5)
[2023-09-27 21:11] LABS: Prealbumin 25.4 mg/dL (18.0-42.0)
[2023-09-27 21:13] LABS: % Iron Saturation 16.74 (12.00-45.00); ALT 19 U/L (8-44); AST 17 U/L (13-35); Albumin 4.7 g/dL (3.8-4.9); Albumin/Globulin Ratio 2.04 Ratio (1.60-3.17); Alkaline Phosphatase 130 U/L (41-126); Blood Urea Nitrogen 8.2 mg/dL (9.0-27.0); Calcium 9.9 mg/dL (8.7-10.3); Carbon Dioxide 24.4 mmol/L (21.6-31.8); Chloride 103 mmol/L (96-109); Chol/HDL Ratio 3.01 Ratio; Ferritin 41.7 ng/mL (10.0-291.0); Globulin 2.3 g/dL (1.6-3.3); Glucose 125 mg/dL (70-110); Iron 72 UG/DL (50-170); LDL Cholesterol,Calculated 67.8 mg/dL (0.0-131.0); Potassium 3.6 mmol/L (3.5-5.5); Sodium 143 mmol/L (135-145); Total Bilirubin 0.5 mg/dL (0.3-1.2); Total Iron Binding Capacity 430 UG/DL (228-460)
[2023-09-27 21:18] LABS: Vitamin B12 <150.0 pg/mL (200.0-944.0)
[2023-09-28 13:01] LABS: Zinc, Serum 68 ug/dL (60-130)
== END | disposition home or self-care (01) ==
LOC: LABWHC1 09:45
PROVIDERS: ATTEND Surgery Plastic and Reconstructive Surgery
DX: K50.90 Crohn's disease, unspecified, without complications (principal); N19 Unspecified kidney failure; T56.894A Toxic effect of other metals, undetermined, initial encounter; E55.9 Vitamin D deficiency, unspecified; E45 Retarded development following protein-calorie malnutrition; K91.2 Postsurgical malabsorption, not elsewhere classified; D50.8 Other iron deficiency anemias; E89.1 Postprocedural hypoinsulinemia; E44.0 Moderate protein-calorie malnutrition
CPT/HCPCS: 36415; 80053; 80061; 82306; 82525; 82607; 82728; 82746; 83036; 83540; 83550; 83735; 83970; 84100; 84134; 84255; 84425; 84443; 84590; 84630; 85027; 85610; 85730

== ENCOUNTER → 2023-10-14 | Outpatient (CLI) | payer MEDICARE, OTHER ==
--- NOTE | 2023-10-14 13:02 | FL ---
EXAMINATION TYPE: FL barium swallow DATE OF EXAM: 10/14/2023 CLINICAL INDICATION: 48-year-old female R1 3.10, dysphagia, reports acid reflux and burning sensation . Patient with history of previously converted to a Phuong-en-Y gastric bypass. COMPARISON: None Total Fluoroscopy Time: 2 minutes 13 seconds DAP: 786.80 mGycm2. 39 images obtained. FINDINGS: Single contrast was utilized due to patient's previous bariatric surgery. There is normal course, dragan iber, and motility of the thoracic esophagus. There is initial pooling of contrast in the lower esoph sheldon but with satisfactory passage on subsequent swallows. Possible mild narrowing and irregularity a t the GE junction. There is opacification of the proximal stomach and prompt passage across the gastr ojejunostomy with evidence of an end-to-side anastomosis. No hiatal hernia is identified. No gastroes ophageal reflux seen during the course of the exam. IMPRESSION: 1. Some initial hesitancy in passage of contrast into the stomach. This improves on subsequent swallo ws. Questionable mild stricture at the GE junction. Consider direct visualization. The irregularity h ere may be due to prior surgery. 2. Status post Phuong-en-Y gastric bypass with an end to side anastomosis. 3. No hiatal hernia or gastroesophageal reflux visualized.
== END | disposition home or self-care (01) ==
LOC: RADFLWHC 09:29
PROVIDERS: ATTEND Surgery Plastic and Reconstructive Surgery
DX: R13.10 Dysphagia, unspecified (principal); Z98.84 Bariatric surgery status
CPT/HCPCS: 74220

== ENCOUNTER 2023-11-29 16:42 | Emergency (ER) | payer MEDICARE, OTHER ==
--- NOTE | 2023-11-29 17:02 | ED ---
Abdominal Pain HPI - General Chief Complaint: Abdominal Pain Stated Complaint: NVD, Abd and back pain Time Seen by Provider: 11/29/23 17:00 Source: patient, RN notes reviewed Mode of arrival: ambulatory Limitations: no limitations - History of Present Illness Initial Comments: This is a 48-year-old female who presents to the emergency department for abdo veronica pain, nausea, and vomiting. Pain started 2 days ago. States that it is primarily in the right mid to upper abdomen with some radiation into the back. Nausea and vomiting have been going on for 2 days as well. Denies a history of similar pain in the past. She contacted Dr. Verde's office and was advised to come to the emergency department for evaluation. She does have an appointment with her tomorrow afternoon. MD Complaint: abdominal pain - Related Data Home Medications Medication Instructions Recorded Confirmed Fluticasone Nasal Emily [Flonase 1 spray EA NOSTRIL DAILY PRN 10/20/15 09/14/23 Nasal Emily] EPINEPHrine [Epipen 2-Melecio] 0.3 mg IM ONCE PRN 11/16/16 09/14/23 Vilazodone HCl [Viibryd] 10 mg PO HS 11/16/16 09/14/23 Gabapentin [Neurontin] 300 mg PO TID 02/16/17 09/14/23 QUEtiapine [SEROquel] 400 mg PO HS 08/16/18 09/14/23 Allergy Shots 1 dose IM Q14D 10/22/20 09/14/23 Albuterol Sulfate [Ventolin HFA] 1 puff INHALATION DAILY PRN 05/28/21 09/14/23 Budesonide-Formot 160-4.5 Mcg 1 puff IN BID PRN 05/28/21 09/14/23 [Symbicort 160-4.5 Mcg Inhaler] methocarbamoL [Robaxin] 500 mg PO QID PRN 05/28/21 09/14/23 ALPRAZolam [Xanax] 0.5 mg PO BID PRN 03/12/22 09/14/23 Montelukast [Singulair] 10 mg PO HS 03/12/22 09/14/23 HYDROcodone/APAP 7.5-325MG [[place] 1 tab PO Q4-6H PRN 06/16/22 09/14/23 7.5-325] lisinopriL [Zestril] 2.5 mg PO QAM 06/16/22 09/14/23 Omeprazole [PriLOSEC] 40 mg PO QAM 11/16/22 09/14/23 Previous Rx's Medication Instructions Recorded Lactulose 20 gm PO BID #480 ml 01/19/23 Docusate [Colace] 100 mg PO BID #28 capsule 03/16/23 Ondansetron Odt [Zofran Odt] 4 mg PO Q8HR PRN #30 tab 11/29/23 Allergies Allergy/AdvReac Type Severity Reaction Status Date / Time adhesive Allergy Rash/Hives Verified 11/29/23 17:33 aspirin Allergy Anaphylaxis Verified 11/29/23 17:33 clonidine Allergy Rash/Hives Verified 11/29/23 17:33 hydroxyzine Allergy CONFUSION Verified 11/29/23 17:33 AND BODY SHAKES venlafaxine HCl Allergy Swelling Verified 11/29/23 17:33 [From Effexor] venom-honey bee Allergy Rash/Hives Verified 11/29/23 17:33 [bee venom (honey bee)] buspirone AdvReac Rash/Hives Verified 11/29/23 17:33 Review of Systems ROS Statement: Those systems with pertinent positive or pertinent negative responses have been documented in the HPI. ROS Other: All systems not noted in ROS Statement are negative. Past Medical History Past Medical History: Asthma, COPD, Fibromyalgia, GERD/Reflux, Hypertension, Seizure Disorder, Sleep Apnea/CPAP/BIPAP Additional Past Medical History / Comment(s): Chronic back pain, LAST SEIZURE 2013, USES CPAP, VENTRAL HERNIA. History of Any Multi-Drug Resistant Organisms: None Reported Past Surgical History: Adenoidectomy, Appendectomy, Bariatric Surgery, Cholecystectomy, Hysterectomy, Joint Replacement, Orthopedic Surgery, Tonsil lectomy, Tubal Ligation Additional Past Surgical History / Comment(s): Bilateral knee arthroscopy, epidural lumbar injections, BILATERAL CARPAL TUNNEL, ARTHROSCOPY RIGHT ELBOW, EGD with dilation, COLONOSCOPY, Gastric Sleeve 02/16/17, gastric bypass 10-30-18, Metal Clip in left breast, had mass removed, right knee replacement. lt knee replacement Past Anesthesia/Blood Transfusion Reactions: No Reported Reaction, Motion Sickness Additional Past Anesthesia/Blood Transfusion Reaction / Comment(s): No hx blood transfusion. Past Psychological History: Anxiety, Bipolar, Depression Smoking Status: Former smoker Past Alcohol Use History: None Reported Additional Past Alcohol Use History / Comment(s): Patient was a smoker of one half pack per day and quit May 2014, smoked ON AND OFF FROM AGE 15. Past Drug Use History: None Reported - Past Family History Father Family Medical History: Deep Vein Thrombosis (DVT) Additional Family Medical History / Comment(s): Father with COVID and Influenza, history of coronary aneurysm. Mother Family Medical History: CVA/TIA, Diabetes Mellitus, Eye Disorder Additional Family Medical History / Comment(s): Mother is alive at age 63 with history of bipolar, stroke, blindness. Brother(s) Additional Family Medical History / Comment(s): Patient has 2 brothers that are healthy. She has no sisters. She has 2 sons and 1 daughter that are healthy. General Exam Limitations: no limitations General appearance: alert, in no apparent distress Head exam: Present: atraumatic, normocephalic, normal inspection Respiratory exam: Present: normal lung sounds bilaterally. Absent: respiratory distress, wheezes, rales, rhonchi, stridor Cardiovascular Exam: Present: regular rate, normal rhythm, normal heart sounds. Absent: systolic murmur, diastolic murmur, rubs, gallop, clicks GI/Abdominal exam: Present: soft, tenderness (Right mid abdomen), normal bowel sounds. Absent: distended Neurological exam: Present: alert, oriented X3, CN II-XII intact Psychiatric exam: Present: normal affect, normal mood Skin exam: Present: warm, dry, intact, normal color. Absent: rash Course Vital Signs 11/29/23 11/29/23 11/29/23 17:31 20:31 22:26 Temperature 98.4 F Pulse Rate 65 54 L 78 Respiratory 18 18 18 Rate Blood Pressure 159/92 166/100 145/95 O2 Sat by Pulse 99 97 96 Oximetry Medical Decision Making - Medical Decision Making This is a 48 year old female who presents to the emergency department for abdominal pain. Was pt. sent in by a medical professional or institution? @ -No Did you speak to anyone other than the patient for history? @ -No Did you review nursing and triage notes? @ -Yes, and I agree, it is accurate with regards to the patient's symptoms. Were old charts reviewed? @ -No Differential Diagnosis? @ -Differential Abdominal Pain Women: Appendicitis, Cholecystitis, diverticulosis, ischemic bowel, pancreatitis, hepatitis, UTI, gastroenteritis, AAA, incarcerated hernia, bowel obstruction, constipation, inflammatory bowel, hepatitis, peptic ulcer disease, splenic inf arction, perforated viscus, vulvitis, ovarian torsion, PID, kidney stone, placenta abruption, this is not meant to be an all-inclusive list EKG interpreted by me (3pts min.)? @ -Not obtained X-rays interpreted by me (1pt min.)? @ -Not obtained CT interpreted by me (1pt min.)? @ -CT scan of the abdomen and pelvis obtained. My interpretation identifies no evidence of bowel wall thickening or free air. U/S interpreted by me (1pt. min.)? @ -Not obtained What testing was considered but not performed? (CT, X-rays, U/S, labs)? Why? @ -None What meds were considered but not given? Why? @ -None Did you discuss the management of the patient with other professionals? @ -No Did you reconcile home meds? @ -No Was smoking cessation discussed for >3mins.? @ -No Was critical care preformed (if so, how long)? @ -No Were there social determinants of health that impacted care today? How? (Homelessness, low income, unemployed, alcoholism, drug addiction, transportation, low edu. Level, literacy, decrease access to med. care, [facility], rehab)? @ -No Was there de-escalation of care discussed even if they declined? (Discuss DNR or withdrawal of care, Hospice)? @ -No What co-morbidities impacted this encounter? (DM, HTN, Smoking, COPD, CAD, Cancer, CVA, Hep., AIDS, mental health diagnosis, sleep apnea, morbid obesity)? @ -None Was patient admitted / discharged? @ -Discharged. Lab work unremarkable. Urinalysis negative for signs of infect ion. CT scan of the abdomen and pelvis obtained revealing no acute process. Symptoms were managed in the emergency department and she was tolerating oral intake. Prescription for Zofran provided. Advised she follow-up with Dr. Verde's office as scheduled tomorrow and slowly advance her diet as tolerated and remain well-hydrated. Case discussed with ED attending Dr. Fermin. Return precautions reviewed in depth, the patient is instructed to return to the emergency department with any new, worsening, or concerning symptoms. Patient verbalized understanding. Undiagnosed new problem with uncertain prognosis? @ -None Drug Therapy requiring intensive monitoring for toxicity (Heparin, Nitro, Insulin, Cardizem)? @ -None Were any procedures done? @ -None Diagnosis/symptom? @ -Abdominal pain Acute, or Chronic, or Acute on Chronic? @ -Acute Uncomplicated (without systemic symptoms) or Complicated (systemic symptoms)? @ -Uncomplicated Side effects of treatment? @ -None Exacerbation, Progression, or Severe Exacerbation] @ -Not applicable Poses a threat to life or bodily function? @ -No - Lab Data Result diagrams: 11/29/23 18:24 11/29/23 18:24 Lab Results 11/29/23 11/29/23 11/29/23 Range/Units 18:24 18:24 18:24 WBC 6.6 (3.8-10.6) k/uL RBC 4.33 (3.80-5.40) m/uL Hgb 12.3 (11.4-16.0) gm/dL Hct 38.0 (34.0-46.0) % MCV 87.8 (80.0-100.0) fL MCH 28.6 (25.0-35.0) pg MCHC 32.5 (31.0-37.0) g/dL RDW 12.8 (11.5-15.5) % Plt Count 248 (150-450) k/uL MPV 8.1 Neutrophils % 49 % Lymphocytes % 43 % Monocytes % 4 % Eosinophils % 2 % Basophils % 1 % Neutrophils # 3.2 (1.3-7.7) k/uL Lymphocytes # 2.8 (1.0-4.8) k/uL Monocytes # 0.3 (0-1.0) k/uL Eosinophils # 0.1 (0-0.7) k/uL Basophils # 0.0 (0-0.2) k/uL Sodium 141 (137-145) mmol/L Potassium 4.2 (3.5-5.1) mmol/L Chloride 105 (98-107) mmol/L Carbon Dioxide 31 H (22-30) mmol/L Anion Gap 5 mmol/L BUN 12 (7-17) mg/dL Creatinine 1.01 (0.52-1.04) mg/dL Est GFR (CKD-EPI)AfAm 75 (>60 ml/min/1.73 sqM) Est GFR (CKD-EPI)NonAf 65 (>60 ml/min/1.73 sqM) Glucose 93 (74-99) mg/dL Plasma Lactic Acid Jeff 0.7 (0.7-2.0) mmol/L Calcium 9.7 (8.4-10.2) mg/dL Total Bilirubin 0.4 (0.2-1.3) mg/dL AST 23 (14-36) U/L ALT 21 (4-34) U/L Alkaline Phosphatase 93 (38-126) U/L Total Protein 7.2 (6.3-8.2) g/dL Albumin 4.6 (3.5-5.0) g/dL Amylase 38 (30-110) U/L Lipase 96 (23-300) U/L Urine Color Urine Appearance (Clear) Urine pH (5.0-8.0) Ur Specific [place] (1.001-1.035) Urine Protein (Negative) Urine Glucose (UA) (Negative) Urine Ketones (Negative) Urine Blood (Negative) Urine Nitrite (Negative) Urine Bilirubin (Negative) Urine Urobilinogen (<2.0) mg/dL Ur Leukocyte Esterase (Negative) Urine RBC (0-5) /hpf Urine WBC (0-5) /hpf Ur Squamous Epith Cells (0-4) /hpf Urine Bacteria (None) /hpf Urine Mucus (None) /hpf 11/29/23 Range/Units 19:00 WBC (3.8-10.6) k/uL RBC (3.80-5.40) m/uL Hgb (11.4-16.0) gm/dL Hct (34.0-46.0) % MCV (80.0-100.0) fL MCH (25.0-35.0) pg MCHC (31.0-37.0) g/dL RDW (11.5-15.5) % Plt Count (150-450) k/uL MPV Neutrophils % % Lymphocytes % % Monocytes % % Eosinophils % % Basophils % % Neutrophils # (1.3-7.7) k/uL Lymphocytes # (1.0-4.8) k/uL Monocytes # (0-1.0) k/uL Eosinophils # (0-0.7) k/uL Basophils # (0-0.2) k/uL Sodium (137-145) mmol/L Potassium (3.5-5.1) mmol/L Chloride (98-107) mmol/L Carbon Dioxide (22-30) mmol/L Anion Gap mmol/L BUN (7-17) mg/dL Creatinine (0.52-1.04) mg/dL Est GFR (CKD-EPI)AfAm (>60 ml/min/1.73 sqM) Est GFR (CKD-EPI)NonAf (>60 ml/min/1.73 sqM) Glucose (74-99) mg/dL Plasma Lactic Acid Jeff (0.7-2.0) mmol/L Calcium (8.4-10.2) mg/dL Total Bilirubin (0.2-1.3) mg/dL AST (14-36) U/L ALT (4-34) U/L Alkaline Phosphatase (38-126) U/L Total Protein (6.3-8.2) g/dL Albumin (3.5-5.0) g/dL Amylase (30-110) U/L Lipase (23-300) U/L Urine Color Light Yellow Urine Appearance Clear (Clear) Urine pH 7.0 (5.0-8.0) Ur Specific [place] 1.018 (1.001-1.035) Urine Protein Negative (Negative) Urine Glucose (UA) Negative (Negative) Urine Ketones Negative (Negative) Urine Blood Negative (Negative) Urine Nitrite Negative (Negative) Urine Bilirubin Negative (Negative) Urine Urobilinogen <2.0 (<2.0) mg/dL Ur Leukocyte Esterase Trace H (Negative) Urine RBC <1 (0-5) /hpf Urine WBC 5 (0-5) /hpf Ur Squamous Epith Cells 7 H (0-4) /hpf Urine Bacteria Rare H (None) /hpf Urine Mucus Rare H (None) /hpf - Radiology Data Radiology results: report reviewed, image reviewed Disposition Clinical Impression: Abdominal pain Disposition: HOME SELF-CARE Instructions (If sedation given, give patient instructions): Abdominal Pain (ED) Additional Instructions: Return to the emergency department with any new, worsening, or concerning symptoms. Take the Zofran up to every 8 hours as needed for nausea and vomiting. Follow-up with Dr. Verde tomorrow as scheduled. Prescriptions: Ondansetron Odt [Zofran Odt] 4 mg PO Q8HR PRN #30 tab PRN Reason: Nausea And Vomiting Is patient prescribed a controlled substance at d/c from ED?: No Referrals: Chan Jain [Primary Care Provider] - 1-2 days Time of Disposition: 21:56
[2023-11-29 17:33] VITALS: RESP 18; TEMP 98.4
[2023-11-29 18:34] LABS: Basophils % (A) 1 %; Eosinophils # (A) 0.1 k/uL (0-0.7); Eosinophils % (A) 2 %; HGB 12.3 gm/dL (11.4-16.0); Lymphocytes # (A) 2.8 k/uL (1.0-4.8); Lymphocytes % (A) 43 %; MCH 28.6 pg (25.0-35.0); MCHC 32.5 g/dL (31.0-37.0); MCV 87.8 fL (80.0-100.0); Mean Platelet Volume 8.1; Monocytes # (A) 0.3 k/uL (0-1.0); Monocytes % (A) 4 %; Neutrophils # (A) 3.2 k/uL (1.3-7.7); Neutrophils % (A) 49 %; Platelet Count 248 k/uL (150-450); RBC 4.33 m/uL (3.80-5.40); RDW 12.8 % (11.5-15.5); WBC 6.6 k/uL (3.8-10.6)
[2023-11-29] MEDS: HYDROmorphone 1 MG/ML 1 ML SYRINGE IVP STA ×2 (18:52→21:16)
[2023-11-29] MEDS: ONDANSETRON 4 MG/2 ML VIAL IVP STA ×2 (18:52→21:07)
[2023-11-29 18:53] LABS: ALT 21 U/L (4-34); AST 23 U/L (14-36); African American GFR (CKD) 75 (>60 ml/min/1.73 sqM); Albumin 4.6 g/dL (3.5-5.0); Alkaline Phosphatase 93 U/L (38-126); Amylase 38 U/L (30-110); Anion Gap 5 mmol/L; Blood Urea Nitrogen 12 mg/dL (7-17); Calcium 9.7 mg/dL (8.4-10.2); Carbon Dioxide 31 mmol/L (22-30); Chloride 105 mmol/L (98-107); Glucose 93 mg/dL (74-99); Lipase 96 U/L (23-300); Non-African American GFR(CKD) 65 (>60 ml/min/1.73 sqM); Potassium 4.2 mmol/L (3.5-5.1); Sodium 141 mmol/L (137-145); Total Bilirubin 0.4 mg/dL (0.2-1.3); Total Protein 7.2 g/dL (6.3-8.2)
[2023-11-29] MEDS: SODIUM CHLORIDE 0.9% 1,000 ML IV STA (18:53)
[2023-11-29] MEDS: FAMOTIDINE 20 MG/2 ML VIAL IV STA (19:05)
[2023-11-29 19:23] LABS: Appearance,Urine Clear (Clear); Bacteria,Urine Rare /hpf; Bilirubin,Urine Negative (Negative); Blood,Urine Negative (Negative); Color,Urine Light Yellow; Glucose,Urine (UA) Negative (Negative); Ketones,Urine Negative (Negative); Leukocyte Esterase,Urine Trace (Negative); Mucus,Urine Rare /hpf; Nitrite,Urine Negative (Negative); Protein,Urine Negative (Negative); RBC,Urine <1 /hpf (0-5); Specific Gravity,Urine 1.018 (1.001-1.035); Squamous Epithelial Cell,Urine 7 /hpf (0-4); Urobilinogen,Urine <2.0 mg/dL (<2.0); WBC,Urine 5 /hpf (0-5)
--- NOTE | 2023-11-29 20:35 | CT ---
EXAMINATION TYPE: CT abdomen pelvis w con CT DLP: 1179.2 mGycm, Automated exposure control for dose reduction was used. DATE OF EXAM: 11/29/2023 7:45 PM COMPARISON: CT abdomen pelvis most recent from CLINICAL INDICATION: Female, 48 years old with history of Right sided abdominal pain; Right side abdo veroinca/flank pain x 1 day with nausea, vomiting, and fever. TECHNIQUE: Axial CT abdomen pelvis w con;Sagittal and coronal reformats were created on a separate w orkstation. Contrast used:80 mL of Isovue 300 with IV Contrast, (none if empty) Oral contrast used: without Oral Contrast (none if empty) FINDINGS: LOWER CHEST: Unremarkable ABDOMEN LIVER: Unremarkable GALLBLADDER AND BILE DUCTS: The gallbladder is surgically absent. PANCREAS: Unremarkable. SPLEEN: Unremarkable. ADRENAL GLANDS: Unremarkable. KIDNEYS AND URETERS: No evidence of hydronephrosis or renal calculus. The ureters are unremarkable. PELVIS BLADDER: Unremarkable REPRODUCTIVE: Unremarkable. ABDOMEN & PELVIS STOMACH AND BOWEL: No evidence of bowel obstruction. Postsurgical changes to the bowel and stomach. N o evidence for obstruction. Scattered colonic diverticula. The appendix appears surgically absent. PERITONEUM/RETROPERITONEUM: No evidence of pneumoperitoneum or free fluid. VASCULATURE: No evidence of aortic aneurysm. MUSCULOSKELETAL: No acute osseous abnormalities LYMPH NODES: No gross evidence for lymphadenopathy. SOFT TISSUE/ABDOMINAL WALL: Unremarkable IMPRESSION: 1. No evidence for acute abdominal process. 2. Postsurgical changes of bowel no evidence for obstruction. The appendix appears surgically absent . No obstructive uropathy or renal calculus.
[2023-11-29 22:27] VITALS: BP 145/95; PULSE 78
[2023-11-29] MEDS: ONDANSETRON 4 MG ODT STARTER PACK 2 TAB BTL PO STA (22:28)
== END 2023-11-29 22:27 | disposition home or self-care (01) ==
LOC: EC 16:42
DX: R10.10 Upper abdominal pain, unspecified (principal); Z87.891 Personal history of nicotine dependence; Z88.6 Allergy status to analgesic agent; Z91.09 Other allergy status, other than to drugs and biological substances; Z91.030 Bee allergy status; Z88.8 Allergy status to other drugs, medicaments and biological substances
CPT/HCPCS: 36415; 80053; 82150; 83605; 83690; 85025; 81001; 74177; 96374; 96375 ×2; 96376; 96361; 99284; J2405; J3490; J1170; S0119; Q9967

== ENCOUNTER 2023-12-28 15:37 | Inpatient (IN) | payer MEDICARE, OTHER ==
--- NOTE | 2023-12-28 15:55 | ED ---
Abdominal Pain HPI - General Source: patient, RN notes reviewed Mode of arrival: ambulatory Limitations: no limitations <Lisa Agosto - Last Filed: 12/28/23 15:53> - General Source: patient, RN notes reviewed Mode of arrival: ambulatory Limitations: no limitations <Tita Bird - Last Filed: 12/28/23 18:52> - General Chief Complaint: Abdominal Pain Stated Complaint: GI issue, post op Time Seen by Provider: 12/28/23 15:45 - History of Present Illness Initial Comments: Quick Note: This is a 48-year-old female who presents to the emergency department for abdominal pain. Patient has been dealing with abdominal pain, nausea, and vomiting worsening over the last month. She followed up with Dr. Verde today and there was concern about an esophageal stricture. She sent her to the emergency department for further evaluation. (Lisa Agosto) 48-year-old female presented to the ER for chief complaint of abdominal pain. Patient underwent Phuong-en-Y bypass by Dr. Verde. She states for the past day she has been nauseous, vomiting and having intense epigastric abdominal pain. She was seen by Dr. Verde today and was sent to the ER for further evaluation. Patient states she had a swallow test performed which is concerning of an obstruction. She has taken [place] for pain control at home. She has not taken anything for nausea. Denies any fevers or chills. Last bowel movement this morning which was per normal. Admits to flatulence. Denies any other complaints. (Tita Bird) - Related Data Home Medications Medication Instructions Recorded Confirmed EPINEPHrine [Epipen 2-Melecio] 0.3 mg IM ONCE PRN 11/16/16 12/28/23 Vilazodone HCl [Viibryd] 10 mg PO HS 11/16/16 12/28/23 Gabapentin [Neurontin] 300 mg PO TID 02/16/17 12/28/23 Albuterol Sulfate [Ventolin HFA] 2 puff INHALATION RT-Q6H PRN 05/28/21 12/28/23 methocarbamoL [Robaxin] 500 mg PO QID 05/28/21 12/28/23 ALPRAZolam [Xanax] 1 mg PO BID PRN 03/12/22 12/28/23 Montelukast [Singulair] 10 mg PO HS 03/12/22 12/28/23 HYDROcodone/APAP 7.5-325MG [[place] 1 tab PO Q6H 06/16/22 12/28/23 7.5-325] Omeprazole [PriLOSEC] 40 mg PO DAILY 11/16/22 12/28/23 Lactulose 20 gm PO BID PRN 12/28/23 12/28/23 Metoprolol Succinate (ER) [Toprol 25 mg PO DAILY 12/28/23 12/28/23 Xl] QUEtiapine FUMARATE [SEROquel XR] 400 mg PO HS 12/28/23 12/28/23 lisinopriL 2.5 mg PO DAILY 12/28/23 12/28/23 Allergies Allergy/AdvReac Type Severity Reaction Status Date / Time adhesive Allergy Rash/Hives Verified 12/28/23 17:45 aspirin Allergy Anaphylaxis Verified 12/28/23 17:45 clonidine Allergy Rash/Hives Verified 12/28/23 17:45 hydroxyzine Allergy CONFUSION Verified 12/28/23 17:45 AND BODY SHAKES venlafaxine HCl Allergy Swelling Verified 12/28/23 17:45 [From Effexor] venom-honey bee Allergy Anaphylaxis Verified 12/28/23 17:45 [bee venom (honey bee)] buspirone AdvReac Rash/Hives Verified 12/28/23 17:45 Review of Systems ROS Other: All systems not noted in ROS Statement are negative. <Lisa Agosto - Last Filed: 12/28/23 15:53> ROS Other: All systems not noted in ROS Statement are negative. <Tita Bird - Last Filed: 12/28/23 18:52> ROS Statement: Those systems with pertinent positive or pertinent negative responses have been documented in the HPI. Past Medical History Past Medical History: Asthma, COPD, Fibromyalgia, GERD/Reflux, Hypertension, Seizure Disorder, Sleep Apnea/CPAP/BIPAP Additional Past Medical History / Comment(s): Chronic back pain, LAST SEIZURE 2013, USES CPAP, VENTRAL HERNIA, Tachycardia History of Any Multi-Drug Resistant Organisms: None Reported Past Surgical History: Adenoidectomy, Appendectomy, Bariatric Surgery, Cholecystectomy, Hysterectomy, Joint Replacement, Orthopedic Surgery, Tonsillectomy, Tubal Ligation Additional Past Surgical History / Comment(s): Bilateral knee arthroscopy, epidural lumbar injections, BILATERAL CARPAL TUNNEL, ARTHROSCOPY RIGHT ELBOW, EGD with dilation, COLONOSCOPY, Gastric Sleeve 02/16/17, gastric bypass 10-30-18, Metal Clip in left breast, had mass removed, right knee replacement. lt knee replacement Past Anesthesia/Blood Transfusion Reactions: No Reported Reaction, Motion Sickness Additional Past Anesthesia/Blood Transfusion Reaction / Comment(s): No hx blood transfusion. Past Psychological History: Anxiety, Bipolar, Depression Smoking Status: Former smoker Past Alcohol Use History: None Reported Past Drug Use History: None Reported - Past Family History Father Family Medical History: Deep Vein Thrombosis (DVT) Additional Family Medical History / Comment(s): Father with COVID and Influenza, history of coronary aneurysm. Mother Family Medical History: CVA/TIA, Diabetes Mellitus, Eye Disorder Additional Family Medical History / Comment(s): Mother is alive at age 63 with history of bipolar, stroke, blindness. Brother(s) Additional Family Medical History / Comment(s): Patient has 2 brothers that are healthy. She has no sisters. She has 2 sons and 1 daughter that are healthy. <Lisa Agosto - Last Filed: 12/28/23 15:53> General Exam Limitations: no limitations <Lisa Agosto - Last Filed: 12/28/23 15:53> Limitations: no limitations General appearance: alert, in no apparent distress Respiratory exam: Present: normal lung sounds bilaterally. Absent: respiratory distress, wheezes, rales, rhonchi, stridor Cardiovascular Exam: Present: regular rate, normal rhythm, normal heart sounds. Absent: systolic murmur, diastolic murmur, rubs, gallop, clicks GI/Abdominal exam: Present: soft, tenderness (Generalized), normal bowel sounds. Absent: distended, guarding, rebound, rigid Extremities exam: Present: normal inspection, full ROM, normal capillary refill. Absent: tenderness, pedal edema, joint swelling, calf tenderness Neurological exam: Present: alert, oriented X3, CN II-XII intact Skin exam: Present: warm, dry, intact, normal color. Absent: rash <Tita Bird - Last Filed: 12/28/23 18:52> - General Exam Comments Initial Comments: Visual Physical Exam Vital signs reviewed General: Well-appearing, nontoxic, no acute distress. Head: Normocephalic, atraumatic Eyes: PERRLA, EOMI ENT: Airway patent Chest: Nonlabored breathing Skin: No visual rash, normal skin tone Neuro: Alert and oriented 3 Musculoskeletal: No gross abnormalities (Lisa Agosto) Course <Tita Bird - Last Filed: 12/28/23 18:52> Vital Signs 12/28/23 12/28/23 12/28/23 15:38 17:50 18:30 Temperature 98.0 F 98.3 F Pulse Rate 61 56 L 56 L Respiratory 18 15 16 Rate Blood Pressure 157/74 151/83 164/84 O2 Sat by Pulse 99 99 97 Oximetry - Reevaluation(s) Reevaluation #1: 12/28/23 17:[address] Verde for admission. No imaging needed per surgery. (Tita Bird) Medical Decision Making <Lisa Agosto - Last Filed: 12/28/23 15:53> - Lab Data Result diagrams: 12/28/23 16:57 12/28/23 16:57 <Tita Bird - Last Filed: 12/28/23 18:52> - Medical Decision Making I performed the QuickNote portion of this chart. Signed Lisa Agosto PA-C. (Lisa Agosto) Was pt. sent in by a medical professional or institution ([facility], [facility], urgent care, hospital, or longterm...) When possible be specific @ -Patient was sent by Dr. Verde for admission due to esophageal stricture. Did you speak to anyone other than the patient for history (EMS, parent, family, police, friend...)? What history was obtained from this source @ -No Did you review nursing and triage notes (agree or disagree)? Why? @ -I reviewed and agree with nursing and triage notes Were old charts reviewed (outside hosp., previous admission, EMS record, old EKG, old radiological studies, urgent care reports/EKG's, longterm records)? Report findings @ -Yes, I reviewed barium swallow study from 10-14-2023 showing concern of esophageal stricture. Differential Diagnosis (chest pain, altered mental status, abdominal pain women, abdominal pain men, vaginal bleeding, weakness, fever, dyspnea, syncope, he adache, dizziness, GI bleed, back pain, seizure, CVA, palpatations, mental health, musculoskeletal)? @ -Differential Abdominal Pain Women: Appendicitis, Cholecystitis, diverticulosis, ischemic bowel, pancreatitis, hepatitis, UTI, gastroenteritis, AAA, incarcerated hernia, bowel obstruction, constipation, inflammatory bowel, hepatitis, peptic ulcer disease, splenic infarction, perforated viscus, vulvitis, ovarian torsion, PID, kidney stone, placenta abruption, this is not meant to be an all-inclusive list EKG interpreted by me (3pts min.). @ -None done X-rays interpreted by me (1pt min.). @ -None done CT interpreted by me (1pt min.). @ -None done U/S interpreted by me (1pt. min.). @ -None done What testing was considered but not performed or refused? (CT, X-rays, U/S, labs)? Why? @ -None What meds were considered but not given or refused? Why? @ -None Did you discuss the management of the patient with other professionals (professionals i.e. , PA, [facility] [facility], lab, RT, psych nurse, social sciences instructor, briquetting machine operator, teacher, fisheries technical officer, casey saw operator)? Give summary @ -Yes, case discussed with Dr. Verde for admission. No imaging needed at this time per surgery. Patient can consume ice chips. Was smoking cessation discussed for >3mins.? @ -No Was critical care preformed (if so, how long)? @ -No Were there social determinants of health that impacted care today? How? (Homelessness, low income, unemployed, alcoholism, drug addiction, transportation, low edu. Level, literacy, decrease access to med. care, fdc, rehab)? @ -No Was there de-escalation of care discussed even if they declined (Discuss DNR or withdrawal of care, Hospice)? DNR status @ -No What co-morbidities impacted this encounter? (DM, HTN, Smoking, COPD, CAD, Cancer, CVA, ARF, Chemo, Hep., AIDS, mental health diagnosis, sleep apnea, morbid obesity)? @ -None Was patient admitted / discharged? Hospital course, mention meds given and route, prescriptions, significant lab abnormalities, going to OR and other pertinent info. @ -Admitted. 48 year old female presenting to the ER with a chief complaint of nausea, vomiting and abdominal pain. Patient sent by Dr. Verde for admission due to esophageal stricture. Patient initially seen as a quick note. Upon my evaluation, patient resting comfortably on stretcher no signs of acute distress. Exam remarkable for generalized abdominal pain with normal bowel sounds. No rebound or guarding. Laboratory studies obtained unremarkable. Urinalysis without evidence of dehydration or infection. I discussed this case with Dr. Verde for admission. She advised against imaging at this time as she had imaging 1 month prior. Patient given 2 L IV fluids, symptomatic treatment and NPO diet except ice chips per surgery. Patient is agreeable for admission. Patient admitted for further evaluation and treatment. Case discussed with ED attending, Dr. Hardy. Undiagnosed new problem with uncertain prognosis? @ -No Drug Therapy requiring intensive monitoring for toxicity (Heparin, Nitro, Insulin, Cardizem)? @ -No Were any procedures done? @ -No Diagnosis/symptom? @ -Esophageal stricture Acute, or Chronic, or Acute on Chronic? @ -Acute Uncomplicated (without systemic symptoms) or Complicated (systemic symptoms)? @ -Complicated Side effects of treatment? @ -No Exacerbation, Progression, or Severe Exacerbation? @ -No Poses a threat to life or bodily function? How? (Chest pain, [place], NE, pneumonia, PE, COPD, DKA, ARF, appy, cholecystitis, CVA, Diverticulitis, Homicidal, Suicidal, threat to staff... and all critical care pts) @ -Low at this time (Tita Bird) - Lab Data Lab Results 12/28/23 12/28/23 12/28/23 Range/Units 16:57 16:57 16:57 WBC 7.0 (3.8-10.6) k/uL RBC 4.22 (3.80-5.40) m/uL Hgb 12.3 (11.4-16.0) gm/dL Hct 37.7 (34.0-46.0) % MCV 89.4 (80.0-100.0) fL MCH 29.1 (25.0-35.0) pg MCHC 32.6 (31.0-37.0) g/dL RDW 12.8 (11.5-15.5) % Plt Count 236 (150-450) k/uL MPV 7.9 Neutrophils % 66 % Lymphocytes % 28 % Monocytes % 4 % Eosinophils % 1 % Basophils % 0 % Neutrophils # 4.6 (1.3-7.7) k/uL Lymphocytes # 2.0 (1.0-4.8) k/uL Monocytes # 0.2 (0-1.0) k/uL Eosinophils # 0.1 (0-0.7) k/uL Basophils # 0.0 (0-0.2) k/uL Sodium 142 (137-145) mmol/L Potassium 4.0 (3.5-5.1) mmol/L Chloride 107 (98-107) mmol/L Carbon Dioxide 28 (22-30) mmol/L Anion Gap 7 mmol/L BUN 9 (7-17) mg/dL Creatinine 0.89 (0.52-1.04) mg/dL Est GFR (CKD-EPI)AfAm 88 (>60 ml/min/1.73 sqM) Est GFR (CKD-EPI)NonAf 76 (>60 ml/min/1.73 sqM) Glucose 89 (74-99) mg/dL Plasma Lactic Acid Jeff (0.7-2.0) mmol/L Calcium 9.6 (8.4-10.2) mg/dL Total Bilirubin 0.5 (0.2-1.3) mg/dL AST 28 (14-36) U/L ALT 22 (4-34) U/L Alkaline Phosphatase 96 (38-126) U/L Total Protein 7.0 (6.3-8.2) g/dL Albumin 4.5 (3.5-5.0) g/dL Amylase 32 (30-110) U/L Lipase 66 (23-300) U/L Urine Color Colorless Urine Appearance Clear (Clear) Urine pH 7.0 (5.0-8.0) Ur Specific [place] 1.009 (1.001-1.035) Urine Protein Negative (Negative) Urine Glucose (UA) Negative (Negative) Urine Ketones Negative (Negative) Urine Blood Negative (Negative) Urine Nitrite Negative (Negative) Urine Bilirubin Negative (Negative) Urine Urobilinogen <2.0 (<2.0) mg/dL Ur Leukocyte Esterase Negative (Negative) 10/02/24 Range/Units 16:57 WBC (3.8-10.6) k/uL RBC (3.80-5.40) m/uL Hgb (11.4-16.0) gm/dL Hct (34.0-46.0) % MCV (80.0-100.0) fL MCH (25.0-35.0) pg MCHC (31.0-37.0) g/dL RDW (11.5-15.5) % Plt Count (150-450) k/uL MPV Neutrophils % % Lymphocytes % % Monocytes % % Eosinophils % % Basophils % % Neutrophils # (1.3-7.7) k/uL Lymphocytes # (1.0-4.8) k/uL Monocytes # (0-1.0) k/uL Eosinophils # (0-0.7) k/uL Basophils # (0-0.2) k/uL Sodium (137-145) mmol/L Potassium (3.5-5.1) mmol/L Chloride (98-107) mmol/L Carbon Dioxide (22-30) mmol/L Anion Gap mmol/L BUN (7-17) mg/dL Creatinine (0.52-1.04) mg/dL Est GFR (CKD-EPI)AfAm (>60 ml/min/1.73 sqM) Est GFR (CKD-EPI)NonAf (>60 ml/min/1.73 sqM) Glucose (74-99) mg/dL Plasma Lactic Acid Jeff 1.3 (0.7-2.0) mmol/L Calcium (8.4-10.2) mg/dL Total Bilirubin (0.2-1.3) mg/dL AST (14-36) U/L ALT (4-34) U/L Alkaline Phosphatase (38-126) U/L Total Protein (6.3-8.2) g/dL Albumin (3.5-5.0) g/dL Amylase (30-110) U/L Lipase (23-300) U/L Urine Color Urine Appearance (Clear) Urine pH (5.0-8.0) Ur Specific [place] (1.001-1.035) Urine Protein (Negative) Urine Glucose (UA) (Negative) Urine Ketones (Negative) Urine Blood (Negative) Urine Nitrite (Negative) Urine Bilirubin (Negative) Urine Urobilinogen (<2.0) mg/dL Ur Leukocyte Esterase (Negative) Disposition <Lisa Agosto - Last Filed: 12/28/23 15:53> Time of Disposition: 17:41 <Tita Bird - Last Filed: 12/28/23 18:52> Clinical Impression: Esophageal stricture Disposition: ADMITTED IP TO THIS HOSP Condition: Stable Referrals: Cahn Jain [Primary Care Provider] - 1-2 days
[2023-12-28 17:08] LABS: Basophils % (A) 0 %; Eosinophils # (A) 0.1 k/uL (0-0.7); Eosinophils % (A) 1 %; HCT 37.7 % (34.0-46.0); HGB 12.3 gm/dL (11.4-16.0); Lymphocytes % (A) 28 %; MCH 29.1 pg (25.0-35.0); MCHC 32.6 g/dL (31.0-37.0); MCV 89.4 fL (80.0-100.0); Mean Platelet Volume 7.9; Monocytes # (A) 0.2 k/uL (0-1.0); Monocytes % (A) 4 %; Neutrophils # (A) 4.6 k/uL (1.3-7.7); Neutrophils % (A) 66 %; Platelet Count 236 k/uL (150-450); RBC 4.22 m/uL (3.80-5.40); RDW 12.8 % (11.5-15.5)
[2023-12-28 17:24] LABS: Appearance,Urine Clear (Clear); Bilirubin,Urine Negative (Negative); Blood,Urine Negative (Negative); Color,Urine Colorless; Glucose,Urine (UA) Negative (Negative); Ketones,Urine Negative (Negative); Leukocyte Esterase,Urine Negative (Negative); Nitrite,Urine Negative (Negative); Protein,Urine Negative (Negative); Specific Gravity,Urine 1.009 (1.001-1.035); Urobilinogen,Urine <2.0 mg/dL (<2.0)
[2023-12-28] MEDS ORDERED: NALOXONE 0.4 MG/ML 1 ML VIAL IV PRN (17:41)
[2023-12-28] MEDS ORDERED: ACETAMINOPHEN TAB 325 MG TAB PO PRN (17:41)
[2023-12-28 17:43] LABS: ALT 22 U/L (4-34); AST 28 U/L (14-36); African American GFR (CKD) 88 (>60 ml/min/1.73 sqM); Albumin 4.5 g/dL (3.5-5.0); Alkaline Phosphatase 96 U/L (38-126); Amylase 32 U/L (30-110); Anion Gap 7 mmol/L; Blood Urea Nitrogen 9 mg/dL (7-17); Calcium 9.6 mg/dL (8.4-10.2); Carbon Dioxide 28 mmol/L (22-30); Chloride 107 mmol/L (98-107); Glucose 89 mg/dL (74-99); Lipase 66 U/L (23-300); Non-African American GFR(CKD) 76 (>60 ml/min/1.73 sqM); Sodium 142 mmol/L (137-145); Total Bilirubin 0.5 mg/dL (0.2-1.3)
[2023-12-28] MEDS: SODIUM CHLORIDE 0.9% 1,000 ML IV STA ×2 (18:28)
[2023-12-28] MEDS: ONDANSETRON 4 MG/2 ML VIAL IVP STA (18:30)
[2023-12-28] MEDS: HYDROmorphone 1 MG/ML 1 ML SYRINGE IVP STA (18:34)
[2023-12-28] MEDS: SODIUM CHLORIDE 0.9% 1,000 ML IV SCH (19:58)
[2023-12-28] MEDS: PANTOPRAZOLE 40 MG/10 ML VIAL IVP SCH (20:18)
[2023-12-28] MEDS ORDERED: LACTULOSE 20 GM/30 ML CUP PO PRN (21:38)
[2023-12-28] MEDS ORDERED: EPINEPHrine 10 ML SYRINGE (0.1 MG/ML) IM PRN (21:38)
[2023-12-28] MEDS: GABAPENTIN 300 MG CAP PO SCH (22:17)
[2023-12-28] MEDS: HYDROcodone/APAP 7.5-325MG 1 EACH TAB PO SCH (22:17)
[2023-12-28] MEDS: ALPRAZolam 1 MG TAB PO PRN (22:53)
[2023-12-28] MEDS: methocarbamoL 500 MG TAB PO SCH (22:53)
[2023-12-28] MEDS: MONTELUKAST 10 MG TAB PO SCH (22:55)
[2023-12-28] MEDS: QUEtiapine 400 MG TAB PO SCH (22:55)
[2023-12-28] MEDS: QUEtiapine 200 MG TAB PO SCH (23:43)
[2023-12-28] MEDS: NON FORMULARY DRUG (Vilazodone Hcl [Viibryd] 10 MG Tablet) PO SCH (23:44)
[2023-12-29] MEDS: ONDANSETRON 4 MG/2 ML VIAL IVP PRN (02:25)
[2023-12-29] MEDS: HYDROmorphone 1 MG/ML 1 ML SYRINGE IVP PRN (02:26)
[2023-12-29] MEDS: PANTOPRAZOLE 40 MG TABLET PO SCH (06:38)
[2023-12-29] MEDS: ALBUTEROL NEBULIZED 2.5 MG/3 ML INHALATION PRN (07:38)
[2023-12-29] MEDS: METOPROLOL SUCCINATE (ER) 25 MG TAB.ER.24H PO SCH (08:19)
--- NOTE | 2023-12-29 10:34 | P.GSHP ---
History of Present Illness H&P Date: 12/29/23 CHIEF COMPLAINT: Abdominal pain with nausea and vomiting HISTORY OF PRESENT ILLNESS: This is a 48-year-old female who was sent from Dr. Verde's office due to abdominal pain and intractable nausea and vomiting. Pain was located in the epigastric and lower abdomen near the umbilicus. She had an esophagram completed outpatient with esophageal obstruction noted per surgeon. Patient does have a history of Phuong-en-Y gastric bypass. Patient reports the intractable pain with nausea and vomiting started 3 days ago. She is also been dealing with severe acid reflux. Patient reports having needed EGD with dilation x 2 in the past. Patient does report having regular bowel movements PAST MEDICAL HISTORY: See below PAST SURGICAL HISTORY: Phuong-en-Y gastric bypass, ventral hernia repair, appendectomy, cholecystectomy See below MEDICATIONS: See below ALLERGIES: See below SOCIAL HISTORY: No illicit drug use. REVIEW OF SYSTEMS: CONSTITUTIONAL: Denies fever or chills. HEENT: Denies blurred vision, vision changes, or eye pain. Denies hemoptysis CARDIOVASCULAR: Denies chest pain or pressure. RESPIRATORY: No shortness of breath. GASTROINTESTINAL: See HPI for pertinent findings HEMATOLOGIC: Denies bleeding disorders. GENITOURINARY: Denies any blood in urine or increased urinary frequency. SKIN: Denies pruitis. Denies rash. PHYSICAL EXAM: VITAL SIGNS: Reviewed GENERAL: Well-developed in no acute distress. HEENT: No sclera icterus. Extraocular movements grossly intact. Moist buccal mucosa. Head is atraumatic, normocephalic. No nasal drainage. ABDOMEN: Soft. Nondistended. Tenderness with palpation above into the right of the umbilicus and across the lower abdomen NEUROLOGIC: Alert and oriented. Cranial nerves II through XII grossly intact. LABORATORY DATA: WBC 7.0 Hgb 12.3 platelets 236 Sodium 142 potassium 4.0 creatinine 0.89 Lactic acid 1.3 LFTs and lipase normal Urinalysis negative for infection IMAGING: CT scan abdomen pelvis on 11/29/2023 no acute process no evidence of obstruction Barium swallow reports initial hesitancy and passage of contrast into the stomach this improves on subsequent swallows. Questionable mild stricture at the GE junction the irregularity care may be due to prior surgery ASSESSMENT: 1. Stricture of the Phuong-en-Y gastric bypass 2. Prior history of esophageal stricture requiring dilation 3. History of Phuong-en-Y gastric bypass and October 2018 PLAN: -Patient scheduled for EGD with dilation today with Dr. Verde -Keep patient n.p.o. -Continue fluids -Continue antiemetics -Continue pain management Physician Top Icer note has been reviewed by physician. Signing provider agrees with the documented findings, assessment, and plan of care. Please see additional documentation below CHIEF COMPLAINT: Intractable abdominal pain HISTORY OF PRESENT ILLNESS: The patient is a 48 year old female with pre- existing history of multiple abdominal surgeries including gastric bypass conversion from sleeve gastrectomy. She presented to the bariatric clinic with intractable abdominal pain ongoing for over 3+ days. Patient reports she is unable to walk or move due to the severe abdominal pain of the lower abdomen and left lower quadrant. Patient also confirms intractable nausea and vomiting due to abdominal pain. No blood in stools. Patient had previously went to the emergency room without improvement of her symptoms. As result of intractable sharp abdominal pain, patient is admitted. PAST MEDICAL HISTORY: See list and reviewed PAST SURGICAL HISTORY: See list and reviewed MEDICATIONS: See list and reviewed ALLERGIES: See list and reviewed SOCIAL HISTORY: See list and reviewed FAMILY HISTORY: See list and reviewed REVIEW OF ORGAN SYSTEMS: CONSTITUTIONAL: No fevers or chills. No recent weight loss. EYES: Denies any trouble with vision. No glasses. HEENT: No difficulties with hearing. No nosebleeds. Has difficulty swallowing. RESPIRATORY: Has chronic obstructive pulmonary disease due to asthma. Has obstructive sleep apnea. CARDIOVASCULAR: Has hypertensive heart disease. GASTROINTESTINAL: Has gastroesophageal reflux disease. History of gastric bypass. GENITOURINARY: Denies any blood in urine or increased urinary frequency. Has hysterectomy. NEUROLOGICAL: Has fibromyalgia including chronic pain syndrome. Has seizure disorder. MUSCULOSKELETAL: Has history of multiple back pain, stiffness or joint arthritis. Joint replacements including knee. Has chronic back pain. SKIN: No current skin cancer. No rash. PSYCHIATRIC: Has generalized anxiety disorder. Has depressive disorder. Has bipolar disorder. ENDOCRINE: Denies current thyroid disorders. Denies any blood sugar glucose intolerance. HEME/LYMPHATIC: Denies any lumps and bumps around the neck. No recent deep venous thrombosis. ALLERGY/IMMUNOLOGY: No immunoglobulin therapy. No immune deficiencies. BREAST: Denies current breast lumps, pain or nipple discharge. PHYSICAL EXAM: VITALS: Reviewed CONSTITUTIONAL: Well developed and in no acute distress. EYES: Conjuctivae without sclera icterus. Extraocular movements grossly intact. HEAD, EARS, NOSE, THROAT: Moist buccal mucosa. Head is atraumatic, normocephalic. Hears conversational speech. No nasal drainage. NECK: Supple. No JV distention. No thyroidomegaly. RESPIRATORY: Non-labored respirations and equal bilateral excursions. No gross wheezes. CARDIOVASCULAR: Palpable 2+ radial pulses. ABDOMEN: Generalized tenderness including left lower quadrant. No diffuse peritonitis. LYMPH: No neck lymphadenopathy. MUSCULOSKELETAL: No clubbing cyanosis or edema SKIN: Warm and well perfused with good skin turgor. NEUROLOGIC: Cranial nerves II through XII grossly intact. No focal or lateralizing signs. PSYCH: Appropriate affect. Alert and oriented to person, place and time. Displays appropriate insight. CLINCAL LABS: Reviewed. CBC and CMP within normal limits. IMAGING: Independently reviewed. Esophagram from September 2023 reviewed reviewed demonstrating stricture of the gastrojejunal anastomosis of gastric bypass. This is my independent interpretation. CT of the abdomen pelvis reviewed from November 2023 reviewed demonstrating no internal swirl. Questionable features of intussusception at the left upper quadrant at jejunojejunostomy. Presence of diverticulosis. No presence of acute bowel obstruction. No free air. This is my independent interpretation. RADIOLOGY: Report reviewed of CT abdomen pelvis without acute findings. Esophagram without hiatal hernia identified. RECORDS: previous old records reviewed from ER visit November 2023 demonstrates CBC and CMP within normal limits. No acute findings. ASSESSMENT: 1. Intractable abdominal pain, left lower quadrant 60 peritoneal adhesions 2. Chronic pain syndrome 3. History of multiple abdominal surgeries and peritoneal adhesions 4. Intractable nausea and vomiting 5. Abnormal esophagram for including abdominal pain and dysphagia PLAN: 1. IV fluid hydration with 2 L normal saline 2. Recommend upper endoscopy with dilation due to stricture 3. Schedule antiemetics Zofran 4 mg every 6 hours including scopolamine patch 4. Inpatient admission for gastric stricture including abdominal pain ADVANCE DIRECTIVE: CODE STATUS in chart Past Medical History Past Medical History: Asthma, COPD, Fibromyalgia, GERD/Reflux, Hypertension, Seizure Disorder, Sleep Apnea/CPAP/BIPAP Additional Past Medical History / Comment(s): Chronic back pain, LAST SEIZURE 2 014, USES CPAP, VENTRAL HERNIA, Tachycardia History of Any Multi-Drug Resistant Organisms: None Reported Past Surgical History: Adenoidectomy, Appendectomy, Bariatric Surgery, Cholecystectomy, Hysterectomy, Joint Replacement, Orthopedic Surgery, Tons illectomy, Tubal Ligation Additional Past Surgical History / Comment(s): Bilateral knee arthroscopy, epidural lumbar injections, BILATERAL CARPAL TUNNEL, ARTHROSCOPY RIGHT ELBOW, EGD with dilation, COLONOSCOPY, Gastric Sleeve 02/16/17, gastric bypass 10-30-18, Metal Clip in left breast, had mass removed, right knee replacement. lt knee replacement Past Anesthesia/Blood Transfusion Reactions: No Reported Reaction, Motion Sickness Additional Past Anesthesia/Blood Transfusion Reaction / Comment(s): No hx blood transfusion. Past Psychological History: Anxiety, Bipolar, Depression Smoking Status: Former smoker Past Alcohol Use History: None Reported Additional Past Alcohol Use History / Comment(s): Patient was a smoker of one half pack per day and quit May 2014, smoked ON AND OFF FROM AGE 15. Past Drug Use History: None Reported - Past Family History Father Family Medical History: Deep Vein Thrombosis (DVT) Additional Family Medical History / Comment(s): Father with COVID and Influenza, history of coronary aneurysm. Mother Family Medical History: CVA/TIA, Diabetes Mellitus, Eye Disorder Additional Family Medical History / Comment(s): Mother is alive at age 63 with history of bipolar, stroke, blindness. Brother(s) Additional Family Medical History / Comment(s): Patient has 2 brothers that are healthy. She has no sisters. She has 2 sons and 1 daughter that are healthy. Medications and Allergies Home Medications Medication Instructions Recorded Confirmed Type EPINEPHrine [Epipen 2-Melecio] 0.3 mg IM ONCE PRN 11/16/16 01/11/24 History Vilazodone HCl [Viibryd] 10 mg PO HS 11/16/16 01/11/24 History Gabapentin [Neurontin] 300 mg PO TID 02/16/17 01/11/24 History Albuterol Sulfate [Ventolin HFA] 2 puff INHALATION RT-Q6H PRN 05/28/21 01/11/24 History methocarbamoL [Robaxin] 500 mg PO QID 05/28/21 01/11/24 History ALPRAZolam [Xanax] 1 mg PO BID PRN 03/12/22 01/11/24 History Montelukast [Singulair] 10 mg PO HS 03/12/22 01/11/24 History HYDROcodone/APAP 7.5-325MG [[place] 1 tab PO Q6H 06/16/22 01/11/24 History 7.5-325] Omeprazole [PriLOSEC] 40 mg PO DAILY 11/16/22 01/11/24 History Lactulose 20 gm PO BID PRN 12/28/23 01/11/24 History Metoprolol Succinate (ER) [Toprol 25 mg PO DAILY 12/28/23 01/11/24 History XL] QUEtiapine FUMARATE [SEROquel XR] 400 mg PO HS 12/28/23 01/11/24 History lisinopriL 2.5 mg PO DAILY 12/28/23 01/11/24 History Acetaminophen Tab [Tylenol Tab] 1,000 mg PO Q6HR PRN #30 tablet 12/30/2301/10 Rx Allergies Allergy/AdvReac Type Severity Reaction Status Date / Time adhesive Allergy Rash/Hives Verified 01/11/24 15:51 aspirin Allergy Anaphylaxis Verified 01/11/24 15:51 clonidine Allergy Rash/Hives Verified 01/11/24 15:51 hydroxyzine Allergy CONFUSION Verified 01/11/24 15:51 AND BODY SHAKES venlafaxine HCl Allergy Swelling Verified 01/11/24 15:51 [From Effexor] venom-honey bee Allergy Anaphylaxis Verified 01/11/24 15:51 [bee venom (honey bee)] buspirone AdvReac Rash/Hives Verified 01/11/24 15:51 Surgical - Exam Vital Signs Temp Pulse Resp BP Pulse Ox 98.0 F 61 18 157/74 99 12/28/23 15:38 12/28/23 15:38 12/28/23 15:38 12/28/23 15:38 12/28/23 15:38 Results - Labs 12/28/23 16:57 12/28/23 16:57 Diabetes panel 12/28/23 Range/Units 16:57 Sodium 142 (137-145) mmol/L Potassium 4.0 (3.5-5.1) mmol/L Chloride 107 (98-107) mmol/L Carbon Dioxide 28 (22-30) mmol/L BUN 9 (7-17) mg/dL Creatinine 0.89 (0.52-1.04) mg/dL Glucose 89 (74-99) mg/dL Calcium 9.6 (8.4-10.2) mg/dL AST 28 (14-36) U/L ALT 22 (4-34) U/L Alkaline Phosphatase 96 (38-126) U/L Total Protein 7.0 (6.3-8.2) g/dL Albumin 4.5 (3.5-5.0) g/dL Calcium panel 12/28/23 Range/Units 16:57 Calcium 9.6 (8.4-10.2) mg/dL Albumin 4.5 (3.5-5.0) g/dL Pituitary panel 12/28/23 Range/Units 16:57 Sodium 142 (137-145) mmol/L Potassium 4.0 (3.5-5.1) mmol/L Chloride 107 (98-107) mmol/L Carbon Dioxide 28 (22-30) mmol/L BUN 9 (7-17) mg/dL Creatinine 0.89 (0.52-1.04) mg/dL Glucose 89 (74-99) mg/dL Calcium 9.6 (8.4-10.2) mg/dL Adrenal panel 12/28/23 Range/Units 16:57 Sodium 142 (137-145) mmol/L Potassium 4.0 (3.5-5.1) mmol/L Chloride 107 (98-107) mmol/L Carbon Dioxide 28 (22-30) mmol/L BUN 9 (7-17) mg/dL Creatinine 0.89 (0.52-1.04) mg/dL Glucose 89 (74-99) mg/dL Calcium 9.6 (8.4-10.2) mg/dL Total Bilirubin 0.5 (0.2-1.3) mg/dL AST 28 (14-36) U/L ALT 22 (4-34) U/L Alkaline Phosphatase 96 (38-126) U/L Total Protein 7.0 (6.3-8.2) g/dL Albumin 4.5 (3.5-5.0) g/dL
[2023-12-29] MEDS ORDERED: LIDOCAINE 1% INJ 10MG/ML (20 ML MDV) ONE (12:53)
[2023-12-29] MEDS ORDERED: PROPOFOL 10 MG/ML 20 ML VIAL IV ONE (12:53)
--- NOTE | 2023-12-29 13:09 | P.PCN ---
Date of Procedure: 12/29/23 Description of Procedure: PREOPERATIVE DIAGNOSIS: Dysphagia. Nausea with vomiting. Abnormal esophagram for stricture POSTOPERATIVE DIAGNOSIS: Dysphagia. Gastrojejunal stricture without chronic ulcer without perforation OPERATION: Esophagogastrojejunoscopy with balloon dilatation from 15 to 20 mm. SURGEON: Dori Verde MD ANESTHESIA: MAC. INDICATIONS: The patient is a 48-year-old female who presents with a history of dysphagia, including new-onset nausea and vomiting. Benefits and risks of the procedure were described. Informed consent was obtained. DESCRIPTION: The patient was brought into the endoscopy suite and laid in the left lateral decubitus position. After a timeout was confirmed, the procedure was initiated. An Olympus gastroscope was passed along the posterior oropharynx down to the distal esophagus where the squamocolumnar junction was unremarkable. The gastric pouch was entered. A gastrojejunal stricture of 15 mm was found as the adult gastroscope was 9.5 mm in size. A Wiseryou balloon dilator was placed through the scope. Final insufflation up to 20 mm was performed with a total of 2 minutes. The scope was advanced up to 60 cm from the incisors into the Phuong limb. The mucosa of the gastrojejunal anastomosis was intact. However chronic gastrojejunal marginal ulcer was encountered. No full-thickness injury was encountered. The GI tract was desufflated. The patient tolerated the procedure well. FINDINGS: Squamocolumnar junction unremarkable at 40 cm. Stricture of approximately 15 mm encountered. No chronic gastrojejunal ulceration encountered. Successful balloon dilatation to 20 mm. Gastric proximal 5 cm RECOMMENDATIONS: Liquid diet. Upper endoscopy as needed.
[2023-12-29] MEDS: IV FLUID CONTINUATION 450 ML IV ONE (13:17)
[2023-12-30] MEDS: IV FLUID CONTINUATION 700 ML IV ONE (13:29)
[2023-12-30] MEDS: DEXAMETHASONE SOD PHOSPHATE 4 MG/ML 1 ML VIAL IVP STA (13:45)
[2023-12-30] MEDS: ONDANSETRON 4 MG/2 ML VIAL IVP STA (13:48)
[2023-12-30] MEDS: MIDAZOLAM 2 MG/2 ML VIAL IV ONE (14:05)
[2023-12-30] MEDS: LIDOCAINE 1%-EPI 1:100,000 20 ML VIAL SQ ONE (15:02)
[2023-12-30] MEDS ORDERED: PROPOFOL 10 MG/ML 20 ML VIAL IV ONE (15:05)
[2023-12-30] MEDS ORDERED: SUGAMMADEX SODIUM 200 MG/2 ML SDV IV ONE (15:05)
[2023-12-30] MEDS ORDERED: fentaNYL (PF) 50 MCG/ML 2 ML AMP ONE (15:05)
[2023-12-30] MEDS ORDERED: ceFAZolin 1 GM/50 ML BAG (PMX) ONE (15:05)
[2023-12-30] MEDS ORDERED: MIDAZOLAM 2 MG/2 ML VIAL ONE (15:05)
[2023-12-30] MEDS ORDERED: ROCURONIUM 10 MG/ML (5 ML VIAL) IV ONE (15:05)
[2023-12-30] MEDS: SODIUM CHLORIDE 0.9% 50 ML with ceFAZolin 2,000 MG IV ONE ×2 (15:05→15:34)
[2023-12-30] MEDS ORDERED: SUCCINYLCHOLINE CHLORIDE 200 MG/10 ML VIAL IV ONE (15:05)
[2023-12-30] MEDS ORDERED: GLYCOPYRROLATE 0.2 MG/ML 2 ML VIAL ONE (15:05)
[2023-12-30] MEDS ORDERED: NEOSTIGMINE 1 MG/ML 10 ML VIAL ONE (15:05)
[2023-12-30] MEDS ORDERED: LIDOCAINE 1% INJ 10MG/ML (20 ML MDV) ONE (15:05)
[2023-12-30] MEDS ORDERED: ROPIVACAINE 5 MG/ML 30 ML VIAL ONE (15:05)
[2023-12-30] MEDS ORDERED: DEXAMETHASONE SOD PHOSPHATE 4 MG/ML 1 ML VIAL ONE (15:05)
--- NOTE | 2023-12-30 16:30 | P.ANPRN ---
Procedure Note - Anesthesia - Nerve Block Performed Bilateral Erector Spinae Single Time Out Performed: Yes Date of Procedure: 12/30/23 Procedure Start Time: 14:05 Procedure Stop Time: 14:20 Location of Patient: PreOp Indication: Acute Post-Operative Pain, Requested by Surgeon Sedation Type: Sedate with meaningful contact maintained Preparation: Sterile Prep, Sterile Dressing Position: Prone Catheter: None Needle Types: Facet Needle Gauge: 20 Ultrasound used to visualize needle placement: Yes Ultrasound used to observe medication spread: Yes Injectate: Other (see comment) (Ropivacaine 0.25% 30 ml + decadron 2 mg per side) Blood Aspirated: No Pain Paresthesia on Injection Noted: No Resistance on Injection: Normal Image Stored and Saved: Yes Events: Uneventful and Well Tolerated
[2023-12-30] MEDS: HYDROmorphone 0.5 MG/0.5 ML SYRINGE IVP STA (17:11)
--- NOTE | 2023-12-30 17:14 | P.PN ---
Progress Note - Text Progress Note Date: 12/30/23 Called marek Agarwal regarding patient's surgery and recovery. Voicemail message was left on documented telephone number on chart.
--- NOTE | 2023-12-30 17:16 | P.OP ---
Date of Procedure: 12/30/23 Description of Procedure: SURGEON: MAYRA LANDERS MD PREOPERATIVE DIAGNOSES: 1. Intractable abdominal pain 2. History of gastric bypass 3. Intractable nausea and vomiting 4. History of multiple abdominal surgeries and peritoneal adhesions 5. Fibromyalgia and chronic pain 6. Chronic obstructive pulmonary disease 7. Generalized anxiety disorder 8. Bipolar disorder 9. Depressive disorder POSTOPERATIVE DIAGNOSES: 1. Intractable abdominal pain due to peritoneal adhesions 2. History of gastric bypass 3. Incisional hernia, left lateral abdominal wall 4. History of multiple abdominal surgeries and peritoneal adhesions 5. Fibromyalgia and chronic pain 6. Chronic obstructive pulmonary disease 7. Generalized anxiety disorder 8. Bipolar disorder 9. Depressive disorder 10. Intractable nausea and vomiting OPERATION: 1. Robotic-assisted da Isabel Xi laparoscopic with extensive lysis of adhesions over 1 hr 2. Robotic-assisted da Isabel Xi laparoscopic reduction of incisional hernia, 1 cm, left lateral abdominal wall ESTIMATED BLOOD LOSS: 5 mL. SPECIMENS REMOVED: None. COMPLICATIONS: None. OPERATIVE FINDINGS: 1. Left lateral abdominal wall incarcerated hernia involving omentum at location of pain 2. Adhesions along the epigastrium, left upper quarant, midline 3. Cecum and ileum unremarkable 4. Adhesive band at Martinez defect causing partial obstruction released 5. Adhesion of gastrojejunal anastomosis to the retroperitoneum released 6. Moderate gaseous distention of sigmoid colon, redundant with sigmoid colon INDICATIONS: The patient is a 48-year-old female who presents with epigastric abdominal pain including left upper and lower quadrant abdominal pain of intractable severe presentation. Surgical intervention with diagnostic laparoscopy, lysis of adhesions were described. Informed consent was obtained. Robotic assisted laparoscopic approach was described. Benefits and risks of the procedure including but not limited to bleeding, infection, injury to the small bowel was described. Informed consent was obtained. DESCRIPTION OF PROCEDURE: Patient was brought to the operating room, placed in supine position. After general induction, the abdomen had been prepped and draped in standard sterile fashion. The robotic da Isabel XI system was primed. After a timeout protocol was performed, the patient had been prepped and draped in standard sterile fashion. The robot was docked along the right lateral abdomen. The patient was repositioned in with right side up. Please note prior to docking of the robot; however, a 5 mm 0 degrees laparoscopic trocar entry was performed along the left upper quadrant. The abdomen was insufflated to 15 mmHg pressure which she tolerated well. Diagnostic laparoscopy was performed. Next, three 8 mm robotic ports were placed along the right lateral abdominal wall. The camera 8-mm port was maintained along mid-lateral abdomen. Please note that the ports were placed at least 10 to 15 cm away from the target anatomy. Instruments including graspers and vessel sealer were interchanged by the data analysis assistant. I had sat at the console. Moderate gaseous distention of sigmoid colon, redundant with sigmoid colon was identified. The small bowel from the herlinda limb to distal ileum was inspected. The small bowel was investigated from the terminal ileum to the ligament of Treitz. Adhesions along the epigastrium, left upper quarant, midline were identified involving omentum. Adhesive band at Martinez defect causing partial obstruction released using vessel sealer. Adhesion of gastrojejunal anastomosis to the retroperitoneum released using vessel sealer. Left lateral abdominal wall incarcerated hernia involving omentum at location of pain was also divided and released using vessel sealer. No herniation of bowel was found along the Martinez defect or jejunojejunostomy mesenteric defect. The terminal ileum and cecum was unremarkable. Extensive lysis of adhesions for 1 hr was performed. The small bowel was viable.The robot was undocked. All pneumoperitoneum instruments were evacuated from the abdominal cavity. The incisions were reapproximated using 4-0 Monocryl in an interrupted subcuticular fashion. Please note along the trocar sites, local anesthetic was placed as a field block prior to insertion of all instruments. Exofin was applied to the skin. At the end of the procedure needle, sponge, and instrument count had been verified correct by the certified surgical first assistant. The patient was transferred to postanesthesia care unit in stable condition.
[2023-12-30] MEDS: HEPARIN SODIUM,PORCINE 5,000 UNIT/ML 1 ML VIAL SQ SCH (18:25)
[2023-12-30] MEDS: ACETAMINOPHEN IV (For NPO) 1,000 MG in EMPTY BAG 1 BAG IVPB ONE (18:26)
[2023-12-30] MEDS: D5-0.45% NACL WITH KCL 20MEQ/L 1,000 ML IV SCH (18:46)
[2023-12-30] MEDS: SIMETHICONE 40 MG/0.6 ML DROPS 2,000 MG/30 ML BOTTLE PO SCH (22:06)
[2023-12-31 07:39] VITALS: RESP 17
[2023-12-31 07:41] VITALS: BP 154/92; PULSE 64; TEMP 98
--- NOTE | 2023-12-31 09:53 | P.DS ---
Providers Date of admission: 12/28/23 17:41 Expected date of discharge: 12/31/23 Attending physician: Dori Verde Primary care physician: Chan Galindo Eleanor Slater Hospital Course: Patient came into the hospital with complaints of abdominal pain and dysphagia. Patient went for EGD with dilation and yesterday went for laparoscopic lysis of adhesions with repair incarcerated hernia. Doing well today. Says her pain is gone now. Tolerating regular food for breakfast. She is anxious for discharge. Incision clean and dry, minimal abdominal tenderness. Will plan discharge at this time. Follow-up with Dr. Verde. Patient Condition at Discharge: Stable Plan - Discharge Summary Discharge Rx Participant: No New Discharge Prescriptions: New Simethicone [Gas-X] 125 mg PO AC-TID PRN #20 capsule PRN Reason: Pain Acetaminophen Tab [Tylenol Tab] 1,000 mg PO Q6HR PRN #30 tablet PRN Reason: Pain Continue Vilazodone HCl [Viibryd] 10 mg PO HS EPINEPHrine [Epipen 2-Melecio] 0.3 mg IM ONCE PRN PRN Reason: Anaphylaxis Gabapentin [Neurontin] 300 mg PO TID Albuterol Sulfate [Ventolin HFA] 2 puff INHALATION RT-Q6H PRN PRN Reason: Shortness Of Breath Or Wheezing ALPRAZolam [Xanax] 1 mg PO BID PRN PRN Reason: Anxiety Montelukast [Singulair] 10 mg PO HS Omeprazole [PriLOSEC] 40 mg PO DAILY lisinopriL 2.5 mg PO DAILY QUEtiapine FUMARATE [SEROquel XR] 400 mg PO HS Lactulose 20 gm PO BID PRN PRN Reason: Constipation methocarbamoL [Robaxin] 500 mg PO QID HYDROcodone/APAP 7.5-325MG [[place] 7.5-325] 1 tab PO Q6H Metoprolol Succinate (ER) [Toprol XL] 25 mg PO DAILY Discharge Medication List EPINEPHrine [Epipen 2-Melecio] 0.3 mg IM ONCE PRN 11/16/16 [History] Vilazodone HCl [Viibryd] 10 mg PO HS 11/16/16 [History] Gabapentin [Neurontin] 300 mg PO TID 02/16/17 [History] Albuterol Sulfate [Ventolin HFA] 2 puff INHALATION RT-Q6H PRN 05/28/21 [History] methocarbamoL [Robaxin] 500 mg PO QID 05/28/21 [History] ALPRAZolam [Xanax] 1 mg PO BID PRN 03/12/22 [History] Montelukast [Singulair] 10 mg PO HS 03/12/22 [History] HYDROcodone/APAP 7.5-325MG [[place] 7.5-325] 1 tab PO Q6H 06/16/22 [History] Omeprazole [PriLOSEC] 40 mg PO DAILY 11/16/22 [History] Lactulose 20 gm PO BID PRN 12/28/23 [History] Metoprolol Succinate (ER) [Toprol XL] 25 mg PO DAILY 12/28/23 [History] QUEtiapine FUMARATE [SEROquel XR] 400 mg PO HS 12/28/23 [History] lisinopriL 2.5 mg PO DAILY 12/28/23 [History] Acetaminophen Tab [Tylenol Tab] 1,000 mg PO Q6HR PRN #30 tablet 12/30/23 [Rx] Simethicone [Gas-X] 125 mg PO AC-TID PRN #20 capsule 12/30/23 [Rx] [facility]Ref[facility] [place] [facility] [place] 01/04/24 3:00 pm Chan Jain [Primary Care Provider] - 1-2 days (Office is closed at time of discharge. Please call for follow-up appointment.) Patient Instructions/Handouts: Lysis of Abdominal Adhesions (DC) Activity/Diet/Wound Care/Special Instructions: NO LONG DRIVES OR AIRPLANE RIDES OVER 30 MINUTES FOR THE NEXT 2 WEEKS, January 12, DUE TO HIGH RISK OF PULMONARY EMBOLISM/DVTs May drive in 72 hrs, 01/02/24 No lifting over 10 pounds in 2 weeks until January 12July shower. No bath tub soaks for two weeks until January 12 Diet as tolerated. Use Tylenol, simethicone scheduled for the next 24-48 hours for best pain relief. Use ice along incisions for today to prevent swelling. Discharge Disposition: HOME SELF-CARE
--- NOTE | 2024-01-14 22:12 | CDI ---
Documentation Clarification Form Date: 01/14/2024 10:05:06 PM From: Promise Salinas Phone: Admit Date: 12/28/2023 05:41:00 PM Patient Name: Sharri Braswell Visit Number: [id number] Discharge Date: 12/31/2023 10:26:00 AM ATTENTION: The Clinical Documentation Specialists (CDI) and [facility] Coding Staff appreciate your assistance in clarifying documentation. Please respond to the clarification below the line at the bottom and electronically sign. The CDI & [facility] Coding staff will review the response and follow-up if needed. Please note: Queries are made part of the Legal Health Record. If you have any questions, please contact the author of this message via ITS. Doctor/Provider: Dori Verde Conflicting documentation has been found in the medical record. As attending physician, please provide clarification. Chronic gastrojejunal marginalulcerwas encountered EGD withballoondilatationfrom 15 to 20 mm Nochronicgastrojejunal ulcerationencountered EGD withballoondilatationfrom 15 to 20 mm History/Risk Factors: 48yo F, esophageal obstruction, internal hernia, small bowel volvulus, peritoneal adhesions, Hx gastric bypass, GERD, former smoker Clinical Indicators: Dysphagia. Nausea with vomiting. Abnormalesophagramforstricture Treatment: Esophagogastrojejunoscopy withballoondilatationfrom 15 to 20 mm. Please clarify which diagnosis is most appropriate: [ ] Chronic gastrojejunal marginalulcerpresent [ ] Chronic gastrojejunal marginalulcernot present [ X ] Other (please specify) Nochronicgastrojejunal ulcerationencountered EGD withballoondilatationfrom 15 to 20 mm [ ] Unable to determine (Template Last Revised: May 2020) OP NOTE CORRECTED, thank you MTDD
== END 2023-12-31 10:26 | disposition home or self-care (01) | DRG 326 ==
LOC: EC 15:37 → 1SOBS 17:41 → OBSVTOIN 17:41 → 1SOBS 20:01 → 4SSUR 12-29 16:27
PROVIDERS: ADMIT Surgery Plastic and Reconstructive Surgery; ATTEND Surgery Plastic and Reconstructive Surgery
PROC: 0D748ZZ Dilation of Esophagogastric Junction, Via Natural or Artificial Opening Endoscopic (ICD-10-PCS; 2023-12-29)
PROC: 0DNA4ZZ Release Jejunum, Percutaneous Endoscopic Approach (ICD-10-PCS; 2023-12-30)
PROC: 3E0T3BZ Introduction of Anesthetic Agent into Peripheral Nerves and Plexi, Percutaneous Approach (ICD-10-PCS; 2023-12-30)
PROC: 8E0W4CZ Robotic Assisted Procedure of Trunk Region, Percutaneous Endoscopic Approach (ICD-10-PCS; 2023-12-30)
PROC: 0DN44ZZ Release Esophagogastric Junction, Percutaneous Endoscopic Approach (ICD-10-PCS; principal; 2023-12-30 14:05)
DX: K22.2 Esophageal obstruction (principal); K56.2 Volvulus; K43.6 Other and unspecified ventral hernia with obstruction, without gangrene; F41.1 Generalized anxiety disorder; G89.4 Chronic pain syndrome; R26.2 Difficulty in walking, not elsewhere classified; K66.0 Peritoneal adhesions (postprocedural) (postinfection); K43.2 Incisional hernia without obstruction or gangrene; K21.9 Gastro-esophageal reflux disease without esophagitis; Z96.653 Presence of artificial knee joint, bilateral; Z79.891 Long term (current) use of opiate analgesic; Z79.899 Other long term (current) drug therapy; Z98.84 Bariatric surgery status; Z87.891 Personal history of nicotine dependence
CPT/HCPCS: 36415; 43249; 64999; 80053; 81003; 81025; 82150; 83605; 83690; 85025; 94640; 96361; 96374; 96375; 99285

== ENCOUNTER → 2023-12-28 | Outpatient (CLI) | payer MEDICARE, OTHER ==
[2023-12-28 14:56] VITALS: BP 148/87; PULSE 84; RESP 16; TEMP 97.7; BMI 32.8
--- NOTE | 2023-12-28 15:23 | P.BASOAP ---
Subjective Progress Note Date: 12/28/23 Has stricture of bypass. She has gone to ER for epigastric and lower abdominal. She reports pains along the umbilicus. Pain along both sides. SHe has intractable abdominal pain including intractable N/V. Ct reviewed. Esophagram reviewed with esophageal obstruction. Admission to ER advised as she is unable to tolerate PO and pain. Objective - Vital Signs Vital signs: Vital Signs Temp 97.7 F 12/28/23 14:46 Pulse 84 12/28/23 14:46 Resp 16 12/28/23 14:46 BP 148/87 12/28/23 14:46 Pulse Ox FiO2 Intake & Output 12/27/23 12/28/23 12/28/23 18:59 06:59 18:59 Weight 91.626 kg Assessment/Plan Plan: Date: 12/28/23 Initial Weight: 112.122 kg Initial BMI: 40.1 Current Weight: 91.626 kg Current BMI: 32.8 Type of Surgery: Total Volume in Band: Previous Volume: Volume Removed: Volume Added: Band Size:
== END ==
LOC: BARWHC3 14:02
PROVIDERS: ATTEND Surgery Plastic and Reconstructive Surgery
DX: E66.01 Morbid (severe) obesity due to excess calories (principal); Z91.048 Other nonmedicinal substance allergy status; Z88.6 Allergy status to analgesic agent; Z88.8 Allergy status to other drugs, medicaments and biological substances; Z91.030 Bee allergy status; Z87.891 Personal history of nicotine dependence; Z68.32 Body mass index [BMI] 32.0-32.9, adult
CPT/HCPCS: 99211

== ENCOUNTER → 2024-01-11 | Outpatient (CLI) | payer MEDICARE, OTHER ==
[2024-01-11 15:58] VITALS: BP 150/97; PULSE 70; RESP 16; TEMP 97.9
--- NOTE | 2024-01-11 16:13 | P.BASOAP ---
Subjective Progress Note Date: 01/11/24 She lsot more weight. She was 105 pounds as a child. She feels better. She is being active. Recommend 75 gram daily. Swimming in 2 weeks. Had lysis of adhesion 150 pounds. . Objective - Vital Signs Vital signs: Vital Signs Temp 97.9 F 01/11/24 15:50 Pulse 70 01/11/24 15:50 Resp 16 01/11/24 15:50 BP 150/97 01/11/24 15:50 Pulse Ox FiO2 Intake & Output 01/10/24 01/11/24 01/11/24 18:59 06:59 18:59 Weight 90.265 kg Assessment/Plan Plan: Date: 01/11/24 Initial Weight: 112.122 kg Initial BMI: Current Weight: 90.265 kg Current BMI: Type of Surgery: Total Volume in Band: Previous Volume: Volume Removed: Volume Added: Band Size:
== END ==
LOC: BARWHC3 14:43
PROVIDERS: ATTEND Surgery Plastic and Reconstructive Surgery
DX: E66.01 Morbid (severe) obesity due to excess calories (principal); Z91.048 Other nonmedicinal substance allergy status; Z88.6 Allergy status to analgesic agent; Z88.8 Allergy status to other drugs, medicaments and biological substances; Z91.030 Bee allergy status; Z88.5 Allergy status to narcotic agent; Z87.891 Personal history of nicotine dependence; Z68.32 Body mass index [BMI] 32.0-32.9, adult
CPT/HCPCS: 99211

== ENCOUNTER 2024-04-30 19:11 | Emergency (ER) | payer MEDICARE, OTHER ==
[2024-04-30 19:27] VITALS: RESP 18
--- NOTE | 2024-04-30 19:39 | ED ---
General Adult HPI - General Chief complaint: Extremity Injury, Lower Stated complaint: Ankle injury Time Seen by Provider: 04/30/24 19:14 Source: patient, EMS Mode of arrival: EMS Limitations: no limitations - History of Present Illness Initial comments: 49-year-old female presenting with chief complaint of right ankle injury. States that she was at the [facility] when she missed a step and twisted her right ankle. She states that she felt this. She is having pain and swelling primarily over the posterior ankle. No numbness or tingling. No discoloration. - Related Data Home Medications Medication Instructions Recorded Confirmed EPINEPHrine [Epipen 2-Melecio] 0.3 mg IM ONCE PRN 11/16/16 01/11/24 Vilazodone HCl [Viibryd] 10 mg PO HS 11/16/16 01/11/24 Gabapentin [Neurontin] 300 mg PO TID 02/16/17 01/11/24 Albuterol Sulfate [Ventolin HFA] 2 puff INHALATION RT-Q6H PRN 05/28/21 01/11/24 methocarbamoL [Robaxin] 500 mg PO QID 05/28/21 01/11/24 ALPRAZolam [Xanax] 1 mg PO BID PRN 03/12/22 01/11/24 Montelukast [Singulair] 10 mg PO HS 03/12/22 01/11/24 HYDROcodone/APAP 7.5-325MG [[place] 1 tab PO Q6H 06/16/22 01/11/24 7.5-325] Omeprazole [PriLOSEC] 40 mg PO DAILY 11/16/22 01/11/24 Lactulose 20 gm PO BID PRN 12/28/23 01/11/24 Metoprolol Succinate (ER) [Toprol 25 mg PO DAILY 12/28/23 01/11/24 XL] QUEtiapine FUMARATE [SEROquel XR] 400 mg PO HS 12/28/23 01/11/24 lisinopriL 2.5 mg PO DAILY 12/28/23 01/11/24 Previous Rx's Medication Instructions Recorded Acetaminophen Tab [Tylenol Tab] 1,000 mg PO Q6HR PRN #30 tablet 12/30/23 Allergies Allergy/AdvReac Type Severity Reaction Status Date / Time adhesive Allergy Rash/Hives Verified 04/30/24 19:22 aspirin Allergy Anaphylaxis Verified 04/30/24 19:22 clonidine Allergy Rash/Hives Verified 04/30/24 19:22 hydroxyzine Allergy CONFUSION Verified 04/30/24 19:22 AND BODY SHAKES venlafaxine HCl Allergy Swelling Verified 04/30/24 19:22 [From Effexor] venom-honey bee Allergy Anaphylaxis Verified 04/30/24 19:22 [bee venom (honey bee)] buspirone AdvReac Rash/Hives Verified 04/30/24 19:22 Review of Systems ROS Statement: Those systems with pertinent positive or pertinent negative responses have been documented in the HPI. ROS Other: All systems not noted in ROS Statement are negative. Past Medical History Past Medical History: Asthma, COPD, Fibromyalgia, GERD/Reflux, Hypertension, Seizure Disorder, Sleep Apnea/CPAP/BIPAP Additional Past Medical History / Comment(s): Chronic back pain, LAST SEIZURE 2013, USES CPAP, VENTRAL HERNIA, Tachycardia History of Any Multi-Drug Resistant Organisms: None Reported Past Surgical History: Adenoidectomy, Appendectomy, Bariatric Surgery, Cholecystectomy, Hernia Repair, Hysterectomy, Joint Replacement, Orthopedic Surgery, Tonsillectomy, Tubal Ligation Additional Past Surgical History / Comment(s): Bilateral knee arthroscopy, epidural lumbar injections, BILATERAL CARPAL TUNNEL, ARTHROSCOPY RIGHT ELBOW, EGD with dilation, COLONOSCOPY, Gastric Sleeve 02/16/17, gastric bypass 10-30-18, Metal Clip in left breast, had mass removed, right knee replacement. lt knee replacement, lysis of adhesions/incisional hernia repair 12/30/23 Past Anesthesia/Blood Transfusion Reactions: No Reported Reaction, Motion Sickness Additional Past Anesthesia/Blood Transfusion Reaction / Comment(s): No hx blood transfusion. Past Psychological History: Anxiety, Bipolar, Depression Smoking Status: Former smoker Past Alcohol Use History: None Reported Past Drug Use History: None Reported - Past Family History Father Family Medical History: Deep Vein Thrombosis (DVT) Additional Family Medical History / Comment(s): Father with COVID and Influenza, history of coronary aneurysm. Mother Family Medical History: CVA/TIA, Diabetes Mellitus, Eye Disorder Additional Family Medical History / Comment(s): Mother is alive at age 63 with history of bipolar, stroke, blindness. Brother(s) Additional Family Medical History / Comment(s): Patient has 2 brothers that are healthy. She has no sisters. She has 2 sons and 1 daughter that are healthy. General Exam Limitations: no limitations General appearance: alert, in no apparent distress Head exam: Present: atraumatic, normocephalic, normal inspection Eye exam: Present: normal appearance, EOMI Neck exam: Present: normal inspection. Absent: meningismus Respiratory exam: Absent: respiratory distress Cardiovascular Exam: Present: regular rate Right Ankle exam: Present: tenderness, swelling. Absent: full ROM Foot/Toe exam: Present: normal inspection Neurovascular tendon exam: Present: no vascular compromise Neurological exam: Present: alert, oriented X3 Psychiatric exam: Present: normal affect, normal mood Skin exam: Present: warm, dry Course Vital Signs 04/30/24 04/30/24 19:24 21:28 Temperature 99.9 F H 98.0 F Pulse Rate 70 81 Respiratory 18 18 Rate Blood Pressure 183/101 175/88 O2 Sat by Pulse 98 98 Oximetry Procedures - Orthopedic Splinting/Casting Injury #1 Side: right Lower Extremity Injury Location: ankle, foot Lower Extremity Immobilizer: posterior splint, stirrup splint Other Orthopedic Equipment: crutches Medical Decision Making - Medical Decision Making Was pt. sent in by a medical professional or institution (, PA, HARVEST CONTRACTOR, urgent care, hospital, or longterm...) When possible be specific @ -No Did you speak to anyone other than the patient for history (EMS, parent, family, police, friend...)? What history was obtained from this source @ -No Did you review nursing and triage notes (agree or disagree)? Why? @ -I reviewed and agree with nursing and triage notes Were old charts reviewed (outside hosp., previous admission, EMS record, old EKG, old radiological studies, urgent care reports/EKG's, longterm records)? Report findings @ -No old charts were reviewed Differential Diagnosis (chest pain, altered mental status, abdominal pain women, abdominal pain men, vaginal bleeding, weakness, fever, dyspnea, syncope, headache, dizziness, GI bleed, back pain, seizure, CVA, palpatations, mental health, musculoskeletal)? @ -Differential Musculoskeletal Muscular strain, contusion, ligament sprain, fracture, arthritis, septic arthritis, bursitis, cellulitis, muscle spasm, nerve compression, DVT, arterial occlusion, herpes zoster, electrolyte abnormality, tumor.... This is not meant to be in all inclusive list EKG interpreted by me (3pts min.). @ -As above X-rays interpreted by me (1pt min.). @ -X-ray shows avulsion fracture of the posterior calcaneus with superior displacement of the fracture component. Soft tissue swelling of the ankle. Irregularity of the Achilles tendon. MRI of the ankle without IV contrast could characterize the extent of the Achilles injury CT interpreted by me (1pt min.). @ -None done U/S interpreted by me (1pt. min.). @ -None done What testing was considered but not performed or refused? (CT, X-rays, U/S, labs)? Why? @ -None What meds were considered but not given or refused? Why? @ -None Did you discuss the management of the patient with other professionals (professionals i.e. , PA, HARVEST CONTRACTOR, lab, RT, psych nurse, oncology social worker, edge finisher, teacher, community resource officer, patient case coordinator)? Give summary @ -No Was smoking cessation discussed for >3mins.? @ -No Was critical care preformed (if so, how long)? @ -No Were there social determinants of health that impacted care today? How? (Homelessness, low income, unemployed, alcoholism, drug addiction, transportation, low edu. Level, literacy, decrease access to med. care, penitentiary, rehab)? @ -No Was there de-escalation of care discussed even if they declined (Discuss DNR or withdrawal of care, Hospice)? DNR status @ -No What co-morbidities impacted this encounter? (DM, HTN, Smoking, COPD, CAD, Cancer, CVA, ARF, Chemo, Hep., AIDS, mental health diagnosis, sleep apnea, morbid obesity)? @ -None Was patient admitted / discharged? Hospital course, mention meds given and route, prescriptions, significant lab abnormalities, going to OR and other pertinent info. @ -49-year-old female presenting chief complaint of right ankle injury. Patient is neurovascularly intact. X-rays are positive for avulsion fracture of the calcaneus. This is due to a suspected Achilles tendon rupture. Patient is placed in a posterior and stirrup splint. Advised to be nonweightbearing and provided with crutches. She will follow-up with her orthopedist Dr. Brown. Follow-up with PCP. Report back to ER with any new or worsening symptoms. Discussed return parameters and answered all questions. Patient conveyed verbal understanding and agreed to the plan. I discussed this case in detail with my attending Dr. Castaneda Undiagnosed new problem with uncertain prognosis? @ -No Drug Therapy requiring intensive monitoring for toxicity (Heparin, Nitro, Insulin, Cardizem)? @ -No Were any procedures done? @ -Splint applied Diagnosis/symptom? @ -Avulsion fracture of the calcaneus, Achilles tendon injury Acute, or Chronic, or Acute on Chronic? @ -Acute Uncomplicated (without systemic symptoms) or Complicated (systemic symptoms)? @ -Complicated Side effects of treatment? @ -No Exacerbation, Progression, or Severe Exacerbation? @ -No Poses a threat to life or bodily function? How? (Chest pain, USA, CA, pneumonia, PE, COPD, DKA, ARF, appy, cholecystitis, CVA, Diverticulitis, Homicidal, Suicidal, threat to staff... and all critical care pts) @ -Yes Disposition Clinical Impression: Achilles tendon rupture, Avulsion fracture of calcaneus Disposition: HOME SELF-CARE Condition: Fair Instructions (If sedation given, give patient instructions): Achilles Tendon Rupture (ED), Calcaneal Fracture (ED) Additional Instructions: Follow-up with orthopedics. Report back to ER with any new or worsening symptoms. Keep your splint on until seen by orthopedics. You must remain nonweightbearing on the right leg, use your crutches. Motrin and Tylenol as needed for pain control. Ice and elevate the extremity. Is patient prescribed a controlled substance at d/c from ED?: No Referrals: Chan Jain [Primary Care Provider] - 1-2 days Leandro Brown MD [Medical Doctor] - 1-2 days Time of Disposition: 21:16
[2024-04-30] MEDS: HYDROcodone/APAP 5-325MG 1 EACH TAB PO STA (19:42)
--- NOTE | 2024-04-30 20:19 | XR ---
EXAMINATION TYPE: XR ankle complete RT DATE OF EXAM: 04/30/2024 7:56 PM CLINICAL INDICATION:Female, 49 years old with history of injury; PHH, pain COMPARISON: None TECHNIQUE: XR ankle complete RT; ankle is imaged in frontal, lateral and oblique projections. FINDINGS: There is an avulsion fracture involving the posterior calcaneus with approximately 1.7 cm of superior displacement of the large fracture component. The Kager's fat pad is disrupted. Plantar spurring is noted. Soft tissue swelling of the right ankle is present. No additional fractures are appreciated. IMPRESSION: 1. Avulsion fracture of the posterior calcaneus with superior displacement of the fracture component. Soft tissue swelling of the ankle. 2. Irregularity of the Achilles tendon. MRI of the ankle without IV contrast could characterize the e xtent of the Achilles injury. [facility], , 04/30/2024 8:17 PM
[2024-04-30] MEDS: HYDROmorphone 1 MG/ML 1 ML SYRINGE IM STA (20:57)
[2024-04-30 21:43] VITALS: BP 175/88; PULSE 81; TEMP 98
== END 2024-04-30 21:29 | disposition home or self-care (01) ==
LOC: EC 19:11
DX: S92.001A Unspecified fracture of right calcaneus, initial encounter for closed fracture (principal); S86.011A Strain of right Achilles tendon, initial encounter; Z87.891 Personal history of nicotine dependence; Z91.030 Bee allergy status; Z88.8 Allergy status to other drugs, medicaments and biological substances; Z88.5 Allergy status to narcotic agent; X50.1XXA Overexertion from prolonged static or awkward postures, initial encounter
CPT/HCPCS: 73610; 99283; 96372; 29515; J1171

== ENCOUNTER → 2024-06-11 | Outpatient (CLI) | payer MEDICARE, OTHER ==
[2024-06-11 13:31] VITALS: BP 148/88; PULSE 57; RESP 18; TEMP 96.8
--- NOTE | 2024-06-11 15:18 | P.PAINPG ---
PQRS Measure Charge Sheet Comment: HISTORY OF PRESENT ILLNESS: A 49 yr old female as a referral from Dr Martinez presents today w severe and chronic thoracolumbar pain > 3 mo secondary to radiculopathy, spondylosis and facet arthropathy without myelopathy for evaluation. Pt states pain level is provoked at 8 /10 in intensity, constant, localized in the lumbar spine, predominantly axial, achy in character w occasional shooting pain towards the buttocks. Pain is provoked by bending, lifting. Pain is alleviated by PT x 6 wks which ended in Spr 2023, physician guided home stretches daily since 2023, heat, ice, medications, repositioning and rest . Oswestry axial pain score at 26. PMH: OA, Asthma, COPD, Fibromyalgia, GERD, HTN, Seizure Disorder (last 2013), KVNG, MDD/ Anxiety/ Bipolar PSH: Adenoidectomy, Appendectomy, Bariatric Surgery (2016), Gastric Bypass (2018), L Breast Metal Clip, Cholecystectomy, Hysterectomy, BL Knee Replacement, BL Knee Arthroscopy, BL CTR, R Elbow Arthroscopy, EGD/ Colonoscopy, Tonsillectomy, Tubal Ligation, Ventral Hernia w Lysis of Adhesions (2023) SH: Former tobacco user, No ETOH abuse, No illicit drug use, Hx of suicidal ideation (2014), Hx of OD (2015) FH: Fa- DVT, Aneurysm, . Mo- CVA, DM. Son & Daughter- No Reported History All: See list Meds: See list incl [place] 7.5/325mg, Neurontin 300mg, Diclofenac 75mg REVIEW OF ORGAN SYSTEMS: CONSTITUTIONAL: No fevers or chills. No recent weight loss. NEUROLOGICAL: + numbness and tingling along the distal extremities. No seizure disorders or headaches. MUSCULOSKELETAL: + pain PSYCHIATRIC: Denies current depression or suicidal thoughts. Physical Examinations : Constitutional : Cooperative , not in acute distress . Neurologic : Cranial nerve II to XII intact. No focal neurological deficits. Psychiatric : alert & oriented x 3. Matching mood & appropriate affect. Judgment & insight intact. Musculoskeletal : Cervical Spine Motor strength in the deltoid and biceps: Normal right side. Normal Left side Motor strength biceps and the wrist extensors: Normal right side . Normal left side Motor strength in the triceps muscle: Normal right side. Normal left side Deep tendon reflexes: Normal at the biceps. Normal at Brachioradialis. Normal at triceps Vertebral body tenderness to deep palpation over Cervical facet loading test: positive bilaterally Spurling test: positive bilaterally Neck distraction test: positive bilaterally Kenneth sign: positive bilaterally Lumbar spine Motor strength lower extremities ,thigh and legs 5/5 Right side , 5/5 Left side Deep tendon reflexes : Normal Knee Jerk. Normal Ankle Jerk Vertebral body tenderness over Tran Test positive BL L4-L5, L5-S1 Lumbar facet Loading Test: positive Right / positive Left Range of motion of the lumbar spine Flexion 30 degrees, extension 10 degrees Straight Leg Raise test: Left/ Right positive at degrees Priyank test: positive right / positive left. Severe tenderness over the Sacroiliac joint on the Right / Left sides Gaenslen test: positive bilaterally Seated flexion test: positive bilaterally. Sacral spine : Severe tenderness over the Sacroiliac joint: right side / left side Range of motion: Flexion of the lumbar spine <60 degrees Range of motion: Extension of the lumbar spine <20 degrees Gaenslen's Test positive Priyank test: positive right side / left side Thigh Thrust Test Sacral Thrust Test Imaging: X ray lumbar spine from 04/13/24 reviewed X ray pelvis from 04/13/24 reviewed Assessment/ Plan : Lumbar radiculopathy Recommendation of MRI non contrast lumbar M54.16 . All questions answered. I have spent greater than 30 minutes on patient care today. Dr Alberto was available by phone for the evaluation of this patient. The time was used to review the medical records including relevant urine studies and Prescription history (MAPs), review of the available imaging, evaluation and examination of the patient, coordination of care with the medical staff and if applicable referring physicians, as well as creation of the medical record PQRS Narrative: Smoking Status Former smoker Home Medications: Ambulatory Orders EPINEPHrine [Epipen 2-Melecio] 0.3 mg IM ONCE PRN 11/16/16 Vilazodone HCl [Viibryd] 10 mg PO HS 11/16/16 Gabapentin [Neurontin] 300 mg PO TID 02/16/17 Albuterol Sulfate [Ventolin HFA] 2 puff INHALATION RT-Q6H PRN 05/28/21 methocarbamoL [Robaxin] 500 mg PO QID 05/28/21 ALPRAZolam [Xanax] 1 mg PO BID PRN 03/12/22 Montelukast [Singulair] 10 mg PO HS 03/12/22 HYDROcodone/APAP 7.5-325MG [[place] 7.5-325] 1 tab PO Q6H 06/16/22 Omeprazole [PriLOSEC] 40 mg PO DAILY 11/16/22 Lactulose 20 gm PO BID PRN 12/28/23 Metoprolol Succinate (ER) [Toprol XL] 25 mg PO DAILY 12/28/23 QUEtiapine FUMARATE [SEROquel XR] 400 mg PO HS 12/28/23 lisinopriL 2.5 mg PO DAILY 12/28/23 HYDROcodone/APAP 7.5-325MG [[place] 7.5-325] 1 tab PO Q6HR PRN #28 tab 05/11/24 Controlled Substance Measures - Controlled Substance Measures Is patient prescribed a controlled substance at discharge?: No
== END ==
LOC: PNWHC3 12:38
PROVIDERS: ATTEND Specialist
DX: M47.16 Other spondylosis with myelopathy, lumbar region (principal); Z87.891 Personal history of nicotine dependence; Z91.048 Other nonmedicinal substance allergy status; Z88.6 Allergy status to analgesic agent; Z88.5 Allergy status to narcotic agent; Z88.8 Allergy status to other drugs, medicaments and biological substances; Z91.030 Bee allergy status
CPT/HCPCS: 99211

== ENCOUNTER → 2024-06-22 | Outpatient (CLI) | payer MEDICARE, OTHER ==
--- NOTE | 2024-06-22 22:04 | MR ---
EXAMINATION TYPE: MR lumbar spine wo con DATE OF EXAM: 06/22/2024 9:55 PM COMPARISON: 11/29/2023 CLINICAL INDICATION: Female, 49 years old with history of M54.16 RADICULOPATHY, LUMBAR REGION; PHH, c onstant low back pain, pinching, throbbing, muscle spasms, hard time sitting or standing for long per iods of time x3 years. TECHNIQUE: Multi planar, multi sequence imaging was performed utilizing: T1-weighted, T2-weighted, a nd turbo inversion recovery imaging of the lumbar spine. IV Contrast: mL (None, if empty) FINDINGS: Alignment: The lumbar vertebral bodies have preserved heights and alignment. Cord: The conus medullaris and the distal spinal cord appear unremarkable with regards to their signa l intensity and morphology. Bones/Discs: Mild degeneration changes throughout the spine with osteophyte formation and facet joint arthropathy. Intervertebral disc signal is maintained. Reactive adjoining endplate edema at anterior L1-L2 adjoining disc spaces. T12-L1: No evidence of significant spinal canal stenosis or neural foraminal stenosis. L1-L2: Disc bulge and facet joint arthropathy without significant spinal canal stenosis and mild bila teral neural foraminal stenosis. L2-L3: No evidence of significant spinal canal stenosis or neural foraminal stenosis. L3-L4: No evidence of significant spinal canal stenosis or neural foraminal stenosis. L4-L5: No evidence of significant spinal canal stenosis or neural foraminal stenosis. L5-S1: The disc has a rounded posterior morphology without significant spinal canal stenosis. Facet j oint arthropathy with mild bilateral neural foraminal stenosis. No significant spinal canal or neural foraminal stenosis in the remainder of the visualized levels. Other findings: None. IMPRESSION: 1. No definitive evidence of disc herniation or significant spinal canal stenosis. 2. Multilevel disc degeneration with associated osteoarthritic changes. Worse at the L1-L2 adjoining disc spaces. [facility], , 06/22/2024 10:02 PM
== END | disposition home or self-care (01) ==
LOC: RADMRIMAIN 21:45
PROVIDERS: ATTEND Specialist
DX: M51.16 Intervertebral disc disorders with radiculopathy, lumbar region (principal); M47.26 Other spondylosis with radiculopathy, lumbar region
CPT/HCPCS: 72148

== ENCOUNTER 2024-07-09 18:11 | Emergency (ER) | payer MEDICARE, OTHER ==
[2024-07-09] MEDS: HYDROmorphone 1 MG/ML 1 ML SYRINGE IM STA (19:03)
--- NOTE | 2024-07-09 19:04 | ED ---
General Adult HPI - General Chief complaint: Extremity Injury, Lower Stated complaint: R Foot Post-Op Issues Time Seen by Provider: 07/09/24 18:40 Source: patient, RN notes reviewed, old records reviewed Mode of arrival: ambulatory Limitations: no limitations - History of Present Illness Initial comments: This is a 49-year-old female who presents to the emergency department stating that she had surgery on her Achilles tendon on the right foot 2 months ago and she recently took off her boot and now her foot is more swollen and tender and it is much more sore than normal. Patient states she called her orthopedic surgeon but they did not call her back today. Patient denies any fever chills. Patient has any redness. Patient [place] any calf tenderness. - Related Data Home Medications Medication Instructions Recorded Confirmed EPINEPHrine [Epipen 2-Melecio] 0.3 mg IM ONCE PRN 11/16/16 05/11/24 Vilazodone HCl [Viibryd] 10 mg PO HS 11/16/16 05/11/24 Gabapentin [Neurontin] 300 mg PO TID 02/16/17 05/11/24 Albuterol Sulfate [Ventolin HFA] 2 puff INHALATION RT-Q6H PRN 05/28/21 05/11/24 methocarbamoL [Robaxin] 500 mg PO QID 05/28/21 05/11/24 ALPRAZolam [Xanax] 1 mg PO BID PRN 03/12/22 05/11/24 Montelukast [Singulair] 10 mg PO HS 03/12/22 05/11/24 HYDROcodone/APAP 7.5-325MG [[place] 1 tab PO Q6H 06/16/22 05/11/24 7.5-325] Omeprazole [PriLOSEC] 40 mg PO DAILY 11/16/22 05/11/24 Lactulose 20 gm PO BID PRN 12/28/23 05/11/24 Metoprolol Succinate (ER) [Toprol 25 mg PO DAILY 12/28/23 05/11/24 XL] QUEtiapine FUMARATE [SEROquel XR] 400 mg PO HS 12/28/23 05/11/24 lisinopriL 2.5 mg PO DAILY 12/28/23 05/11/24 Previous Rx's Medication Instructions Recorded HYDROcodone/APAP 7.5-325MG [[place] 1 tab PO Q6HR PRN #28 tab 05/11/24 7.5-325] Allergies Allergy/AdvReac Type Severity Reaction Status Date / Time adhesive Allergy Rash/Hives Verified 05/11/24 12:01 aspirin Allergy Anaphylaxis Verified 05/11/24 12:01 clonidine Allergy Rash/Hives Verified 05/11/24 12:01 hydroxyzine Allergy CONFUSION Verified 05/11/24 12:01 AND BODY SHAKES venlafaxine HCl Allergy Swelling Verified 05/11/24 12:01 [From Effexor] venom-honey bee Allergy Anaphylaxis Verified 05/11/24 12:01 [bee venom (honey bee)] buspirone AdvReac Rash/Hives Verified 05/11/24 12:01 Review of Systems ROS Statement: Those systems with pertinent positive or pertinent negative responses have been documented in the HPI. ROS Other: All systems not noted in ROS Statement are negative. Past Medical History Past Medical History: Asthma, COPD, Fibromyalgia, GERD/Reflux, Hypertension, Seizure Disorder, Sleep Apnea/CPAP/BIPAP Additional Past Medical History / Comment(s): Chronic back pain, LAST SEIZURE 2013, USES CPAP, VENTRAL HERNIA, Tachycardia History of Any Multi-Drug Resistant Organisms: None Reported Past Surgical History: Adenoidectomy, Appendectomy, Bariatric Surgery, Cholecystectomy, Hernia Repair, Hysterectomy, Joint Replacement, Orthopedic Surgery, Tonsillectomy, Tubal Ligation Additional Past Surgical History / Comment(s): Bilateral knee arthroscopy, epidural lumbar injections, BILATERAL CARPAL TUNNEL, ARTHROSCOPY RIGHT ELBOW, EGD with dilation, COLONOSCOPY, Gastric Sleeve 02/16/17, gastric bypass 10-30-18, Metal Clip in left breast, had mass removed, right knee replacement. lt knee replacement, lysis of adhesions/incisional hernia repair 12/30/23 Past Anesthesia/Blood Transfusion Reactions: No Reported Reaction, Motion Sickness Additional Past Anesthesia/Blood Transfusion Reaction / Comment(s): No hx blood transfusion. Past Psychological History: Anxiety, Bipolar, Depression Smoking Status: Former smoker Past Alcohol Use History: None Reported Past Drug Use History: None Reported - Past Family History Father Family Medical History: Deep Vein Thrombosis (DVT) Additional Family Medical History / Comment(s): Father with COVID and Influenza, history of coronary aneurysm. "Aorta tore in 2012" Mother Family Medical History: CVA/TIA, Diabetes Mellitus, Eye Disorder Additional Family Medical History / Comment(s): Mother is alive at age 63 with history of bipolar, stroke, blindness. Brother(s) Additional Family Medical History / Comment(s): Patient has 2 brothers that are healthy. She has no sisters. She has 2 sons and 1 daughter that are healthy. General Exam - General Exam Comments Initial Comments: GENERAL Patient is well-developed and well-nourished. Patient is in mild distress. EYES Patient's pupils are equal and round. Extraocular motion is intact SKIN Unremarkable NEURO The patient is alert and oriented A&Ox3 PYSCH Patient has normal interpersonal interactions. MUSCULOSKELETAL Patient's foot is swollen and the ankle region is tender bilaterally there is no area of redness or sign of infection Limitations: no limitations Course Vital Signs 07/09/24 18:37 Temperature 98.5 F Pulse Rate 62 Respiratory 20 Rate Blood Pressure 134/74 O2 Sat by Pulse 98 Oximetry Medical Decision Making - Medical Decision Making Was pt. sent in by a medical professional or institution (, PA, MAINTENANCE OF WAY FOREMAN, urgent care, hospital, or [place] health care facility...) When possible be specific @ -No Did you speak to anyone other than the patient for history (EMS, parent, family, police, friend...)? What history was obtained from this source @ -No Did you review nursing and triage notes (agree or disagree)? Why? @ -I reviewed and agree with nursing and triage notes Were old charts reviewed (outside hosp., previous admission, EMS record, old EKG, old radiological studies, urgent care reports/EKG's, [place] health care facility records)? Report findings @ -No old charts were reviewed Differential Diagnosis? @ -Postop pain, DVT, cellulitis, this is not an all-inclusive list EKG interpreted by me (3pts min.). @ -As above X-rays interpreted by me (1pt min.). @ -None done CT interpreted by me (1pt min.). @ -None done U/S interpreted by me (1pt. min.). @ -Ultrasounds negative for DVT What testing was considered but not performed or refused? (CT, X-rays, U/S, labs)? Why? @ -None What meds were considered but not given or refused? Why? @ -None Did you discuss the management of the patient with other professionals (professionals i.e. , PA, MAINTENANCE OF WAY FOREMAN, lab, RT, psych nurse, protective services social worker, product inspection supervisor, teacher, chief digital media officer, renal case manager)? Give summary @ -No Was smoking cessation discussed for >3mins.? @ -No Was critical care preformed (if so, how long)? @ -No Were there social determinants of health that impacted care today? How? (Homelessness, low income, unemployed, alcoholism, drug addiction, transportation, low edu. Level, literacy, decrease access to med. care, retirement, rehab)? @ -No Was there de-escalation of care discussed even if they declined (Discuss DNR or withdrawal of care, Hospice)? DNR status @ -No What co-morbidities impacted this encounter? (DM, HTN, Smoking, COPD, CAD, Cancer, CVA, ARF, Chemo, Hep., AIDS, mental health diagnosis, sleep apnea, morbid obesity)? @ -None Was patient admitted / discharged? Hospital course, mention meds given and route, prescriptions, significant lab abnormalities, going to OR and other pertinent info. @ -Patient was given Dilaudid and this helped her pain considerably. Patient will follow-up with the orthopedic surgeon. Undiagnosed new problem with uncertain prognosis? @ -No Drug Therapy requiring intensive monitoring for toxicity (Heparin, Nitro, Insulin, Cardizem)? @ -No Were any procedures done? @ -No Diagnosis/symptom? @ -Postop pain Acute, or Chronic, or Acute on Chronic? @ -Acute Uncomplicated (without systemic symptoms) or Complicated (systemic symptoms)? @ -Uncomplicated Side effects of treatment? @ -No Exacerbation, Progression, or Severe Exacerbation? @ -No Poses a threat to life or bodily function? How? (Chest pain, [place], [place], pneumonia, PE, COPD, DKA, ARF, appy, cholecystitis, CVA, Diverticulitis, Homicidal, Suicidal, threat to staff... and all critical care pts) @ -No Disposition Clinical Impression: Postoperative pain Disposition: HOME SELF-CARE Is patient prescribed a controlled substance at d/c from ED?: No Referrals: Deon Romero DPM [Doctor of Osteopathic Medicine] - 1-2 days
--- NOTE | 2024-07-09 20:20 | US ---
EXAMINATION TYPE: US venous doppler duplex LE RT DATE OF EXAM: 07/09/2024 7:27 PM COMPARISON: NONE CLINICAL INDICATION: Female, 49 years old with history of Postop, swollen leg; patient states surgery on 05/11 on right achilles tendon. patient just got boot off 2 days ago. pain and swelling in the rig ht ankle. no hx dvt. not on thinners , Pain TECHNIQUE: The lower extremity deep venous system is examined utilizing real time linear array sonog salom[place] with graded compression, color doppler sonography, and spectral doppler. SIDE PERFORMED: Right FINDINGS: VESSELS IMAGED: Common Femoral Vein Deep Femoral Vein Greater Saphenous Vein * Femoral Vein Popliteal Vein Small Saphenous Vein * Proximal Calf Veins (* superficial vessels) Right Leg: appears negative for dvt, Color Doppler imaging shows patency of the vessels. Spectral wa veforms are within normal limits. edema seen in the calf IMPRESSION: No ultrasound evidence for deep venous thrombosis. [facility], , 07/09/2024 8:18 PM
[2024-07-09 20:28] VITALS: BP 128/74; PULSE 68; RESP 17; TEMP 98.7
== END 2024-07-09 20:31 | disposition home or self-care (01) ==
LOC: EC 18:11
DX: G89.18 Other acute postprocedural pain (principal); Z87.891 Personal history of nicotine dependence; Z88.1 Allergy status to other antibiotic agents; Z88.5 Allergy status to narcotic agent; Z88.6 Allergy status to analgesic agent; Z91.09 Other allergy status, other than to drugs and biological substances; Z91.030 Bee allergy status
CPT/HCPCS: 93971; 99283; 96372; J1171

== ENCOUNTER → 2024-07-16 | Outpatient (CLI) | payer MEDICARE, OTHER ==
[2024-07-16 14:53] VITALS: BP 163/92; PULSE 61; RESP 17; TEMP 98.2
--- NOTE | 2024-07-25 07:40 | P.PAINPG ---
PQRS Measure Charge Sheet Comment: HISTORY OF PRESENT ILLNESS: A 49 yr old female presents today w severe and chronic thoracolumbar pain > 3 mo secondary to radiculopathy, spondylosis and facet arthropathy without myelopathy for evaluation. Pt states pain level is provoked at 7 /10 in intensity, constant, localized in the lumbar spine, predominantly axial, achy in character w occasional shooting pain towards the buttocks. Pain is provoked by bending, lifting. Pain is alleviated by PT x 6 wks which ended in 2023, physician guided home stretches daily since 2023, heat, ice, medications, repositioning and rest . Oswestry axial pain score at 26. Interventional procedures include Medications include [place] 7.5/325mg, Neurontin 300mg, Diclofenac 75mg. Hx of suicidal ideation (2014), Hx of OD (2016) REVIEW OF ORGAN SYSTEMS: CONSTITUTIONAL: No fevers or chills. No recent weight loss. NEUROLOGICAL: + numbness and tingling along the distal extremities. No seizure disorders or headaches. MUSCULOSKELETAL: + pain PSYCHIATRIC: Denies current depression or suicidal thoughts. Physical Examinations : Constitutional : Cooperative , not in acute distress . Neurologic : Cranial nerve II to XII intact. No focal neurological deficits. Psychiatric : alert & oriented x 3. Matching mood & appropriate affect. Judgment & insight intact. Musculoskeletal : Cervical Spine Motor strength in the deltoid and biceps: Normal right side. Normal Left side Motor strength biceps and the wrist extensors: Normal right side . Normal left side Motor strength in the triceps muscle: Normal right side. Normal left side Deep tendon reflexes: Normal at the biceps. Normal at Brachioradialis. Normal at triceps Vertebral body tenderness to deep palpation over Cervical facet loading test: positive bilaterally Spurling test: positive bilaterally Neck distraction test: positive bilaterally Kenneth sign: positive bilaterally Lumbar spine Motor strength lower extremities ,thigh and legs 5/5 Right side , 5/5 Left side Deep tendon reflexes : Normal Knee Jerk. Normal Ankle Jerk Vertebral body tenderness over L5 Tran Test positive BL L5-S1 Lumbar facet Loading Test: positive Right / positive Left Range of motion of the lumbar spine Flexion 30 degrees, extension 10 degrees Straight Leg Raise test: Left/ Right positive at degrees Priyank test: positive right / positive left. Severe tenderness over the Sacroiliac joint on the Right / Left sides Gaenslen test: positive bilaterally Seated flexion test: positive bilaterally. Sacral spine : Severe tenderness over the Sacroiliac joint: right side / left side Range of motion: Flexion of the lumbar spine <60 degrees Range of motion: Extension of the lumb ar spine <20 degrees Gaenslen's Test positive Priyank test: positive right side / left side Thigh Thrust Test Sacral Thrust Test Imaging: MRI non contrast lumbar spine from 06/22/24 reviewed Assessment/ Plan : L1-L2/ L5-S1 radiculopathy Recommendation of MITCH L5-S1 #1. Risks, benefits of procedure discussed and patient verbalized understanding. Protocol for discontinuation/continuation of medication surrounding procedure discussed. All questions answered. I have spent greater than 30 minutes on patient care today. Dr Alberto was available by phone for the evaluation of this patient. The time was used to review the medical records including relevant urine studies and Prescription history (MAPs), review of the available imaging, evaluation and examination of the patient, coordination of care with the medical staff and if applicable referring physicians, as well as creation of the medical record PQRS Narrative: Smoking Status Former smoker Home Medications: Ambulatory Orders EPINEPHrine [Epipen 2-Melecoi] 0.3 mg IM ONCE PRN 11/16/16 Vilazodone HCl [Viibryd] 10 mg PO HS 11/16/16 Gabapentin [Neurontin] 300 mg PO TID 02/16/17 Albuterol Sulfate [Ventolin HFA] 2 puff INHALATION RT-Q6H PRN 05/28/21 methocarbamoL [Robaxin] 500 mg PO QID 05/28/21 ALPRAZolam [Xanax] 1 mg PO BID PRN 03/12/22 Montelukast [Singulair] 10 mg PO HS 03/12/22 HYDROcodone/APAP 7.5-325MG [[place] 7.5-325] 1 tab PO Q6H 06/16/22 Omeprazole [PriLOSEC] 40 mg PO DAILY 11/16/22 Lactulose 20 gm PO BID PRN 12/28/23 Metoprolol Succinate (ER) [Toprol XL] 25 mg PO DAILY 12/28/23 QUEtiapine FUMARATE [SEROquel XR] 400 mg PO HS 12/28/23 lisinopriL 2.5 mg PO DAILY 12/28/23 HYDROcodone/APAP 7.5-325MG [[place] 7.5-325] 1 tab PO Q6HR PRN #28 tab 05/11/24 Controlled Substance Measures - Controlled Substance Measures Is patient prescribed a controlled substance at discharge?: No
== END ==
LOC: PNWHC3 14:40
PROVIDERS: ATTEND Specialist
DX: M47.25 Other spondylosis with radiculopathy, thoracolumbar region (principal); Z88.6 Allergy status to analgesic agent; Z91.030 Bee allergy status; Z88.8 Allergy status to other drugs, medicaments and biological substances; Z91.048 Other nonmedicinal substance allergy status; Z87.891 Personal history of nicotine dependence
CPT/HCPCS: 99212

== ENCOUNTER 2024-08-09 09:57 | Day surgery (SDC) | payer MEDICARE, OTHER ==
[~2024-08-09 09:57] MED LIST changes: -ACETAMINOPHEN TAB 500 MG TAB PO PRN; -DEXAMETHASONE SOD PHOSPHATE 10 MG/ML 1 ML VIAL IV PRN; -DEXAMETHASONE SOD PHOSPHATE 4 MG/ML 1 ML VIAL IV ONE; -DOCUSATE 100 MG CAP PO PRN; -FAMOTIDINE 20 MG/2 ML VIAL IVP PRN; -HYDROmorphone 0.5 MG/0.5 ML SYRINGE IVP PRN; -KETOROLAC 15 MG/ML 1 ML VIAL IVP PRN; +LACTATED RINGERS 1,000 ML IV SCH; -ONDANSETRON 4 MG/2 ML VIAL IVP ONE; -ONDANSETRON 4 MG/2 ML VIAL IVP PRN; -ROPIVACAINE/EPI/CLONIDINE/KET 50 ML SYRINGE MISCELLANE PRN; -TRANEXAMIC 1,000 MG/100ML-NACL 1,000 MG in SALINE 1 100ML.BAG IV PRN; -TRANEXAMIC 1,000 MG/100ML-NACL 1,000 MG in SALINE 1 100ML.BAG IVPB PRN; -oxyCODONE ER 10 MG TAB.ER.12H PO PRN
[2024-08-09 10:34] VITALS: TEMP 97.3
[2024-08-09] MEDS ORDERED: methylPREDNISolone ACETATE 80 MG/ML 1 ML VIAL ONE (11:09)
--- NOTE | 2024-08-09 11:16 | P.PCN ---
Date of Procedure: 08/09/24 Procedure(s) Performed: PREOPERATIVE DIAGNOSIS: 1- Lumbar Degenerative Disc Diseases 2-Lumbar spondylosis with Facet arthropathy without myelopathy. 3-lumbar radiculopathy POSTOPERATIVE DIAGNOSIS: 1-lumbar degenerative disc disease. 2-lumbar spondylosis with facet arthropathy without myelopathy. 3-lumbar radiculopathy. PROCEDURE 1. Lumbar epidural steroid injection under fluoroscopic guidance at the L5-S1 level. (Fluoroscopy imaging was available in radiology department) 2. Lumbar epidurogram. ANESTHESIA: Lidocaine 1% 3 and then only. EBL: Minimal PROCEDURE INDICATION: The patient with low back pain and radiculitis symptoms unresponsive to conservative treatment. Fluoroscopy was used to optimize visualization of the needle placement and to maximize safety. PROCEDURE DESCRIPTION / TECHNIQUE: The patient was seen and identified in the preoperative area. Risks, benefits, complications including but not limited to infections ,bleeding ,allergic reaction to the medications ,nerve damage and not complete pain releife , and alternatives were discussed with the patient. The patient agreed to proceed with the procedure and signed the consent, and vital signs were stable. Patient was taken to the OR and time out was completed. The patient was placed in the prone position on procedure table and a pillow was placed under the abdomen to reduce lumbar lordosis. The lumbosacral area was prepped and draped in the usual sterile fashion.ere closely monitored during the procedure. Vital signs was monitered during the entire procedure. Using anterior-posterior fluoroscopy, the L5-S1 interlaminar space was identified and the skin over this site was marked and then infiltrated with 1% lidocaine subcutaneously. Subsequently, a 20-gauge Tuohy epidural needle was inserted and advanced toward the epidural space using the ``Loss of resistance technique and guided by AP and lateral fluoroscopy. The correct needle position in the epidural space was verified with the injection of 2 mL of the water soluble contrast dye Isovue 200 contrast and observing an excellent epidurogram with the epidural spread of the dye, after negative aspiration for blood and CSF and in the absence of paresthesias. Again after negative aspiration, a 6 ml mixture containing 80 mg of Depo-medrol ( Preservetive Free ), and 2 ml of preservative free Normal Saline, and 2 ml of preservative free lidocaine 1% solution was injected and a washout of epidurogram was seen. Needle was withdrawn intact, skin was cleansed, and bandages were applied. COMPLICATIONS: None DISPOSITION / PLANS: The patient was placed in a supine position and transferred to the recovery area in a stable condition for observation. There was no evidence of lower extremity motor or sensory deficit after the procedure. Patient was discharged from the recovery room after meeting discharge criteria. Home discharge instructions were given to the patient by the staff. The patient was reexamined prior to discharge. The patient will schedule a follow up in the clinic in 2-4 weeks.
[2024-08-09 11:21] VITALS: RESP 16
[2024-08-09 11:37] VITALS: BP 156/96; PULSE 62
--- NOTE | 2024-08-09 11:49 | FL ---
EXAMINATION TYPE: FL guided pain mgmt statistic DATE OF EXAM: 08/09/2024 11:23 AM COMPARISON: Pre Operative Images if available both CT/MRI or plain film CLINICAL INDICATION: Female, 49 years old with history of LESI; TECHNIQUE: FL guided pain mgmt statistic, multiple fluoroscopic images provided for procedure. DAP: 0.11325 mGym2 Gycm2 uGym2 cGycm2 or equivalent. FINDINGS: Fluoroscopic images during injection for pain management demonstrate multilevel degeneration changes throughout the spine. No evidence for fracture. No acute process identified. IMPRESSION: 1. No evidence for intraoperative complication. 2. Please see the operative/procedural note for further details. [facility], , 08/09/2024 11:47 AM
== END 2024-08-09 11:43 ==
LOC: ORPAIN 09:57
PROVIDERS: ATTEND Specialist
DX: M51.16 Intervertebral disc disorders with radiculopathy, lumbar region (principal); M47.26 Other spondylosis with radiculopathy, lumbar region
CPT/HCPCS: 62323; J1010

== ENCOUNTER → 2024-09-24 | Outpatient (CLI) | payer MEDICARE, OTHER ==
[2024-09-24 11:33] VITALS: BP 128/84; PULSE 89; RESP 17
--- NOTE | 2024-09-24 15:51 | P.PAINPG ---
Objective - Vital Signs Vital signs: Vital Signs Temp Pulse 89 09/24/24 11:29 Resp 17 09/24/24 11:29 BP 128/84 09/24/24 11:29 Pulse Ox 96 09/24/24 11:29 FiO2 Intake & Output 09/23/24 09/24/24 09/24/24 18:59 06:59 18:59 Weight 90.718 kg PQRS Measure Charge Sheet Mode of Arrival: Ambulatory Comment: HISTORY OF PRESENT ILLNESS: A 49 yr old female presents today w severe and chronic thoracolumbar pain > 3 mo secondary to radiculopathy, spondylosis and facet arthropathy without myelopathy for evaluation s/p MITCH L5-S1 #1. Pt states she experienced 50% pain relief x 2-3 wks s/p procedure. Pt states pain level is provoked at 7 /10 in intensity, constant, localized in the lumbar spine, predominantly axial, achy in character w occasional shooting pain towards the buttocks. Pain is provoked by bending, lifting. Pain is alleviated by PT x 6 wks which ended in 2023, physician guided home stretches daily since 2023, heat, ice, medications, repositioning and rest . Oswestry axial pain score at 26. Interventional procedures include MITCH L5-S1 x1 (08/19) Medications include [place] 7.5/325mg, Neurontin 300mg, Diclofenac 75mg. Hx of suicidal ideation (2014), Hx of OD (2016) REVIEW OF ORGAN SYSTEMS: CONSTITUTIONAL: No fevers or chills. No recent weight loss. NEUROLOGICAL: + numbness and tingling along the distal extremities. No seizure disorders or headaches. MUSCULOSKELETAL: + pain PSYCHIATRIC: Denies current depression or suicidal thoughts. Physical Examinations : Constitutional : Cooperative , not in acute distress . Neurologic : Cranial nerve II to XII intact. No focal neurological deficits. Psychiatric : alert & oriented x 3. Matching mood & appropriate affect. Judgment & insight intact. Musculoskeletal : Cervical Spine Motor strength in the deltoid and biceps: Normal right side. Normal Left side Motor strength biceps and the wrist extensors: Normal right side . Normal left side Motor strength in the triceps muscle: Normal right side. Normal left side Deep tendon reflexes: Normal at the biceps. Normal at Brachioradialis. Normal at triceps Vertebral body tenderness to deep palpation over Cervical facet loading test: positive bilaterally Spurling test: positive bilaterally Neck distraction test: positive bilaterally Kenneth sign: positive bilaterally Lumbar spine Motor strength lower extremities ,thigh and legs 5/5 Right side , 5/5 Left side Deep tendon reflexes : Normal Knee Jerk. Normal Ankle Jerk Vertebral body tenderness over L5 Tran Test positive BL L5-S1 Lumbar facet Loading Test: positive Right / positive Left Range of motion of the lumbar spine Flexion 30 degrees, extension 10 degrees Straight Leg Raise test: Left/ Right positive at degrees Priyank test: positive right / positive left. Severe tenderness over the Sacroiliac joint on the Right / Left sides Gaenslen test: positive bilaterally Seated flexion test: positive bilaterally. Sacral spine : Severe tenderness over the Sacroiliac joint: right side / left side Range of motion: Flexion of the lumbar spine <60 degrees Range of motion: Extension of the lumbar spine <20 degrees Gaenslen's Test positive Priyank test: positive right side / left side Thigh Thrust Test Sacral Thrust Test Imaging: MRI non contrast lumbar spine from 06/22/24 reviewed Assessment/ Plan : L1-L2/ L5-S1 radiculopathy Recommendation of BL TFESI L5-S1 #1. Risks, benefits of procedure discussed and patient verbalized understanding. All questions answered. I have spent greater than 30 minutes on patient care today. Dr Alberto was available by phone for the evaluation of this patient. The time was used to review the medical records including relevant urine studies and Prescription history (MAPs), review of the available imaging, evaluation and examination of the patient, coordination of care with the medical staff and if applicable referring physicians, as well as creation of the medical record - Pain Location Lower Back Non-Pharmacological Interventions: Heat, Ice Pharmacological Interventions: Medication PQRS Narrative: Smoking Status Former smoker Blood Pressure 128/84 Pain Intensity [Lower Back] 8 Scale Used Numeric (1 - 10) Home Medications: Ambulatory Orders EPINEPHrine [Epipen 2-Melecio] 0.3 mg IM ONCE PRN 11/16/16 Vilazodone HCl [Viibryd] 10 mg PO HS 11/16/16 Gabapentin [Neurontin] 300 mg PO TID 02/16/17 Albuterol Sulfate [Ventolin HFA] 2 puff INHALATION RT-Q6H PRN 05/28/21 methocarbamoL [Robaxin] 500 mg PO QID 05/28/21 ALPRAZolam [Xanax] 1 mg PO BID PRN 03/12/22 Montelukast [Singulair] 10 mg PO HS 03/12/22 Omeprazole [PriLOSEC] 40 mg PO DAILY 11/16/22 Lactulose 20 gm PO BID PRN 12/28/23 Metoprolol Succinate (ER) [Toprol XL] 25 mg PO DAILY 12/28/23 QUEtiapine FUMARATE [SEROquel XR] 400 mg PO HS 12/28/23 lisinopriL 2.5 mg PO DAILY 12/28/23 HYDROcodone/APAP 7.5-325MG [[place] 7.5-325] 1 tab PO Q6HR PRN #28 tab 05/11/24 Controlled Substance Measures - Controlled Substance Measures Is patient prescribed a controlled substance at discharge?: No
== END ==
LOC: PNWHC3 10:21
PROVIDERS: ATTEND Specialist
DX: M47.27 Other spondylosis with radiculopathy, lumbosacral region (principal); Z87.891 Personal history of nicotine dependence; Z91.048 Other nonmedicinal substance allergy status; Z88.6 Allergy status to analgesic agent; Z91.030 Bee allergy status
CPT/HCPCS: 99212

== ENCOUNTER 2024-10-11 11:28 | Day surgery (SDC) | payer MEDICARE, OTHER ==
[2024-10-10 10:16] VITALS: BMI 31.3
[2024-10-11 12:27] VITALS: TEMP 97.8
[2024-10-11] MEDS ORDERED: DEXAMETHASONE SOD PHOSPHATE 10 MG/ML 1 ML VIAL ONE (13:23)
[2024-10-11] MEDS ORDERED: IOPAMIDOL M300 15ML VIAL ONE (13:23)
--- NOTE | 2024-10-11 13:47 | P.PCN ---
Description of Procedure: PREOPERATIVE DIAGNOSIS: 1-Lumbar radiculopathy . 2-lumbar degenerative disc disease. 3-lumbar spondylosis with lumbar facet arthropathy without myelopathy POSTOPERATIVE DIAGNOSIS: 1-lumbar radiculopathy. 2-lumbar degenerative disc disease. 3-lumbar spondylosis with facet arthropathy without myelopathy PROCEDURE 1. Transforaminal epidural steroid injection under fluoroscopic guidance at BILATERAL L5-S1 level. (Fluoroscopy images stored on file in the radiology Department ) 2. Lumbar epidurogram . ANESTHESIA: Local with 1% lidocaine 5 ml. subcutaneously. Continuous pulse ox, EKG, blood pressure and verbal communication was maintained with the patient. EBL: Minimal PROCEDURE INDICATION: The patient with low back pain and radiculopathy symptoms unresponsive to conservative treatment. The patient was seen and identified in the preoperative area. Risks, benefits, complications, and alternatives were discussed with the patient. The patient agreed to proceed with the procedure and signed the consent. IV was started, and vital signs were stable. PROCEDURE DESCRIPTION / TECHNIQUE: After getting consent, patient was taken to the OR and time out was completed. The patient was placed in the prone position on procedure table and a pillow was placed under the abdomen to reduce lumbar lordosis. The lumbosacral area was prepped and draped in the usual sterile fashion. Critical pause was taken. After injecting 5 mL of plain 1% lidocaine subcutaneously, under oblique view of the fluoroscope, a 22-gauge spinal needle was introduced under the tunnel view of the fluoroscope on the RIGHT side and the needle was advanced so that the tip of the needle was at the posterior inferior quadrant of the intervertebral for amen at the lateral view of the fluoroscope and in the lateral third of the facet column in the AP view of the fluoroscope. Negative CSF, negative blood, negative paresthesia. After needle position confirmation by AP and cross table lateral view, 3 mL of Isovue-M 200 contrast was injected under continuous fluoroscope. No contrast was noted in the intrathecal or intravascular space. The epidurogram was noted. Again after repeated negative aspiration 2.5 mL solution was injected which consists 1 mL of normal saline mixed with 1.5 mL of 15 mg dexamethasone. Needle was removed . Same procedure was repeated at the LEFT side , using contrast under continuous fluoroscopy and using same amount of dexamethasone. At the end of the procedure, skin was cleansed, and bandages were applied. DISPOSITION / PLANS: No complication. The patient tolerated the procedure well. The patient was placed in a supine position and transferred to the recovery area in a stable condition for observation. There was no evidence of lower extremity motor or sensory deficit after the procedure. Patient was discharged from the recovery room after meeting discharge criteria. Home discharge instructions were given to the patient by the staff. The patient was reexamined prior to discharge.
[2024-10-11 14:07] VITALS: BP 136/73; PULSE 54; RESP 18
--- NOTE | 2024-10-11 14:10 | FL ---
EXAMINATION TYPE: FL guided pain mgmt statistic DATE OF EXAM: 10/11/2024 1:49 PM COMPARISON: Pre Operative Images if available both CT/MRI or plain film CLINICAL INDICATION: Female, 49 years old with history of TRNSFORAMINAL EPI; TECHNIQUE: FL guided pain mgmt statistic, multiple fluoroscopic images provided for procedure. DAP: 43.15 mGym2 Gycm2 uGym2 cGycm2 or equivalent. FINDINGS: Fluoroscopic images during injection for pain management demonstrate multilevel degeneration changes throughout the spine. No evidence for fracture. No acute process identified. IMPRESSION: 1. No evidence for intraoperative complication. 2. Please see the operative/procedural note for further details. [facility], , 10/11/2024 2:07 PM
== END 2024-10-11 14:17 | disposition home or self-care (01) ==
LOC: ORPAIN 11:28
PROVIDERS: ATTEND Pain Medicine Interventional Pain Medicine
DX: M51.16 Intervertebral disc disorders with radiculopathy, lumbar region (principal); M48.061 Spinal stenosis, lumbar region without neurogenic claudication
CPT/HCPCS: 64483; J1100; Q9967